=== PATIENT | female | born 1975 | race Caucasian/White ===

== ENCOUNTER → 2019-12-02 10:53 | Outpatient (BNVA) | payer OTHER, SELFPAY | PROVIDERS: Family Provider Family Medicine; PCP Family Medicine; Referring Provider Family Medicine; Visit Provider Internal Medicine Rheumatology | DX: M32.9 Systemic lupus erythematosus, unspecified (principal); Z23 Encounter for immunization; M06.9 Rheumatoid arthritis, unspecified; Z79.899 Other long term (current) drug therapy; M79.7 Fibromyalgia; M81.0 Age-related osteoporosis without current pathological fracture; Z79.52 Long term (current) use of systemic steroids; E55.9 Vitamin D deficiency, unspecified | CPT/HCPCS: 36415; 85651; 90471; 90732; 96365; 96374; 96375; 99214; J0490; J1200; J2930; J7050 ==

== ENCOUNTER 2019-12-02 11:55 | Outpatient (CLI) | payer OTHER, SELFPAY ==
[2019-12-02 12:34] VITALS: BP 135/93; PULSE 103; RESP 18; TEMP 36.8; O2SAT 97
[2019-12-02] MEDS: diphenhydrAMINE 50 mg/mL SDV 1mL IVP (13:09)
[2019-12-02] MEDS: sodium chloride 0.9 % (flush) syringe 10 mL 50 ML IV (14:16)
[2019-12-02 15:30] VITALS: BP 132/87; PULSE 93; RESP 18; TEMP 36.4; O2SAT 97
--- NOTE | 2019-12-02 16:17 | PC.NURSE ---
INFUSION OVER 2HRS DUE TO PATIENT AND PHYSICIAN PREFERENCE.
== END 2019-12-02 11:56 | disposition home or self-care (01) ==
LOC: RHEOACUTE 11:56
PROVIDERS: Family Provider Family Medicine; PCP Family Medicine; Visit Provider Internal Medicine Rheumatology
DX: Z76.89 Persons encountering health services in other specified circumstances (principal)
CPT/HCPCS: 85651; 90471; 90732; 96375; J0490; J1200; J2930; J7050

== ENCOUNTER → 2019-12-02 12:04 | Outpatient (BNVA) | payer OTHER, SELFPAY | PROVIDERS: Family Provider Family Medicine; PCP Family Medicine; Visit Provider Internal Medicine Rheumatology | DX: M32.9 Systemic lupus erythematosus, unspecified (principal); D89.9 Disorder involving the immune mechanism, unspecified | CPT/HCPCS: 85025 ==

== ENCOUNTER → 2020-02-26 15:13 | Outpatient (BNVA) | payer OTHER, SELFPAY | PROVIDERS: Family Provider Family Medicine; PCP Family Medicine; Visit Provider Internal Medicine Rheumatology | DX: M32.9 Systemic lupus erythematosus, unspecified (principal); E55.9 Vitamin D deficiency, unspecified; Z79.899 Other long term (current) drug therapy; Z11.59 Encounter for screening for other viral diseases; Z72.89 Other problems related to lifestyle | CPT/HCPCS: 36415; 80076; 81001; 82306; 82565; 82570; 84156; 85025; 85651; 86140; 86160; 86480; 86704; 86803; 87340 ==

== ENCOUNTER 2020-03-04 12:59 | Outpatient (CLI) | payer OTHER, SELFPAY ==
[2020-03-04 13:20] VITALS: BP 120/82; PULSE 104; RESP 18; TEMP 36.5; O2SAT 96
[2020-03-04] MEDS: diphenhydrAMINE 50 mg/mL SDV 1mL IVP (14:17)
[2020-03-04 16:15] VITALS: BP 131/90; PULSE 100; RESP 18; O2SAT 96
== END 2020-03-04 13:00 | disposition home or self-care (01) ==
LOC: RHEOACUTE 12:59
PROVIDERS: Family Provider Family Medicine; PCP Family Medicine; Visit Provider Internal Medicine Rheumatology
DX: M32.9 Systemic lupus erythematosus, unspecified (principal); Z86.39 Personal history of other endocrine, nutritional and metabolic disease; J34.89 Other specified disorders of nose and nasal sinuses; M81.0 Age-related osteoporosis without current pathological fracture; J96.90 Respiratory failure, unspecified, unspecified whether with hypoxia or hypercapnia
CPT/HCPCS: 36415; 82310; 83516; 84439; 84443; 96365; 96374; 96375; J0490; J1200; J2930; J7050

== ENCOUNTER 2020-03-23 10:45 | Outpatient (CLI) | payer OTHER, SELFPAY ==
[2020-03-23 11:10] VITALS: BP 142/97; PULSE 108; RESP 16; TEMP 36.6; O2SAT 98
--- NOTE | 2020-03-23 11:11 | PC.NURSE ---
c/o UTI symptoms. states urgency, pain, burning. Obtained urine specimen. Pt started crying stating she's hurting all over and wants to talk to the Dr about medication. Dr Cummings notified. Juan cancelled for today.
== END 2020-03-23 10:46 | disposition home or self-care (01) ==
LOC: RHEOACUTE 10:45
PROVIDERS: Family Provider Family Medicine; PCP Family Medicine; Visit Provider Internal Medicine Rheumatology
DX: M32.9 Systemic lupus erythematosus, unspecified (principal); M47.816 Spondylosis without myelopathy or radiculopathy, lumbar region; N39.0 Urinary tract infection, site not specified; M47.812 Spondylosis without myelopathy or radiculopathy, cervical region; M79.7 Fibromyalgia; M81.0 Age-related osteoporosis without current pathological fracture; Z79.52 Long term (current) use of systemic steroids; Z79.899 Other long term (current) drug therapy
CPT/HCPCS: 81001; 99214

== ENCOUNTER 2020-04-13 14:17 | Emergency (ER) | payer OTHER, SELFPAY ==
[2020-04-13] VITALS (7 sets, daily range): BP systolic 122–154; BP diastolic 82–109; PULSE 116–134; RESP 18–22; TEMP 36.9; O2SAT 96–100; BMI 40.7
--- NOTE | 2020-04-13 14:35 | XRR_ITS ---
PROCEDURE INFORMATION: Exam: XR Chest, 1 View Exam date and time: 04/13/2020 2:50 PM Age: 44 years old Clinical indication: Shortness of breath; Additional info: Cp, tachycardia, trouble breathing, hx/of asthma TECHNIQUE: Imaging protocol: XR of the chest Views: 1 view. COMPARISON: No relevant prior studies available. FINDINGS: Lungs: Unremarkable. No consolidation. Pleural space: Unremarkable. No pleural effusion. No pneumothorax. Heart/Mediastinum: Unremarkable. No cardiomegaly. Bones/joints: Unremarkable. XR/XR chest 1V portable [id number] IMPRESSION: No acute findings.
--- NOTE | 2020-04-13 14:35 | ECG_ITS ---
Measurements Intervals [place] Rate: 130 P: 21 NM: 124 QRS: 0 QRSD: 89 T: 37 QT: 333 QTc: 490 SINUS TACHYCARDIA NONSPECIFIC T-WAVE ABNORMALITY ABNORMAL RHYTHM ECG Compared to ECG 08/20/2018 11:02:22 T-wave abnormality now present Sinus rhythm no longer present Electronically Signed On 04-13-2020 19:35:48 CDT by Nancy Schmitt M.D. [id number] f
[2020-04-13 14:45] LABS: Basophils # 0.1 10^3/uL (0.0-0.1); Basophils % 0.5 %; Eosinophils # 0.4 10^3/uL (0.0-0.8); Eosinophils % 2.3 %; Hemoglobin 13.8 g/dL (11.5-15.3); Lymphocytes # 4.5 10^3/uL (0.8-4.8); Mean Corpuscular HGB Conc 32.9 g/dL (30.0-36.0); Mean Corpuscular Hemoglobin 28.5 pg (28.0-34.0); Mean Corpuscular Volume 86.8 fL (81-99); Mean Platelet Volume 8.8 fL (7.4-10.4); Monocytes # 1.1 10^3/uL (0.2-0.9); Monocytes % 5.9 %; Neutrophils # 12.4 10^3/uL (1.8-7.7); Neutrophils % 65.8 %; Nucleated Red Blood Cells % 0 %; Platelet Count 414 10^3/cmm (130-400); Red Blood Count 4.84 10^6/uL (4.1-5.3); Red Cell Distribution Width 11.6 % (12.1-15.1); White Blood Count 18.8 10^3/uL (4.0-10.0)
[2020-04-13 15:00] LABS: Alanine Aminotransferase 12 U/L (0-33); Albumin Level 4.3 g/dL (3.5-5.2); Alkaline Phosphatase 89 IU/L (35-105); Anion Gap 17.6 (5-19); Aspartate Amino Transferase 13 U/L (0-32); Blood Urea Nitrogen 10 mg/dL (6-20); Calcium 10.1 mg/dL (8.5-10.5); Carbon Dioxide 27 mmol/L (22-29); Chloride 95 mmol/L (98-107); Globulin 3.2 g/dL (1.3-4.6); Glomerular Filtration Rate 90.5 mL/min (90-130); Glucose 89 mg/dL (65-115); Osmolality Calculated 277 mOsm/kg (285-295); Potassium 3.6 mmol/L (3.5-5.1); Sodium 136 mmol/L (136-145); Total Bilirubin 0.2 mg/dL (0.15-1.2); Total Protein 7.5 g/dL (6.6-8.7)
[2020-04-13 15:03] LABS: Troponin(5th) Baseline 7 ng/L (0-10)
[2020-04-13] MEDS: sodium chloride 0.9% 500 ML 999 ML IV (15:05)
[2020-04-13] MEDS: LORazepam 2 mg/mL INJ 1 mL 0.5 MG IVP (15:07)
--- NOTE | 2020-04-13 15:33 | W.ED.CHESTPA ---
HPI - Chest Pain General: Chief Complaint: Chest Pain Stated Complaint: high hr/cp Time Seen by Provider: 04/13/20 14:19 History of Present Illness: HPI narrative: This patient is a 44 year old female with an extensive history including lupus, RA, functional seizures, chronic chest pain, CVA. 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 She says that she feels like her usual self today - she says that she alsways feels crappy due to her multiple medical issues. She has chest pain all the time due to inflammation in her breastbone, and she also notes that she has had a high rate for most of her life. She says that it is always high when she goes to her PCP, but that it usually isn't that high at the rheumatology office for some reason. She has had work up in the past including a holter monitor that showed sinus tachycardia as her baseline rhythm. She says that she has never been told why her heart rate runs high. She denies fever, cough, shortness of breath. She does have abdominal pain, but says that is a constant for her as well due to gastroparesis. complaint: chest pain and other (tachycardia) Pertinent past history: asthma Onset (ago): unknown Timing of current episode: constant Associated symptoms: Deny dyspnea, fever(s) or vomiting Review of Systems General: Reports: 10 or more systems reviewed and unremarkable except in HPI and below Const: Denies: fever(s) or chills Eyes: Denies: change in vision ENMT: Denies: odynophagia Card: Reports: chest pain (chronic, due to inflammation per patient); Denies: swelling of feet/ankles Resp: Denies: dyspnea, productive cough or non-productive cough GI: Denies: vomiting : Denies: flank pain or difficulty voiding Musc: Denies: neck pain or back pain Skin/Breast: Denies: rash Neuro: Denies: headache(s), numbness in extremities or weakness in extremities Mauri/Lymph: Denies: easy bruising or easy bleeding PFS ED PFSH: Medical History Antiphospholipid antibody positive Cervical spondylosis Fibromyalgia Gastroparesis Hx of Sjogren's disease Immunosuppression Lumbar spondylosis Medication monitoring encounter MGUS (monoclonal gammopathy of unknown significance) Osteoporosis Systemic lupus erythematosus (SLE) in adult Vitamin D deficiency Surgical History H/O tubal ligation History of cholecystectomy Social History Smoking and tobacco status: never smoked Second hand smoke exposure: Yes Alcohol intake: never Lives independently: Yes Household members: spouse Marital status: Number of children: 3 Current occupational status: disabled History of recent travel: No Current gender identity: Female Physical Exam Const: COMMON NORMALS: no acute distress, patient oriented x3, no limitations and alert GENERAL APPEARANCE: cooperative and comfortable HENMT: HEAD & SCALP: normal to inspection FACE & SINUS: normal facial exam Eye: GENERAL EYE: appearance normal, both eyes and all related structures Neck/C-Spine: COMMON NORMALS: supple, no meningeal signs and no JVD Chest: COMMONS NORMALS: normal inspection of the chest Resp: COMMON NORMALS: normal respiratory effort, No use of accessory muscles and clear to auscultation bilaterally AUSCULTATION: clear to auscultation bilaterally Cardio: COMMON NORMALS: no JVD, regular rate, regular rhythm and No murmurs present (Cardio) RATE: regular rate and tachycardic RHYTHM: regular rhythm GI: COMMON NORMALS: Normal to inspection, nondistended, normoactive bowel sounds present, Soft to palpation and non-tender INSPECTION: Yes normal to inspection AUSCULTATION: Yes normoactive bowel sounds PALPATION: Yes Soft to palpation Back/Pelvis: COMMON NORMALS: thoracic and lumbar spine normal to inspection Extremity: COMMON NORMALS: normal to inspection Neuro: COMMON NORMALS: patient oriented x3, moves all extremities, no focal motor deficits and no sensory deficits noted SENSORIUM/ORIENTATION: Yes alert MENINGEAL SIGNS: Yes no meningeal signs Psych: COMMON NORMALS: mental status grossly normal, cooperative and normal affect Skin: COMMON NORMALS: no rashes or lesions noted and turgor normal GENERAL SKIN EXAM: no rashes or lesions noted and turgor normal Course Vital Signs: Vital signs: Vital Signs Temperature 98.5 F 04/13/20 14:24 Pulse Rate 122 H 04/13/20 18:20 Respiratory Rate 18 04/13/20 18:20 Blood Pressure 134/102 04/13/20 18:20 Pulse Oximetry 100 04/13/20 18:20 MDM - Chest Pain MDM Narrative: Medical decision making narrative: Tachycardia in a patient with extensive autoimmune disorders. She denies any symptoms related to this. She says that her heart rate has always been this high and she is not concerned at all. Review of prior records reveals that this actually is the case. She has had a history of persistent tachycardia on multiple visits in the past. Given a negative work-up and reassuring review of the records I think she is safe to go home. Lab Data: Labs: Lab Results 04/13/20 04/13/20 04/13/20 Range/Units 14:35 14:35 14:35 WBC 18.8 H (4.0-10.0) 10^3/ uL RBC 4.84 (4.1-5.3) 10^6/u L Hgb 13.8 (11.5-15.3) g/dL Hct 42.0 (37.0-47.0) % MCV 86.8 (81-99) fL MCH 28.5 (28.0-34.0) pg MCHC 32.9 (30.0-36.0) g/dL RDW 11.6 L (12.1-15.1) % Plt Count 414 H (130-400) 10^3/c mm MPV 8.8 (7.4-10.4) fL Neut % (Auto) 65.8 % Lymph % (Auto) 24.0 % [place] % (Auto) 5.9 % Eos % (Auto) 2.3 % Baso % (Auto) 0.5 % Neut # (Auto) 12.4 H (1.8-7.7) 10^3/u L Lymph # (Auto) 4.5 (0.8-4.8) 10^3/u L [place] # (Auto) 1.1 H (0.2-0.9) 10^3/u L Eos # (Auto) 0.4 (0.0-0.8) 10^3/u L Baso # (Auto) 0.1 (0.0-0.1) 10^3/u L Nucleated RBC % (a uto) 0 % Nucleated RBCs # 0.0 /100WBC Sodium 136 (136-145) mmol/L Potassium 3.6 (3.5-5.1) mmol/L Chloride 95 L (98-107) mmol/L Carbon Dioxide 27 (22-29) mmol/L Anion Gap 17.6 (5-19) BUN 10 (6-20) mg/dL Creatinine 0.7 (0.5-0.9) mg/dL GFR Calculation 90.5 (90-130) mL/min Glucose 89 (65-115) mg/dL Calculated Osmolal ity 277 L (285-295) mOsm/k g Calcium 10.1 (8.5-10.5) mg/dL Total Bilirubin 0.2 (0.15-1.2) mg/dL AST 13 (0-32) U/L ALT 12 (0-33) U/L Alkaline Phosphata se 89 (35-105) IU/L Troponin T Baselin e 7 (0-10) ng/L Troponin T 120 Min [place] (0-10) ng/L Delta Troponin T (0-10) ABS# Total Protein 7.5 (6.6-8.7) g/dL Albumin 4.3 (3.5-5.2) g/dL Globulin 3.2 (1.3-4.6) g/dL 04/13/20 Range/Units 16:26 WBC (4.0-10.0) 10^3/ uL RBC (4.1-5.3) 10^6/u L Hgb (11.5-15.3) g/dL Hct (37.0-47.0) % MCV (81-99) fL MCH (28.0-34.0) pg MCHC (30.0-36.0) g/dL RDW (12.1-15.1) % Plt Count (130-400) 10^3/c mm MPV (7.4-10.4) fL Neut % (Auto) % Lymph % (Auto) % [place] % (Auto) % Eos % (Auto) % Baso % (Auto) % Neut # (Auto) (1.8-7.7) 10^3/u L Lymph # (Auto) (0.8-4.8) 10^3/u L [place] # (Auto) (0.2-0.9) 10^3/u L Eos # (Auto) (0.0-0.8) 10^3/u L Baso # (Auto) (0.0-0.1) 10^3/u L Nucleated RBC % (a uto) % Nucleated RBCs # /100WBC Sodium (136-145) mmol/L Potassium (3.5-5.1) mmol/L Chloride (98-107) mmol/L Carbon Dioxide (22-29) mmol/L Anion Gap (5-19) BUN (6-20) mg/dL Creatinine (0.5-0.9) mg/dL GFR Calculation (90-130) mL/min Glucose (65-115) mg/dL Calculated Osmolal ity (285-295) mOsm/k g Calcium (8.5-10.5) mg/dL Total Bilirubin (0.15-1.2) mg/dL AST (0-32) U/L ALT (0-33) U/L Alkaline Phosphata se (35-105) IU/L Troponin T Baselin e (0-10) ng/L Troponin T 120 Min [place] 6.00 (0-10) ng/L Delta Troponin T -1.00 L (0-10) ABS# Total Protein (6.6-8.7) g/dL Albumin (3.5-5.2) g/dL Globulin (1.3-4.6) g/dL Discharge Plan Discharge Patient Disposition: Home, Self-Care Clinical Impression: Tachycardia Condition: Stable Prescriptions: No Action pilocarpine HCl [Salagen (pilocarpine)] 5 mg tablet 5 mg PO TID PRN (Reason: unknown) RF: 0 promethazine 25 mg tablet 25 mg PO Q6H PRN (Reason: unknown) RF: 0 hydroxychloroquine 200 mg tablet 200 mg PO BID RF: 0 hydroxyzine HCl 25 mg tablet 25 mg PO .q 8 hours PRN (Reason: prn) RF: 0 diclofenac sodium [Voltaren] 1 % gel 2 gm TOPICAL QID PRN (Reason: unknown) RF: 0 gabapentin 600 mg tablet 600 mg PO TID RF: 0 gabapentin 300 mg capsule 300 mg PO TID RF: 0 desvenlafaxine succinate [Pristiq] 50 mg tablet extended release 24 hr 50 mg PO DAILY RF: 0 lamotrigine 25 mg tablet 75 mg PO TID RF: 0 aspirin [Adult Aspirin Regimen] 81 mg tablet,delayed release (DR/EC) 81 mg PO DAILY RF: 0 atorvastatin [Lipitor] 40 mg tablet 40 mg PO DAILY RF: 0 diltiazem HCl [Cartia XT] 240 mg capsule,extended release 24hr 240 mg PO DAILY RF: 0 pantoprazole 40 mg tablet,delayed release (DR/EC) 40 mg PO BID RF: 0 clopidogrel [Plavix] 75 mg tablet 75 mg PO DAILY RF: 0 levothyroxine 137 mcg capsule 137 mcg PO DAILY RF: 0 albuterol sulfate 90 mcg/actuation HFA aerosol inhaler 2 puff INHALATION Q6H PRN (Reason: Shortness Of Breath) RF: 0 epinephrine [EpiPen] 0.3 mg/0.3 mL auto-injector 0.3 mg IM Q10M PRN (Reason: Allergic Reaction) RF: 0 cetirizine [Zyrtec] 10 mg tablet 10 mg PO DAILY RF: 0 metoclopramide HCl [Reglan] 10 mg tablet 15 mg PO TID RF: 0 furosemide [Lasix] 20 mg tablet 10 mg PO QAM PRN (Reason: edema) RF: 0 carisoprodol 350 mg tablet 350 mg PO TID PRN (Reason: muscle pain) RF: 0 oxycodone 15 mg tablet 15 mg PO Q4H PRN (Reason: Pain) RF: 0 clonazepam 1 mg tablet 1 mg PO BID PRN (Reason: unknown) RF: 0 cholecalciferol (vitamin D3) 50 mcg (2,000 unit) capsule 50 mcg PO DAILY Qty: 30 RF: 3 fluticasone propion-salmeterol [Advair Diskus] 250-50 mcg/dose blister with device 1 inh INHALATION BID Qty: 60 RF: 3 azathioprine 50 mg tablet 50 mg .ROUTE .COMPLEX Qty: 150 RF: 1 prednisone 2.5 mg tablet 7.5 mg PO DAILY Qty: 90 RF: 1 Tylenol Extra Strength 500 mg Tablet 1,000 mg PO PRN PRN (Reason: Pain) RF: 0 Benlysta 120 mg recon soln See Rx Instructions .ROUTE .COMPLEX RF: 0 Discharge Orders: Discharge Order (Routine); Ordered 04/13/20 Ordered By: Ana Lopez Referrals: Milady Crystal DO [Primary Care Provider] - Discharge Date/Time: 04/13/20 18:20 Coding Level of Care Code ED News Broadcaster for Chg Fwd Exam Comprehensive
--- NOTE | 2020-04-13 16:35 | ECG_ITS ---
Measurements Intervals [place] Rate: 112 P: 40 [place]: 133 QRS: 6 QRSD: 85 T: 17 QT: 274 QTc: 375 SINUS TACHYCARDIA NONSPECIFIC T-WAVE ABNORMALITY ABNORMAL RHYTHM ECG Compared to ECG 04/13/2020 14:34:52 No significant changes Electronically Signed On 04-14-2020 7:01:07 CDT by Dalton Romero M.D. [id number] f
== END 2020-04-13 18:20 | disposition home or self-care (01) ==
PROVIDERS: Emergency Provider Emergency Medicine; PCP Family Medicine
DX: R00.0 Tachycardia, unspecified (principal); Z79.82 Long term (current) use of aspirin; Z79.02 Long term (current) use of antithrombotics/antiplatelets; M32.9 Systemic lupus erythematosus, unspecified
CPT/HCPCS: 12345; 36415; 71045; 80053; 84484; 85025; 93005; 96360; 96374; 96375; 99283; 99284; J2060; J7040

== ENCOUNTER 2020-05-11 13:54 | Outpatient (CLI) | payer OTHER, SELFPAY ==
[2020-05-11 14:06] VITALS: BP 129/91; PULSE 124; RESP 18; TEMP 36.8; O2SAT 96
[2020-05-11] MEDS: diphenhydrAMINE 50 mg/mL SDV 1mL 25 MG IVP (14:30)
[2020-05-11] MEDS: denosumab 60 mg SDV SUBCUT (14:59)
[2020-05-11 15:37] VITALS: BP 130/89; PULSE 110; RESP 16
== END 2020-05-11 13:55 | disposition home or self-care (01) ==
LOC: RHEOACUTE 13:54
PROVIDERS: PCP Family Medicine; Visit Provider Internal Medicine Rheumatology
DX: M81.0 Age-related osteoporosis without current pathological fracture (principal)
CPT/HCPCS: 96366; 96372; 96374; 96375; J0897; J1200; J2920

== ENCOUNTER 2020-05-13 14:20 | Outpatient (CLI) | payer OTHER, SELFPAY ==
[2020-05-13 14:30] VITALS: BP 127/86; PULSE 87; RESP 16; TEMP 36.6; O2SAT 96
[2020-05-13] MEDS: diphenhydrAMINE 50 mg/mL SDV 1mL 25 MG IVP (15:00)
[2020-05-13 17:22] VITALS: BP 139/87; PULSE 75; RESP 18; O2SAT 96
== END 2020-05-13 14:21 | disposition home or self-care (01) ==
LOC: RHEOACUTE 14:21
PROVIDERS: PCP Family Medicine; Visit Provider Internal Medicine Rheumatology
DX: M32.9 Systemic lupus erythematosus, unspecified (principal); Z79.899 Other long term (current) drug therapy
CPT/HCPCS: 80076; 81003; 82565; 82570; 84155; 84156; 84165; 85025; 85651; 86140; 86160; 96365; 96374; 96375; J0490; J1200; J2930; J7050

== ENCOUNTER 2020-06-10 13:23 | Outpatient (CLI) | payer OTHER, SELFPAY ==
[2020-06-10 13:39] VITALS: BP 153/106; PULSE 127; RESP 18; TEMP 36.8; O2SAT 98
--- NOTE | 2020-06-10 13:47 | PC.NURSE ---
1340 Suicide Assessment done. Pt very tearful, states due to COVID she misses her family and doing things. States she is on medication for depression. Denies suicidal thoughts. Refuses [facility] at this time. States it's not that bad and that she cannot go to a clinic and be exposed.
--- NOTE | 2020-06-10 14:01 | PC.NURSE ---
1330 States she is upset and pain and that is why VS elevated. States it will improve as she rests.
[2020-06-10 14:04] VITALS: BP 134/95; PULSE 108
[2020-06-10] MEDS: diphenhydrAMINE 50 mg/mL SDV 1mL IVP (14:40)
[2020-06-10 16:58] VITALS: BP 125/85; PULSE 96; RESP 16; O2SAT 96
== END 2020-06-10 13:24 | disposition home or self-care (01) ==
LOC: RHEOACUTE 13:24
PROVIDERS: PCP Family Medicine; Visit Provider Internal Medicine Rheumatology
DX: M32.9 Systemic lupus erythematosus, unspecified (principal); L65.9 Nonscarring hair loss, unspecified
CPT/HCPCS: 84443; 96365; 96375; J0490; J1200; J2930; J7050

== ENCOUNTER 2020-09-23 12:44 | Outpatient (CLI) | payer OTHER, SELFPAY ==
[2020-09-23 13:05] VITALS: BP 140/96; PULSE 117; RESP 16; TEMP 36.7; O2SAT 97
[2020-09-23 13:27] VITALS: BMI 37.9
[2020-09-23] MEDS: diphenhydrAMINE 50 mg/mL SDV 1mL IVP (13:55)
[2020-09-23 16:17] VITALS: BP 116/82; PULSE 90; RESP 16; O2SAT 98
== END 2020-09-23 12:45 | disposition home or self-care (01) ==
LOC: RHEOACUTE 12:44
PROVIDERS: PCP Family Medicine; Visit Provider Internal Medicine Rheumatology
DX: M32.9 Systemic lupus erythematosus, unspecified (principal); Z79.899 Other long term (current) drug therapy; D89.9 Disorder involving the immune mechanism, unspecified
CPT/HCPCS: 36415; 80076; 81001; 82565; 82570; 84156; 85025; 85651; 86140; 87086; J0490; J1200; J2930; J7050

== ENCOUNTER 2020-11-03 13:00 | Outpatient (CLI) | payer OTHER, SELFPAY ==
[2020-11-03 13:19] VITALS: BP 138/90; PULSE 99; RESP 16; TEMP 36.7; O2SAT 98
[2020-11-03 13:38] VITALS: BMI 38.0
[2020-11-03] MEDS: diphenhydrAMINE 50 mg/mL SDV 1mL IVP (13:49)
[2020-11-03 16:24] VITALS: BP 139/86; PULSE 97; RESP 16; O2SAT 98
== END 2020-11-03 13:01 | disposition home or self-care (01) ==
LOC: RHEOACUTE 13:00
PROVIDERS: PCP Family Medicine; Visit Provider Internal Medicine Rheumatology
DX: M32.9 Systemic lupus erythematosus, unspecified (principal); Z79.899 Other long term (current) drug therapy
CPT/HCPCS: 82310; 82565; 96365; 96375; J0490; J1200; J2930; J7050

== ENCOUNTER 2021-01-06 13:52 | Outpatient (CLI) | payer OTHER, SELFPAY ==
[2021-01-06 14:30] VITALS: BP 143/88; PULSE 118; RESP 20; TEMP 37.2; O2SAT 95
[2021-01-06] MEDS: acetaminophen 325 mg Tablet 650 MG PO (14:35)
[2021-01-06] MEDS: sodium chloride 0.9% 250 ML IV (14:35)
[2021-01-06] MEDS: diphenhydrAMINE 50 mg/mL SDV 1mL 25 MG IVP (14:35)
[2021-01-06 14:40] LABS: Basophils # 0.1 10^3/uL (0.0-0.1); Basophils % 0.5 %; Eosinophils # 0.2 10^3/uL (0.0-0.8); Hematocrit 41.1 % (37.0-47.0); Hemoglobin 13.6 g/dL (11.5-15.3); Lymphocytes # 5.2 10^3/uL (0.8-4.8); Lymphocytes % 21.9 %; Mean Corpuscular HGB Conc 33.1 g/dL (30.0-36.0); Mean Corpuscular Hemoglobin 29.3 pg (28.0-34.0); Mean Corpuscular Volume 88.6 fL (81-99); Mean Platelet Volume 9.1 fL (7.4-10.4); Monocytes # 1.3 10^3/uL (0.2-0.9); Monocytes % 5.4 %; Neutrophils # 16.75 10^3/uL (1.8-7.7); Neutrophils % 70.2 %; Nucleated Red Blood Cells % 0 %; Platelet Count 424 10^3/cmm (130-400); Red Blood Count 4.64 10^6/uL (4.1-5.3); Red Cell Distribution Width 11.7 % (12.1-15.1); White Blood Count 23.8 10^3/uL (4.0-10.0)
[2021-01-06 15:06] LABS: Alanine Aminotransferase 8 U/L (0-33); Albumin Level 4.4 g/dL (3.5-5.2); Alkaline Phosphatase 70 IU/L (35-105); Aspartate Amino Transferase 8 U/L (0-32); Globulin 2.8 g/dL (1.3-4.6); Glomerular Filtration Rate 77.2 mL/min (90-130); Total Bilirubin 0.2 mg/dL (0.15-1.2); Total Protein 7.2 g/dL (6.6-8.7)
[2021-01-06 15:30] VITALS: BP 118/80; PULSE 98; RESP 17; TEMP 37.2; O2SAT 96
[2021-01-06 16:00] VITALS: BP 123/75; PULSE 102; RESP 18; TEMP 37.2; O2SAT 97
[2021-01-06 17:00] VITALS: BP 123/75; PULSE 95; RESP 18; TEMP 36.6; O2SAT 97
[2021-01-06 17:20] LABS: Add Urine Microscopic? YES; Bilirubin Urine 1+ (Negative); Blood Urine 2+ (Negative); Glucose Urine UA Norm (Normal); Ketones Urine Negative (Negative); Leukocyte Esterase Urine Negative (Negative); Mucus Urine 4+ /hpf; Nitrate Urine Negative (Negative); Protein Urine Neg (Negative); Specific Gravity, Urine 1.025 (1.005-1.030); Urine Appearance SL Hazy (CLEAR); Urine Color Yellow (Yellow); Urobilinogen Urine 1 mg/dL (Negative); pH Urine 5 (5-7)
[2021-01-06 17:21] LABS: Bacteria Urine 1+ /hpf
[2021-01-06 17:22] LABS: Add Urine Culture? No; Calcium Oxalate Crystals Urine 15-25 /hpf; WBC Urine 0-4 /hpf (0-5)
[2021-01-06 17:30] VITALS: BP 125/84; PULSE 100; RESP 18; TEMP 37.1; O2SAT 99
[2021-01-06 22:44] LABS: Urine Creatinine 431 mg/dL (28-217)
[2021-01-06 22:46] LABS: Urine Protein Random 47 mg/dL
== END 2021-01-06 13:53 | disposition home or self-care (01) ==
LOC: ONCMED 13:57
PROVIDERS: PCP Family Medicine; Visit Provider Internal Medicine Rheumatology
DX: M32.9 Systemic lupus erythematosus, unspecified (principal)
CPT/HCPCS: 80076; 81001; 82565; 82570; 84156; 85025; 96365; 96366; 96375; J0490; J1200; J2920; J7050

== ENCOUNTER 2021-02-02 08:35 | Outpatient (CLI) | payer OTHER, SELFPAY ==
--- NOTE | 2021-02-02 09:16 | XR_ITS ---
WS: [id number] PELVIS TECHNIQUE: 1 view(s) of the pelvis CLINICAL INFORMATION: W19.XXXA - Unspecified fall, initial encounter COMPARISON: None. FINDINGS: Mild degenerative narrowing both hips. No erosive changes. No evidence of avascular necrosis. Normal sacroiliac joints and sacrum. Normal pubic rami. Pelvic IUD projected over the sacrum. XR/XR pelvis 1-2V* [id number] IMPRESSION: No acute pelvic findings.
--- NOTE | 2021-02-02 09:16 | MR_ITS ---
WS: [id number] MRI CERVICAL SPINE NONCONTRAST AND CONTRAST TECHNIQUE: Sagittal T1, T2 and STIR imaging. Axial T2, gradient, and fiesta imaging. Post gadolinium imaging was obtained. CLINICAL INFORMATION: M32.9 - Systemic lupus erythematosus, unspecified COMPARISON: February 2012 FINDINGS: Straightening of the normal cervical lordosis. No high-grade central canal narrowing. Cord signal is normal. No abnormal gadolinium enhancement. Mild disc bulging worse at C5-C6 and C6-C7. This is simil ar in appearance to 2012. C2-C3: Normal. C3-C4: Normal. C4-C5: No significant disc bulging. Mild facet arthropathy. Mild bilateral bony foraminal narrowing. Spinal canal is patent. C5-C6: Disc osteophyte complex with a tiny central protrusion. Tiny annular fissure. Mild to moderate facet arthropathy. Mild to moderate left and mild right bony foraminal narrowing. Spinal canal is pa tent. C6-C7: Mild disc bulging with slight effacement of the ventral thecal sac eccentric to the right. Spi nal canal is patent. Mild bilateral foraminal narrowing. Mild facet arthropathy. C7-T1: No significant disc bulging. Mild/moderate left and mild right bony foraminal narrowing. Spina l canal is patent. Visualized brain stem structures: Normal. Prevertebral soft tissues: Normal. MR/MR cervical spine wo/w [id number] IMPRESSION: 1. Straightening of the normal cervical lordosis. Cord signal is normal. 2. No abnormal gadolinium enhancement. 3. Small central disc protrusions C5-C6 and C6-C7 with slight effacement of ve ntral thecal sac. No significant central canal stenosis. 4. Mild to moderate bony foraminal narrowing worse at left C5-C6 and left C7-T 1.
--- NOTE | 2021-02-02 09:16 | XR_ITS ---
WS: [id number] LUMBAR SPINE TECHNIQUE: 3 views of the lumbar spine CLINICAL INFORMATION: W19.XXXA - Unspecified fall, initial encounter COMPARISON: 2012 FINDINGS: Five [id number]-jsyigol lumbar vertebral bodies. Cholecystectomy clips. Mild lumbar curve convex right. Moderate facet arthropathy L5-S1. Mild disc sp portillo narrowing L5-S1. Mild disc space narrowing lower thoracic spine upper lumbar spine at L1-2. This appears progressed since 2011. XR/XR lumbar spine 2-3V* [id number] IMPRESSION: 1. Mild spondylitic changes lumbar spine. No acute appearing compression fract ures. 2. Mild chronic appearing anterior wedging lower thoracic and upper lumbar spi ne with mild disc space narrowing.
--- NOTE | 2021-02-02 09:16 | MR_ITS ---
WS: [id number] MRI HEAD WITH CONTRAST TECHNIQUE: Sagittal T1, T2 axial, T2 axial FLAIR, axial susceptibility weighted imaging, axial diffus ion weighted images, and coronal T2 images were obtained. Pre and post-T1 axial and post T1 coronal i mages. ADC and FSPGR images. CLINICAL INFORMATION: M32.9 - Systemic lupus erythematosus, unspecified COMPARISON: MRI August 2018 FINDINGS: No evidence of restricted diffusion to suggest acute ischemia. Ventricular system and basal cisterns are patent. No suspicious intracranial signal abnormalities. Mild parenchymal volume loss. Normal pos terior fossa. Normal vascular flow voids at the skull base. No extra-axial fluid collections. No evidence of mass or mass effect. Mild mucosal thickening in the left maxillary sinus. Paranasal sinuses otherwise well aerated. Mastoid air cells are well aerated. N o hemosiderin on susceptibly weighted images. Normal dural venous sinuses. No abnormal gadolinium enhancement. Normal optic chiasm and pituitary in fundibulum. Normal cavernous sinuses and Meckel's cave. Temporal lobes hippocampal formations are nor mal in appearance. MR/MR head wo/w con [id number] IMPRESSION: 1. No evidence of restricted diffusion to suggest acute ischemia. 2. No suspicious intracranial signal abnormalities. 3. Mild parenchymal volume loss. 4. No abnormal gadolinium enhancement. Normal dural venous sinuses. 5. Mild mucosal thickening left maxillary sinus. 6. No other significant findings.
--- NOTE | 2021-02-02 09:16 | XR_ITS ---
WS: [id number] THORACIC SPINE TECHNIQUE: 3 views of the thoracic spine CLINICAL INFORMATION: W19.XXXA - Unspecified fall, initial encounter COMPARISON: None. FINDINGS: Cholecystectomy clips. Mild thoracic curve convex left. Mild disc space narrowing in the mid thoracic spine. Vertebral body heights and disc space heights are otherwise well preserved. No acute thoracic spine findings. XR/XR thoracic spine 3V* [id number] IMPRESSION: No acute thoracic spine findings.
[2021-02-02] MEDS: gadobenate dimeglumine 20 mL vial IV (10:25)
== END 2021-02-02 08:36 | disposition home or self-care (01) ==
PROVIDERS: PCP Family Medicine; Visit Provider Internal Medicine Rheumatology
DX: M32.9 Systemic lupus erythematosus, unspecified (principal); R26.89 Other abnormalities of gait and mobility; R29.6 Repeated falls; W19.XXXA Unspecified fall, initial encounter; R42 Dizziness and giddiness; M54.9 Dorsalgia, unspecified
CPT/HCPCS: 70553; 72072; 72100; 72156; 72170; A9577

== ENCOUNTER 2021-02-21 12:27 | Outpatient (CLI) | payer OTHER, SELFPAY ==
[2021-02-21 13:13] LABS: Basophils # 0.1 10^3/uL (0.0-0.1); Basophils % 0.6 %; Eosinophils # 0.1 10^3/uL (0.0-0.8); Eosinophils % 0.7 %; Hematocrit 41.7 % (37.0-47.0); Hemoglobin 13.9 g/dL (11.5-15.3); Lymphocytes # 4.2 10^3/uL (0.8-4.8); Lymphocytes % 23.4 %; Mean Corpuscular HGB Conc 33.3 g/dL (30.0-36.0); Mean Corpuscular Hemoglobin 28.7 pg (28.0-34.0); Mean Platelet Volume 8.9 fL (7.4-10.4); Monocytes # 1.1 10^3/uL (0.2-0.9); Monocytes % 6.4 %; Neutrophils # 12.04 10^3/uL (1.8-7.7); Neutrophils % 68.1 %; Nucleated Red Blood Cells % 0 %; Platelet Count 423 10^3/cmm (130-400); Red Blood Count 4.85 10^6/uL (4.1-5.3); Red Cell Distribution Width 11.3 % (12.1-15.1); White Blood Count 17.7 10^3/uL (4.0-10.0)
--- NOTE | 2021-02-21 17:25 | ONC CON_ITS ---
Dr. Hall New Patient Note Patient: Tereza Flaherty Unit #: [id number]: 1975 Dicatated By: Tony Hall M.D.Date of Visit: Feb 21, 2021 Onc MED New Patient/Consult Referring Physician: MD Malia Farmer M.D. History of Present Illness: Ms. Tereza Flaherty, is a 45-year-old female with more than 10-year long history of mild/moderate leukocytosis as per patient her white blood count would stay in the range of 12,000-15,000, in the past she was treated with antibiotics on multiple occasion without much improvement, patient has longstanding history of steroid use for chronic inflammatory disorder like lupus, chronic arthritis and patient is on also Flonase inhaler. Patient has complex medical history including history of mini strokes, fibromyalgia, GERD/gastroparesis, lupus, osteoarthritis, Raynaud's disease, rheumatoid arthritis, seizure disorder, Sjogren's disease, and history of MGUS..As per patient she used to see Dr. Cherry for MGUS and underwent 24-hour urine testing as well as other test but then she lost follow-up about 2 years ago Patient denies any history of recurrent infections, denies any night sweats, denies any weight loss, denies any peripheral lymphadenopathy denies any recurrent urine tract infections, as per patient her labs done on November 02, 2020 showed white blood count was 15.3, hemoglobin 14.2 hematocrit 42.5 platelets 424,000 with a mild left shift, neutrophil count 10.1 Patient denies smoking or alcohol use. Denies any fever chills denies any nausea vomiting diarrhea or constipation denies any weight loss. Past Medical History: Ms. Trimble medical history consists of anxiety, cerebrovascular disease, fibromyalgia, gastroesophageal reflux disease, Imer's thyroiditis, hyperlipidemia, hypertension, hypothyroidism, Lupus, obesity, osteoarthritis, Raynaud disease, rheumatoid arthritis, seizure disorder, and Sjorgren's disease. Past Surgical History: Ms. Trimble surgical/procedural history consists of Colonoscopy, tubal ligation in 1998, and cholecystectomy in 1996. Medications: Actonel 1 Tablet (of 150 mg) Oral q 30 days, Adult Aspirin EC Low Strength (81 mg) Tablet, enteric coated Oral daily, Albuterol Sulfate 2 puff(s) (of 108 (90 base) mcg/act) Aerosol Powder, Breath Activated Inhalation q 6 hours, Aspirin 1 Tablet (of 81 mg) Tablet, chewable Oral daily, Atorvastatin Calcium (80 mg) Tablet Oral daily, azaTHIOprine 1 (50 mg) Tablet Oral at bedtime, azaTHIOprine 2 (50 mg) Tablet Oral every am, AzaTHIOprine 2 Tablet (of 50 mg) Oral b.i.d., Desvenlafaxine ER (100 mg) Tablet SR 24 HR Oral every am, EPINEPHrine Injection PRN, Ergocalciferol 1 Tablet (of 2000 Units) Capsule Oral daily, Flonase 2 spray(s) (of 50 mcg/act) Suspension Nasal daily, Gabapentin 3 Tablet (of 600 mg) Capsule Oral t.i.d., Hydroxychloroquine Sulfate 1 Tablet (of 200 mg) Oral b.i.d., HydrOXYzine HCl 1 Tablet (of 25 mg) Oral daily, KlonoPIN 1 Tablet (of 0.5 mg) Oral b.i.d. PRN, Levothroid 1 Tablet (of 137 mcg) Oral daily, Lidocaine 3 patch(es) (of 5 %) Patch Topical q 12 hours, Lubiprostone (24 mcg) Capsule Oral b.i.d., Meclizine HCl Tablet Oral PRN, Nitroglycerin Tablet, sublingual Sublingual PRN, Olopatadine HCl Solution Nasal daily, OxyCODONE HCl ER 1 Tablet (of 15 ) Tablet Delayed Release Oral 5x/d, Phenergan (25 mg) Tablet Oral Take as Directed, Pilocarpine HCl (5 mg) Tablet Oral t.i.d., Plavix 1 Tablet (of 75 mg) Oral daily, PredniSONE 7.5 mg Tablet Oral daily, Pristiq 1 Tablet (of 25 mg) Tablet SR 24 HR Oral daily, Protonix 1 Tablet (of 40 mg) Tablet, enteric coated Oral b.i.d., Reglan Tablet Oral PRN, Soma 1 Tablet (of 350 mg) Oral daily, Verapamil HCl ER 0.5 Tablet (of 240 mg) Capsule SR 24 HR Oral daily, Voltaren Gel (jelly) Transdermal PRN Allergies: Diclofenac-miSOPROStol Social History: Ms. Flaherty is and she is unemployed. Ms. Flaherty has never smoked. She has no history of drinking. Family History: Ms. Flaherty's mother is alive: arthritis, and hypertension. Ms. Flaherty's father is alive: arthritis, and hypertension. Ms. Flaherty has 3 brothers: 3 alive. Review Of Symptoms: Review of Systems is not available for this patient. Vital Signs: Performed on Feb 21, 2021 14:22: 6, 7, 36.84 (HIGH), 2.17 sq.m, 67.00 in, 97 %, 122 /min (HIGH), 18 /min, 151/95 mm(hg) (HIGH), 98.2 F (LOW), and 235.2 lbs (LOW). Performance Status: 1 - No physically strenuous activity, but ambulatory and able to carry out light or sedentary work (e.g. office work, light house work). (ECOG) Physical Examination: ENMT - No mouth sores, no thrush, no jaundice no cervical lymphadenopathy, Respiratory - Poor air entry otherwise clear, Cardiovascular - Regular rate and rhythm of heart, Abdomen - Soft, bowel sounds present, Extremities - No visible edema. Lab/Imaging: Most recent lab results are not available for this patient. Impression: 1. 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 This was initially discovered on serum protein electrophoresis in June 2016By clinical evaluation, there was no evidence of associated myeloma. 3. She has underlying autoimmune disease including systemic lupus erythematosus, Sjogren's syndrome, and antiphospholipid antibody syndrome. She is on immunosuppressive therapy. Her other medical illnesses include: 3. Epilepsy. 4. Chronic migraine. 5. Degenerative disease of the spine and fibromyalgia. 6. Hypothyroidism. 7. Hyperlipidemia. 8. GERD. 9. Gastroparesis. 10. Osteopenia. 11. She was found to have oxygen desaturation, for which she is on home oxygen. Plan: Discussed with patient regarding her labs white blood count 17.7 hemoglobin 13.9 hematocrit 41.7 platelets 423,000 neutrophil count 12,040, Clinically, patient doing well with no signs symptom suggestive of acute or chronic infection patient has complex history of connective tissue disorder which include SLE, Sjogren's syndrome, antiphospholipid antibody syndrome and So etiology of mild to moderate leukocytosis, appears multifactorial including medication like chronic use of oral steroids, and Fllonase , as per patient she is on prednisone for more than 10 years initially she is take 2.5 mg to 5 mg daily but recently her trimmer press clippings increased her dose to 7.5 mg daily and she is also receiving Benlysta infusion for lupus and also in the past she has taken Rituxan. At this point, we will review peripheral blood smear and also order all blood flow cytometry to rule out myeloproliferative disorder, as patient has history of MGUS/light chain disorder, will repeat serum protein electrophoresis and immunofixation and serum light chain assay. She will return to clinic in 2 weeks with CBC Signed By: Tony Hall M.D. <<Signature on File>>
[2021-02-22 11:13] LABS: LAB Peripheral Smear Sent for Review
[2021-02-23 09:32] LABS: PROTEIN, TOTAL 6.8 g/dL (6.1-8.1)
[2021-02-23 15:33] LABS: ALPHA 1 GLOBULIN 0.4 g/dL (0.2-0.3); ALPHA 2 GLOBULIN 0.9 g/dL (0.5-0.9); BETA 1 GLOBULIN 0.4 g/dL (0.4-0.6); BETA 2 GLOBULIN 0.4 g/dL (0.2-0.5); GAMMA GLOBULIN 0.7 g/dL (0.8-1.7)
== END 2021-02-21 12:28 | disposition home or self-care (01) ==
PROVIDERS: PCP Family Medicine; Visit Provider Internal Medicine Hematology & Oncology
DX: D72.829 Elevated white blood cell count, unspecified (principal); R77.8 Other specified abnormalities of plasma proteins; M32.9 Systemic lupus erythematosus, unspecified; M35.00 Sjogren syndrome, unspecified; D68.61 Antiphospholipid syndrome; Z79.52 Long term (current) use of systemic steroids; G40.909 Epilepsy, unspecified, not intractable, without status epilepticus; G43.919 Migraine, unspecified, intractable, without status migrainosus; M47.9 Spondylosis, unspecified; M79.7 Fibromyalgia; E03.9 Hypothyroidism, unspecified; E78.5 Hyperlipidemia, unspecified; K21.9 Gastro-esophageal reflux disease without esophagitis; K31.84 Gastroparesis; M85.80 Other specified disorders of bone density and structure, unspecified site; Z99.81 Dependence on supplemental oxygen; Z79.899 Other long term (current) drug therapy
CPT/HCPCS: 80500; 84155; 84165; 84260; 85025; 99204

== ENCOUNTER 2021-02-22 06:09 | Outpatient (CLI) | payer OTHER, SELFPAY ==
[2021-02-22 14:20] VITALS: BP 140/85; PULSE 106; RESP 18; TEMP 37.3; O2SAT 96
[2021-02-22] MEDS: sodium chloride 0.9% (100 ml) 100 ML 40 ML (14:25)
[2021-02-22] MEDS: diphenhydrAMINE 50 mg/mL SDV 1mL IVP (14:28)
[2021-02-22 15:27] LABS: Calcium 9.1 mg/dL (8.5-10.5)
[2021-02-22 16:25] LABS: 25 Hydroxy Vitamin D 19 ng/mL (30-100); Thyroid Stimulating Hormone 0.53 uIU/mL (0.27-4.20)
[2021-02-22 16:32] VITALS: BP 126/83; PULSE 97; RESP 18; TEMP 36.7; O2SAT 98
[2021-02-23 08:57] LABS: PROTEIN, TOTAL 6.5 g/dL (6.1-8.1)
[2021-02-23 11:01] LABS: Glomerular Filtration Rate 77.2 mL/min (90-130)
[2021-02-23 15:33] LABS: ALBUMIN 3.9 g/dL (3.8-4.8); ALPHA 1 GLOBULIN 0.4 g/dL (0.2-0.3); ALPHA 2 GLOBULIN 0.8 g/dL (0.5-0.9); BETA 1 GLOBULIN 0.4 g/dL (0.4-0.6); BETA 2 GLOBULIN 0.4 g/dL (0.2-0.5); GAMMA GLOBULIN 0.6 g/dL (0.8-1.7)
== END 2021-02-22 06:10 | disposition home or self-care (01) ==
PROVIDERS: Internal Medicine Hematology & Oncology; Internal Medicine Rheumatology; PCP Family Medicine; Visit Provider Internal Medicine Medical Oncology
DX: Z51.11 Encounter for antineoplastic chemotherapy (principal); D72.829 Elevated white blood cell count, unspecified; D47.2 Monoclonal gammopathy; M81.0 Age-related osteoporosis without current pathological fracture
CPT/HCPCS: 82306; 82310; 82565; 84155; 84165; 84443; 88184; 88185; J0490; J1200; J2930; J7050

== ENCOUNTER 2021-03-10 13:08 | Outpatient (CLI) | payer OTHER, SELFPAY ==
[2021-03-10 13:45] VITALS: BP 138/97; PULSE 113; RESP 18; TEMP 36.9; O2SAT 97
[2021-03-10] MEDS: diphenhydrAMINE 50 mg/mL SDV 1mL 25 MG IVP (14:01)
[2021-03-10 14:04] LABS: Basophils # 0.1 10^3/uL (0.0-0.1); Basophils % 0.5 %; Eosinophils # 0.1 10^3/uL (0.0-0.8); Eosinophils % 0.9 %; Hemoglobin 12.7 g/dL (11.5-15.3); Lymphocytes # 2.5 10^3/uL (0.8-4.8); Lymphocytes % 16.4 %; Mean Corpuscular HGB Conc 32.6 g/dL (30.0-36.0); Mean Corpuscular Hemoglobin 28.7 pg (28.0-34.0); Mean Platelet Volume 8.6 fL (7.4-10.4); Monocytes # 0.8 10^3/uL (0.2-0.9); Monocytes % 5.2 %; Neutrophils # 11.76 10^3/uL (1.8-7.7); Neutrophils % 75.8 %; Nucleated Red Blood Cells % 0 %; Platelet Count 328 10^3/cmm (130-400); Red Blood Count 4.43 10^6/uL (4.1-5.3); White Blood Count 15.5 10^3/uL (4.0-10.0)
[2021-03-10] MEDS: denosumab 60 mg SDV SUBCUT (14:21)
--- NOTE | 2021-03-11 10:13 | ONC FU_ITS ---
Dr. Hall follow up note Patient: Tereza Flaherty Unit #: [id number]: 1975 Dicatated By: Tony Hall M.D.Date of Visit:March 10, 2021 Onc Med Follow-up/Prog Note History of Present Illness: Ms. Tereza Flaherty, is a 45-year-old female with more than 10-year long history of mild/moderate leukocytosis as per patient her white blood count would stay in the range of 12,000-15,000, in the past she was treated with antibiotics on multiple occasion without much improvement, patient has longstanding history of steroid use for chronic inflammatory disorder like lupus, chronic arthritis and patient is on also Flonase inhaler. Patient has complex medical history including history of mini strokes, fibromyalgia, GERD/gastroparesis, lupus, osteoarthritis, Raynaud's disease, rheumatoid arthritis, seizure disorder, Sjogren's disease, and history of MGUS..As per patient she used to see Dr. Cherry for MGUS and underwent 24-hour urine testing as well as other test but then she lost follow-up about 2 years ago Patient denies any history of recurrent infections, denies any night sweats, denies any weight loss, denies any peripheral lymphadenopathy denies any recurrent urine tract infections, as per patient her labs done on November 02, 2020 showed white blood count was 15.3, hemoglobin 14.2 hematocrit 42.5 platelets 424,000 with a mild left shift, neutrophil count 10.1 Patient denies smoking or alcohol use. Denies any fever chills denies any nausea vomiting diarrhea or constipation denies any weight loss. Whole blood flow cytometry done on February 22, 2021 showed no aberrant myeloid or lymphoid population or detected, repeat serum protein electrophoresis done on February 21, 2021 showed hypogammaglobulinemia, immunofixation shows no monoclonal protein. Came for follow-up, denies any specific complaints except off and on cervical lymphadenopathy and a mass in her left axilla, as per patient, in the past she had left axillary sonogram done which showed no obvious mass or lymphadenopathy and last mammogram was done many years ago occasionally night sweats but no weight loss, no recurrent fever Medications: Actonel 1 Tablet (of 150 mg) Oral q 30 days, Adult Aspirin EC Low Strength (81 mg) Tablet, enteric coated Oral daily, Albuterol Sulfate 2 puff(s) (of 108 (90 base) mcg/act) Aerosol Powder, Breath Activated Inhalation q 6 hours, Aspirin 1 Tablet (of 81 mg) Tablet, chewable Oral daily, Atorvastatin Calcium (80 mg) Tablet Oral daily, azaTHIOprine 1 (50 mg) Tablet Oral at bedtime, azaTHIOprine 2 (50 mg) Tablet Oral every am, AzaTHIOprine 2 Tablet (of 50 mg) Oral b.i.d., Desvenlafaxine ER (100 mg) Tablet SR 24 HR Oral every am, EPINEPHrine Injection PRN, Ergocalciferol 1 Tablet (of 2000 Units) Capsule Oral daily, Flonase 2 spray(s) (of 50 mcg/act) Suspension Nasal daily, Gabapentin 3 Tablet (of 600 mg) Capsule Oral t.i.d., Hydroxychloroquine Sulfate 1 Tablet (of 200 mg) Oral b.i.d., HydrOXYzine HCl 1 Tablet (of 25 mg) Oral daily, KlonoPIN 1 Tablet (of 0.5 mg) Oral b.i.d. PRN, Levothroid 1 Tablet (of 137 mcg) Oral daily, Lidocaine 3 patch(es) (of 5 %) Patch Topical q 12 hours, Lubiprostone (24 mcg) Capsule Oral b.i.d., Meclizine HCl Tablet Oral PRN, Nitroglycerin Tablet, sublingual Sublingual PRN, Olopatadine HCl Solution Nasal daily, OxyCODONE HCl ER 1 Tablet (of 15 ) Tablet Delayed Release Oral 5x/d, Phenergan (25 mg) Tablet Oral Take as Directed, Pilocarpine HCl (5 mg) Tablet Oral t.i.d., Plavix 1 Tablet (of 75 mg) Oral daily, PredniSONE 7.5 mg Tablet Oral daily, Pristiq 1 Tablet (of 25 mg) Tablet SR 24 HR Oral daily, Protonix 1 Tablet (of 40 mg) Tablet, enteric coated Oral b.i.d., Reglan Tablet Oral PRN, Soma 1 Tablet (of 350 mg) Oral daily, Verapamil HCl ER 0.5 Tablet (of 240 mg) Capsule SR 24 HR Oral daily, Voltaren Gel (jelly) Transdermal PRN Allergies: Diclofenac-miSOPROStol Review of Systems: Review of Systems is not available for this patient. Vital Signs: Performed on March 10, 2021 14:40 Height - 67.00 in Weight - 232.2 lbs (LOW) BSA - 2.15 sq.m BMI - 36.37 (HIGH) Temperature - 98.0 F (LOW) Pulse - 111 /min (HIGH) Respiration - 18 /min BP - 144/95 mm(hg) (HIGH) O2 Sat - 98 % Pain - 5 Fatigue - 7 Performance Status: 1 - No physically strenuous activity, but ambulatory and able to carry out light or sedentary work (e.g. office work, light house work). (ECOG) Physical Examination: ENMT - No mouth sores, no thrush, no jaundice, shotty lymphadenopathy in the right neck and about 2 cm soft tissue abnormality in the left anterior axillary fold, nontender, soft, Respiratory - Lungs are clear to auscultation, Cardiovascular - Regular rate and rhythm of heart , Abdomen - Soft, bowel sounds present, Extremities - No visible edema. Lab/Imaging: Most recent lab results are not available for this patient. Impression: 1. 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 This was initially discovered on serum protein electrophoresis in June 2016 By clinical evaluation, there was no evidence of associated myeloma. 3. She has underlying autoimmune disease including systemic lupus erythematosus, Sjogren's syndrome, and antiphospholipid antibody syndrome. She is on immunosuppressive therapy. Her other medical illnesses include: 3. Epilepsy. 4. Chronic migraine. 5. Degenerative disease of the spine and fibromyalgia. 6. Hypothyroidism. 7. Hyperlipidemia. 8. GERD. 9. Gastroparesis. 10. Osteopenia. 11. She was found to have oxygen desaturation, for which she is on home oxygen. Plan: Discussed with patient regarding her labs white blood count 15.5 hemoglobin 12.7 hematocrit 39 platelets 328,000 with left shift, whole blood flow cytometry done recently showed no aberrant myeloid or lymphoid population detected, SPEP shows hypogammaglobulinemia, no monoclonal protein seen on immunofixation Clinically, patient doing well with no new signs symptoms and her follow-up labs shows persistent leukocytosis which could be due to reactive leukocytosis as whole blood flow cytometry showed no aberrant myeloid or lymphoid population detected. Another concern is hypogammaglobulinemia seen on SPEP, which could be due to her underlying autoimmune disorder other possibility could be lymphoproliferative disorder, moreover patient says she has off and on lymphadenopathy involving neck and left axilla, at this point we will consider CT scan of neck chest abdomen pelvis to rule out central lymphadenopathy or organomegaly and also order mammogram. We will also check quantitative immunoglobulins and then she will return to clinic in 2 months with above-mentioned work-up Signed By: Tony Hall M.D. <<Signature on File>>
== END 2021-03-10 13:09 | disposition home or self-care (01) ==
LOC: ONCMED 13:10
PROVIDERS: PCP Family Medicine; Visit Provider Internal Medicine Hematology & Oncology
DX: D47.2 Monoclonal gammopathy (principal); M81.0 Age-related osteoporosis without current pathological fracture; M32.9 Systemic lupus erythematosus, unspecified; M35.00 Sjogren syndrome, unspecified; D68.61 Antiphospholipid syndrome; G40.909 Epilepsy, unspecified, not intractable, without status epilepticus; G43.919 Migraine, unspecified, intractable, without status migrainosus; M47.9 Spondylosis, unspecified; M79.7 Fibromyalgia; E03.9 Hypothyroidism, unspecified; E78.5 Hyperlipidemia, unspecified; K21.9 Gastro-esophageal reflux disease without esophagitis; K31.84 Gastroparesis; M85.80 Other specified disorders of bone density and structure, unspecified site; Z99.81 Dependence on supplemental oxygen; Z79.52 Long term (current) use of systemic steroids; Z79.899 Other long term (current) drug therapy
CPT/HCPCS: 85025; 96372; 99214; J0897; J1200; J2920

== ENCOUNTER 2021-05-24 11:16 | Outpatient (CLI) | payer OTHER, SELFPAY ==
--- NOTE | 2021-05-24 11:24 | MM_ITS ---
WS: [id number] SCREENING DIGITAL MAMMOGRAM WITH CAD HISTORY: SCREENING COMPARISON: 10/18/2011 Bilateral CC and MLO views submitted. Computer aided detection analyzed. Breast composition: There are scattered areas of fibroglandular density. Calcifications in each breast. No suspicious mass. No nipple retraction. MM/[place] [id number] IMPRESSION: BI-RADS: 0-Incomplete: Need additional imaging evaluation FOLLOW UP: Need Additional Imaging This examination was ordered as a screening study. Patient describes a palpable abnormality in the LEFT breast superiorly. Patient needs to return for additio nal views of the LEFT breast and possible ultrasound for diagnostic mammography .
== END 2021-05-24 11:17 | disposition home or self-care (01) ==
LOC: RADSHAW 11:22
PROVIDERS: PCP Family Medicine; Visit Provider Internal Medicine Medical Oncology
DX: Z12.31 Encounter for screening mammogram for malignant neoplasm of breast (principal)
CPT/HCPCS: 77067

== ENCOUNTER 2021-05-24 11:26 | Outpatient (CLI) | payer OTHER, SELFPAY ==
[2021-05-24 12:58] VITALS: BP 115/81; PULSE 109; RESP 18; TEMP 36.7; O2SAT 97
[2021-05-24 13:14] LABS: Basophils # 0.1 10^3/uL (0.0-0.1); Basophils % 0.6 %; Eosinophils # 0.3 10^3/uL (0.0-0.8); Eosinophils % 1.8 %; Hematocrit 39.8 % (37.0-47.0); Hemoglobin 13.3 g/dL (11.5-15.3); Lymphocytes # 4.7 10^3/uL (0.8-4.8); Lymphocytes % 25.3 %; Mean Corpuscular HGB Conc 33.4 g/dL (30.0-36.0); Mean Corpuscular Hemoglobin 29.6 pg (28.0-34.0); Mean Corpuscular Volume 88.4 fL (81-99); Mean Platelet Volume 9.4 fL (7.4-10.4); Monocytes # 1.2 10^3/uL (0.2-0.9); Monocytes % 6.6 %; Neutrophils # 12.05 10^3/uL (1.8-7.7); Neutrophils % 64.4 %; Nucleated Red Blood Cells % 0 %; Platelet Count 366 10^3/cmm (130-400); Red Cell Distribution Width 12.6 % (12.1-15.1); White Blood Count 18.7 10^3/uL (4.0-10.0)
[2021-05-24] MEDS: sodium chloride 0.9% 250 ML 75 ML IV (13:17)
[2021-05-24] MEDS: diphenhydrAMINE 50 mg/mL SDV 1mL IVP (13:18)
[2021-05-24 13:31] LABS: Alanine Aminotransferase 8 U/L (0-33); Albumin Level 4.3 g/dL (3.5-5.2); Alkaline Phosphatase 60 IU/L (35-105); Aspartate Amino Transferase 8 U/L (0-32); Globulin 2.5 g/dL (1.3-4.6); Glomerular Filtration Rate 77.2 mL/min (90-130); Total Bilirubin 0.2 mg/dL (0.15-1.2); Total Protein 6.8 g/dL (6.6-8.7)
[2021-05-24 13:37] LABS: Add Urine Microscopic? YES; Bilirubin Urine 1+ (Negative); Blood Urine 3+ (Negative); Glucose Urine UA Norm (Normal); Ketones Urine Negative (Negative); Leukocyte Esterase Urine Negative (Negative); Nitrate Urine Negative (Negative); Protein Urine Trace (Negative); Specific Gravity, Urine 1.015 (1.005-1.030); Urine Appearance SL Hazy (CLEAR); Urine Color Yellow (Yellow); Urobilinogen Urine Norm (Negative); pH Urine 5 (5-7)
[2021-05-24 13:48] LABS: Add Urine Culture? Yes; Bacteria Urine 2+ /hpf; RBC Urine RARE /hpf (0-2); Squamous Epithelial Cell Urine 0-4 /hpf (0-5); Urine Creatinine 292 mg/dL (28-217); WBC Urine 0-4 /hpf (0-5)
[2021-05-24 13:49] LABS: Urine Protein Random 26 mg/dL
[2021-05-24 16:04] VITALS: BP 126/82; PULSE 92; RESP 18; TEMP 36.3; O2SAT 97
[2021-05-24 19:27] LABS: Immunoglobulin IGA 117 mg/dL (70-400); Immunoglobulin IGG 617 mg/dL (700-1600); Immunoglobulin IGM 46 mg/dL (40-230)
== END 2021-05-24 11:27 | disposition home or self-care (01) ==
PROVIDERS: Internal Medicine Hematology & Oncology; PCP Family Medicine; Visit Provider Internal Medicine Rheumatology
DX: M32.9 Systemic lupus erythematosus, unspecified (principal)
CPT/HCPCS: 36415; 80076; 81001; 82565; 82570; 82784; 84156; 85025; 87086; 96365; 96366; 96375; J0490; J1200; J2930; J7050

== ENCOUNTER 2021-05-25 12:51 | Outpatient (CLI) | payer OTHER, SELFPAY ==
--- NOTE | 2021-05-25 13:00 | CT_ITS ---
WS: [id number] CT scan of the chest With IV contrast, CT scan of the abdomen and pelvis Within without IV contrast and oral contrast. Additional two-dimensional coronal and sagittal reconstruction was performed. Clinical Data: MONOCLONAL GAMMOPATHY Comparison: CTA chest, 08/30/2011. DLP: 2151.[address] scans at [facility] use at least one of these dose optimization techniques: automat ed exposure control; mA and/or kV adjustment per patient size (includes targeted exams where dose is matched to clinical indication); or iterative reconstruction. Findings: Chest: No nodules, masses or effusions are seen. The left lobe of the thyroid is slightly enlarged. The hear t size is normal with no pericardial effusion. No pneumonia or pneumothorax is seen. The pulmonary arterial system and thoracic aorta demonstrate no abnormalities or dilatations. The tra pamela bifurcates into the bronchi. There is a small hiatal hernia. There is no axillary or significant mediastinal adenopathy. Abdomen/pelvis: . The liver, spleen, adrenal glands and pancreas are normal. There are clips in the gallbladder fossa from a cholecystectomy. The kidneys show equal bilateral contrast excretion with no cyst or masses. There is no hydronephrosi s or renal calculi. The abdominal aorta is normal in size. No appendicitis or diverticulitis is seen. Oral contrast is in the stomach and small bowel and there is no bowel dilatation. No abscess, adenopathy, ascites, mass, obstruction or free air is seen The bladder is unremarkable. There is an IUD in the uterus. No inguinal hernia is seen. The bones of the lower thorax, lumbar spine, pelvis, and hips are normal. CT/CT chest abd pel w con* Impression: 1. Negative for acute cardiopulmonary disease. 2. Negative for acute intra-abdominal or pelvic abnormalities.
--- NOTE | 2021-05-25 14:25 | CT_ITS ---
WS: [id number] CT NECK TECHNIQUE: Contrast-enhanced CT of the neck with coronal and sagittal reformatted images. CLINICAL INFORMATION: MONOCLONAL GAMMOPATHY COMPARISON: None. DLP: 1232.[address] scans at [facility] use at least one of these dose optimization techniques: automat ed exposure control; mA and/or kV adjustment per patient size (includes targeted exams where dose is matched to clinical indication); or iterative reconstruction. FINDINGS: Parotid glands are normal. Normal submandibular glands. Dental artifact degrades images at the tongue base. Normal parapharyngeal fat. No evidence of supraglottic or glottic mass. Enlarged and multinodu lar left thyroid lobe. Lobulated nodule measures 2.5 x 1.5 cm. Lung apices are well aerated. Mastoid air cells and paranasal sinuses are well aerated. Mucosal thick ening left maxillary sinus. Partially visualized intracranial contents are normal. Straightening of t he normal cervical lordosis. Moderate spondylitic changes. CT/CT neck w con* [id number] IMPRESSION: 1. Normal salivary glands. 2. No evidence of supraglottic or glottic mass. 3. Tongue base appears normal considering dental artifact. 4. No cervical lymphadenopathy. 5. Nodular enlarged left thyroid gland with lobulated nodule measuring 2.5 x 1 .5 CM. This can be followed up with ultrasound. 6. Mild spondylitic changes cervical spine.
[2021-05-25] MEDS: iohexol 300 mg/mL 50 mL Btl PO (14:28)
[2021-05-25] MEDS: iohexol 300 mg/mL 100 mL Btl IV ×2 (14:48→14:54)
== END 2021-05-25 12:52 | disposition home or self-care (01) ==
PROVIDERS: PCP Family Medicine; Visit Provider Internal Medicine Hematology & Oncology
DX: D47.2 Monoclonal gammopathy (principal); E04.2 Nontoxic multinodular goiter
CPT/HCPCS: 70491; 71260; 74177; Q9967

== ENCOUNTER 2021-09-15 12:59 | Outpatient (CLI) | payer OTHER, SELFPAY ==
[2021-09-15 13:56] VITALS: BP 121/76; PULSE 118; RESP 18; TEMP 36.3; O2SAT 98
[2021-09-15 13:58] LABS: Basophils # 0.1 10^3/uL (0.0-0.1); Basophils % 0.5 %; Eosinophils # 0.1 10^3/uL (0.0-0.8); Eosinophils % 0.5 %; Hematocrit 42.4 % (37.0-47.0); Hemoglobin 14.3 g/dL (11.5-15.3); Lymphocytes % 17.7 %; Mean Corpuscular HGB Conc 33.7 g/dL (30.0-36.0); Mean Corpuscular Hemoglobin 30.1 pg (28.0-34.0); Mean Corpuscular Volume 89.3 fl (81-99); Monocytes # 1.1 10^3/uL (0.2-0.9); Monocytes % 6.3 %; Neutrophils # 12.73 10^3/uL (1.8-7.7); Neutrophils % 73.8 %; Nucleated Red Blood Cells % 0 %; Platelet Count 415 10^3/cmm (130-400); Red Blood Count 4.75 10^6/uL (4.1-5.3); Red Cell Distribution Width 13.2 % (12.1-15.1); White Blood Count 17.2 10^3/uL (4.0-10.0)
[2021-09-15] MEDS: acetaminophen 325 mg Tablet 650 MG PO (14:06)
[2021-09-15] MEDS: sodium chloride 0.9% 250 ML 50 ML IV (14:09)
[2021-09-15] MEDS: diphenhydrAMINE 50 mg/mL SDV 1mL IV (14:10)
[2021-09-15 14:21] LABS: Alanine Aminotransferase 19 U/L (0-33); Albumin Level 4.5 g/dL (3.5-5.2); Alkaline Phosphatase 55 IU/L (35-105); Aspartate Amino Transferase 15 U/L (0-32); Globulin 2.5 g/dL (1.3-4.6); Glomerular Filtration Rate 76.9 mL/min (90-130); Total Bilirubin 0.4 mg/dL (0.15-1.2)
[2021-09-15 14:37] LABS: Immunoglobulin IGA 127 mg/dL (70-400); Immunoglobulin IGG 709 mg/dL (700-1600); Immunoglobulin IGM 51 mg/dL (40-230)
[2021-09-15 14:40] LABS: Urine Appearance Hazy (CLEAR); Urine Color Yellow (Yellow); pH Urine 5 (5-7)
[2021-09-15 14:41] LABS: Add Urine Microscopic? YES; Bilirubin Urine 2+ (Negative); Blood Urine 3+ (Negative); Glucose Urine UA Norm (Normal); Ketones Urine 2+ (Negative); Leukocyte Esterase Urine Negative (Negative); Nitrate Urine Negative (Negative); Protein Urine Neg (Negative); Urobilinogen Urine 1 mg/dL (Negative)
[2021-09-15 14:42] LABS: Add Urine Culture? Yes; Amorphous Sediment Urine TRACE /hpf; Bacteria Urine 2+ /hpf; Hyaline Casts Urine 0-4 /lpf; Mucus Urine 2+ /hpf; RBC Urine 0-4 /hpf (0-2)
[2021-09-15 14:44] LABS: Urine Creatinine 358 mg/dL (28-217)
[2021-09-15 14:46] LABS: Urine Protein Random 43 mg/dL
[2021-09-15 16:01] VITALS: BP 140/91; PULSE 112; RESP 18; TEMP 36.8; O2SAT 100
[2021-09-16 13:03] LABS: PROTEIN, TOTAL 6.9 g/dL (6.1-8.1)
[2021-09-16 14:17] LABS: KAPPA LIGHT CHAIN, FREE, SERUM 13.7 mg/L (3.3-19.4); KAPPA/LAMBDA LIGHT CHAINS FREE 1.01 (0.26-1.65); LAMBDA LIGHT CHAIN, FREE, SERU 13.5 mg/L (5.7-26.3)
[2021-09-16 16:53] LABS: ALBUMIN 4.2 g/dL (3.8-4.8); ALPHA 1 GLOBULIN 0.4 g/dL (0.2-0.3); ALPHA 2 GLOBULIN 0.8 g/dL (0.5-0.9); BETA 1 GLOBULIN 0.4 g/dL (0.4-0.6); BETA 2 GLOBULIN 0.3 g/dL (0.2-0.5); GAMMA GLOBULIN 0.7 g/dL (0.8-1.7)
== END 2021-09-15 13:00 | disposition home or self-care (01) ==
PROVIDERS: Internal Medicine Hematology & Oncology; PCP Family Medicine; Visit Provider Internal Medicine Rheumatology
DX: M32.9 Systemic lupus erythematosus, unspecified (principal); Z79.899 Other long term (current) drug therapy
CPT/HCPCS: 80076; 81001; 82565; 82570; 82784; 83883; 84155; 84156; 84165; 85025; 87086; 96365; 96375; J0490; J1200; J2930; J7050

== ENCOUNTER 2021-11-02 21:37 | Inpatient (IN) | payer OTHER, SELFPAY ==
[2021-11-02 21:53] VITALS: BP 115/80; PULSE 171; RESP 36; TEMP 37.4; O2SAT 97; BMI 27.3
[2021-11-02 22:18] VITALS: BP 148/109; PULSE 163; RESP 32; O2SAT 96
[2021-11-02 22:27] LABS: Basophils # 0.1 10^3/uL (0.0-0.1); Basophils % 0.3 %; Eosinophils % 0.1 %; Hematocrit 37.8 % (37.0-47.0); Hemoglobin 13.5 g/dL (11.5-15.3); Lymphocytes # 2.7 10^3/uL (0.8-4.8); Lymphocytes % 8.9 %; Mean Corpuscular HGB Conc 35.7 g/dL (30.0-36.0); Mean Corpuscular Hemoglobin 30.4 pg (28.0-34.0); Mean Corpuscular Volume 85.1 fl (81-99); Mean Platelet Volume 8.8 fL (7.4-10.4); Monocytes # 1.9 10^3/uL (0.2-0.9); Monocytes % 6.2 %; Neutrophils # 24.83 10^3/uL (1.8-7.7); Neutrophils % 81.3 %; Nucleated Red Blood Cells % 0 %; Platelet Count 659 10^3/cmm (130-400); Red Blood Count 4.44 10^6/uL (4.1-5.3); Red Cell Distribution Width 12.4 % (12.1-15.1)
[2021-11-02 22:35] LABS: White Blood Count 30.5 10^3/uL (4.0-10.0)
--- NOTE | 2021-11-02 22:38 | CTR_ITS ---
PROCEDURE INFORMATION: Exam: CT Abdomen And Pelvis With Contrast Exam date and time: 11/02/2021 10:38 PM Age: 46 years old Clinical indication: Abdominal pain; Prior surgery; Surgery date: 6+ months; Surgery type: Tubal, choley; Patient HX: Abd pain x1 week, n/v TECHNIQUE: Imaging protocol: Computed tomography of the abdomen and pelvis with contrast. Radiation optimization: All CT scans at this facility use at least one of these dose optimization techniques: automated exposure control; mA and/or kV adjustment per patient size (includes targeted exams where dose is matched to clinical indication); or iterative reconstruction. Contrast material: OMNI 300; Contrast volume: 95 ml; Contrast route: INTRAVENOUS (IV); COMPARISON: CT chest abd pel w con* 05/25/2021 2:51 PM RADIATION DOSE METRICS: Total DLP (mGy-cm): 1638.29 FINDINGS: Liver: Normal. No mass. Gallbladder and bile ducts: Cholecystectomy. Pancreas: Normal. No ductal dilation. Spleen: Normal. No splenomegaly. Adrenal glands: Normal. No mass. Kidneys and ureters: Normal. No hydronephrosis. Stomach and bowel: Unremarkable. No obstruction. No mucosal thickening. Appendix: No evidence of appendicitis. Intraperitoneal space: Unremarkable. No free air. No significant fluid collection. Vasculature: Unremarkable. No abdominal aortic aneurysm. Lymph nodes: Unremarkable. No enlarged lymph nodes. Urinary bladder: Unremarkable as visualized. Reproductive: IUD in the uterine cavity. Bones/joints: Unremarkable. No acute fracture. Soft tissues: Unremarkable. CT/CT abdomen pelvis w con* [id number] IMPRESSION: 1. Negative for focal acute inflammatory process in the abdomen or pelvis. 2. Cholecystectomy. 3. IUD in the uterine cavity.
[2021-11-02 22:48] VITALS: RESP 97; O2SAT 97
[2021-11-02] MEDS: HYDROmorphone 1 mg/mL INJ 1 mL IVP (22:48)
[2021-11-02] MEDS: sodium chloride 0.9% 1,000 ML 999 ML IV ×2 (22:49→23:34)
[2021-11-02 22:50] LABS: Alanine Aminotransferase 7 U/L (0-33); Alkaline Phosphatase 79 IU/L (35-105); Aspartate Amino Transferase 6 U/L (0-32); Blood Urea Nitrogen 11 mg/dL (6-20); Calcium 9.6 mg/dL (8.5-10.5); Carbon Dioxide 19 mmol/L (22-29); Chloride 94 mmol/L (98-107); Globulin 3.4 g/dL (1.3-4.6); Glomerular Filtration Rate 76.9 mL/min (90-130); Glucose 124 mg/dL (65-115); Lipase 63 U/L (13-60); Osmolality Calculated 279 mOsm/kg (285-295); Sodium 134 mmol/L (136-145); Total Bilirubin 0.5 mg/dL (0.15-1.2); Total Protein 7.4 g/dL (6.6-8.7)
[2021-11-02 22:51] LABS: Anion Gap 24.6 (5-19); Potassium 3.6 mmol/L (3.5-5.1)
--- NOTE | 2021-11-02 23:01 | W.ED.ABDPA2 ---
HPI - Abdominal Pain General: Chief Complaint: Abdominal Pain Stated Complaint: Rt Side ABD Pain Time Seen by Provider: 11/02/21 22:17 Source: patient Mode of arrival: ambulatory Limitations: no limitations History of Present Illness: HPI narrative: 46-year-old female who has a history of lupus states she has been having worsening abdominal pain over the last week. She she is also been passing worsening nausea vomiting has not been able to tolerate any fluids today and has had multiple episodes of vomiting. She states that today she has not been able to tolerate anything and is vomiting up. She is also had severe abdominal pain she is in distress here rocking back and forth moaning with abdominal pain. She is a history of SVT supposed to be on diltiazem states she has vomited all of her diltiazem up yesterday and today and is tachycardic here in the 170s denies any fevers but has had subjective fevers denies any cough or chest pain. Denies any diarrhea. Associated Symptoms: Reports chills, fever(s), nausea and vomiting; Denies dysuria Review of Systems Const: Reports: fever(s), chills and body aches Eyes: Denies: blurry vision or eye discomfort ENMT: Denies: throat pain or dental pain Card: Denies: chest pain Resp: Reports: non-productive cough GI: Reports: abdominal pain, nausea and vomiting : Denies: dysuria Musc: Denies: neck pain or back pain Skin/Breast: Denies: rash Neuro: Denies: headache(s) Psych: Denies: depression Mauri/Lymph: Denies: easy bruising All/Imm: Denies: urticaria PFSH ED PFSH: Medical History Antiphospholipid antibody positive Cervical spondylosis Dizziness Fibromyalgia Gastroparesis High risk medication use Hx of Sjogren's disease Immunization counseling Immunosuppression Lumbar spondylosis Medication monitoring encounter MGUS (monoclonal gammopathy of unknown significance) Osteoporosis Systemic lupus erythematosus (SLE) in adult Thyroid nodule Vitamin D deficiency Surgical History H/O tubal ligation History of cholecystectomy Social History Smoking and tobacco status: never smoked Second hand smoke exposure: Yes Alcohol intake: never Lives independently: Yes Household members: spouse Marital status: Number of children: 3 Current occupational status: disabled History of recent travel: No Current gender identity: Female Physical Exam Const: COMMON NORMALS: patient oriented x3 GENERAL APPEARANCE: in distress HENMT: COMMON NORMALS: normocephalic and atraumatic HEAD & SCALP: normocephalic and atraumatic Eye: COMMON NORMALS: Equal, round and reactive pupils present and EOMs intact bilaterally PUPIL: Yes Equal, round and reactive pupils present Neck/C-Spine: COMMON NORMALS: full ROM and supple Chest: COMMONS NORMALS: normal inspection of the chest and normal palpation of entire chest wall Resp: COMMON NORMALS: normal respiratory effort, No retractions, No use of accessory muscles and clear to auscultation bilaterally AUSCULTATION: clear to auscultation bilaterally Cardio: COMMON NORMALS: regular rhythm and No murmurs present (Cardio) RATE: tachycardic RHYTHM: regular rhythm GI: COMMON NORMALS: Normal to inspection, nondistended, normoactive bowel sounds present and no masses OTHER: Diffuse tenderness Extremity: COMMON NORMALS: normal to inspection and full ROM Neuro: COMMON NORMALS: patient oriented x3, moves all extremities and no focal motor deficits Psych: COMMON NORMALS: mental status grossly normal, Normal thought process present and cooperative THOUGHT PROCESS: Normal thought process present Skin: COMMON NORMALS: no rashes or lesions noted and no wounds GENERAL SKIN EXAM: no rashes or lesions noted Course Vital Signs: Vital signs: Vital Signs Temperature 99.4 F 11/02/21 21:53 Pulse Rate 171 H 11/02/21 21:53 Respiratory Rate 30 H 11/03/21 00:52 Blood Pressure 115/80 11/02/21 21:53 Pulse Oximetry 98 11/03/21 00:52 MDM - Abdominal Pain MDM Narrative: Medical decision making narrative: 46-year-old female who presents here with severe abdominal pain and vomiting she does have a leukocytosis along with an elevated lactate CT abdomen showed no acute findings urine does show a UTI patient given IV antibiotics does meet sepsis criteria got IV fluids patient also was in SVT likely due to not taking her diltiazem patient's heart rates improved after Cardizem upon admission her heart rate is in the 120s and is now sinus tach I spoke to hospitalist will admit to cardiac stepdown. Lab Data: Labs: Lab Results 11/02/21 11/02/21 11/02/21 22:10 22:10 22:10 WBC 30.5 10^3/uL H* 1 0^3/uL (4.0-10.0) RBC 4.44 10^6/uL 10^6 /uL (4.1-5.3) Hgb 13.5 g/dL g/dL (11.5-15.3) Hct 37.8 % % (37.0-47.0) MCV 85.1 fl fl (81-99) MCH 30.4 pg pg (28.0-34.0) MCHC 35.7 g/dL g/dL (30.0-36.0) RDW 12.4 % % (12.1-15.1) Plt Count 659 10^3/cmm H 10 ^3/cmm (130-400) MPV 8.8 fL fL (7.4-10.4) Neut % (Auto) 81.3 % % Lymph % (Auto) 8.9 % % Kershaw % (Auto) 6.2 % % Eos % (Auto) 0.1 % % Baso % (Auto) 0.3 % % Neut # (Auto) 24.83 10^3/uL H 1 0^3/uL (1.8-7.7) Lymph # (Auto) 2.7 10^3/uL 10^3/ uL (0.8-4.8) Kershaw # (Auto) 1.9 10^3/uL H 10^ 3/uL (0.2-0.9) Eos # (Auto) 0.0 10^3/uL 10^3/ uL (0.0-0.8) Baso # (Auto) 0.1 10^3/uL 10^3/ uL (0.0-0.1) Nucleated RBC % (a uto) 0 % % Nucleated RBCs # 0.0 /100WBC /100W BC Sodium 134 mmol/L L mmol /L (136-145) Potassium 3.6 mmol/L mmol/L (3.5-5.1) Chloride 94 mmol/L L mmol/ L (98-107) Carbon Dioxide 19 mmol/L L mmol/ L (22-29) Anion Gap 24.6 H (5-19) BUN 11 mg/dL mg/dL (6-20) Creatinine 0.8 mg/dL mg/dL (0.5-0.9) GFR Calculation 76.9 mL/min L mL/ min (90-130) Glucose 124 mg/dL H mg/dL (65-115) Calculated Osmolal ity 279 mOsm/kg L mOs m/kg (285-295) Lactic Acid Calcium 9.6 mg/dL mg/dL (8.5-10.5) Total Bilirubin 0.5 mg/dL mg/dL (0.15-1.2) AST 6 U/L U/L (0-32) ALT 7 U/L U/L (0-33) Alkaline Phosphata se 79 IU/L IU/L (35-105) Total Protein 7.4 g/dL g/dL (6.6-8.7) Albumin 4.0 g/dL g/dL (3.5-5.2) Globulin 3.4 g/dL g/dL (1.3-4.6) Lipase 63 U/L H U/L (13-60) TSH 0.35 uIU/mL uIU/m L (0.27-4.20) Urine Color Urine Appearance Urine pH Ur Specific Gravit y Urine Protein Urine Glucose (UA) Urine Ketones Urine Blood Urine Nitrate Urine Bilirubin Urine Urobilinogen Ur Leukocyte Concepcion ase Urine RBC Urine WBC Ur Squamous Epith Cells Amorphous Sediment Urine Bacteria SARS-CoV-2 Ag (Rap id) 11/02/21 11/03/21 11/03/21 22:55 00:02 00:02 WBC RBC Hgb Hct MCV MCH MCHC RDW Plt Count MPV Neut % (Auto) Lymph % (Auto) Kershaw % (Auto) Eos % (Auto) Baso % (Auto) Neut # (Auto) Lymph # (Auto) Kershaw # (Auto) Eos # (Auto) Baso # (Auto) Nucleated RBC % (a uto) Nucleated RBCs # Sodium Potassium Chloride Carbon Dioxide Anion Gap BUN Creatinine GFR Calculation Glucose Calculated Osmolal ity Lactic Acid 2.8 mmol/L H mmol /L (0.5-2.2) Calcium Total Bilirubin AST ALT Alkaline Phosphata se Total Protein Albumin Globulin Lipase TSH Urine Color Yellow (Yellow) Urine Appearance Clear (CLEAR) Urine pH 6.5 (5-7) Ur Specific Gravit y 1.005 (1.005-1.030) Urine Protein Trace (Negative) Urine Glucose (UA) Norm (Normal) Urine Ketones 1+ H (Negative) Urine Blood 2+ H (Negative) Urine Nitrate Negative (Negative) Urine Bilirubin Neg (Negative) Urine Urobilinogen Neg mg/dL mg/dL (Negative) Ur Leukocyte Concepcion ase 2+ H (Negative) Urine RBC 50-80 /hpf H /hpf (0-2) Urine WBC >100 /hpf H /hpf (0-5) Ur Squamous Epith Cells 5-10 /hpf H /hpf (0-5) Amorphous Sediment Not Reportable Urine Bacteria 1+ /hpf H /hpf (NONE) SARS-CoV-2 Ag (Rap id) Negative (Negative) EKG Data ^: EKG 1: Attestation: I personally reviewed and interpreted this EKG as follows: EKG interpretation date: 11/02/21 EKG interpretation time: 22:03 Interpretation: svt hr [address] or t wave abnormalities qrs 73 qtc 361 EKG 2: Attestation: I personally reviewed and interpreted this EKG as follows: EKG interpretation date: 11/03/21 EKG interpretation time: 00:31 Interpretation: sinus tach hr [address] or t wave abnormalities qrs 75 qtc 410 Critical Care Time Critical Care Time: Critical Care Time: Yes Total Critical Care Time: 35 Attestation: The high probability of a clinically significant, sudden or life threatening deterioration of the patient's [] system(s) required my full and direct attention, intervention and personal management. The critical care time is as shown. This time is in addition to time spent performing any reported procedures but includes the following: [x] Data and vital sign review and interpretation [x] Patient assessment, examination and intervention [x] Documentation [x] Medication orders and management Discharge Plan Discharge Patient Disposition: Admitted As Inpatient Admit Provider: Sarai Pringle Clinical Impression: SVT (supraventricular tachycardia), Dehydration Sepsis Qualifiers: Sepsis type: sepsis due to unspecified organism Sepsis acute organ dysfunction status: unspecified Qualified Code(s): A41.9 - Sepsis, unspecified organism Abdominal pain Qualifiers: Abdominal location: generalized Qualified Code(s): R10.84 - Generalized abdominal pain Vomiting Qualifiers: Vomiting type: unspecified Nausea presence: with nausea Qualified Code(s): R11.2 - Nausea with vomiting, unspecified Acute cystitis Qualifiers: Hematuria presence: without hematuria Qualified Code(s): N30.00 - Acute cystitis without hematuria Condition: Stable Coding Level of Care Code ED Biofuels Processing Technician for Chg Fwd Exam Comprehensive
[2021-11-02 23:22] LABS: Lactic Sepsis W/Reflex 2.8 mmol/L (0.5-2.2)
--- NOTE | 2021-11-02 23:23 | ECG_ITS ---
[facility] Test Date: 2021-11-02 Pat Name: Tereza Flaherty Department: Room: Gender: Female Material Planning Analyst: : 1975 Requested By: Ivon Blair Order Number: [id number] Joo MD: Bishnu Alan M.D. Measurements Intervals [place] Rate: 169 P: WA: QRS: 77 QRSD: 73 T: 83 QT: 269 QTc: 451 Interpretive Statements SUPRAVENTRICULAR TACHYCARDIA NONSPECIFIC ST & T-WAVE ABNORMALITY Compared to ECG 04/13/2020 16:35:36 Sinus tachycardia no longer present T-wave abnormality still present Electronically Signed On 11-03-2021 22:04:14 TRICOT KNITTING MACHINE OPERATOR by Bishnu Alan M.D. [id number]
[2021-11-02 23:33] VITALS: BP 164/111; PULSE 133; RESP 26; O2SAT 99
[2021-11-02 23:35] VITALS: RESP 26; O2SAT 98
[2021-11-02] MEDS: morphine 4 mg/mL SDV 1 mL IVP (23:35)
[2021-11-02] MEDS: ondansetron 2 mg/ML SDV 2 mL 4 MG IVP (23:35)
[2021-11-02] MEDS: metoclopramide 5 mg/mL SDV 2 mL 10 MG IVP (23:37)
[2021-11-02] MEDS: diphenhydrAMINE 50 mg/mL SDV 1mL IVP (23:37)
[2021-11-02] MEDS: iohexol 300 mg/mL 100 mL Btl IV (23:42)
--- NOTE | 2021-11-02 23:45 | XRR_ITS ---
PROCEDURE INFORMATION: Exam: XR Chest Exam date and time: 11/02/2021 11:45 PM Age: 46 years old Clinical indication: Shortness of breath; Additional info: SOB TECHNIQUE: Imaging protocol: XR of the chest. Views: 1 view. COMPARISON: CT chest abd pel w con* 05/25/2021 2:51 PM FINDINGS: Lungs: Unremarkable. No consolidation. Pleural spaces: Unremarkable. No pleural effusion. No pneumothorax. Heart/Mediastinum: Unremarkable. No cardiomegaly. Bones/joints: Unremarkable. XR/XR chest 1V portable [id number] IMPRESSION: No acute findings.
[2021-11-03] VITALS (75 sets, daily range): BP systolic 98–168; BP diastolic 64–109; PULSE 86–163; RESP 16–32; TEMP 36.9–37.9; O2SAT 89–100; BMI 29.0
[2021-11-03 00:23] LABS: Glucose Urine UA Norm (Normal); Protein Urine Trace (Negative); Specific Gravity, Urine 1.005 (1.005-1.030); Urine Appearance Clear (CLEAR); Urine Color Yellow (Yellow); pH Urine 6.5 (5-7)
[2021-11-03 00:24] LABS: Add Urine Culture? Yes; Add Urine Microscopic? YES; Bacteria Urine 1+ /hpf; Bilirubin Urine Neg (Negative); Blood Urine 2+ (Negative); Ketones Urine 1+ (Negative); Leukocyte Esterase Urine 2+ (Negative); Nitrate Urine Negative (Negative); RBC Urine 50-80 /hpf (0-2); Urobilinogen Urine Neg (Negative); WBC Urine >100 /hpf (0-5)
[2021-11-03 00:30] LABS: SARS Covid-2 Antigen Negative (Negative)
[2021-11-03] MEDS: LORazepam 2 mg/mL INJ 1 mL 0.5 MG IVP ×2 (00:45→15:09)
[2021-11-03] MEDS: vancomycin 1,000 MG in sodium chloride 0.9% 250 ML 250 MG IV (00:46)
[2021-11-03 00:47] LABS: Reflex Lactate Order REFLEX LACTIC ORDERD
[2021-11-03] MEDS: acetaminophen 1,000 MG/100 ML PIGGYBACK 400 MG IV (00:48)
[2021-11-03] MEDS: piperacillin-tazobactam 3.375 GM in sodium chloride 0.9% (plus) 50 ML IV ×3 (00:49→21:09)
[2021-11-03] MEDS: sodium chloride 0.9% 500 ML IV (00:50)
[2021-11-03] MEDS: HYDROmorphone 1 mg/mL INJ 1 mL 0.5 MG IVP ×2 (00:52→04:18)
[2021-11-03 01:18] LABS: Thyroid Stimulating Hormone 0.35 uIU/mL (0.27-4.20)
[2021-11-03 02:23] LABS: Lactic Acid level (Lactate) 2.4 mmol/L (0.5-2.2)
--- NOTE | 2021-11-03 03:17 | PC.NURSE ---
Patient continue to c/o severe nausea with emesis and abd pain. Emesis appears to have george blood present. Informed Dr Pringle. Received onetime order for Reglan 5mg IVP now. RBVO
[2021-11-03] MEDS: metoclopramide 5 mg/mL SDV 2 mL IVP ×3 (03:21→18:24)
--- NOTE | 2021-11-03 03:26 | PC.NURSE ---
Patient continues with elevated heart rate 130-140s. Dr Pringle is aware. Waiting for orders.
--- NOTE | 2021-11-03 03:30 | P.HP_ITS ---
Providers/Chief Complaint Admitting Physician: Sarai Pringle MD Primary Care Provider: Milady Crystal DO Chief Complaint: Rt Side ABD Pain History of Present Illness Tereza Flaherty is a 46 year old female with SLE, antiphospholipid syndrome, chronic leukocytosis under outpatient evaluation by oncology, possible MGUS, currently on treatment with belimumab, hydroxychloroquine, daily steroids, prednisone 10 mg presenting to the emergency room today with chief complaints of abdominal pain. Patient states she first developed abdominal pain recurrent nausea vomiting approximately 10 days ago, made worse over the last 4 to 5 days. She was was at an outside hospital where she presented with above symptoms and dysuria, was diagnosed with a UTI. Prescribed antibiotics, however she has been unable to tolerate any p.o. intake due to excessive vomiting and therefore has been unable to keep down any p.o. intake. Since arrival here, she has continued to have retching, vomiting, later also developed hematemesis with bright red blood mixed with vomitus. Approximate 3tbsp on 2 occasions twice after transfer to floor. Reports a past h/o gatsric ulceration needing UGIE in the past, gatsroparesis for which she is on a regimen of metoclopramide 3 times a day, however states this has not helped her symptoms recently. Additional current issues include SVT with HR 170bpm, now with sinus tachycardia at 120-130 beats per minute at the time of my assessment. She has received mul tiple boluses of Cardizem 10 mg IV push. She has been unable to take her p.o. Cardizem at home(prescribed for history of SVT) due to vomiting. Review of systems system additionally positive for fever up to 103 Fahrenheit at home for about a week, currently T-max noted to be 99.5 Fahrenheit. Saturating 100% on room air. She took a rapid antigen Covid test at home this morning which was negative, additionally Covid antigen negative at the hospital on current check. PCR remains pending at this time. She has received 1 dose of COVID-19 vaccination in August, and thereafter had an SLE flare which she believed to be connected to her recent vaccination and has not taken the second dose. Recently her prednisone dose has been increased from 7.5 to 10 mg daily. Review of Systems General: Reports: 10 or more systems reviewed and unremarkable except in HPI and below Const: Denies: fever(s), chills or body aches Eyes: Denies: change in vision, blurry vision or photophobia ENMT: Reports: hoarseness; Denies: throat pain, enlarged tonsils, odynophagia or nasal congestion Card: Denies: chest pain, palpitations, irregular heart rhythm, edema, sw elling of feet/ankles, lightheadedness, pre-syncope, dyspnea on exertion or orthopnea Resp: Denies: dyspnea, productive cough, non-productive cough, wheezing, stridor, pain on inspiration, change in phlegm color, hemoptysis or chest congestion GI: Denies: abdominal pain, nausea, vomiting, hematemesis, coffee ground emesis, dysphagia, heartburn, diarrhea, constipation, GI cramping, change in stool character, hematochezia or melena : Denies: flank pain, difficulty voiding, dysuria, urinary frequency, urinary urgency, urinary hesitancy or hematuria Musc: Denies: neck pain, back pain, extremity pain, joint swelling, joint warmth or deformity Neuro: Denies: headache(s), numbness in extremities, weakness in extremities, sensory changes, difficulty walking, frequent falls, dizziness, vertigo, behavioral changes, Slurred speech present or seizure-like activity Psych: Denies: anxiety, depression, suicidal ideation or homicidal ideation Endo: Denies: polyuria, polydipsia, tired all the time, cold intolerance or hot flashes Mauri/Lymph: Denies: easy bruising or easy bleeding Medications/Allergies Home Medications Medication Instructions Recorded Confirmed Last Taken Type diclofenac sodium 1 % topical gel 2 gm TOPICAL QID PRN 12/02/19 11/03/21 04/12/20 History hydroxyzine HCl 25 mg tablet 25 mg PO Q8H PRN tab 12/02/19 11/03/21 10/31/21 History promethazine 25 mg tablet 25 mg PO Q6H PRN 12/02/19 11/03/21 04/12/20 History albuterol sulfate 90 mcg/actuation 2 puff INHALATION Q6H PRN 03/10/20 11/03/21 04/12/20 History aerosol inhaler aspirin 81 mg tablet,delayed 81 mg PO DAILY 03/10/20 11/03/21 10/31/21 History release atorvastatin 40 mg tablet 40 mg PO DAILY 03/10/20 11/03/21 10/31/21 History cetirizine 10 mg tablet 10 mg PO DAILY 03/10/20 11/03/21 10/31/21 History clopidogrel 75 mg tablet 75 mg PO DAILY 03/10/20 11/03/21 10/31/21 History diltiazem HCl 240 mg 240 mg PO DAILY 03/10/20 11/03/21 10/31/21 History capsule,extended release 24 hr epinephrine 0.3 mg/0.3 mL 0.3 mg IM Q10M PRN 03/10/20 11/03/21 Unknown History injection, auto-injector lamotrigine 25 mg tablet 25 mg PO TID tab 03/10/20 11/03/21 10/31/21 History levothyroxine 137 mcg capsule 137 mcg PO DAILY 03/10/20 11/03/21 10/31/21 History oxycodone 15 mg tablet 15 mg PO Q4H PRN 03/10/20 11/03/21 04/13/20 History desvenlafaxine succinate 50 mg 50 mg PO DAILY 03/23/20 11/03/21 10/31/21 History tablet,extended release 24 hr acetaminophen [Tylenol Extra 1,000 mg PO PRN PRN 04/13/20 11/03/21 04/13/20 History Strength] belimumab [Benlysta] See Rx Instructions .ROUTE .COMPLEX 04/13/20 11/03/21 10/06/21 History cholecalciferol (vitamin D3) 50 50 mcg PO DAILY #30 cap 10/18/20 11/03/21 10/31/21 Rx mcg (2,000 unit) capsule lubiprostone 24 mcg capsule 24 mcg PO BID 10/18/20 11/03/21 10/31/21 History nitroglycerin 0.4 mg sublingual 0.4 mg SUBLINGUAL Q5M PRN 06/07/21 11/03/21 Unknown History tablet cevimeline 30 mg PO TID 11/03/21 11/03/21 10/31/21 History fluconazole 100 mg PO DAILY 11/03/21 11/03/21 10/31/21 History fluticasone propionate 1 spray INTRANASAL DAILY PRN 11/03/21 11/03/21 Unknown History hydroxychloroquine 200 mg PO BID 11/03/21 11/03/21 10/31/21 History lidocaine 1 patch TOPICAL DAILY PRN 11/03/21 11/03/21 Unknown History lorazepam 1 mg PO BID PRN 11/03/21 11/03/21 Unknown History meclizine 12.5 mg PO BID 11/03/21 11/03/21 Unknown History olopatadine 1 spray INTRANASAL DAILY 11/03/21 11/03/21 Unknown History pantoprazole [Protonix] 40 mg PO BID 11/03/21 11/03/21 10/31/21 History pilocarpine HCl 5 mg PO TID 11/03/21 11/03/21 10/31/21 History potassium chloride 10 meq PO DAILY 11/03/21 11/03/21 10/31/21 History prednisone 10 mg PO DAILY 11/03/21 11/03/21 10/31/21 History tizanidine 4 mg PO TID PRN 11/03/21 11/03/21 10/31/21 History Allergies Allergy/AdvReac Type Severity Reaction Status Date / Time diclofenac [From Arthrotec] AdvReac DIZZINESS Verified 06/07/21 14:08 misoprostol [From [employer]throte[employer]] AdvReac DIZZINESS Verified 06/07/21 14:08 PFSH Acute PFSH: Medical History Antiphospholipid antibody positive Cervical spondylosis Dizziness Fibromyalgia Gastroparesis High risk medication use Hx of Sjogren's disease Immunization counseling Immunosuppression Lumbar spondylosis Medication monitoring encounter MGUS (monoclonal gammopathy of unknown significance) Osteoporosis Systemic lupus erythematosus (SLE) in adult Thyroid nodule Vitamin D deficiency Surgical History H/O tubal ligation History of cholecystectomy Social History Smoking and tobacco status: never smoked Second hand smoke exposure: Yes Alcohol intake: never Lives independently: Yes Household members: spouse Marital status: Number of children: 3 Current occupational status: disabled History of recent travel: No Current gender identity: Female Vitals/I&O/Wt Last Vital Signs Temp 99.5 F 11/03/21 02:39 Pulse 130 H 11/03/21 06:16 Resp 27 H 11/03/21 05:36 BP 145/94 11/03/21 04:29 Pulse Ox 100 11/03/21 05:36 11/02/21 11/03/21 11/03/21 22:59 06:59 14:59 Intake Total 2933.75 / 2933.75 Output Total 300 / 300 Balance 2633.75 / 2633.75 Weight last 48 hrs Weight 86.682 kg Weight 83.915 kg Physical Exam Narrative: EXAM NARRATIVE: General: Appears uncomfortable uncomfortable, moder ate distress secondary to abdominal pain, tachycardic with heart rate 130 HEENT: PERRLA, pupils bilaterally equal and reactive, pallors not present Chest: Normal vesicular breath sounds, no added sounds, equal good air entry bilaterally CVS: S1-S2 regular, no murmurs, no tachycardia, no gallops, no rubs Abdomen: Soft, nontender, right-sided flank tenderness, no rebound nondistended Neuro: No focal deficits, no facial deformity, AO x3, power 5/5 in all limbs Extremities: No clubbing edema lymphadenopathy Data : 11/02/21 22:10 11/02/21 22:10 Micro: Microbiology 11/02/21 22:56 Blood Culture - Preliminary Blood SPECIMEN COLLECTED 11/02/21 22:55 Blood Culture - Preliminary Blood SPECIMEN COLLECTED Attestation for Other Data: I personally reviewed and interpreted the following: Other data: Laboratory Results WBC 30.5 10^3/uL (4.0-10.0) H* 11/02/21 22:10 RBC 4.44 10^6/uL (4.1-5.3) 11/02/21 22:10 Hgb 13.5 g/dL (11.5-15.3) 11/02/21 22:10 Hct 37.8 % (37.0-47.0) 11/02/21 22:10 MCV 85.1 fl (81-99) 11/02/21 22:10 MCH 30.4 pg (28.0-34.0) 11/02/21 22:10 MCHC 35.7 g/dL (30.0-36.0) 11/02/21 22:10 RDW 12.4 % (12.1-15.1) 11/02/21 22:10 Plt Count 659 10^3/cmm (130-400) H 11/02/21 22:10 MPV 8.8 fL (7.4-10.4) 11/02/21 22:10 Neut % (Auto) 81.3 % 11/02/21 22:10 Lymph % (Auto) 8.9 % 11/02/21 22:10 [place] % (Auto) 6.2 % 11/02/21 22:10 Eos % (Auto) 0.1 % 11/02/21 22:10 Baso % (Auto) 0.3 % 11/02/21 22:10 Neut # (Auto) 24.83 10^3/uL (1.8-7.7) H 11/02/21 22:10 Lymph # (Auto) 2.7 10^3/uL (0.8-4.8) 11/02/21 22:10 [place] # (Auto) 1.9 10^3/uL (0.2-0.9) H 11/02/21 22:10 Eos # (Auto) 0.0 10^3/uL (0.0-0.8) 11/02/21 22:10 Baso # (Auto) 0.1 10^3/uL (0.0-0.1) 11/02/21 22:10 Nucleated RBC % (auto) 0 % 11/02/21 22:10 Nucleated RBCs # 0.0 /100WBC 11/02/21 22:10 Sodium 134 mmol/L (136-145) L 11/02/21 22:10 Potassium 3.6 mmol/L (3.5-5.1) 11/02/21 22:10 Chloride 94 mmol/L (98-107) L 11/02/21 22:10 Carbon Dioxide 19 mmol/L (22-29) L 11/02/21 22:10 Anion Gap 24.6 (5-19) H 11/02/21 22:10 BUN 11 mg/dL (6-20) 11/02/21 22:10 Creatinine 0.8 mg/dL (0.5-0.9) 11/02/21 22:10 GFR Calculation 76.9 mL/min (90-130) L 11/02/21 22:10 Glucose 124 mg/dL (65-115) H 11/02/21 22:10 Calculated Osmolality 279 mOsm/kg (285-295) L 11/02/21 22:10 Lactic Acid 2.8 mmol/L (0.5-2.2) H 11/02/21 22:55 Lactic Acid (Sepsis) 2.4 mmol/L (0.5-2.2) H 11/03/21 01:48 Calcium 9.6 mg/dL (8.5-10.5) 11/02/21 22:10 Total Bilirubin 0.5 mg/dL (0.15-1.2) 11/02/21 22:10 AST 6 U/L (0-32) 11/02/21 22:10 ALT 7 U/L (0-33) 11/02/21 22:10 Alkaline Phosphatase 79 IU/L (35-105) 11/02/21 22:10 Total Protein 7.4 g/dL (6.6-8.7) 11/02/21 22:10 Albumin 4.0 g/dL (3.5-5.2) 11/02/21 22:10 Globulin 3.4 g/dL (1.3-4.6) 11/02/21 22:10 Lipase 63 U/L (13-60) H 11/02/21 22:10 TSH 0.35 uIU/mL (0.27-4.20) 11/02/21 22:10 Urine Color Yellow (Yellow) 11/03/21 00:02 Urine Appearance Clear (CLEAR) 11/03/21 00:02 Urine pH 6.5 (5-7) 11/03/21 00:02 Ur Specific [place] 1.005 (1.005-1.030) 11/03/21 00:02 Urine Protein Trace (Negative) 11/03/21 00:02 Urine Glucose (UA) Norm (Normal) 11/03/21 00:02 Urine Ketones 1+ (Negative) H 11/03/21 00:02 Urine Blood 2+ (Negative) H 11/03/21 00:02 Urine Nitrate Negative (Negative) 11/03/21 00:02 Urine Bilirubin Neg (Negative) 11/03/21 00:02 Urine Urobilinogen Neg mg/dL (Negative) 11/03/21 00:02 Ur Leukocyte Esterase 2+ (Negative) H 11/03/21 00:02 Urine RBC 50-80 /hpf (0-2) H 11/03/21 00:02 Urine WBC >100 /hpf (0-5) H 11/03/21 00:02 Ur Squamous Epith Cells 5-10 /hpf (0-5) H 11/03/21 00:02 Amorphous Sediment Not Reportable 11/03/21 00:02 Urine Bacteria 1+ /hpf (NONE) H 11/03/21 00:02 SARS-CoV-2 Ag (Rapid) Negative (Negative) 11/03/21 00:02 Impressions Abdomen/Pelvis CT 11/02/21 22:38 IMPRESSION: 1. Negative for focal acute inflammatory process in the abdomen or pelvis. 2. Cholecystectomy. 3. IUD in the uterine cavity. Chest X-Ray 11/02/21 23:45 IMPRESSION: No acute findings. A&P Assessment and plan (1) Sepsis: Meets criteria by way of fever, leukocytosis up to 30, tachycardic with intermittent SVT, tachypnea, elevated lactate at 2.8. Possible source of infection by way of UTI, other work-up pending in immunocompromised lymphodepleted patient. Received sepsis bolus in the ER, continue IV fluids at 75 cc an hour, currently blood pressure is maintained, however patient extremely tachycardic. Empiric antibiotic treatment started with piperacillin tazobactam and vancomycin Blood culture taken prior to starting antibiotic treatment. Thus far infectious work-up is with positive UA, symptoms of dysuria, may have UTI and possible pyelonephritis given right flank pain. Awaiting urine culture. CT abdomen pelvis without any acute intra-abdominal inflammatory pathology. Incidental note made of IUD. Chest x-ray without gross consolidation. Patient has baseline chronic leukocytosis of around 17 K, undergoing outpatient evaluation with oncology, thought to have possible MGUS Check Covid PCR Status: Acute Qualifiers: Sepsis acute organ dysfunction status: unspecified Sepsis type: sepsis due to unspecified organism Qualified Code(s): A41.9 - Sepsis, unspecified organism (2) Abdominal pain: Abdominal pain nausea vomiting for about 1 week. Much worse currently. CT abdomen without any acute inflammatory pathology. Clinically reports right flank tenderness, with a positive UA cannot rule out pyelonephritis at this time. Has not been able to tolerate outpatient p.o. antibiotics. Lipase negative. Additional sources of abdominal pain may be gastric versus duodenal ulceration given now interim development of hematemesis. Status: Acute Qualifiers: Abdominal location: generalized Qualified Code(s): R10.84 - Generalized abdominal pain (3) GI bleed: 2 episodes of hematemesis after presentation to cardiac stepdown unit. Patient is on aspirin and Plavix as an outpatient, no noted anticoagulation though there is noted history of antiphospholipid antibody +. Reports a past history of gastric ulceration. Patient additionally on chronic steroids which puts her at a higher risk of development of GI ulceration. Esophageal tear is also possible given excessive nausea vomiting over the past week. Started on Protonix infusion 8 mg/hr GEN surge consult to assess for endoscopy Stat CBC to evaluate for acute blood loss. On presentation hemoglobin at baseline of 13.5. Status: Acute (4) SVT (supraventricular tachycardia): Currently likely precipitated by sepsis and missing Cardizem over the past week due to inability to tolerate p.o. intake. Given multiple pushes of 10 mg IV Cardizem, currently patient with sinus tachycardia with heart rate 130 bpm at the time of my assessment. Resume p.o. Cardizem once able to tolerate p.o. intake As needed 5 mg IV metoprolol every 4 hours in the interim for heart rate greater than 130 Status: Acute (5) UTI (urinary tract infection): As above, started on empiric management with Zosyn and vancomycin Status: Acute (6) MGUS (monoclonal gammopathy of unknown significance): Status: Acute (7) Gastroparesis: Status: Acute (8) Antiphospholipid antibody positive: Status: Acute (9) Systemic lupus erythematosus (SLE) in adult: On outpatient management with rheumatology. Hold hydroxychloroquine, belimumab for now given sepsis. Continuing Prednisone 10mg po daily for now to minimize risk of adrenal crisis with abrupt discontinuation of chronic steroids. This may need to be reassessed if GI ulceration discovered on UGIE. Status: Acute (10) Immunosuppression: Status: Acute Additional A&P Information Patient initially admitted to cardiac stepdown, however thereafter transferred to intensive care unit due to subsequent development of GI bleed, persistent tachycardia/SVT, will need close clinical monitoring. Attestations Medical Necessity Statement*: >2midnight admission will be needed for management of sepsis in immunocompromised patient, iv abx, iv hydration, control of heart rate and rhythm, management of GI bleeding Critical Care Time: The high probability of a clinically significant, sudden or life threatening deterioration of the patient's [cardiac, GI, infectious, rheumatology] system(s) required my full and direct attention, intervention and personal management. The critical care time is as shown. This time is in addition to time spent performing any reported procedures but includes the following: [x] Data and vital sign review and interpretation [x] Patient assessment, examination and intervention [x] Documentation [x] Medication orders and management Critical Care Time (min): 90 Coding Level of Care Code Acute Acid Tank Liner for [facility] Fwd Diagnoses Sepsis A41.9 Sepsis acute organ dysfunction status: unspecified Sepsis type: sepsis due to unspecified organism Abdominal pain R10.84 Abdominal location: generalized GI bleed K92.2 SVT (supraventricular tachycardia) I47.1 UTI (urinary tract infection) N39.0 MGUS (monoclonal gammopathy of unknown significance) D47.2 Gastroparesis K31.84 Antiphospholipid antibody positive R76.0 Systemic lupus erythematosus (SLE) in adult M32.9 Immunosuppression D89.9
[2021-11-03] MEDS: ketorolac 30 mg/mL INJ 15 MG IVP (03:43)
--- NOTE | 2021-11-03 03:46 | PC.NURSE ---
Patient crying with severe pain. Informed Dr Pringle and received onetime order for Toradol 15mg IVP now. RBVO Medication given as ordered. Doctor in to see patient at this time.
[2021-11-03] MEDS: pantoprazole 40 mg SDV 80 MG IVP (04:18)
[2021-11-03] MEDS: sodium chloride 0.9% 1,000 ML 75 ML IV ×2 (04:21→23:01)
--- NOTE | 2021-11-03 04:46 | PC.NURSE ---
Report called to ICU. Patient being transferred due to persistent SVT 150s, n,v with blood stained emesis. Instructed patient on transfer. Patient verbalized complete understanding.
[2021-11-03] MEDS: morphine 4 mg/mL SDV 1 mL 2 MG IVP (04:56)
[2021-11-03] MEDS: pantoprazole 40 MG in sodium chloride 0.9% (plus) 100 ML 20 MG IV ×4 (05:03→23:55)
--- NOTE | 2021-11-03 05:32 | ECG_ITS ---
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 Measurements Intervals [place] Rate: 135 P: 24 HI: 120 QRS: -3 QRSD: 75 T: 35 QT: 331 QTc: 497 Interpretive Statements SINUS TACHYCARDIA NONSPECIFIC T-WAVE ABNORMALITY Compared to ECG 11/02/2021 22:03:00 Supraventricular tachycardia no longer present T-wave abnormality still present Electronically Signed On 11-03-2021 22:02:00 NEGATIVE CHECKER by Bishnu Alan M.D. [id number] f
[2021-11-03] MEDS: HYDROmorphone 1 mg/mL INJ 1 mL IVP ×5 (05:36→17:54)
[2021-11-03] MEDS: ondansetron 2 mg/ML SDV 2 mL 4 MG IVP ×2 (07:08→15:09)
[2021-11-03 07:29] LABS: Basophils # 0.1 10^3/uL (0.0-0.1); Basophils % 0.3 %; Hematocrit 31.3 % (37.0-47.0); Hemoglobin 10.9 g/dL (11.5-15.3); Lymphocytes # 1.6 10^3/uL (0.8-4.8); Lymphocytes % 6.9 %; Mean Corpuscular HGB Conc 34.8 g/dL (30.0-36.0); Mean Corpuscular Hemoglobin 30.5 pg (28.0-34.0); Mean Corpuscular Volume 87.7 fl (81-99); Mean Platelet Volume 8.7 fL (7.4-10.4); Monocytes # 1.1 10^3/uL (0.2-0.9); Monocytes % 5.1 %; Neutrophils # 19.06 10^3/uL (1.8-7.7); Neutrophils % 84.7 %; Nucleated Red Blood Cells % 0 %; Platelet Count 426 10^3/cmm (130-400); Red Blood Count 3.57 10^6/uL (4.1-5.3); Red Cell Distribution Width 12.4 % (12.1-15.1); White Blood Count 22.5 10^3/uL (4.0-10.0)
[2021-11-03 07:33] LABS: Adenovirus Not Detected (NOT DETECT); Chlamydia Pneumoniae Not Detected (NOT DETECT); Coronavirus 229E,HKU1,NL63,OC4 Not Detected (NOT DETECT); Human Metapneumovirus Not Detected (NOT DETECT); Human Rhinovirus/Enterovirus Not Detected (NOT DETECT); Influenza A Not Detected (NOT DETECT); Influenza A H1 Not Detected (NOT DETECT); Influenza A H1-2009 Not Detected (NOT DETECT); Influenza A H3 Not Detected (NOT DETECT); Influenza B Not Detected (NOT DETECT); Mycoplasma Pneumoniae Not Detected (NOT DETECT); Parainfluenza Virus Type 1 Not Detected (NOT DETECT); Parainfluenza Virus Type 2 Not Detected (NOT DETECT); Parainfluenza Virus Type 3 Not Detected (NOT DETECT); Parainfluenza Virus Type 4 Not Detected (NOT DETECT); Respiratory Syncytial Virus A Not Detected (NOT DETECT); Respiratory Syncytial Virus B Not Detected (NOT DETECT); SARS-COV-2 Not Detected (NOT DETECT)
[2021-11-03 07:44] LABS: Troponin T (5th) Once 18 ng/L (0-10)
[2021-11-03 07:46] LABS: Lactate (Lactic Acid level) 1.4 mmol/L (0.5-2.2)
[2021-11-03 07:48] LABS: Alanine Aminotransferase 6 U/L (0-33); Albumin Level 3.3 g/dL (3.5-5.2); Alkaline Phosphatase 68 IU/L (35-105); Anion Gap 21.1 (5-19); Aspartate Amino Transferase 5 U/L (0-32); Blood Urea Nitrogen 7 mg/dL (6-20); Calcium 8.2 mg/dL (8.5-10.5); Carbon Dioxide 19 mmol/L (22-29); Chloride 100 mmol/L (98-107); Globulin 2.5 g/dL (1.3-4.6); Glomerular Filtration Rate 132.2 mL/min (90-130); Glucose 93 mg/dL (65-115); Osmolality Calculated 282 mOsm/kg (285-295); Potassium 3.1 mmol/L (3.5-5.1); Sodium 137 mmol/L (136-145); Total Bilirubin 0.5 mg/dL (0.15-1.2); Total Protein 5.8 g/dL (6.6-8.7)
[2021-11-03] MEDS: sodium chloride 0.9% 1,000 ML 30 ML IV ×2 (07:53→10:00)
--- NOTE | 2021-11-03 08:05 | ECG_ITS ---
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 Measurements Intervals [place] Rate: 134 P: 68 [place]: 147 QRS: 8 QRSD: 78 T: 46 QT: 331 QTc: 496 Interpretive Statements SINUS TACHYCARDIA NONSPECIFIC ST & T-WAVE ABNORMALITY Compared to ECG 11/03/2021 00:31:35 No significant changes Electronically Signed On 11-03-2021 22:01:18 ELEVATOR SERVICE MECHANIC by Bishnu Alan M.D. [id number]
[2021-11-03] MEDS: sodium chloride 0.9% 1,000 ML 999 ML IV (08:26)
--- NOTE | 2021-11-03 08:32 | ECG_ITS ---
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 Measurements Intervals [place] Rate: 139 P: 46 [place]: 148 QRS: -3 QRSD: 79 T: 42 QT: 329 QTc: 501 Interpretive Statements SINUS TACHYCARDIA NONSPECIFIC ST & T-WAVE ABNORMALITY Compared to ECG 11/03/2021 05:40:38 No significant changes Electronically Signed On 11-03-2021 22:07:31 CIDER PRESS OPERATOR by Bishnu Alan M.D. [email or web address] system [id number] f
[2021-11-03] MEDS: vancomycin 1,250 MG/250 ML PIGGYBACK 200 MG IV ×2 (08:34→19:46)
--- NOTE | 2021-11-03 08:47 | ANES.PREANE2 ---
Pre-Anesthetic Assessment Pre-Anesthetic Assessment: Height/Weight: Height 1.73 m Weight 86.682 kg Temp Pulse Resp BP Pulse Ox 99.5 F 130 H 30 H 145/94 100 11/03/21 02:39 11/03/21 06:16 11/03/21 08:28 11/03/21 04:29 11/03/21 08:28 Preop Diagnosis: hematemesis Proposed Procedure: Operation Date: 11/03/21 11:45 Proposed Procedures p EGD(Not Applicable) - Scot Peres MD Familial anesthetic complications: none Was Beta Nina taken within 24 hours: N/A Was Clonidine taken within 24 hours: N/A Last intake: > 8 hrs Social: Social History: No alcohol and No tobacco Exam: Pre-Anes Outpt Exam: alert, oriented x 3, clear to auscultation bilaterally and regular rate & rhythm Airway: Cervical ROM: WNL MP: 2 Dentition: Chipped CV/HEM: Comments: SVT GI: Comments: gastroparesis Metabolic: Metabolic: Morbid obesity and Thyroid Musc/skel: Comments: SLE,RA, sjogren's, antiphospholipid syndrome, hashimotos Neuropsych: Neuropsych: Seizure and TIA Anesthetic Plan: ASA status: 4 Anesthesia: MAC Risk of > 500 ml blood loss (7ml/kg in children): No Meds/Allergies Current Medications: Current Medications Generic Name Dose Route Start Last Admin Trade Name Freq PRN Reason Stop Dose Admin Hydromorphone HCl 1 mg 11/03/21 05:27 11/03/21 08:28 Hydromorphone 1 Mg/Ml Inj 1 Ml IVP 1 mg Q4H PRN Administration pain Pantoprazole [place]od[place] m 40 mg/ 100 mls @ 20 mls/ hr 11/03/21 04:00 11/03/21 05:03 Sodium Chloride IV 8 mg/hr .Q5H JOSE EDUARDO 20 mls/hr Administration 8 MG/HR Sodium Chloride 1,000 mls @ 75 ml s/hr 11/03/21 04:00 11/03/21 04:48 Sodium Chloride 0.9% IV 75 mls/hr .[id number] JOSE EDUARDO Infusion Vancomycin/PEG/NAD A/Lysine/Water 1,250 mg in 250 m ls @ 200 mls/hr 11/03/21 08:00 11/03/21 08:34 Vancocin IV 200 mls/hr Q12H JOSE EDUARDO Administration Sodium Chloride 1,000 mls @ 999 m ls/hr 11/03/21 08:18 11/03/21 08:26 Sodium Chloride 0.9% IV 11/03/21 09:18 999 mls/hr .Q1H1M ONE Administration Metoclopramide HCl 5 mg 11/03/21 03:16 11/03/21 03:21 Metoclopramide 5 Mg/Ml Sdv 2 Ml IVP 5 mg ONCE PRN Administration NAUSEA AND VOMITI NG Metoclopramide HCl 5 mg 11/03/21 04:00 11/03/21 07:45 Metoclopramide 5 Mg/Ml Sdv 2 Ml IVP 5 mg Q6H PRN Administration NAUSEA AND VOMITI NG Ondansetron HCl 4 mg 11/03/21 03:55 11/03/21 07:08 Ondansetron 2 Mg /Ml Sdv 2 Ml IVP 4 mg Q8H PRN Administration vomiting, or N/V if npo PFSH Anesthesia PFSH: Medical History Antiphospholipid antibody positive Cervical spondylosis Dizziness Fibromyalgia Gastroparesis High risk medication use Hx of Sjogren's disease Immunization counseling Immunosuppression Lumbar spondylosis Medication monitoring encounter MGUS (monoclonal gammopathy of unknown significance) Osteoporosis Systemic lupus erythematosus (SLE) in adult Thyroid nodule Vitamin D deficiency Surgical History H/O tubal ligation History of cholecystectomy Social History Smoking and tobacco status: never smoked Second hand smoke exposure: Yes Alcohol intake: never Lives independently: Yes Household members: spouse Marital status: Number of children: 3 Current occupational status: disabled History of recent travel: No Current gender identity: Female Data Anesthesia CBC & Chem 7: 11/03/21 06:54 11/03/21 06:54 Other Labs: Laboratory Results - last 48 hr 11/02/21 11/02/21 11/02/21 22:10 22:10 22:10 WBC 30.5 H* RBC 4.44 Hgb 13.5 Hct 37.8 MCV 85.1 MCH 30.4 MCHC 35.7 RDW 12.4 Plt Count 659 H MPV 8.8 Neut % (Auto) 81.3 Lymph % (Auto) 8.9 [place] % (Auto) 6.2 Eos % (Auto) 0.1 Baso % (Auto) 0.3 Neut # (Auto) 24.83 H Lymph # (Auto) 2.7 [place] # (Auto) 1.9 H Eos # (Auto) 0.0 Baso # (Auto) 0.1 Nucleated RBC % (auto) 0 Nucleated RBCs # 0.0 Sodium 134 L Potassium 3.6 Chloride 94 L Carbon Dioxide 19 L Anion Gap 24.6 H BUN 11 Creatinine 0.8 GFR Calculation 76.9 L Glucose 124 H Calculated Osmolality 279 L Lactic Acid Lactic Acid (Sepsis) Lactate Calcium 9.6 Magnesium Total Bilirubin 0.5 AST 6 ALT 7 Alkaline Phosphatase 79 Troponin T Gen 5 ng/L Total Protein 7.4 Albumin 4.0 Globulin 3.4 Lipase 63 H TSH 0.35 Urine Color Urine Appearance Urine pH Ur Specific [place] Urine Protein Urine Glucose (UA) Urine Ketones Urine Blood Urine Nitrate Urine Bilirubin Urine Urobilinogen Ur Leukocyte Esterase Urine RBC Urine WBC Ur Squamous Epith Cells Amorphous Sediment Urine Bacteria Coronavirus 229E (PCR) SARS-CoV-2 (PCR) SARS-CoV-2 Ag (Rapid) 11/02/21 11/03/21 11/03/21 22:55 00:02 00:02 WBC RBC Hgb Hct MCV MCH MCHC RDW Plt Count MPV Neut % (Auto) Lymph % (Auto) [place] % (Auto) Eos % (Auto) Baso % (Auto) Neut # (Auto) Lymph # (Auto) [place] # (Auto) Eos # (Auto) Baso # (Auto) Nucleated RBC % (auto) Nucleated RBCs # Sodium Potassium Chloride Carbon Dioxide Anion Gap BUN Creatinine GFR Calculation Glucose Calculated Osmolality Lactic Acid 2.8 H Lactic Acid (Sepsis) Lactate Calcium Magnesium Total Bilirubin AST ALT Alkaline Phosphatase Troponin T Gen 5 ng/L Total Protein Albumin Globulin Lipase TSH Urine Color Yellow Urine Appearance Clear Urine pH 6.5 Ur Specific [place] 1.005 Urine Protein Trace Urine Glucose (UA) Norm Urine Ketones 1+ H Urine Blood 2+ H Urine Nitrate Negative Urine Bilirubin Neg Urine Urobilinogen Neg Ur Leukocyte Esterase 2+ H Urine RBC 50-80 H Urine WBC >100 H Ur Squamous Epith Cells 5-10 H Amorphous Sediment Not Reportable Urine Bacteria 1+ H Coronavirus 229E (PCR) SARS-CoV-2 (PCR) SARS-CoV-2 Ag (Rapid) Negative 11/03/21 11/03/21 11/03/21 01:48 04:30 06:54 WBC 22.5 H RBC 3.57 L Hgb 10.9 L Hct 31.3 L MCV 87.7 MCH 30.5 MCHC 34.8 RDW 12.4 Plt Count 426 H D MPV 8.7 Neut % (Auto) 84.7 Lymph % (Auto) 6.9 [place] % (Auto) 5.1 Eos % (Auto) 0.0 Baso % (Auto) 0.3 Neut # (Auto) 19.06 H Lymph # (Auto) 1.6 [place] # (Auto) 1.1 H Eos # (Auto) 0.0 Baso # (Auto) 0.1 Nucleated RBC % (auto) 0 Nucleated RBCs # 0.0 Sodium Potassium Chloride Carbon Dioxide Anion Gap BUN Creatinine GFR Calculation Glucose Calculated Osmolality Lactic Acid Lactic Acid (Sepsis) 2.4 H Lactate Calcium Magnesium Total Bilirubin AST ALT Alkaline Phosphatase Troponin T Gen 5 ng/L Total Protein Albumin Globulin Lipase TSH Urine Color Urine Appearance Urine pH Ur Specific [place] Urine Protein Urine Glucose (UA) Urine Ketones Urine Blood Urine Nitrate Urine Bilirubin Urine Urobilinogen Ur Leukocyte Esterase Urine RBC Urine WBC Ur Squamous Epith Cells Amorphous Sediment Urine Bacteria Coronavirus 229E (PCR) Not detected SARS-CoV-2 (PCR) Not detected SARS-CoV-2 Ag (Rapid) 11/03/21 11/03/21 11/03/21 06:54 06:54 06:54 WBC RBC Hgb Hct MCV MCH MCHC RDW Plt Count MPV Neut % (Auto) Lymph % (Auto) [place] % (Auto) Eos % (Auto) Baso % (Auto) Neut # (Auto) Lymph # (Auto) [place] # (Auto) Eos # (Auto) Baso # (Auto) Nucleated RBC % (auto) Nucleated RBCs # Sodium 137 Potassium 3.1 L Chloride 100 Carbon Dioxide 19 L Anion Gap 21.1 H BUN 7 Creatinine 0.5 GFR Calculation 132.2 H Glucose 93 Calculated Osmolality 282 L Lactic Acid Lactic Acid (Sepsis) Lactate 1.4 Calcium 8.2 L Magnesium 1.0 L Total Bilirubin 0.5 AST 5 ALT 6 Alkaline Phosphatase 68 Troponin T Gen 5 ng/L 18 H Total Protein 5.8 L D Albumin 3.3 L Globulin 2.5 Lipase TSH Urine Color Urine Appearance Urine pH Ur Specific [place] Urine Protein Urine Glucose (UA) Urine Ketones Urine Blood Urine Nitrate Urine Bilirubin Urine Urobilinogen Ur Leukocyte Esterase Urine RBC Urine WBC Ur Squamous Epith Cells Amorphous Sediment Urine Bacteria Coronavirus 229E (PCR) SARS-CoV-2 (PCR) SARS-CoV-2 Ag (Rapid) Micro: Microbiology 11/02/21 22:56 Blood Culture - Preliminary Blood SPECIMEN COLLECTED 11/02/21 22:55 Blood Culture - Preliminary Blood SPECIMEN COLLECTED Cardiac Studies: No Data to Display
--- NOTE | 2021-11-03 09:19 | PM.MISC ---
Miscellaneous Note Note: Patient is stating that she has history of upper GI bleed, status post EGD in the past, she is not sure whether any intervention was done at that point, She did not require any blood transfusion in the past She is on steroids for her lupus She been having dental pain recurrent nausea vomiting for last 4 weeks she has received 2 different antibiotics for UTI no recent vaginal discharge She is sexually active She states that her IUD is supposed to be removed around April, 5 years Patient was resting in left lateral position Complaining of pain in her abdomen midepigastric region, diffuse pain elicited on deep palpation, no rigidity guarding Clinically dehydrated Pale complexion Sinus tachycardia heart rate in 140s No signs of edema Alcohol Nonfocal exam Plan: N.p.o.: EGD today Continue Protonix drip We will give her Cardizem push, repeat EKG CT abdomen did not show any acute pathological findings, she might need transvaginal ultrasound Potassium 3.1: Repleted Lactic acidemia secondary to dehydration Magnesium 1: Abnormal UA Patient has history of gastroparesis, she states that a pacemaker was recommended in the past
--- NOTE | 2021-11-03 09:21 | US_ITS ---
WS: [id number] ULTRASOUND PELVIS TECHNIQUE: Transabdominal and transvaginal. ULTRASOUND PELVIS TECHNIQUE: Transabdominal. CLINICAL INFORMATION: , Severe leukocytosis, has IUD COMPARISON: None. FINDINGS: Technically difficult examination due to bowel gas and body habitus. IUD in normal position. Uterus Orientation: Retroverted Size: 6.9 cm x 4.4 cm x 3.5 cm. Masses: None. Cervix: Normal Endometrium: Normal. Endometrium thickness: 0.6 cm. Adnexa: Neither ovary is visualized. No adnexal masses. Free fluid: None. Other findings: None. US/US pelvic with transvaginal IMPRESSION: Technically difficult study due to bowel gas and body habitus. 1. Retroverted uterus with normal endometrium. Endometrium measures 6.4 mm. No free fluid in the endometrial canal. 2. Neither ovary is visualized. 3. IUD appears in good position within the uterus. 4. No free fluid in the cul-de-sac.
[2021-11-03] MEDS: scopolamine 1.5 Patch 1 PATCH TRANSDERMA (09:25)
--- NOTE | 2021-11-03 10:09 | P.CONIM_ITS ---
Providers/Reason For Consult Consulting Physician/Specialty*: General Surgery Dr. Peres Reason for Consult*: Hematemesis Attending Physician: Anthony May MD Primary Care Provider: Milady Crystal DO History of Present Illness History of Present Illness Tereza Flaherty is a 46 year old female who presented to the ER yesterday with 6- day history of abdominal pain nausea, vomiting and diarrhea. The diarrhea resolved 3 to 4 days ago but she has continued to have abdominal pain with nausea and vomiting. Earlier today she had episodes of hematemesis and she was noted to be tachycardic with heart rate in the 140s. Patient states that she has had ulcers in the past and prior EGD. She is on steroids for SLE and is on belimumab and steroids. Review of Systems General: Reports: 10 or more systems reviewed and unremarkable except in HPI and below Meds/Allergies Home Medications and Allergies Home Medications Medication Instructions Recorded Confirmed Last Taken Type diclofenac sodium 1 % topical gel 2 gm TOPICAL QID PRN 12/02/19 11/03/21 04/12/20 History hydroxyzine HCl 25 mg tablet 25 mg PO Q8H PRN tab 12/02/19 11/03/21 10/31/21 History promethazine 25 mg tablet 25 mg PO Q6H PRN 12/02/19 11/03/21 04/12/20 History albuterol sulfate 90 mcg/actuation 2 puff INHALATION Q6H PRN 03/10/20 11/03/21 04/12/20 History aerosol inhaler aspirin 81 mg tablet,delayed 81 mg PO DAILY 03/10/20 11/03/21 10/31/21 History release atorvastatin 40 mg tablet 40 mg PO DAILY 03/10/20 11/03/21 10/31/21 History cetirizine 10 mg tablet 10 mg PO DAILY 03/10/20 11/03/21 10/31/21 History clopidogrel 75 mg tablet 75 mg PO DAILY 03/10/20 11/03/21 10/31/21 History diltiazem HCl 240 mg 240 mg PO DAILY 03/10/20 11/03/21 10/31/21 History capsule,extended release 24 hr epinephrine 0.3 mg/0.3 mL 0.3 mg IM Q10M PRN 03/10/20 11/03/21 Unknown History injection, auto-injector lamotrigine 25 mg tablet 25 mg PO TID tab 03/10/20 11/03/21 10/31/21 History levothyroxine 137 mcg capsule 137 mcg PO DAILY 03/10/20 11/03/21 10/31/21 History oxycodone 15 mg tablet 15 mg PO Q4H PRN 03/10/20 11/03/21 04/13/20 History desvenlafaxine succinate 50 mg 50 mg PO DAILY 03/23/20 11/03/21 10/31/21 History tablet,extended release 24 hr acetaminophen [Tylenol Extra 1,000 mg PO PRN PRN 04/13/20 11/03/21 04/13/20 History Strength] belimumab [Benlysta] See Rx Instructions .ROUTE .COMPLEX 04/13/20 11/03/21 10/06/21 History cholecalciferol (vitamin D3) 50 50 mcg PO DAILY #30 cap 10/18/20 11/03/21 10/31/21 Rx mcg (2,000 unit) capsule lubiprostone 24 mcg capsule 24 mcg PO BID 10/18/20 11/03/21 10/31/21 History nitroglycerin 0.4 mg sublingual 0.4 mg SUBLINGUAL Q5M PRN 06/07/21 11/03/21 Unknown History tablet cevimeline 30 mg PO TID 11/03/21 11/03/21 10/31/21 History fluconazole 100 mg PO DAILY 11/03/21 11/03/21 10/31/21 History fluticasone propionate 1 spray INTRANASAL DAILY PRN 11/03/21 11/03/21 Unknown History hydroxychloroquine 200 mg PO BID 11/03/21 11/03/21 10/31/21 History lidocaine 1 patch TOPICAL DAILY PRN 11/03/21 11/03/21 Unknown History lorazepam 1 mg PO BID PRN 11/03/21 11/03/21 Unknown History meclizine 12.5 mg PO BID 11/03/21 11/03/21 Unknown History olopatadine 1 spray INTRANASAL DAILY 11/03/21 11/03/21 Unknown History pantoprazole [Protonix] 40 mg PO BID 11/03/21 11/03/21 10/31/21 History pilocarpine HCl 5 mg PO TID 11/03/21 11/03/2121 History potassium chloride 10 meq PO DAILY 11/03/21 11/03/21 10/31/21 History prednisone 10 mg PO DAILY 11/03/21 11/03/21 10/31/21 History tizanidine 4 mg PO TID PRN 11/03/21 11/03/21 10/31/21 History Allergies Allergy/AdvReac Type Severity Reaction Status Date / Time diclofenac [From [facility]] AdvReac DIZZINESS Verified 06/07/21 14:08 misoprostol [From [facility]] AdvReac DIZZINESS Verified 06/07/21 14:08 Current Medications Current Medications Generic Name Dose Route Start Last Admin Trade Name Freq PRN Reason Stop Dose Admin Hydromorphone HCl 1 mg 11/03/21 05:27 11/03/21 08:28 Hydromorphone 1 Mg/Ml Inj 1 Ml IVP 1 mg Q4H PRN Administration pain Pantoprazole Sodium 40 mg/ 100 mls @ 20 mls/hr 11/03/21 04:00 11/03/21 05:03 Sodium Chloride IV 8 mg/hr .Q5H JOSE EDUARDO 20 mls/hr Administration 8 MG/HR Sodium Chloride 1,000 mls @ 75 mls/hr 11/03/21 04:00 11/03/21 04:48 Sodium Chloride 0.9% IV 75 mls/hr .[id number] JOSE EDUARDO Infusion Vancomycin/PEG/[place]/Lysine/Water 1,250 mg in 250 mls @ 200 mls/hr 11/03/21 08:00 11/03/21 10:03 Vancocin IV Infused Q12H JOSE EDUARDO Infusion Sodium Chloride 1,000 mls @ 30 mls/hr 11/03/21 10:00 11/03/21 10:00 Sodium Chloride 0.9% IV 11/04/21 09:59 30 mls/hr .Q24H JOSE EDUARDO Administration Metoclopramide HCl 5 mg 11/03/21 03:16 11/03/21 03:21 Metoclopramide 5 Mg/Ml Sdv 2 Ml IVP 5 mg ONCE PRN Administration NAUSEA AND VOMITING Metoclopramide HCl 5 mg 11/03/21 04:00 11/03/21 07:45 Metoclopramide 5 Mg/Ml Sdv 2 Ml IVP 5 mg Q6H PRN Administration NAUSEA AND VOMITING Ondansetron HCl 4 mg 11/03/21 03:55 11/03/21 07:08 Ondansetron 2 Mg/Ml Sdv 2 Ml IVP 4 mg Q8H PRN Administration vomiting, or N/V if npo PFSH Acute PFSH: Medical History (Updated 11/03/21 @ 10:42 by Scot Peres MD) Antiphospholipid antibody positive Cervical spondylosis Fibromyalgia Gastroparesis Hx of Sjogren's disease Lumbar spondylosis MGUS (monoclonal gammopathy of unknown significance) Osteoporosis Systemic lupus erythematosus (SLE) in adult Vitamin D deficiency Surgical History H/O tubal ligation History of cholecystectomy Social History Smoking and tobacco status: never smoked Second hand smoke exposure: Yes Alcohol intake: never Lives independently: Yes Household members: spouse Marital status: Number of children: 3 Current occupational status: disabled History of recent travel: No Current gender identity: Female Vitals/I&O/Wt Last Vital Signs Temp 98.5 F 11/03/21 09:54 Pulse 144 H 11/03/21 09:54 Resp 16 11/03/21 09:54 BP 145/89 11/03/21 09:54 Pulse Ox 97 11/03/21 09:54 11/02/21 11/03/21 11/03/21 22:59 06:59 14:59 Intake Total 2933.75 / 2933.75 262 / 262 Output Total 300 / 300 Balance 2633.75 / 2633.75 262 / 262 Weight last 48 hrs Weight 191 lb 1.6 oz Weight 185 lb Physical Exam Narrative: EXAM NARRATIVE: HEENT: Normocephalic Eye: Sclera /conjunctiva normal Respiratory and chest: Bilateral clear breath sounds on auscultation Cardiovascular: Normal S1 and S2 heart sounds Abdomen: Soft to palpation, generalized tenderness, no guarding or rigidity Neurological: Oriented to place person and time Skin: Intact, no lesions appreciated on gross exam Data Micro: Micro: Microbiology 11/02/21 22:56 Blood Culture - Pr eliminary Blood SPECIMEN [facility] 11/02/21 22:55 Blood Culture - Pr eliminary Blood SPECIMEN [facility] A&P Assessment and plan (1) GI bleed: 46-year-old female with history of SLE, antiphospholipid syndrome who is on aspirin and Plavix as well as Biologics and steroids who presents with abdominal pain nausea vomiting and hematemesis. Continue Protonix therapy Plan for EGD under MAC today Procedure, risks, benefits and alternatives have been discussed with the patient who wishes to proceed with surgery. Status: Acute Consult Attestations Medical Necessity Statement: As per attending physician Coding Level of Care Code Acute Marketing Support Coordinator for Chg Fwd Diagnoses GI bleed K92.2
[2021-11-03] MEDS: fentaNYL 50 mcg/mL INJ 2mL IVP (10:14)
--- NOTE | 2021-11-03 11:21 | ANE.PACU2 ---
Inpatient post-anesthesia follow up: Airway intact: Yes Vital signs: Temperature 98.5 F Pulse Rate 144 Respiratory Rate 16 Blood Pressure 145/89 Pulse Oximetry 100 Oxygen Delivery Me thod Room Air Oxygen Flow Rate 4 Fraction of Inspir ed Oxygen Hydration adequate: Yes Nausea and vomiting: No Pain level: 1 Mental status: Baseline
[2021-11-03] MEDS: dilTIAZem ER (24HR) 240 mg Capsule PO (12:02)
[2021-11-03] MEDS: levothyroxine 137 mcg Tablet PO (12:02)
[2021-11-03] MEDS: atorvastatin 40 mg Tablet PO (12:03)
[2021-11-03] MEDS: desvenlafaxine 50 mg Tablet PO (12:03)
[2021-11-03] MEDS: lamoTRIgine 25 mg Tablet PO ×3 (12:03→21:09)
[2021-11-03] MEDS: predniSONE 5 mg Tablet 10 MG PO (12:03)
[2021-11-03] MEDS: metoprolol tartrate 1 mg/1 mL SDV 5 mL 5 MG IVP (13:09)
[2021-11-03] MEDS: magnesium sulfate premix 4 GM/100 ML PREMIX IV (13:25)
[2021-11-03] MEDS: lidocaine 1% 5 ML in potassium chloride premix 100 ML 25 ML IV (13:34)
--- NOTE | 2021-11-03 13:48 | CT_ITS ---
WS: [id number] CT LUMBAR SPINE TECHNIQUE: Noncontrast CT of the lumbar spine with coronal and sagittal reformatted images. CLINICAL INFORMATION: tender lumbar paraspinal area COMPARISON: None. DLP: 2118.[address] scans at [facility] use at least one of these dose optimization techniques: automated e xposure control; mA and/or kV adjustment per patient size (includes targeted exams where dose is matc hed to clinical indication); or iterative reconstruction. FINDINGS: Normal lumbar alignment. No acute compression. No high-grade central canal stenosis. Mild disc bulgin g L1-2 L4-5 and L5-S1.No acute fractures. No acute compression fractures. L1-L2: Mild disc bulging with slight effacement of ventral thecal sac. Spinal canal and foramen are p atent. Mild facet arthropathy. L2-L3: Normal. L3-L4: Mild annular bulging with slight effacement of ventral thecal sac. Spinal canal and foramen ar e patent. Mild facet arthropathy. L4-L5: Mild annular bulging with a tiny shallow central protrusion. Slight effacement of ventral thec al sac. Spinal canal and foramen are patent. Moderate facet arthropathy. L5-S1: Tiny shallow central protrusion with slight effacement of ventral thecal sac. Spinal canal and foramen are patent. Mild facet arthropathy. Adrenal glands are normal. Visualized pelvic bony structures: Normal. Paravertebral soft tissues: Normal. CT/CT lumbar spine wo con* [id number] IMPRESSION: 1. Mild lumbar curve. No acute compression. No high-grade central canal stenos is. 2. No acute fractures. 3. Mild disc bulging L1-L2 L4-L5 and L5-S1. No significant spinal canal or for aminal narrowing. 4. Mild facet arthropathy L4-L5 and L5-S1.
[2021-11-03 14:16] LABS: C Reactive Protein 144.1 mg/L (0.0-4.9)
[2021-11-03 14:20] LABS: D Dimer 0.36 ug/mIFEU (0-0.59)
[2021-11-03 14:31] LABS: INR 1.47 (0.8-1.2)
[2021-11-03 14:34] LABS: Partial Thromboplastin Time 41.5 SECONDS (23.9-36.7)
[2021-11-03 14:35] LABS: Fibrinogen 496 mg/dL (174-498); LAB Peripheral Smear Sent for Review
[2021-11-03 14:42] LABS: D Dimer 0.32 ug/mIFEU (0-0.59)
[2021-11-03] MEDS: oxyCODONE 5 mg IR Tab/Cap 15 MG PO (15:22)
[2021-11-03] MEDS: acetaminophen 325 mg Tablet 650 MG PO (15:22)
[2021-11-03] MEDS: tizanidine 4 mg Tablet PO (18:41)
--- NOTE | 2021-11-03 19:04 | PC.NURSE ---
Shift Note Frequent safety and comfort rounds continue. Orders and/or nursing care completed as indicated. Patient monitored for response to intervention and treatment(s). Education provided includes[]. Patient and/or community service representative [ResponseToTeaching]. Dr. May rounded with patient. Discussed heart rate, history, and medications. EKG preformed. Cardizem IVP given, see MAR. Patient to GI lab around 0930. Patient returned around 1112. All IV medications resumed upon return, see MAR. Patient able to take 0900 medications. Around 1300 patient stated that lower back was in pain and that she had chest pain. Dr. May notified. Heart rate was in the 140s. Dilaudid one time order given and administered, see MAR. Potassium and magnesium IV was started. Orderers for CT, ultrasound, and urinary catheter given. Patient taken for ultrasound and CT around 1345. Patient returned around 1500. Nausea and vomiting whole day. Clear and/or yellow bile emesis. Patient ate dinner and had 350 out in emesis afterwards. Medications given for pain, nausea, and vomiting, see MAR. Patient and updated on new results, medications, new orders, and care plan. Patient and verbalized understanding.
--- NOTE | 2021-11-03 19:12 | PC.NURSE ---
Report received from yamileth RN. Patient resting in bed watching TV. Patient states that she is feeling much better and denies any needs or requests at this time. NS at 75ml/hr and Protonix gtt at 8mg/hr infusing to L AC IV. [place] catheter noted and is draining well. All vital signs are stable.
[2021-11-03 19:27] LABS: Basophils # 0.1 10^3/uL (0.0-0.1); Basophils % 0.3 %; Hematocrit 32.1 % (37.0-47.0); Hemoglobin 10.8 g/dL (11.5-15.3); Lymphocytes # 0.8 10^3/uL (0.8-4.8); Lymphocytes % 3.8 %; Mean Corpuscular HGB Conc 33.6 g/dL (30.0-36.0); Mean Corpuscular Hemoglobin 29.7 pg (28.0-34.0); Mean Corpuscular Volume 88.2 fl (81-99); Mean Platelet Volume 8.2 fL (7.4-10.4); Monocytes % 4.4 %; Neutrophils # 19.86 10^3/uL (1.8-7.7); Neutrophils % 89.1 %; Nucleated Red Blood Cells % 0 %; Platelet Count 416 10^3/cmm (130-400); Red Blood Count 3.64 10^6/uL (4.1-5.3); Red Cell Distribution Width 12.7 % (12.1-15.1); White Blood Count 22.3 10^3/uL (4.0-10.0)
[2021-11-04] VITALS (53 sets, daily range): BP systolic 91–154; BP diastolic 58–99; PULSE 85–154; RESP 12–36; TEMP 36.7–37.2; O2SAT 95–100; BMI 29.0
[2021-11-04] MEDS: HYDROmorphone 1 mg/mL INJ 1 mL IVP (01:09)
[2021-11-04] MEDS: ondansetron 2 mg/ML SDV 2 mL 4 MG IVP ×3 (01:13→17:06)
[2021-11-04] MEDS: metoclopramide 5 mg/mL SDV 2 mL IVP (03:48)
[2021-11-04] MEDS: piperacillin-tazobactam 3.375 GM in sodium chloride 0.9% (plus) 50 ML IV ×3 (03:50→20:20)
[2021-11-04 04:18] LABS: Basophils # 0.1 10^3/uL (0.0-0.1); Basophils % 0.4 %; Eosinophils # 0.1 10^3/uL (0.0-0.8); Eosinophils % 0.5 %; Hematocrit 32.4 % (37.0-47.0); Hemoglobin 10.8 g/dL (11.5-15.3); Lymphocytes # 1.2 10^3/uL (0.8-4.8); Lymphocytes % 6.7 %; Mean Corpuscular HGB Conc 33.3 g/dL (30.0-36.0); Mean Corpuscular Hemoglobin 30.3 pg (28.0-34.0); Mean Corpuscular Volume 90.8 fl (81-99); Mean Platelet Volume 8.3 fL (7.4-10.4); Monocytes % 5.9 %; Neutrophils % 84.4 %; Nucleated Red Blood Cells % 0 %; Platelet Count 402 10^3/cmm (130-400); Red Blood Count 3.57 10^6/uL (4.1-5.3); Red Cell Distribution Width 12.8 % (12.1-15.1); White Blood Count 17.5 10^3/uL (4.0-10.0)
[2021-11-04] MEDS: tizanidine 4 mg Tablet PO ×2 (04:27→20:20)
[2021-11-04] MEDS: pantoprazole 40 MG in sodium chloride 0.9% (plus) 100 ML 20 MG IV (04:28)
[2021-11-04 04:34] LABS: Anion Gap 18.5 (5-19); Blood Urea Nitrogen 4 mg/dL (6-20); Calcium 7.9 mg/dL (8.5-10.5); Carbon Dioxide 19 mmol/L (22-29); Chloride 100 mmol/L (98-107); Glomerular Filtration Rate 132.2 mL/min (90-130); Glucose 92 mg/dL (65-115); Osmolality Calculated 275 mOsm/kg (285-295); Potassium 3.5 mmol/L (3.5-5.1); Sodium 134 mmol/L (136-145)
[2021-11-04] MEDS: oxyCODONE 5 mg IR Tab/Cap 15 MG PO ×4 (04:55→17:06)
--- NOTE | 2021-11-04 05:28 | PC.NURSE ---
SHIFT NOTE Patient has complained of pain and nausea multiple times but it was improved with medications (please see mar for details). Patient has had an uneventful night and is resting calmly in bed. All vital signs have remained stable.
[2021-11-04 07:40] LABS: Vancomycin Trough 9.2 ug/mL (10-15)
[2021-11-04] MEDS: sodium chloride 0.9% 1,000 ML 75 ML IV (07:51)
--- NOTE | 2021-11-04 08:16 | PC.NURSE ---
zofran given per pt request before breakfast to reduce nausea so she can eat
[2021-11-04] MEDS: levothyroxine 137 mcg Tablet PO (09:38)
[2021-11-04] MEDS: predniSONE 5 mg Tablet 10 MG PO (09:38)
[2021-11-04] MEDS: desvenlafaxine 50 mg Tablet PO (09:38)
[2021-11-04] MEDS: lamoTRIgine 25 mg Tablet PO ×3 (09:38→20:20)
[2021-11-04] MEDS: dilTIAZem ER (24HR) 240 mg Capsule PO (09:39)
[2021-11-04] MEDS: atorvastatin 40 mg Tablet PO (09:39)
--- NOTE | 2021-11-04 11:20 | P.PN_ITS ---
Subjective Subjective: Interval history: Patient today is feeling slightly better I gave her lidocaine junction for chronic abdominal wall syndrome Carnett's sign is positive Patient is stating that later injection has not helped her symptoms to a great degree She has been nauseous required antiemetics Clear liquid diet Heart rate has improved current heart rate is in 80s sinus rhythm Afebrile Blood culture positive for gram-negative rods, most likely urinary source, will repeat blood cultures today, leukocytosis running down,, she has history of persistent leukocytosis, MGUS Vitals/I&O/Wt Last Vital Signs Temp 98.9 F 11/04/21 06:09 Pulse 102 H 11/04/21 10:00 Resp 23 H 11/04/21 10:00 BP 119/85 11/04/21 10:00 Pulse Ox 100 11/04/21 08:45 11/03/21 11/04/21 11/04/21 22:59 06:59 14:59 Intake Total 1022 / 3105.5 721 / 3826.5 1112.5 / 1112.5 Output Total 2975 / 3250 900 / 4150 Balance -1953 / -144.5 -179 / -323.5 1112.5 / 1112.5 Weight last 48 hrs Weight 86.682 kg Weight 86.682 kg Weight 83.915 kg Physical Exam Narrative: EXAM NARRATIVE: Patient resting comfortably in her bed Complaining of dry heaves Doing well on 2 L nasal cannula which is a home requirement Abdomen soft slightly tender on deep palpation otherwise no signs of peritonitis guarding rigidity No signs of edema No skin rash Bruise on right leg Doing well on 2 L nasal cannula no acute restaurant distress No conversational dyspnea Mild signs of dehydration S1, S2 rhythm no murmur Urinary Catheter Management^: [place]: Cath Placed During This Visit: yes Reason for Continuing Indwelling Catheter: Accurate Measurement of Urinary Output in Critically Ill Patients Urinary Catheter Date of Insertion: 11/03/21 Urinary Catheter Time of Insertion: 16:30 Data : 11/04/21 03:44 11/04/21 03:44 Micro: Microbiology 11/03/21 00:02 Urine Culture - Preliminary Urine,Clean Catch Gram Negative Rods 11/02/21 22:55 Blood Culture - Preliminary Blood NEGATIVE TO DATE 11/02/21 22:56 Blood Culture - Preliminary Blood Gram Negative Rods A&P Assessment and plan (1) UTI (urinary tract infection): Status: Acute (2) Sepsis: Status: Acute Qualifiers: Sepsis acute organ dysfunction status: unspecified Sepsis type: sepsis due to unspecified organism Qualified Code(s): A41.9 - Sepsis, unspecified organism (3) Abdominal pain: Status: Acute Qualifiers: Abdominal location: generalized Qualified Code(s): R10.84 - Generalized abdominal pain (4) Vomiting: Status: Acute Qualifiers: Nausea presence: with nausea Vomiting type: unspecified Qualified Code(s): R11.2 - Nausea with vomiting, unspecified (5) Bacteremia: Status: Acute (6) Chronic respiratory failure with hypoxia: Status: Acute (7) High risk medication use: Status: Acute (8) Fibromyalgia: Status: Acute (9) MGUS (monoclonal gammopathy of unknown significance): Status: Acute (10) Gastroparesis: Status: Acute (11) Antiphospholipid antibody positive: Status: Acute (12) Systemic lupus erythematosus (SLE) in adult: Status: Acute Additional A&P Information Gastroparesis Patient is not diabetic She carries history of gastroparesis, pacemaker has been recommended to her however she does not know the etiology No active emesis however complaining of dry heaves and nausea Clear liquid diet for now CT abdomen pelvis unremarkable, no signs of pyonephritis, Right flank pain no signs of pyonephritis, she is tender paraspinal area around lumbar region CT scan showed bulging disc degenerative spine disease No signs of abscess or spine compression Sepsis related to UTI Uremia with gram-negative faith Repeat blood cultures today Low-grade fever Discontinue vancomycin, continue Zosyn History cardiac: She did require IV metoprolol and Cardizem yesterday, today heart rate is fluctuant between 80 to 90s, sinus rhythm, I do believe this is rebound tachycardia as she has not been able to take p.o. medications for quite some time No signs of pulmonary embolism, signs of dehydration positive, low-grade fever, history of SVT Hypoxic chronic without acute exacerbation currently doing well on 2 L of cannula Fibromyalgia MGUS antiphospholipid syndrome SLE: No acute flare Hematemesis: Status post EGD no signs of ulcer, gastritis positive, discontinue Protonix drip Full code Clear liquid diet DVT prophylaxis: SCDs for now patient has never took Coumadin for her antiphospholipid syndrome in the past Attestations Medical Necessity Statement*: Can be transferred out of ICU Time Spent in Patient Care: 16 - 35 minutes Coding Level of Care Code 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
[2021-11-04] MEDS: prochlorperazine 10 mg Tablet 5 MG PO (13:13)
--- NOTE | 2021-11-04 15:25 | PC.NURSE ---
report called for transfer to room 255 at bedside
[2021-11-04] MEDS: LORazepam 1 mg Tablet PO (17:06)
--- NOTE | 2021-11-04 18:05 | PM.PN ---
Subjective Subjective: Interval history: Patient feels a bit better today though her appetite is not back to normal and she had some nausea when she drank liquids earlier today. She has not had any further hematemesis. Vitals/I&O/Wt Last Vital Signs Temp 98.4 F 11/04/21 16:00 Pulse 112 H 11/04/21 16:00 Resp 20 H 11/04/21 17:06 BP 134/72 11/04/21 16:00 Pulse Ox 96 11/04/21 16:00 11/04/21 11/04/21 11/04/21 06:59 14:59 22:59 Intake Total 721 / 3826.5 1162.5 / 1162.5 Output Total 900 / 4150 Balance -179 / -323.5 1162.5 / 1162.5 Weight last 48 hrs Weight 191 lb 1.6 oz Weight 191 lb 1.6 oz Weight 185 lb Physical Exam Narrative: EXAM NARRATIVE: Abdomen: Soft, minimally tender, nondistended Urinary Catheter Management^: [place]: Cath Placed During This Visit: yes Reason for Continuing Indwelling Catheter: Accurate Measurement of Urinary Output in Critically Ill Patients Urinary Catheter Date of Insertion: 11/03/21 Urinary Catheter Time of Insertion: 16:30 Data : 11/04/21 03:44 11/04/21 03:44 Micro: Microbiology 11/04/21 12:43 Blood Culture - Preliminary Blood SPECIMEN COLLECTED 11/04/21 12:47 Blood Culture - Preliminary Blood SPECIMEN COLLECTED 11/03/21 00:02 Urine Culture - Preliminary Urine,Clean Catch Gram Negative Rods 11/02/21 22:55 Blood Culture - Preliminary Blood NEGATIVE TO DATE 11/02/21 22:56 Blood Culture - Preliminary Blood Gram Negative Rods A&P Assessment and plan (1) GI bleed: 46-year-old female with history of SLE, antiphospholipid syndrome who is on aspirin and Plavix as well as Biologics and steroids who presented with abdominal pain nausea vomiting and hematemesis. She has had a prior cholecystectomy. 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
[2021-11-05] VITALS (10 sets, daily range): BP systolic 105–129; BP diastolic 68–82; PULSE 90–107; RESP 16–20; TEMP 36.5–36.9; O2SAT 2–99
[2021-11-05] MEDS: ondansetron 2 mg/ML SDV 2 mL 4 MG IVP ×3 (01:03→18:12)
[2021-11-05] MEDS: oxyCODONE 5 mg IR Tab/Cap 15 MG PO ×5 (01:11→22:33)
[2021-11-05] MEDS: metoclopramide 5 mg/mL SDV 2 mL IVP ×2 (03:08→11:31)
[2021-11-05] MEDS: piperacillin-tazobactam 3.375 GM in sodium chloride 0.9% (plus) 50 ML IV (04:08)
[2021-11-05] MEDS: tizanidine 4 mg Tablet PO ×3 (06:12→22:33)
[2021-11-05] MEDS: prochlorperazine 10 mg Tablet 5 MG PO ×3 (06:12→22:17)
[2021-11-05 07:03] LABS: Basophils % 0.3 %; Eosinophils # 0.1 10^3/uL (0.0-0.8); Eosinophils % 0.8 %; Hematocrit 30.2 % (37.0-47.0); Hemoglobin 10.3 g/dL (11.5-15.3); Lymphocytes # 1.1 10^3/uL (0.8-4.8); Lymphocytes % 9.5 %; Mean Corpuscular HGB Conc 34.1 g/dL (30.0-36.0); Mean Corpuscular Hemoglobin 29.9 pg (28.0-34.0); Mean Corpuscular Volume 87.8 fl (81-99); Mean Platelet Volume 8.1 fL (7.4-10.4); Neutrophils # 9.36 10^3/uL (1.8-7.7); Neutrophils % 79.2 %; Nucleated Red Blood Cells % 0.2 %; Platelet Count 414 10^3/cmm (130-400); Red Blood Count 3.44 10^6/uL (4.1-5.3); Red Cell Distribution Width 12.7 % (12.1-15.1); White Blood Count 11.8 10^3/uL (4.0-10.0)
[2021-11-05 07:29] LABS: Anion Gap 19.1 (5-19); Blood Urea Nitrogen 3 mg/dL (6-20); Calcium 8.3 mg/dL (8.5-10.5); Carbon Dioxide 21 mmol/L (22-29); Chloride 93 mmol/L (98-107); Glomerular Filtration Rate 132.2 mL/min (90-130); Glucose 99 mg/dL (65-115); Osmolality Calculated 267 mOsm/kg (285-295); Potassium 3.1 mmol/L (3.5-5.1); Sodium 130 mmol/L (136-145)
[2021-11-05] MEDS: lamoTRIgine 25 mg Tablet PO ×3 (08:58→20:59)
[2021-11-05] MEDS: atorvastatin 40 mg Tablet PO (08:59)
[2021-11-05] MEDS: dilTIAZem ER (24HR) 240 mg Capsule PO (08:59)
[2021-11-05] MEDS: levothyroxine 137 mcg Tablet PO (08:59)
[2021-11-05] MEDS: predniSONE 5 mg Tablet 10 MG PO (08:59)
[2021-11-05] MEDS: desvenlafaxine 50 mg Tablet PO (08:59)
--- NOTE | 2021-11-05 11:11 | P.PN_ITS ---
Subjective Subjective: Interval history: Patient is feeling much better, still complaining of nausea no active emesis Afebrile, leukocytosis trending down, heart rate is better Potassium 3.1. Gram-negative faith in urine and blood culture Vitals/I&O/Wt Last Vital Signs Temp 98.2 F 11/05/21 08:00 Pulse 90 11/05/21 08:00 Resp 18 11/05/21 08:00 BP 112/76 11/05/21 08:00 Pulse Ox 96 11/05/21 08:00 11/04/21 11/05/21 11/05/21 22:59 06:59 14:59 Intake Total 350 / 1512.5 450 / 1962.5 50 / 50 Output Total 1600 / 1600 Balance 350 / 1512.5 -1150 / 362.5 50 / 50 Weight last 48 hrs Weight 86.863 kg Weight 86.682 kg Physical Exam Narrative: EXAM NARRATIVE: Patient is feeling fine, doing well on 2 L nasal cannula No acute respite distress S1, S2 No murmur Bowel sounds present No signs of edema No active flareup of lupus Still complaining abdominal pain on movement Nonfocal neuro exam Urinary Catheter Management^: [place]: Cath Placed During This Visit: yes Reason for Continuing Indwelling Catheter: Acute Urinary Retention or Obstr uction Urinary Catheter Date of Insertion: 11/03/21 Urinary Catheter Time of Insertion: 16:30 Data : 11/05/21 06:35 11/05/21 06:35 Micro: Microbiology 11/04/21 12:43 Blood Culture - Preliminary Blood SPECIMEN COLLECTED 11/04/21 12:47 Blood Culture - Preliminary Blood SPECIMEN COLLECTED 11/03/21 00:02 Urine Culture - Preliminary Urine,Clean Catch Gram Negative Rods A&P Assessment and plan (1) Bacteremia: Status: Acute (2) UTI (urinary tract infection): Status: Acute (3) Sepsis: Status: Acute Qualifiers: Sepsis acute organ dysfunction status: unspecified Sepsis type: sepsis due to unspecified organism Qualified Code(s): A41.9 - Sepsis, unspecified organism (4) Abdominal pain: Status: Acute Qualifiers: Abdominal location: generalized Qualified Code(s): R10.84 - Generalized abdominal pain (5) Vomiting: Status: Acute Qualifiers: Nausea presence: with nausea Vomiting type: unspecified Qualified Co de(s): R11.2 - Nausea with vomiting, unspecified (6) Dehydration: Status: Acute (7) Acute cystitis: Status: Acute Qualifiers: Hematuria presence: without hematuria Qualified Code(s): N30.00 - Acute cystitis without hematuria (8) Fibromyalgia: Status: Acute (9) MGUS (monoclonal gammopathy of unknown significance): Status: Acute (10) Gastroparesis: Status: Acute (11) Antiphospholipid antibody positive: Status: Acute (12) Systemic lupus erythematosus (SLE) in adult: Status: Acute Additional A&P Information Sepsis: Resolved Gram-negative faith in blood and urine cultures, repeat blood culture negative repeat blood cultures are negative Likely urinary source Antibiotics deescalated Follow-up with culture and sensitivity Gastroparesis: Would recommend evaluation at [place] for possible pacemaker evaluation No active emesis Chronic abdominal wall syndrome Carnett's sign positive, did not improve significantly with lidocaine injection Sinus tachycardia, history of SVT currently heart rate is in sinus rhythm, doing well on AV ministerio blocking agents now please respond to fluids and multiple doses of IV metoprolol and Cardizem Chronic hypoxia no acute exacerbation Hematemesis: No signs of active ulcer, gastritis Hemoglobin stable Continue full liquid diet Full code Start anticoagulation, hemoglobin is stable Attestations Medical Necessity Statement*: Awaiting culture and sensitivity report Time Spent in Patient Care: less than 15 minutes Coding Level of Care Code Acute Physician Coding Specialist for Chg Fwd Diagnoses Bacteremia R78.81 UTI (urinary tract infection) N39.0 Sepsis A41.9 Sepsis acute organ dysfunction status: unspecified Sepsis type: sepsis due to unspecified organism Abdominal pain R10.84 Abdominal location: generalized Vomiting R11.2 Nausea presence: with nausea Vomiting type: unspecified Dehydration E86.0 Acute cystitis N30.00 Hematuria presence: without hematuria Fibromyalgia M79.7 MGUS (monoclonal gammopathy of unknown significance) D47.2 Gastroparesis K31.84 Antiphospholipid antibody positive R76.0 Systemic lupus erythematosus (SLE) in adult M32.9
[2021-11-05] MEDS: LORazepam 2 mg/mL INJ 1 mL 0.5 MG IVP (11:31)
[2021-11-05] MEDS: enoxaparin 40 mg/0.4 mL Syringe SUBCUT (11:37)
[2021-11-05] MEDS: potassium chloride ER 20 mEq Tablet 40 MEQ PO (11:38)
[2021-11-05] MEDS: alum-mag-hydroxide-sime 30 mL UDC PO (11:42)
[2021-11-05] MEDS: lanolin oint 7 gm 1 APPLIC TOPICAL (20:59)
[2021-11-05] MEDS: metoclopramide 10 mg Tablet 5 MG PO (20:59)
[2021-11-05] MEDS: diclofenac 1% Topical Gel 100 gm 1 APPLIC TOPICAL (22:17)
[2021-11-06] VITALS (10 sets, daily range): BP systolic 113–146; BP diastolic 76–97; PULSE 87–135; RESP 16–20; TEMP 36.1–36.9; O2SAT 2–100; BMI 28.3
[2021-11-06] MEDS: oxyCODONE 5 mg IR Tab/Cap 15 MG PO ×5 (04:11→23:46)
[2021-11-06] MEDS: ondansetron 4 MG Tablet PO (04:11)
[2021-11-06 05:15] LABS: Basophils # 0.1 10^3/uL (0.0-0.1); Basophils % 0.5 %; Eosinophils # 0.1 10^3/uL (0.0-0.8); Eosinophils % 0.7 %; Hematocrit 32.2 % (37.0-47.0); Hemoglobin 10.9 g/dL (11.5-15.3); Lymphocytes # 1.5 10^3/uL (0.8-4.8); Lymphocytes % 14.4 %; Mean Corpuscular HGB Conc 33.9 g/dL (30.0-36.0); Mean Corpuscular Hemoglobin 29.9 pg (28.0-34.0); Mean Corpuscular Volume 88.2 fl (81-99); Mean Platelet Volume 8.1 fL (7.4-10.4); Monocytes # 1.1 10^3/uL (0.2-0.9); Monocytes % 10.4 %; Neutrophils % 71.8 %; Nucleated Red Blood Cells % 0 %; Platelet Count 477 10^3/cmm (130-400); Red Blood Count 3.65 10^6/uL (4.1-5.3); Red Cell Distribution Width 12.5 % (12.1-15.1); White Blood Count 10.7 10^3/uL (4.0-10.0)
[2021-11-06 05:30] LABS: Anion Gap 19.9 (5-19); Blood Urea Nitrogen 2 mg/dL (6-20); Calcium 8.8 mg/dL (8.5-10.5); Carbon Dioxide 21 mmol/L (22-29); Chloride 94 mmol/L (98-107); Glomerular Filtration Rate 171.1 mL/min (90-130); Glucose 97 mg/dL (65-115); Osmolality Calculated 268 mOsm/kg (285-295); Potassium 3.9 mmol/L (3.5-5.1); Sodium 131 mmol/L (136-145)
[2021-11-06] MEDS: levoFLOXacin 750 mg Tablet PO (05:54)
[2021-11-06] MEDS: metoclopramide 10 mg Tablet 5 MG PO ×2 (06:57→19:53)
--- NOTE | 2021-11-06 07:01 | ECG_ITS ---
[facility] Test Date: 2021-11-06 Pat Name: Tereza Flaherty Department: Room: 255 Gender: Female [employer] Operator: : 1975 Requested By: Sarai Pringle Order Number: [id number] Joo MD: Nancy Schmitt M.D. 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 [id number]
--- NOTE | 2021-11-06 07:01 | PC.NURSE ---
call placed to Dr. Pringle and message left d/t patient c/o chest pain, VS 150/102, 111, 100% 2L, 18, message left. EKG ordered
--- NOTE | 2021-11-06 07:20 | PM.DCS ---
Discharge Providers Date of Admission: 11/03/21 01:01 Date of Discharge: November 07, 2021 Attending Provider at Admission: Sarai Pringle MD Attending Provider at Discharge: Anthony May MD Primary Care Provider: Milady Crystal DO Diagnoses at Discharge Discharge Diagnosis (1) Bacteremia: Status: Acute (2) UTI (urinary tract infection): Status: Acute (3) Sepsis: Status: Acute Qualifiers: Sepsis acute organ dysfunction status: unspecified Sepsis type: sepsis due to unspecified organism Qualified Code(s): A41.9 - Sepsis, unspecified organism (4) Abdominal pain: Status: Acute Qualifiers: Abdominal location: generalized Qualified Code(s): R10.84 - Generalized abdominal pain (5) Vomiting: Status: Acute Qualifiers: Nausea presence: with nausea Vomiting type: unspecified Qualified Code(s): R11.2 - Nausea with vomiting, unspecified (6) Dehydration: Status: Acute (7) Acute cystitis: Status: Acute Qualifiers: Hematuria presence: without hematuria Qualified Code(s): N30.00 - Acute cystitis without hematuria (8) Fibromyalgia: Status: Acute (9) MGUS (monoclonal gammopathy of unknown significance): Status: Acute (10) Gastroparesis: Status: Acute (11) Antiphospholipid antibody positive: Status: Acute (12) Systemic lupus erythematosus (SLE) in adult: Status: Acute Reason for Visit Reason for Visit: Rt Side ABD Pain Hospital Course Hospital Course HPI by Dr. Pino Starks Gordo Flaherty is a 46 year old female with SLE, antiphospholipid syndrome, chronic leukocytosis under outpatient evaluation by oncology, possible MGUS, currently on treatment with belimumab, hydroxychloroquine, daily steroids, prednisone 10 mg presenting to the emergency room today with chief complaints of abdominal pain. Patient states she first developed abdominal pain recurrent nausea vomiting approximately 10 days ago, made worse over the last 4 to 5 days. She was was at an outside hospital where she presented with above symptoms and dysuria, was diagnosed with a UTI. Prescribed antibiotics, however she has been unable to tolerate any p.o. intake due to excessive vomiting and therefore has been unable to keep down any p.o. intake. Since arrival here, she has continued to have retching, vomiting, later also developed hematemesis with bright red blood mixed with vomitus. Approximate 3tbsp on 2 occasions twice after transfer to floor. Reports a past h/o gatsric ulceration needing UGIE in the past, gatsroparesis for which she is on a regimen of metoclopramide 3 times a day, however states this has not helped her symptoms recently. Additional current issues include SVT with HR 170bpm, now with sinus tachycardia at 120-130 beats per minute at the time of my assessment. She has received multiple boluses of Cardizem 10 mg IV push. She has been unable to take her p.o. Cardizem at home(prescribed for history of SVT) due to vomiting. Review of systems system additionally positive for fever up to 103 Fahrenheit at home for about a week, currently T-max noted to be 99.5 Fahrenheit. Saturating 100% on room air. She took a rapid antigen Covid test at home this morning which was negative, additionally Covid antigen negative at the hospital on current check. PCR remains pending at this time. She has received 1 dose of COVID-19 vaccination in August, and thereafter had an SLE flare which she believed to be connected to her recent vaccination and has not taken the second dose. Recently her prednisone dose has been increased from 7.5 to 10 mg daily. Hospital course Patient was admitted to ICU for management of sepsis, source was UTI, her urine and blood culture came back positive for E. coli it was not ESBL. Her broad-spectrum antibiotics were deescalated to Levaquin eventually. Her leukocytosis trended down. She remained afebrile. Repeat blood culture negative. CT abdomen pelvis unremarkable. She was complaining of back pain lumbar scan was negative. I did inject her with lidocaine for her chronic abdominal wall syndrome, she had positive Carnett's sign. She endorses abdominal pain and change in position which is typical for chronic abdominal wall syndrome. There was no other etiology for her abdominal pain. She was recommended pacemaker by a flat surfacer jewel however she has not seen any in quite some time. She has gastroparesis, she is not diabetic, does not drink alcohol. She thinks her symptoms got worsened after Covid vaccination. I reassured her that her current symptoms were secondary to UTI with sepsis. She has been feeling nauseous throughout her hospitalization and started vomiting on 11/06. Responds well to Reglan and Zofran combination. She was also given 1 dose of IM Phenergan. Patient had 2 episode of hematemesis. Hemoglobin remained stable, she went for EGD which showed gastritis no active ulcer or bleeder. Her Protonix drip was discontinued. Because of her recurrent nausea and vomiting she was not able to take her p.o. AV ministerio blocking agents she remained in sinus tachycardia required multiple doses of IV metoprolol and Cardizem however her heart rate improved and remained in sinus rhythm between 70 to 80s. He does seem to have severe autonomic dysfunction which probably is the cause of gastroparesis. She will be discharged home with Cefpodoxime 2-week regimen. She was asked to follow-up with flat surfacer jewel in [place] for gastroparesis. No active flare/decompensation of SLE or MGUS. Physical Exam Narrative: EXAM NARRATIVE: Patient is feeling fine, doing well on 2 L nasal cannula No acute respiratory distress S1, S2 No murmur Bowel sounds present No signs of edema No active flareup of lupus Still complaining abdominal pain on movement Nonfocal neuro exam Urinary Catheter Management^: [place]: Cath Placed During This Visit: yes Reason for Continuing Indwelling Catheter: Acute Urinary Retention or Obstruction Urinary Catheter Date of Insertion: 11/03/21 Urinary Catheter Time of Insertion: 16:30 Discharge Data Data Completed and Pending: Completed Studies During Hospitalization Category Date Time Status CT abdomen pelvis w con* [id number] Urge nt Cat Scan 11/02/21 22:[address] lumbar spine w o con* [id number] Routi ne Cat Scan 11/03/21 13:48 Completed XR chest 1V phillip ble [id number] Stat Exams 11/02/21 23:45 Completed US pelvic with tr ansvaginal Routine Ultrasound 11/03/21 09:21 Completed Pending at discharge Category Date Time Status Blood Culture Sta t Lab 11/02/21 22:56 Results Blood Culture Sta t Lab 11/04/21 12:43 Results Labs from last 24 hours 11/06/21 11/06/21 11/05/21 04:42 04:42 06:35 WBC 10.7 H RBC 3.65 L Hgb 10.9 L Hct 32.2 L MCV 88.2 MCH 29.9 MCHC 33.9 RDW 12.5 Plt Count 477 H MPV 8.1 Neut % (Auto) 71.8 Lymph % (Auto) 14.4 [place] % (Auto) 10.4 Eos % (Auto) 0.7 Baso % (Auto) 0.5 Neut # (Auto) 7.70 Lymph # (Auto) 1.5 [place] # (Auto) 1.1 H Eos # (Auto) 0.1 Baso # (Auto) 0.1 Nucleated RBC % (a uto) 0 Nucleated RBCs # 0.0 Sodium 131 L 130 L Potassium 3.9 3.1 L Chloride 94 L 93 L Carbon Dioxide 21 L 21 L Anion Gap 19.9 H 19.1 H BUN 2 L 3 L Creatinine 0.4 L 0.5 GFR Calculation 171.1 H 132.2 H Glucose 97 99 Calculated Osmolal ity 268 L 267 L Calcium 8.8 8.3 L Vitals: Last Vital Signs Temp 98.4 F 11/06/21 04:00 Pulse 94 11/06/21 04:00 Resp 16 11/06/21 04:11 BP 113/76 11/06/21 04:00 Pulse Ox 2 L 11/06/21 04:11 Discharge Plan Discharge Patient Disposition: Home Condition: Stable Prescriptions: New cefpodoxime 200 mg tablet 200 mg PO BID 14 Days Qty: 28 RF: 0 Zofran 4 mg tablet 4 mg PO Q8H 20 Days Qty: 60 RF: 0 Continued promethazine 25 mg tablet 25 mg PO Q6H PRN (Reason: unknown) RF: 0 hydroxyzine HCl 25 mg tablet 25 mg PO Q8H PRN (Reason: prn) RF: 0 diclofenac sodium [Voltaren] 1 % gel 2 gm TOPICAL QID PRN (Reason: unknown) RF: 0 desvenlafaxine succinate [Pristiq] 50 mg tablet extended release 24 hr 50 mg PO DAILY RF: 0 Amitiza 24 mcg capsule 24 mcg PO BID RF: 0 cholecalciferol (vitamin D3) 50 mcg (2,000 unit) capsule 50 mcg PO DAILY Qty: 30 RF: 4 lamotrigine 25 mg tablet 25 mg PO TID RF: 0 aspirin [Adult Aspirin Regimen] 81 mg tablet,delayed release (DR/EC) 81 mg PO DAILY RF: 0 atorvastatin [Lipitor] 40 mg tablet 40 mg PO DAILY RF: 0 diltiazem HCl [Cartia XT] 240 mg capsule,extended release 24hr 240 mg PO DAILY RF: 0 clopidogrel [Plavix] 75 mg tablet 75 mg PO DAILY RF: 0 levothyroxine 137 mcg capsule 137 mcg PO DAILY RF: 0 albuterol sulfate 90 mcg/actuation HFA aerosol inhaler 2 puff INHALATION Q6H PRN (Reason: Shortness Of Breath) RF: 0 epinephrine [EpiPen] 0.3 mg/0.3 mL auto-injector 0.3 mg IM Q10M PRN (Reason: Allergic Reaction) RF: 0 cetirizine [Zyrtec] 10 mg tablet 10 mg PO DAILY RF: 0 oxycodone 15 mg tablet 15 mg PO Q4H PRN (Reason: Pain) RF: 0 nitroglycerin [Nitrostat] 0.4 mg tablet, sublingual 0.4 mg sublingual Q5M PRN (Reason: pain) RF: 0 fluconazole 100 mg Tablet 100 mg PO DAILY RF: 0 potassium chloride 10 mEq Capsule, Extended Release 10 meq PO DAILY RF: 0 tizanidine 4 mg Tablet 4 mg PO TID PRN (Reason: Muscle Spasm) RF: 0 prednisone 5 mg Tablet 10 mg PO DAILY RF: 0 meclizine 12.5 mg Tablet 12.5 mg PO BID RF: 0 Protonix 40 mg Tablet,Delayed Release (Dr/Ec) 40 mg PO BID RF: 0 cevimeline 30 mg Capsule 30 mg PO TID RF: 0 lidocaine 5 % Adhesive Patch,Medicated 1 patch TOPICAL DAILY PRN (Reason: Pain) RF: 0 lorazepam 1 mg Tablet 1 mg PO BID PRN (Reason: Anxiety) RF: 0 fluticasone propionate 50 mcg/actuation [place],Suspension 1 spray INTRANASAL DAILY PRN (Reason: Allergic Symptoms) RF: 0 olopatadine 0.6 % [place],Non-Aerosol 1 spray INTRANASAL DAILY RF: 0 pilocarpine HCl 5 mg tablet 5 mg PO TID RF: 0 hydroxychloroquine 200 mg tablet 200 mg PO BID RF: 0 acetaminophen [Tylenol Extra Strength] 500 mg Tablet 1,000 mg PO PRN PRN (Reason: Pain) RF: 0 Benlysta 120 mg recon soln See Rx Instructions .ROUTE .COMPLEX RF: 0 Referrals: Milady Crystal DO [Primary Care Provider] - 4-7 days (Contact your provider's office on Sunday to schedule an appointment.) Discharge Diet: Full LIquid Discharge Activity: Increase activity as tolerated Patient Instructions: Cefpodoxime Proxetil (By mouth) (Vantin), Urinary Tract Infection in Women (DC), Sepsis (GEN), GI Discharge Instructions, Opioid Safety Discharge Attestations Time Spent in Discharge Care*: less than 30 min Quality Metrics Clinical Quality Measures During this hospital stay, did patient experience: None Coding Level of Care Code Acute Chg FW DC note Diagnoses Bacteremia R78.81 UTI (urinary tract infection) N39.0 Sepsis A41.9 Sepsis acute organ dysfunction status: unspecified Sepsis type: sepsis due to unspecified organism Abdominal pain R10.84 Abdominal location: generalized Vomiting R11.2 Nausea presence: with nausea Vomiting type: unspecified Dehydration E86.0 Acute cystitis N30.00 Hematuria presence: without hematuria Fibromyalgia M79.7 MGUS (monoclonal gammopathy of unknown significance) D47.2 Gastroparesis K31.84 Antiphospholipid antibody positive R76.0 Systemic lupus erythematosus (SLE) in adult M32.9
[2021-11-06] MEDS: lamoTRIgine 25 mg Tablet PO ×3 (09:18→20:45)
[2021-11-06] MEDS: levothyroxine 137 mcg Tablet PO (09:18)
[2021-11-06] MEDS: atorvastatin 40 mg Tablet PO (09:18)
[2021-11-06] MEDS: desvenlafaxine 50 mg Tablet PO (09:18)
[2021-11-06] MEDS: predniSONE 5 mg Tablet 10 MG PO (09:18)
[2021-11-06] MEDS: dilTIAZem ER (24HR) 240 mg Capsule PO (09:18)
[2021-11-06] MEDS: ondansetron 2 mg/ML SDV 2 mL 4 MG IVP ×3 (09:46→23:46)
--- NOTE | 2021-11-06 10:47 | PM.MISC ---
Miscellaneous Note Note: Discharge order was placed however this morning she started vomiting, patient is scared that because of her gastroparesis she will have recurrent emesis at home and want to be able to take p.o. medications that would affect her heart rate Plan to discharge her tomorrow She was sitting in her bed Vomiting tray in front of her Soft abdomen Clinically euvolemic Saturating well on 2 L nasal cannula which is her home O2 requirement Nonfocal exam S1, S2 sinus tachycardia I will give her 1 dose of IM Phenergan as we do not have IV access, once we have IV access we will give her Zofran for her gastroparesis Plan to discharge her on 11/07
[2021-11-06] MEDS: promethazine 25 mg/mL SDV 1 mL IM (10:50)
[2021-11-06] MEDS: enoxaparin 40 mg/0.4 mL Syringe SUBCUT (10:50)
[2021-11-06] MEDS: sodium chloride 0.9% 1,000 ML 100 ML IV (11:07)
[2021-11-06] MEDS: metoclopramide 5 mg/mL SDV 2 mL IVP (13:48)
[2021-11-06] MEDS: potassium chloride ER 20 mEq Tablet 40 MEQ PO (15:35)
[2021-11-06] MEDS: lactated ringers 1,000 ML 999 ML IV (17:15)
[2021-11-06] MEDS: labetalol 5 mg/mL SDV 20mL 10 MG IVP (17:15)
[2021-11-06] MEDS: tizanidine 4 mg Tablet PO (18:17)
[2021-11-07] MEDS: metoclopramide 10 mg Tablet 5 MG PO ×2 (02:12→14:28)
[2021-11-07] MEDS: tizanidine 4 mg Tablet PO ×2 (02:13→10:07)
[2021-11-07 04:00] VITALS: BP 108/71; PULSE 83; RESP 19; TEMP 36.4; O2SAT 98
[2021-11-07] MEDS: sodium chloride 0.9% 1,000 ML 100 ML IV (04:55)
[2021-11-07 05:52] VITALS: RESP 16; O2SAT 94
[2021-11-07] MEDS: oxyCODONE 5 mg IR Tab/Cap 15 MG PO ×2 (05:52→14:28)
[2021-11-07] MEDS: levoFLOXacin 750 mg Tablet PO (05:53)
[2021-11-07] MEDS: ondansetron 2 mg/ML SDV 2 mL 4 MG IVP ×2 (06:00→10:06)
[2021-11-07 07:22] LABS: Anion Gap 16.4 (5-19); Blood Urea Nitrogen 2 mg/dL (6-20); Calcium 8.6 mg/dL (8.5-10.5); Carbon Dioxide 24 mmol/L (22-29); Chloride 98 mmol/L (98-107); Glomerular Filtration Rate 132.2 mL/min (90-130); Glucose 120 mg/dL (65-115); Osmolality Calculated 275 mOsm/kg (285-295); Potassium 4.4 mmol/L (3.5-5.1); Sodium 134 mmol/L (136-145)
[2021-11-07 07:38] VITALS: BP 113/74; PULSE 93; RESP 16; TEMP 36.8; O2SAT 98
[2021-11-07] MEDS: dilTIAZem ER (24HR) 240 mg Capsule PO (08:20)
[2021-11-07] MEDS: atorvastatin 40 mg Tablet PO (08:20)
[2021-11-07] MEDS: levothyroxine 137 mcg Tablet PO (08:20)
[2021-11-07] MEDS: predniSONE 5 mg Tablet 10 MG PO (08:20)
[2021-11-07] MEDS: lamoTRIgine 25 mg Tablet PO (08:22)
[2021-11-07] MEDS: desvenlafaxine 50 mg Tablet PO (08:22)
--- NOTE | 2021-11-07 11:40 | PM.DCS ---
Discharge Providers Date of Admission: 11/03/21 01:01 Date of Discharge: November 07, 2021 Attending Provider at Admission: Sarai Pringle MD Attending Provider at Discharge: Maryjane Lane MD Primary Care Provider: Milday Crystal DO Diagnoses at Discharge Discharge Diagnosis (1) Bacteremia: Status: Acute (2) UTI (urinary tract infection): Status: Acute (3) Sepsis: Status: Acute Qualifiers: Sepsis acute organ dysfunction status: unspecified Sepsis type: sepsis due to unspecified organism Qualified Code(s): A41.9 - Sepsis, unspecified organism (4) Abdominal pain: Status: Acute Qualifiers: Abdominal location: generalized Qualified Code(s): R10.84 - Generalized abdominal pain (5) Vomiting: Status: Acute Qualifiers: Nausea presence: with nausea Vomiting type: unspecified Qualified Code(s): R11.2 - Nausea with vomiting, unspecified (6) Dehydration: Status: Acute (7) Acute cystitis: Status: Acute Qualifiers: Hematuria presence: without hematuria Qualified Code(s): N30.00 - Acute cystitis without hematuria (8) Fibromyalgia: Status: Acute (9) MGUS (monoclonal gammopathy of unknown significance): Status: Acute (10) Gastroparesis: Status: Acute (11) Antiphospholipid antibody positive: Status: Acute (12) Systemic lupus erythematosus (SLE) in adult: Status: Acute Reason for Visit Reason for Visit: Rt Side ABD Pain Hospital Course Hospital Course HPI by Dr. Pino Starks Gordo Flaherty is a 46 year old female with SLE, antiphospholipid syndrome, chronic leukocytosis under outpatient evaluation by oncology, possible MGUS, currently on treatment with belimumab, hydroxychloroquine, daily steroids, prednisone 10 mg presenting to the emergency room today with chief complaints of abdominal pain. Patient states she first developed abdominal pain recurrent nausea vomiting approximately 10 days ago, made worse over the last 4 to 5 days. She was was at an outside hospital where she presented with above symptoms and dysuria, was diagnosed with a UTI. Prescribed antibiotics, however she has been unable to tolerate any p.o. intake due to excessive vomiting and therefore has been unable to keep down any p.o. intake. Since arrival here, she has continued to have retching, vomiting, later also developed hematemesis with bright red blood mixed with vomitus. Approximate 3tbsp on 2 occasions twice after transfer to floor. Reports a past h/o gatsric ulceration needing UGIE in the past, gatsroparesis for which she is on a regimen of metoclopramide 3 times a day, however states this has not helped her symptoms recently. Additional current issues include SVT with HR 170bpm, now with sinus tachycardia at 120-130 beats per minute at the time of my assessment. She has received multiple boluses of Cardizem 10 mg IV push. She has been unable to take her p.o. Cardizem at home(prescribed for history of SVT) due to vomiting. Review of systems system additionally positive for fever up to 103 Fahrenheit at home for about a week, currently T-max noted to be 99.5 Fahrenheit. Saturating 100% on room air. She took a rapid antigen Covid test at home this morning which was negative, additionally Covid antigen negative at the hospital on current check. PCR remains pending at this time. She has received 1 dose of COVID-19 vaccination in August, and thereafter had an SLE flare which she believed to be connected to her recent vaccination and has not taken the second dose. Recently her prednisone dose has been increased from 7.5 to 10 mg daily. Hospital course Patient was admitted to ICU for management of sepsis, source was UTI, her urine and blood culture came back positive for E. coli it was not ESBL. Her broad-spectrum antibiotics were deescalated to Levaquin eventually. Her leukocytosis trended down. She remained afebrile. Repeat blood culture negative. CT abdomen pelvis unremarkable. She was complaining of back pain lumbar scan was negative. I did inject her with lidocaine for her chronic abdominal wall syndrome, she had positive Carnett's sign. She endorses abdominal pain and change in position which is typical for chronic abdominal wall syndrome. There was no other etiology for her abdominal pain. She was recommended pacemaker by a medical insurance collector however she has not seen any in quite some time. She has gastroparesis, she is not diabetic, does not drink alcohol. She thinks her symptoms got worsened after Covid vaccination. I reassured her that her current symptoms were secondary to UTI with sepsis. She has been feeling nauseous throughout her hospitalization and started vomiting on 1/. Responds well to Reglan and Zofran combination. She was also given 1 dose of IM Phenergan. Patient had 2 episode of hematemesis. Hemoglobin remained stable, she went for EGD which showed gastritis no active ulcer or bleeder. Her Protonix drip was discontinued. Because of her recurrent nausea and vomiting she was not able to take her p.o. AV ministerio blocking agents she remained in sinus tachycardia required multiple doses of IV metoprolol and Cardizem however her heart rate improved and remained in sinus rhythm between 70 to 80s. He does seem to have severe autonomic dysfunction which probably is the cause of gastroparesis. She will be discharged home with Cefpodoxime 2-week regimen. She was asked to follow-up with medical insurance collector in [place] for gastroparesis. No active flare/decompensation of SLE or MGUS. Physical Exam Narrative: EXAM NARRATIVE: Patient is feeling fine, doing well on 2 L nasal cannula. She is not complaining of any pain and about to have a shower. No acute respiratory distress S1, S2 No murmur Bowel sounds present, abdomen soft, non tender. No longer vomitting. No signs of edema No active flareup of lupus Nonfocal neuro exam Urinary Catheter Management^: [place]: Cath Placed During This Visit: yes Reason for Continuing Indwelling Catheter: Acute Urinary Retention or Obstruction Urinary Catheter Date of Insertion: 11/03/21 Urinary Catheter Time of Insertion: 16:30 Discharge Data Data Completed and Pending: Completed Studies During Hospitalization Category Date Time Status CT abdomen pelvis w con* [id number] Urge nt Cat Scan 11/02/21 22:[address] lumbar spine w o con* [id number] Routi ne Cat Scan 11/03/21 13:48 Completed XR chest 1V phillip ble [id number] Stat Exams 11/02/21 23:45 Completed US pelvic with tr ansvaginal Routine Ultrasound 11/03/21 09:21 Completed Pending at discharge Category Date Time Status Blood Culture Sta t Lab 11/02/21 22:56 Results Blood Culture Sta t Lab 11/04/21 12:43 Results Labs from last 24 hours 11/07/21 06:27 Sodium 134 L Potassium 4.4 Chloride 98 Carbon Dioxide 24 Anion Gap 16.4 BUN 2 L Creatinine 0.5 GFR Calculation 132.2 H Glucose 120 H Calculated Osmolal ity 275 L Calcium 8.6 Vitals: Last Vital Signs Temp 98.3 F 11/07/21 07:38 Pulse 93 11/07/21 07:38 Resp 16 11/07/21 07:38 BP 113/74 11/07/21 07:38 Pulse Ox 98 11/07/21 07:38 Discharge Plan Discharge Patient Disposition: Home Condition: Stable Prescriptions: New cefpodoxime 200 mg tablet 200 mg PO BID 14 Days Qty: 28 RF: 0 Zofran 4 mg tablet 4 mg PO Q8H 20 Days Qty: 60 RF: 0 Continued promethazine 25 mg tablet 25 mg PO Q6H PRN (Reason: unknown) RF: 0 hydroxyzine HCl 25 mg tablet 25 mg PO Q8H PRN (Reason: prn) RF: 0 diclofenac sodium [Voltaren] 1 % gel 2 gm TOPICAL QID PRN (Reason: unknown) RF: 0 desvenlafaxine succinate [Pristiq] 50 mg tablet extended release 24 hr 50 mg PO DAILY RF: 0 Amitiza 24 mcg capsule 24 mcg PO BID RF: 0 cholecalciferol (vitamin D3) 50 mcg (2,000 unit) capsule 50 mcg PO DAILY Qty: 30 RF: 4 lamotrigine 25 mg tablet 25 mg PO TID RF: 0 aspirin [Adult Aspirin Regimen] 81 mg tablet,delayed release (DR/EC) 81 mg PO DAILY RF: 0 atorvastatin [Lipitor] 40 mg tablet 40 mg PO DAILY RF: 0 diltiazem HCl [Cartia XT] 240 mg capsule,extended release 24hr 240 mg PO DAILY RF: 0 clopidogrel [Plavix] 75 mg tablet 75 mg PO DAILY RF: 0 levothyroxine 137 mcg capsule 137 mcg PO DAILY RF: 0 albuterol sulfate 90 mcg/actuation HFA aerosol inhaler 2 puff INHALATION Q6H PRN (Reason: Shortness Of Breath) RF: 0 epinephrine [EpiPen] 0.3 mg/0.3 mL auto-injector 0.3 mg IM Q10M PRN (Reason: Allergic Reaction) RF: 0 cetirizine [Zyrtec] 10 mg tablet 10 mg PO DAILY RF: 0 oxycodone 15 mg tablet 15 mg PO Q4H PRN (Reason: Pain) RF: 0 nitroglycerin [Nitrostat] 0.4 mg tablet, sublingual 0.4 mg sublingual Q5M PRN (Reason: pain) RF: 0 fluconazole 100 mg Tablet 100 mg PO DAILY RF: 0 potassium chloride 10 mEq Capsule, Extended Release 10 meq PO DAILY RF: 0 tizanidine 4 mg Tablet 4 mg PO TID PRN (Reason: Muscle Spasm) RF: 0 prednisone 5 mg Tablet 10 mg PO DAILY RF: 0 meclizine 12.5 mg Tablet 12.5 mg PO BID RF: 0 Protonix 40 mg Tablet,Delayed Release (Dr/Ec) 40 mg PO BID RF: 0 cevimeline 30 mg Capsule 30 mg PO TID RF: 0 lidocaine 5 % Adhesive Patch,Medicated 1 patch TOPICAL DAILY PRN (Reason: Pain) RF: 0 lorazepam 1 mg Tablet 1 mg PO BID PRN (Reason: Anxiety) RF: 0 fluticasone propionate 50 mcg/actuation [place],Suspension 1 spray INTRANASAL DAILY PRN (Reason: Allergic Symptoms) RF: 0 olopatadine 0.6 % [place],Non-Aerosol 1 spray INTRANASAL DAILY RF: 0 pilocarpine HCl 5 mg tablet 5 mg PO TID RF: 0 hydroxychloroquine 200 mg tablet 200 mg PO BID RF: 0 acetaminophen [Tylenol Extra Strength] 500 mg Tablet 1,000 mg PO PRN PRN (Reason: Pain) RF: 0 Benlysta 120 mg recon soln See Rx Instructions .ROUTE .COMPLEX RF: 0 Discharge Orders: Discharge Order (Routine); Ordered 11/07/21 Ordered By: Maryjane Lane Other Ambulatory Orders: DME: Commode (Order) Location: None Selected Ordered By: Maryjane Lane Referrals: Milady Crystal DO [Primary Care Provider] - 11/09/21 1:40 pm () Discharge Diet: Full LIquid Discharge Activity: Increase activity as tolerated Patient Instructions: Cefpodoxime Proxetil (By mouth) (Vantin), Ondansetron (By mouth), Urinary Tract Infection in Women (DC), How to Use a Bedside Commode (GEN), Sepsis (GEN), GI Discharge Instructions, Opioid Safety Discharge Attestations Time Spent in Discharge Care*: less than 30 min Quality Metrics Clinical Quality Measures During this hospital stay, did patient experience: None Coding Level of Care Code Acute Chg FW DC note Diagnoses Bacteremia R78.81 UTI (urinary tract infection) N39.0 Sepsis A41.9 Sepsis acute organ dysfunction status: unspecified Sepsis type: sepsis due to unspecified organism Abdominal pain R10.84 Abdominal location: generalized Vomiting R11.2 Nausea presence: with nausea Vomiting type: unspecified Dehydration E86.0 Acute cystitis N30.00 Hematuria presence: without hematuria Fibromyalgia M79.7 MGUS (monoclonal gammopathy of unknown significance) D47.2 Gastroparesis K31.84 Antiphospholipid antibody positive R76.0 Systemic lupus erythematosus (SLE) in adult M32.9
[2021-11-07 12:00] VITALS: BP 106/74; PULSE 91; RESP 16; TEMP 36.6; O2SAT 99
[2021-11-07 14:28] VITALS: RESP 18
[2021-11-07 15:27] VITALS: RESP 18
== END 2021-11-07 15:28 | disposition home or self-care (01) | DRG 871 ==
LOC: ER 11-03 01:05 → CSU 11-03 01:08 → ICU 11-03 04:49 → MEDSURG 11-04 15:43
PROVIDERS: Anesthesiology; Internal Medicine; Surgery; Admitting Provider Student in an Organized Health Care Education/Training Program; Emergency Provider Emergency Medicine; PCP Family Medicine; Visit Provider Internal Medicine
PROC: 0DJ08ZZ Inspection of Upper Intestinal Tract, Via Natural or Artificial Opening Endoscopic (ICD-10-PCS; CPT 43235; principal; 2021-11-03 11:45)
DX: A41.9 Sepsis, unspecified organism (principal); K29.71 Gastritis, unspecified, with bleeding; N30.00 Acute cystitis without hematuria; D68.61 Antiphospholipid syndrome; K92.0 Hematemesis; D84.9 Immunodeficiency, unspecified; I47.1 Supraventricular tachycardia; J96.11 Chronic respiratory failure with hypoxia; D47.2 Monoclonal gammopathy; M32.9 Systemic lupus erythematosus, unspecified; B96.20 Unspecified Escherichia coli [E. coli] as the cause of diseases classified elsewhere; R10.84 Generalized abdominal pain; K31.84 Gastroparesis; E86.0 Dehydration; M35.00 Sjogren syndrome, unspecified; M79.7 Fibromyalgia; M81.0 Age-related osteoporosis without current pathological fracture; E66.01 Morbid (severe) obesity due to excess calories; Z68.29 Body mass index [BMI] 29.0-29.9, adult; Z79.891 Long term (current) use of opiate analgesic; Z97.5 Presence of (intrauterine) contraceptive device; Z87.11 Personal history of peptic ulcer disease; Z79.02 Long term (current) use of antithrombotics/antiplatelets; Z79.82 Long term (current) use of aspirin
CPT/HCPCS: 36415; 43235; 51702; 71045; 72131; 74177; 76830; 76856; 80048; 80053; 80202; 80500; 81001; 81025; 83605; 83690; 83735; 84443; 84484; 85025; 85362; 85378; 85384; 85610; 85730; 86140; 87040; 87077; 87086; 87186; 87205; 87426; 87635; 93005; 96365; 96367; 96372; 96374; 96375; 96376; 99285; C9113; J1170; J1200; J1650; J1885; J2060; J2270; J2405; J2543; J2550; J2704; J2765; J3010; J3370; J3475; J3480; J3490; J7030; J7040; J7050; J7512; J8597; Q0162; Q0164; Q3014; Q9967

== ENCOUNTER 2021-11-11 12:40 | Observation (INO) | payer OTHER, SELFPAY ==
[2021-11-11] VITALS (7 sets, daily range): BP systolic 107–147; BP diastolic 72–121; PULSE 112–130; RESP 16–18; TEMP 36.8; O2SAT 96–99; BMI 28.1; BMI 28.8
--- NOTE | 2021-11-11 12:51 | XR_ITS ---
WS: [id number] Portable AP upright chest, 11/11/2021 Clinical Data: dyspnea/cough Comparison: Portable chest, 11/03/2021. Findings: No nodules, masses or effusions are seen. The heart is normal. The pulmonary vascularity is not increased. No pneumonia or pneumothorax is seen. Monitor leads are on the upper chest. There are clips in the right upper quadrant from a cholecystectomy. XR/XR chest 1V portable [id number] Impression: Negative chest.
--- NOTE | 2021-11-11 13:09 | W.ED.NAVMDI ---
HPI - Nausea/Vomiting/Diarrhea General: Chief complaint: Nausea/Vomiting/Diarrhea Stated complaint: N/V/ RECENT UTI & E COLI Time Seen by Provider: 11/11/21 12:44 History of Present Illness: HPI Narrative: 46 yo female presents emergency room complaining of persistent nausea vomiting some blood-streaked emesis. She was discharged home. UTI with sepsis 4 days ago. She was discharged home on some oral antibiotics which she states she is still taking. She is complaining of right flank pain as well as frequent nausea and vomiting with some blood-streaked emesis she also complains of subjective fever at home. Patient has extensive history in the system which was reviewed. MD elicited complaint: nausea and vomiting Onset (ago): hour(s) Description of vomiting: food contents, bilious and blood-streaked Associated nausea: Yes Associated abdominal pain: Yes Location of pain: Diffuse Pain consistency: constant Severity: mild Quality: cramping Exacerbating factors: none Relieving factors: none Context: history of abdominal surgery, alcohol abuse, anticoagulant use, aspirin use, self induced and smoking Associated symtoms: Reports anxiety, bloating, nausea and weakness; Denies altered mental status, change in vision, chest pain, cough, diaphoresis, decreased urine output, dizziness, dysuria, epistaxis, fatigue, fecal incontinence, fevers/chills, headache(s), anorexia, malaise, myalgias, numbness, palpitations, rash, short of breath, syncope, tenesmus or tinnitus Review of Systems Const: Denies: fatigue, malaise or diaphoresis Eyes: Denies: change in vision ENMT: Denies: tinnitus or epistaxis Card: Denies: chest pain, palpitations or syncope Resp: Denies: dyspnea, productive cough or non-productive cough GI: Reports: nausea and bloating; Denies: fecal incontinence : Denies: dysuria Skin/Breast: Denies: rash or pruritus Neuro: Denies: headache(s) or dizziness Psych: Reports: anxiety PFSH ED PFSH: Medical History Antiphospholipid antibody positive Cervical spondylosis Chronic respiratory failure with hypoxia Fibromyalgia Gastroparesis High risk medication use Hx of Sjogren's disease Immunosuppression Lumbar spondylosis MGUS (monoclonal gammopathy of unknown significance) Osteoporosis Systemic lupus erythematosus (SLE) in adult Vitamin D deficiency Surgical History H/O tubal ligation History of cholecystectomy Social History Smoking and tobacco status: never smoked Second hand smoke exposure: Yes Alcohol intake: never Lives independently: Yes Household members: spouse Marital status: Number of children: 3 Current occupational status: disabled History of recent travel: No Current gender identity: Female Female Reproductive History: Date of last menstrual period: 10/11/21 Physical Exam Const: COMMON NORMALS: no acute distress EXAM LIMITATIONS: no altered mental status GENERAL APPEARANCE: cooperative and comfortable ORIENTATION/CONSCIOUSNESS: Yes awake, Yes oriented to person, Yes oriented to place and Yes oriented to time HENMT: COMMON NORMALS: normocephalic and atraumatic HEAD & SCALP: normocephalic and atraumatic Neck/C-Spine: COMMON NORMALS: no JVD Resp: COMMON NORMALS: normal respiratory effort, No retractions, No use of accessory muscles and clear to auscultation bilaterally AUSCULTATION: clear to auscultation bilaterally Cardio: COMMON NORMALS: no JVD and regular rhythm RATE: tachycardic RHYTHM: regular rhythm GI: COMMON NORMALS: Soft to palpation and No hepatosplenomegaly present AUSCULTATION: Yes normoactive bowel sounds PALPATION: Yes Soft to palpation, No Tenderness to palpation present (GI), No Guarding due to palpation present (GI) and Yes No hepatosplenomegaly present : BLADDER/KIDNEY EXAM: Yes CVA tenderness Back/Pelvis: GENERAL BACK: Yes CVA tenderness CVA tenderness: right Extremity: COMMON NORMALS: normal to inspection, capillary refill normal, no clubbing, cyanosis or edema, no calf tenderness and no pedal edema Neuro: SENSORIUM/ORIENTATION: Yes oriented to person, Yes oriented to place and Yes oriented to time Skin: COMMON NORMALS: no rashes or lesions noted GENERAL SKIN EXAM: no rashes or lesions noted Course Vital Signs: Vital signs: Vital Signs Temperature 98.1 F 11/12/21 12:00 Pulse Rate 117 H 11/12/21 12:00 Respiratory Rate 16 11/12/21 12:00 Blood Pressure 116/80 11/12/21 12:00 Pulse Oximetry 97 11/12/21 12:00 MDM - Nausea/Vomiting/Diarrhea MDM Narrative: Medical decision making narrative: Patient has multiple issues which are concerning. Despite rehydration IV and potassium supplementation she is not improving. Her white count is elevated. This certainly could be because of her steroids but she also recently had a positive blood culture which is very concerning. She also has some lactic acidosis this could also be due to her dehydration but there is the concern that it may be due to her to septicemia. She was recently admitted to the hospital she was discharged home on oral antibiotics and has been taking them but is still feeling worse. Finally she is tachycardic. She has had sinus tachycardia in the past and is well-documented in her previous visit but I am not seeing significant improvement with IV hydration. D-dimer is unremarkable. Discussed with Dr. Shipley who seen the patient during the last hospitalization we both agreed at this point there are no complicating matters and the patient has enough comorbid issues that it would be best if she was admitted to sort these out. At very least she needs hydration and improvement of electrolytes as well as better control of her heart rate. Lab Data: Labs: Lab Results 11/11/21 11/11/21 11/11/21 13:08 13:20 13:20 WBC 14.3 10^3/uL H 10 ^3/uL (4.0-10.0) RBC 3.91 10^6/uL L 10 ^6/uL (4.1-5.3) Hgb 11.6 g/dL g/dL (11.5-15.3) Hct 35.0 % L % (37.0-47.0) MCV 89.5 fl fl (81-99) MCH 29.7 pg pg (28.0-34.0) MCHC 33.1 g/dL g/dL (30.0-36.0) RDW 12.7 % % (12.1-15.1) Plt Count 531 10^3/cmm H 10 ^3/cmm (130-400) MPV 7.9 fL fL (7.4-10.4) Neut % (Auto) 70.0 % % Lymph % (Auto) 17.5 % % [place] % (Auto) 9.6 % % Eos % (Auto) 0.8 % % Baso % (Auto) 0.6 % % Neut # (Auto) 9.96 10^3/uL H 10 ^3/uL (1.8-7.7) Lymph # (Auto) 2.5 10^3/uL 10^3/ uL (0.8-4.8) [place] # (Auto) 1.4 10^3/uL H 10^ 3/uL (0.2-0.9) Eos # (Auto) 0.1 10^3/uL 10^3/ uL (0.0-0.8) Baso # (Auto) 0.1 10^3/uL 10^3/ uL (0.0-0.1) Nucleated RBC % (a uto) 0 % % Nucleated RBCs # 0.0 /100WBC /100W BC D-Dimer Sodium 136 mmol/L mmol/L (136-145) Potassium 3.3 mmol/L L mmol /L (3.5-5.1) Chloride 95 mmol/L L mmol/ L (98-107) Carbon Dioxide 23 mmol/L mmol/L (22-29) Anion Gap 21.3 H (5-19) BUN 4 mg/dL L mg/dL (6-20) Creatinine 0.7 mg/dL mg/dL (0.5-0.9) GFR Calculation 89.7 mL/min L mL/ min (90-130) Glucose 123 mg/dL H mg/dL (65-115) Calculated Osmolal ity 280 mOsm/kg L mOs m/kg (285-295) Lactic Acid Lactic Acid (Sepsi s) Calcium 9.9 mg/dL mg/dL (8.5-10.5) Total Bilirubin 0.3 mg/dL mg/dL (0.15-1.2) AST 12 U/L U/L (0-32) ALT 12 U/L U/L (0-33) Alkaline Phosphata se 81 IU/L IU/L (35-105) Creatine Kinase Total Protein 6.4 g/dL L g/dL (6.6-8.7) Albumin 3.7 g/dL g/dL (3.5-5.2) Globulin 2.7 g/dL g/dL (1.3-4.6) Urine Color Yellow (Yellow) Urine Appearance Cloudy (CLEAR) Urine pH 6 (5-7) Ur Specific Gravit y 1.020 (1.005-1.030) Urine Protein Trace (Negative) Urine Glucose (UA) Norm (Normal) Urine Ketones Negative (Negative) Urine Blood 2+ H (Negative) Urine Nitrate Negative (Negative) Urine Bilirubin Neg (Negative) Urine Urobilinogen Norm mg/dL mg/dL (Negative) Ur Leukocyte Concepcion ase Trace H (Negative) Urine RBC 10-15 /hpf H /hpf (0-2) Urine WBC 5-10 /hpf H /hpf (0-5) Ur Squamous Epith Cells 25-40 /hpf H /hpf (0-5) Amorphous Sediment Not Reportable Urine Bacteria Trace /hpf /hpf (NONE) 11/11/21 11/11/21 11/11/21 13:20 13:20 17:15 WBC RBC Hgb Hct MCV MCH MCHC RDW Plt Count MPV Neut % (Auto) Lymph % (Auto) [place] % (Auto) Eos % (Auto) Baso % (Auto) Neut # (Auto) Lymph # (Auto) [place] # (Auto) Eos # (Auto) Baso # (Auto) Nucleated RBC % (a uto) Nucleated RBCs # D-Dimer Sodium Potassium Chloride Carbon Dioxide Anion Gap BUN Creatinine GFR Calculation Glucose Calculated Osmolal ity Lactic Acid 3.1 mmol/L H mmol /L (0.5-2.2) Lactic Acid (Sepsi s) 1.9 mmol/L mmol/L (0.5-2.2) Calcium Total Bilirubin AST ALT Alkaline Phosphata se Creatine Kinase 22 U/L L U/L (26-192) Total Protein Albumin Globulin Urine Color Urine Appearance Urine pH Ur Specific Gravit y Urine Protein Urine Glucose (UA) Urine Ketones Urine Blood Urine Nitrate Urine Bilirubin Urine Urobilinogen Ur Leukocyte Concepcion ase Urine RBC Urine WBC Ur Squamous Epith Cells Amorphous Sediment Urine Bacteria 11/11/21 17:15 WBC RBC Hgb Hct MCV MCH MCHC RDW Plt Count MPV Neut % (Auto) Lymph % (Auto) [place] % (Auto) Eos % (Auto) Baso % (Auto) Neut # (Auto) Lymph # (Auto) [place] # (Auto) Eos # (Auto) Baso # (Auto) Nucleated RBC % (a uto) Nucleated RBCs # D-Dimer 0.39 ug/mIFEU ug/ mIFEU (0-0.59) Sodium Potassium Chloride Carbon Dioxide Anion Gap BUN Creatinine GFR Calculation Glucose Calculated Osmolal ity Lactic Acid Lactic Acid (Sepsi s) Calcium Total Bilirubin AST ALT Alkaline Phosphata se Creatine Kinase Total Protein Albumin Globulin Urine Color Urine Appearance Urine pH Ur Specific Gravit y Urine Protein Urine Glucose (UA) Urine Ketones Urine Blood Urine Nitrate Urine Bilirubin Urine Urobilinogen Ur Leukocyte Concepcion ase Urine RBC Urine WBC Ur Squamous Epith Cells Amorphous Sediment Urine Bacteria Discharge Plan Discharge Patient Disposition: Admitted As Inpatient Admit Provider: Anthony May Clinical Impression: Gastroparesis, Recurrent vomiting, Hypokalemia, Lactic acidosis, Dehydration, Sinus tachycardia, Hematemesis with nausea Condition: Stable Coding Level of Care Code ED Appliance Servicer for Chg Fwd Exam Comprehensive
[2021-11-11 13:28] LABS: Basophils # 0.1 10^3/uL (0.0-0.1); Basophils % 0.6 %; Eosinophils # 0.1 10^3/uL (0.0-0.8); Eosinophils % 0.8 %; Hemoglobin 11.6 g/dL (11.5-15.3); Lymphocytes # 2.5 10^3/uL (0.8-4.8); Lymphocytes % 17.5 %; Mean Corpuscular HGB Conc 33.1 g/dL (30.0-36.0); Mean Corpuscular Hemoglobin 29.7 pg (28.0-34.0); Mean Corpuscular Volume 89.5 fl (81-99); Mean Platelet Volume 7.9 fL (7.4-10.4); Monocytes # 1.4 10^3/uL (0.2-0.9); Monocytes % 9.6 %; Neutrophils # 9.96 10^3/uL (1.8-7.7); Nucleated Red Blood Cells % 0 %; Platelet Count 531 10^3/cmm (130-400); Red Blood Count 3.91 10^6/uL (4.1-5.3); Red Cell Distribution Width 12.7 % (12.1-15.1); White Blood Count 14.3 10^3/uL (4.0-10.0)
[2021-11-11 13:29] LABS: Urine Appearance Cloudy (CLEAR); Urine Color Yellow (Yellow); pH Urine 6 (5-7)
[2021-11-11 13:30] LABS: Add Urine Microscopic? YES; Bilirubin Urine Neg (Negative); Blood Urine 2+ (Negative); Glucose Urine UA Norm (Normal); Ketones Urine Negative (Negative); Leukocyte Esterase Urine Trace (Negative); Nitrate Urine Negative (Negative); Protein Urine Trace (Negative); Urobilinogen Urine Norm (Negative)
[2021-11-11 13:35] LABS: Add Urine Culture? No; Bacteria Urine TRACE /hpf; Squamous Epithelial Cell Urine 25-40 /hpf (0-5)
[2021-11-11 13:44] LABS: Lactic Sepsis W/Reflex 3.1 mmol/L (0.5-2.2)
[2021-11-11 13:45] LABS: Alanine Aminotransferase 12 U/L (0-33); Albumin Level 3.7 g/dL (3.5-5.2); Alkaline Phosphatase 81 IU/L (35-105); Anion Gap 21.3 (5-19); Aspartate Amino Transferase 12 U/L (0-32); Blood Urea Nitrogen 4 mg/dL (6-20); Calcium 9.9 mg/dL (8.5-10.5); Carbon Dioxide 23 mmol/L (22-29); Chloride 95 mmol/L (98-107); Globulin 2.7 g/dL (1.3-4.6); Glomerular Filtration Rate 89.7 mL/min (90-130); Glucose 123 mg/dL (65-115); Osmolality Calculated 280 mOsm/kg (285-295); Potassium 3.3 mmol/L (3.5-5.1); Sodium 136 mmol/L (136-145); Total Bilirubin 0.3 mg/dL (0.15-1.2); Total Protein 6.4 g/dL (6.6-8.7)
--- NOTE | 2021-11-11 14:54 | CTR_ITS ---
PROCEDURE INFORMATION: Exam: CT Abdomen And Pelvis With Contrast Exam date and time: 11/11/2021 2:54 PM Age: 46 years old Clinical indication: Prior surgery; Surgery date: 6+ months; Surgery type: Gb, tubal; Patient HX: Lower abdominal pain x2 weeks, vomiting blood; Additional info: Abd pain TECHNIQUE: Imaging protocol: Computed tomography of the abdomen and pelvis with contrast. Radiation optimization: All CT scans at this facility use at least one of these dose optimization techniques: automated exposure control; mA and/or kV adjustment per patient size (includes targeted exams where dose is matched to clinical indication); or iterative reconstruction. Contrast material: OMNI 350; Contrast volume: 95 ml; Contrast route: INTRAVENOUS (IV); COMPARISON: CT abdomen pelvis w con* [id number] 11/02/2021 11:39 PM RADIATION DOSE METRICS: Total DLP (mGy-cm): 1689.83 FINDINGS: Tubes, catheters and devices: An intrauterine device is present. Lungs: There is subpleural atelectasis of the dependent portions of the lungs. Heart: There is a small pericardial fluid collection present. Mediastinal space: There is mild wall thickening in the distal esophagus that may reflect lack of distention or mild esophagitis. Diaphragm: A small hiatal hernia is present. Liver: Tiny hepatic hypodensities are noted and are too small to characterize. Gallbladder and bile ducts: There has been a cholecystectomy. Pancreas: The pancreas is normal. Spleen: The spleen is normal. Adrenal glands: Normal. No mass. Kidneys and ureters: Normal. No hydronephrosis. Stomach and bowel: There is no evidence of intestinal perforation or obstruction. There is no evidence of colitis/diverticulitis. No focal gastric wall thickening is identified. Appendix: A normal appendix is identified. Intraperitoneal space: Unremarkable. No free air. No significant fluid collection. Vasculature: The aorta is normal. Lymph nodes: Unremarkable.No enlarged lymph nodes. Urinary bladder: The bladder is normal. There is an unchanged calcified nodule deep to the right abdominal wall just above the level of the umbilicus image 55 that may reflect a dropped gallstone that previously was identified in the pelvis just anterior to the dome of the bladder. Reproductive: The uterus, ovaries and adnexa have an appropriate appearance. Bones/joints: Unremarkable. No acute fracture. Soft tissues: Unremarkable. Other findings: No inflammatory changes or fat stranding are identified in the abdomen or pelvis including adjacent to the calcification that is changed position compared to the prior study. CT/CT abdomen pelvis w con* [id number] IMPRESSION: 1. There is mild wall thickening in the distal esophagus that may reflect lack of distention or mild esophagitis. 2. There is a laminated calcification in the abdomen that is changed position compared to the prior exam migrating from the pelvis to the right upper abdomen and this may reflect a dropped gallstone from the prior cholecystectomy. There is no inflammatory change or fluid collection. 3. No additional acute abnormality or interval change. Postoperative changes are noted as above.
[2021-11-11 15:10] LABS: Reflex Lactate Order REFLEX LACTIC ORDERD
[2021-11-11] MEDS: sodium chloride 0.9% 1,000 ML 999 ML IV ×2 (15:17→18:33)
[2021-11-11] MEDS: ondansetron 2 mg/ML SDV 2 mL 4 MG IVP ×2 (15:18→19:41)
[2021-11-11] MEDS: acetaminophen 1,000 MG/100 ML PIGGYBACK 400 MG IV (15:18)
[2021-11-11 15:22] LABS: Creatine Phosphokinase 22 U/L (26-192)
[2021-11-11] MEDS: potassium chloride oral liq 20 mEq/15 mL UDC 40 MEQ PO (15:43)
[2021-11-11] MEDS: iohexol 300 mg/mL 100 mL Btl IV (17:22)
--- NOTE | 2021-11-11 17:27 | ECG_ITS ---
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 Measurements Intervals [place] Rate: 120 P: 39 NC: 151 QRS: 17 QRSD: 81 T: 50 QT: 316 QTc: 446 Interpretive Statements SINUS TACHYCARDIA NONSPECIFIC T-WAVE ABNORMALITY ABNORMAL RHYTHM ECG Compared to ECG 11/06/2021 07:53:50 No significant changes Electronically Signed On 11-11-2021 17:54:52 PREDATOR CONTROL TRAPPER by Nancy Schmitt M.D. [id number]
[2021-11-11 17:50] LABS: Lactic Acid level (Lactate) 1.9 mmol/L (0.5-2.2)
[2021-11-11 18:29] LABS: D Dimer 0.39 ug/mIFEU (0-0.59)
[2021-11-11] MEDS: promethazine 25 mg Tablet 12.5 MG PO (18:33)
--- NOTE | 2021-11-11 19:28 | PM.HP ---
Providers/Chief Complaint Admitting Physician: Anthony May MD Primary Care Provider: Milady Crystal DO Chief Complaint: N/V/ RECENT UTI & E COLI History of Present Illness Tereza Flaherty is a 46 year old female who has history of antiphospholipid syndrome, lupus, MGUS, chronic leukocytosis, was discharged on 11/07 after management of recurrent nausea vomiting related to gastroparesis, her leukocytosis improved with IV fluid hydration, EGD was done to rule out cause of hematemesis, she had 2 episodes, hemoglobin stayed stable. EGD showed gastritis no active ulceration was found. She was on aspirin and Plavix, does not carry history of diabetes. She was recommended gastric pacemaker for her recurrent nausea and vomiting. She developed bacteremia with E. coli, likely source of UTI. Repeat blood cultures were negative. She was given 14-day regimen of Cefpodoxime. During previous admission it was very hard to control her heart rate she was in sinus tachycardia which improved after 48 hours with multiple IV Cardizem and labetalol as needed dosages and IV fluids. She does carry history of sinus tachycardia has not been evaluated by conductor and engineer. Currently on Cardizem. No history of A. fib. Today presented to the hospital with chief complaint recurrent nausea and vomiting. She also noticed specks of blood in her vomitus. Patient is having labs and service from the hospital she has been experiencing multiple episodes of emesis, about 3-4 times a day, she was able to take her medications as scheduled except 11/11, she has missed her antibiotic dose. She was seen by Dr. Martin at [facility] who recommended gastric pacemaker, gastric emptying test positive for gastroparesis. ER call us because she had leukocytosis of 14,000, lactic acidemia which improved with IV fluid hydration, D-dimer unremarkable, sinus tachycardia heart rate fluctuating between 92-1 10, she was given 2 L of normal saline, potassium was supplemented, she was given antiemetics, CT abdomen showing esophagitis, possible passage of stone from previous gallbladder removal she is not requiring oxygen Review of Systems Const: Reports: body aches and fatigue Eyes: Denies: change in vision ENMT: Denies: throat pain Card: Reports: palpitations; Denies: chest pain Resp: Denies: dyspnea GI: Reports: abdominal pain, nausea and vomiting : Denies: flank pain Musc: Reports: back pain; Denies: joint redness Skin/Breast: Denies: rash Neuro: Denies: headache(s) Psych: Reports: anxiety Endo: Denies: polyuria Mauri/Lymph: Denies: easy bruising All/Imm: Denies: urticaria Medications/Allergies Home Medications Medication Instructions Recorded Confirmed Last Taken Type diclofenac sodium 1 % topical gel 2 gm TOPICAL QID PRN 12/02/19 11/03/21 04/12/20 History hydroxyzine HCl 25 mg tablet 25 mg PO Q8H PRN tab 12/02/19 11/03/21 10/31/21 History promethazine 25 mg tablet 25 mg PO Q6H PRN 12/02/19 11/03/21 04/12/20 History albuterol sulfate 90 mcg/actuation 2 puff INHALATION Q6H PRN 03/10/20 11/03/21 04/12/20 History aerosol inhaler aspirin 81 mg tablet,delayed 81 mg PO DAILY 03/10/20 11/03/21 10/31/21 History release atorvastatin 40 mg tablet 40 mg PO DAILY 03/10/20 11/03/21 10/31/21 History cetirizine 10 mg tablet 10 mg PO DAILY 03/10/20 11/03/21 10/31/21 History clopidogrel 75 mg tablet 75 mg PO DAILY 03/10/20 11/03/21 10/31/21 History diltiazem HCl 240 mg 240 mg PO DAILY 03/10/20 11/03/21 10/31/21 History capsule,extended release 24 hr epinephrine 0.3 mg/0.3 mL 0.3 mg IM Q10M PRN 03/10/20 11/03/21 Unknown History injection, auto-injector lamotrigine 25 mg tablet 25 mg PO TID tab 03/10/20 11/03/21 10/31/21 History levothyroxine 137 mcg capsule 137 mcg PO DAILY 03/10/20 11/03/21 10/31/21 History oxycodone 15 mg tablet 15 mg PO Q4H PRN 03/10/20 11/03/21 04/13/20 History desvenlafaxine succinate 50 mg 50 mg PO DAILY 03/23/20 11/03/21 10/31/21 History tablet,extended release 24 hr Benlysta See Rx Instructions .ROUTE .COMPLEX 04/13/20 11/03/21 10/06/21 History acetaminophen [Tylenol Extra 1,000 mg PO PRN PRN 04/13/20 11/03/21 04/13/20 History Strength] cholecalciferol (vitamin D3) 50 50 mcg PO DAILY #30 cap 10/18/20 11/03/21 10/31/21 Rx mcg (2,000 unit) capsule lubiprostone 24 mcg capsule 24 mcg PO BID 10/18/20 11/03/21 10/31/21 History nitroglycerin 0.4 mg sublingual 0.4 mg SUBLINGUAL Q5M PRN 06/07/21 11/03/21 Unknown History tablet Protonix 40 mg PO BID 11/03/21 11/03/21 10/31/21 History cevimeline 30 mg PO TID 11/03/21 11/03/21 10/31/21 History fluconazole 100 mg PO DAILY 11/03/21 11/03/21 10/31/21 History fluticasone propionate 1 spray INTRANASAL DAILY PRN 11/03/21 11/03/21 Unknown History hydroxychloroquine 200 mg PO BID 11/03/21 11/03/21 10/31/21 History lidocaine 1 patch TOPICAL DAILY PRN 11/03/21 11/03/21 Unknown History lorazepam 1 mg PO BID PRN 11/03/21 11/03/21 Unknown History meclizine 12.5 mg PO BID 11/03/21 11/03/21 Unknown History olopatadine 1 spray INTRANASAL DAILY 11/03/21 11/03/21 Unknown History pilocarpine HCl 5 mg PO TID 11/03/21 11/03/21 10/31/21 History potassium chloride 10 meq PO DAILY 11/03/21 11/03/21 10/31/21 History prednisone 10 mg PO DAILY 11/03/21 11/03/21 10/31/21 History tizanidine 4 mg PO TID PRN 11/03/21 11/03/21 10/31/21 History cefpodoxime 200 mg PO BID 14 Days #28 tab 11/06/21 Unknown Rx ondansetron HCl [Zofran] 4 mg PO Q8H 20 Days #60 tab 11/06/21 Unknown Rx Allergies Allergy/AdvReac Type Severity Reaction Status Date / Time diclofenac [From [employer]] AdvReac DIZZINESS Verified 06/07/21 14:08 misoprostol [From [employer]] AdvReac DIZZINESS Verified 06/07/21 14:08 PFSH Acute PFSH: Medical History Antiphospholipid antibody positive Cervical spondylosis Chronic respiratory failure with hypoxia Fibromyalgia Gastroparesis High risk medication use Hx of Sjogren's disease Immunosuppression Lumbar spondylosis MGUS (monoclonal gammopathy of unknown significance) Osteoporosis Systemic lupus erythematosus (SLE) in adult Vitamin D deficiency Surgical History H/O tubal ligation History of cholecystectomy Social History Smoking and tobacco status: never smoked Second hand smoke exposure: Yes Alcohol intake: never Lives independently: Yes Household members: spouse Marital status: Number of children: 3 Current occupational status: disabled History of recent travel: No Current gender identity: Female Female Reproductive History: Date of last menstrual period: 10/11/21 Vitals/I&O/Wt Last Vital Signs Temp 98.2 F 11/11/21 12:44 Pulse 121 H 11/11/21 17:30 Resp 18 11/11/21 17:30 BP 147/121 11/11/21 17:30 Pulse Ox 99 11/11/21 17:30 11/11/21 11/11/21 11/11/21 06:59 14:59 22:59 Intake Total 1100 / 1100 Balance 1100 / 1100 Weight last 48 hrs Weight 83.915 kg Physical Exam Narrative: EXAM NARRATIVE: young female Morbidly obese Signs of dehydration Sinus tachycardia EOMI, PERRLA Nonfocal neuro exam No signs of peritonitis no guarding rigidity She has multiple tender points Nonfocal neuro exam Dry mucous membranes No signs of edema Anxious appearing Data : 11/12/21 05:46 11/12/21 05:46 A&P Assessment and plan (1) Recurrent vomiting: Status: Acute (2) Hypokalemia: Status: Acute (3) Lactic acidosis: Status: Acute (4) Dehydration: Status: Acute (5) Sinus tachycardia: Status: Acute (6) Hematemesis with nausea: Status: Acute Additional A&P Information Recurrent nausea vomiting related to gastroparesis No history of diabetes Patient needs pacemaker/gastric pacemaker which was recommended to her, she has not been evaluated in [place] for that On previous admission she responded to multiple dosages of Reglan and Zofran considering her history of anxiety and depression and use of anxiolytics/antidepressants I would avoid Reglan scheduled doses to avoid serotonin syndrome Zofran for now Continue IV fluids CT abdomen pelvis showing gastritis We will keep her on clear liquid for now Hypokalemia related to dehydration and vomiting: Repleted Sinus tachycardia: Chronic history, D-dimer unremarkable, autonomic dysfunction, etiology is unknown likely related to underlying connective tissue disorder? I would only use IV ministerio blocking agent for as needed use On last admission she responded well to IV fluids, she has missed her p.o. Cardizem will benefit from EP study Metabolic acidosis due to lactic acidemia Secondary to dehydration Repeat blood cultures on previous admission she was diagnosed with E. coli bacteremia which cleared She is supposed to finish 14 days of Cefpodoxime because of active vomiting with use IV ceftriaxone Sepsis not present Hematemesis: Discontinue aspirin and Plavix for now previous EGD showed gastritis without active ulcers, I do suspect this is related to mucosal tear due to excessive episodes of emesis Full code Clear liquid diet DVT prophylaxis: SCDs Attestations Medical Necessity Statement*: Less than 2 midnights anticipated for dehydration and recurrent emesis Time Spent in Patient Care: Greater than 35 minutes Coding Level of Care Code Acute Singing Messenger for g Fwd Diagnoses Recurrent vomiting R11.10 Hypokalemia E87.6 Lactic acidosis E87.2 Dehydration E86.0 Sinus tachycardia R00.0 Hematemesis with nausea K92.0
[2021-11-11] MEDS: morphine 4 mg/mL SDV 1 mL IVP (19:40)
[2021-11-11] MEDS: metoclopramide 5 mg/mL SDV 2 mL 10 MG IVP (21:25)
[2021-11-11] MEDS: sodium chlor 0.9% + KCl 20 mEq 20 MEQ/1,000 ML BAG 100 MEQ IV (21:26)
[2021-11-11] MEDS: LORazepam 2 mg/mL INJ 1 mL 0.5 MG IVP (21:26)
[2021-11-11] MEDS: oxyCODONE 5 mg IR Tab/Cap 15 MG PO (21:57)
[2021-11-12] VITALS (7 sets, daily range): BP systolic 116–155; BP diastolic 78–82; PULSE 106–120; RESP 16–18; TEMP 36.5–36.7; O2SAT 97–98
[2021-11-12] MEDS: ondansetron 2 mg/ML SDV 2 mL 4 MG IVP ×5 (03:40→23:36)
[2021-11-12] MEDS: oxyCODONE 5 mg IR Tab/Cap 15 MG PO ×4 (03:40→20:33)
[2021-11-12 06:05] LABS: Basophils # 0.1 10^3/uL (0.0-0.1); Basophils % 1.2 %; Eosinophils # 0.1 10^3/uL (0.0-0.8); Hematocrit 34.3 % (37.0-47.0); Hemoglobin 11.4 g/dL (11.5-15.3); Lymphocytes # 2.5 10^3/uL (0.8-4.8); Lymphocytes % 20.9 %; Mean Corpuscular HGB Conc 33.2 g/dL (30.0-36.0); Mean Corpuscular Hemoglobin 29.5 pg (28.0-34.0); Mean Corpuscular Volume 88.9 fl (81-99); Monocytes # 1.4 10^3/uL (0.2-0.9); Monocytes % 11.7 %; Neutrophils # 7.54 10^3/uL (1.8-7.7); Neutrophils % 62.7 %; Nucleated Red Blood Cells % 0 %; Platelet Count 509 10^3/cmm (130-400); Red Blood Count 3.86 10^6/uL (4.1-5.3); Red Cell Distribution Width 12.8 % (12.1-15.1)
[2021-11-12] MEDS: sodium chlor 0.9% + KCl 20 mEq 20 MEQ/1,000 ML BAG 100 MEQ IV ×2 (06:25→18:38)
[2021-11-12 06:27] LABS: Alanine Aminotransferase 12 U/L (0-33); Albumin Level 3.7 g/dL (3.5-5.2); Alkaline Phosphatase 80 IU/L (35-105); Anion Gap 18.8 (5-19); Aspartate Amino Transferase 10 U/L (0-32); Blood Urea Nitrogen 4 mg/dL (6-20); Calcium 8.8 mg/dL (8.5-10.5); Carbon Dioxide 22 mmol/L (22-29); Chloride 99 mmol/L (98-107); Globulin 2.4 g/dL (1.3-4.6); Glomerular Filtration Rate 107.2 mL/min (90-130); Glucose 82 mg/dL (65-115); Magnesium 1.8 mg/dL (1.7-2.3); Osmolality Calculated 278 mOsm/kg (285-295); Potassium 3.8 mmol/L (3.5-5.1); Sodium 136 mmol/L (136-145); Total Bilirubin 0.4 mg/dL (0.15-1.2); Total Protein 6.1 g/dL (6.6-8.7)
[2021-11-12] MEDS: levothyroxine 137 mcg Tablet PO (08:16)
[2021-11-12] MEDS: dilTIAZem ER (24HR) 240 mg Capsule PO (08:17)
[2021-11-12] MEDS: hydroxychloroquine 200 mg Tablet PO ×2 (08:17→18:38)
[2021-11-12] MEDS: tizanidine 4 mg Tablet PO ×3 (08:17→23:36)
[2021-11-12] MEDS: lamoTRIgine 25 mg Tablet PO ×3 (08:31→20:33)
--- NOTE | 2021-11-12 10:26 | P.PN_ITS ---
Subjective Subjective: Interval history: We will request records from [facility], patient is reluctant to go back home because of recurrent symptoms I will touch base with her shell trim operator on Sunday Dr. Domingo [facility] For now she is doing well on IV fluid, no active emesis at the time my evaluation, overnight 100 mL output noted via emesis Vitals/I&O/Wt Last Vital Signs Temp 98.2 F 11/11/21 20:01 Pulse 112 H 11/11/21 20:01 Resp 18 11/12/21 08:17 BP 135/72 11/11/21 20:01 Pulse Ox 97 11/12/21 08:17 11/11/21 11/12/21 11/12/21 22:59 06:59 14:59 Intake Total 2160 / 2160 1378 / 3538 Output Total 100 / 100 210 / 310 Balance 2059 / 2059 1168 / 3228 Weight last 48 hrs Weight 85.956 kg Weight 83.915 kg Physical Exam Narrative: EXAM NARRATIVE: Patient was resting comfortably in her bed at the bedside Saturating well on room air S1, S2 sinus tachycardia Clinical signs of dehydration Dry mucous membranes No malar rash Has multiple petechiae and bruises on her extremities with different stages of healing Nonfocal neuro exam She seems comfortable today not complaining of abdominal pain Abdomen is soft nontender Data : 11/12/21 05:46 11/12/21 05:46 A&P Assessment and plan (1) Hematemesis with nausea: Status: Acute (2) Sinus tachycardia: Status: Acute (3) Dehydration: Status: Acute (4) Lactic acidosis: Status: Acute (5) Hypokalemia: Status: Acute (6) Recurrent vomiting: Status: Acute Additional A&P Information Today my plan is to continue her IV fluid hydration Continue IV Zofran, Avoid Reglan to avoid serotonin syndrome Will touch base with her shell trim operator at [facility] Requested records Hypokalemia: Potassium 3.8 today Lactic acidemia: Improved Sinus tachycardia: Anticipating improvement with IV fluid hydration and continuation of her Cardizem Full code Advance diet to mechanical soft, gluten-free Attestations Medical Necessity Statement*: Patient is reluctant to go home, wants to follow-up with shell trim operator Time Spent in Patient Care: 16 - 35 minutes Coding Level of Care Code Acute Logistics Management Specialist for Chg Fwd Diagnoses Hematemesis with nausea K92.0 Sinus tachycardia R00.0 Dehydration E86.0 Lactic acidosis E87.2 Hypokalemia E87.6 Recurrent vomiting R11.10
[2021-11-12] MEDS: cefTRIAXone 1,000 MG in sodium chloride 0.9% (plus) 50 ML 100 MG IV (20:33)
[2021-11-12] MEDS: calcium carbonate 500 mg Chew Tablet 1000 MG PO (23:35)
[2021-11-13] VITALS (10 sets, daily range): BP systolic 91–173; BP diastolic 56–108; PULSE 95–119; RESP 16–18; TEMP 36.4–36.8; O2SAT 94–100
--- NOTE | 2021-11-13 00:51 | PC.NURSE ---
2000Sitting up in bed. Reports nausea, advise of next dose of zofran 2030. ice chips given.
--- NOTE | 2021-11-13 00:52 | PC.NURSE ---
2200 assisted to BR. Begins vomiting yellow fluid, small amount. Pt requests additional nausea med. Dr. Modi notified. No new order for antiemetic. Recieved order for TUMs and given.
--- NOTE | 2021-11-13 00:53 | PC.NURSE ---
0030 Nausea med given as ordered. Given sprite and ice chips per pt request. Fan at bedside per request. No vomiting at this time.
--- NOTE | 2021-11-13 02:07 | PC.NURSE ---
0200 Pt resting on right side. Resp E/U. No Vomiting at present. IV infusing without diff.
--- NOTE | 2021-11-13 03:17 | PC.NURSE ---
0300 Resting in bed. Easily awakens and ambulates to bathroom per self. Stress incontinence noted. Fresh brief given. reports mild nausea.
[2021-11-13] MEDS: ondansetron 2 mg/ML SDV 2 mL 4 MG IVP ×4 (04:27→19:59)
[2021-11-13] MEDS: sodium chlor 0.9% + KCl 20 mEq 20 MEQ/1,000 ML BAG 100 MEQ IV ×2 (04:27→14:48)
[2021-11-13] MEDS: oxyCODONE 5 mg IR Tab/Cap 15 MG PO ×4 (04:33→17:51)
--- NOTE | 2021-11-13 06:18 | PC.NURSE ---
0600 ice chips and sprite given per pt request.
[2021-11-13] MEDS: metoclopramide 5 mg/mL SDV 2 mL IVP ×2 (06:39→18:26)
[2021-11-13] MEDS: pantoprazole 40 mg SDV IVP (08:47)
[2021-11-13] MEDS: lamoTRIgine 25 mg Tablet PO (08:50)
[2021-11-13] MEDS: dilTIAZem ER (24HR) 240 mg Capsule PO (08:51)
[2021-11-13] MEDS: levothyroxine 137 mcg Tablet PO (08:51)
[2021-11-13] MEDS: hydroxychloroquine 200 mg Tablet PO ×2 (08:51→17:51)
--- NOTE | 2021-11-13 10:39 | P.PN_ITS ---
Subjective Subjective: Interval history: This morning patient threw up 3 times, she is attributing to moving too much Afebrile Hemodynamically stable She is not endorsing worsening abdominal pain She is reluctant to go home as she thinks she will come back because of recurrent nausea and vomiting She wants to talk with her GI doctor on Sunday in [facility], she is optimistic that she will be accepted in transfer from the hospital however it might not be possible considering the bed situation Still waiting on records from [place] Vitals/I&O/Wt Last Vital Signs Temp 98.2 F 11/13/21 08:18 Pulse 112 H 11/13/21 08:18 Resp 17 11/13/21 08:51 BP 161/88 11/13/21 08:18 Pulse Ox 99 11/13/21 08:51 11/12/21 11/13/21 11/13/21 22:59 06:59 14:59 Intake Total 1120 / 1420 981.667 / 2401.667 Balance 1120 / 1420 981.667 / 2401.667 Weight last 48 hrs Weight 85.956 kg Weight 83.915 kg Physical Exam Narrative: EXAM NARRATIVE: This morning patient looks slightly well-hydrated In distress because of nausea Emesis 3 times this morning Doing well on 2 L nasal cannula Soft abdomen no signs of peritonitis No audible stridor or wheezing EOMI, PERRLA Nonfocal exam No signs of skin rash Data : 11/12/21 05:46 11/12/21 05:46 A&P Assessment and plan (1) Gastroparesis: Status: Acute (2) Sinus tachycardia: Status: Acute (3) Dehydration: Status: Acute (4) Lactic acidosis: Status: Acute (5) Recurrent vomiting: Status: Acute Additional A&P Information Patient is at risk of readmission secondary to recurrent nausea vomiting related to gastroparesis She wants to talk with her brand protection manager on Sunday I will talk with Dr. Martin to see if there is a possibility to transfer her from the hospital to [facility] however I am not very optimistic considering current bed situation, today for her recurrent nausea vomiting I would use Phenergan, Reglan There is no active signs serotonin syndrome Sinus tachycardia seem to be improved with use of IV fluids overnight however got worse with vomiting this morning I will change her diet to full liquid gluten-free Full liquid diet Full code DVT prophylaxis: SCDs No recurrence of hematemesis Attestations Medical Necessity Statement*: Not ready to be discharged, active emesis due to gastroparesis Time Spent in Patient Care: 16 - 35 minutes Coding Level of Care Code Acute Setter Off for Chg Fwd Diagnoses Gastroparesis K31.84 Sinus tachycardia R00.0 Dehydration E86.0 Lactic acidosis E87.2 Recurrent vomiting R11.10
[2021-11-13] MEDS: metoclopramide 5 mg/mL SDV 2 mL 10 MG IVP (11:21)
[2021-11-13] MEDS: promethazine 25 mg/mL SDV 1 mL 12.5 MG IM (11:31)
--- NOTE | 2021-11-13 19:21 | PC.NURSE ---
pt requested review of home meds and that her desvenlafaxine and prednisone be restarted, Dr May was informed and gave this nurse order via telephone to restart both to be restarted in the AM.
[2021-11-13] MEDS: cefTRIAXone 1,000 MG in sodium chloride 0.9% (plus) 50 ML 100 MG IV (19:58)
[2021-11-13] MEDS: calcium carbonate 500 mg Chew Tablet 1000 MG PO (19:59)
[2021-11-13] MEDS: tizanidine 4 mg Tablet PO (19:59)
[2021-11-14] VITALS (12 sets, daily range): BP systolic 104–151; BP diastolic 71–98; PULSE 91–120; RESP 16–20; TEMP 36.3–37.1; O2SAT 97–100
[2021-11-14] MEDS: metoclopramide 5 mg/mL SDV 2 mL IVP ×2 (00:01→20:38)
[2021-11-14] MEDS: oxyCODONE 5 mg IR Tab/Cap 15 MG PO ×6 (00:02→22:43)
--- NOTE | 2021-11-14 00:20 | PC.NURSE ---
1930 Up to bathroom to void. Reports nausea and odor sensitivity. Discussed when next PRN meds are due.
--- NOTE | 2021-11-14 00:22 | PC.NURSE ---
2000 Ice chips, laney, nahid given per pt request.
--- NOTE | 2021-11-14 00:22 | PC.NURSE ---
2100 Pillow placed to back for support per pt request.
--- NOTE | 2021-11-14 00:23 | PC.NURSE ---
2200 Awake in bed watching tv. Cont to c/o nausea. MEds given earlier when dude. Advised pt I will give again when they are due if she needs them at that time. Voices understanding.
--- NOTE | 2021-11-14 00:24 | PC.NURSE ---
2345 Pt resting in bad on left side. Did not wake pt for PRN med dose.
--- NOTE | 2021-11-14 00:25 | PC.NURSE ---
0010 Pt up to BR. Reports back/abd pain, nausea. Meds given as ordered. Ice chips given.
[2021-11-14] MEDS: sodium chlor 0.9% + KCl 20 mEq 20 MEQ/1,000 ML BAG 100 MEQ IV ×3 (01:25→22:42)
--- NOTE | 2021-11-14 01:39 | PC.NURSE ---
0130 Pt awakw watching tv. reports abd/back pain improved to a 6/10. Nausea cont but some better.
--- NOTE | 2021-11-14 04:30 | PC.NURSE ---
0430 Lab at bedside.
[2021-11-14] MEDS: ondansetron 2 mg/ML SDV 2 mL 4 MG IVP ×4 (04:35→22:43)
--- NOTE | 2021-11-14 05:00 | PC.NURSE ---
0445 Popcicle given per pt request.
[2021-11-14] MEDS: hydroxychloroquine 200 mg Tablet PO ×2 (08:26→17:31)
[2021-11-14] MEDS: dilTIAZem ER (24HR) 240 mg Capsule PO (08:26)
[2021-11-14] MEDS: pantoprazole 40 mg SDV IVP (08:26)
[2021-11-14] MEDS: predniSONE 10 mg Tablet PO (08:26)
[2021-11-14] MEDS: levothyroxine 137 mcg Tablet PO (08:26)
--- NOTE | 2021-11-14 08:30 | ECG_ITS ---
[facility] Test Date: 2021-11-14 Pat Name: Tereza Flaherty Department: Room: 252 Gender: Female Sticker On: : 1975 Requested By: Anthony May Order Number: [id number] Joo MD: Hyun Dee M.D. Measurements Intervals [place] Rate: 109 P: 49 NM: 146 QRS: 15 QRSD: 82 T: 33 QT: 321 QTc: 433 Interpretive Statements SINUS TACHYCARDIA Compared to ECG 11/11/2021 17:39:34 T-wave abnormality no longer present Electronically Signed On 11-15-2021 5:04:07 INSURANCE HEALTHCARE REPRESENTATIVE by Hyun Dee M.D. [id number]
--- NOTE | 2021-11-14 09:22 | PM.PN ---
Subjective Subjective: Interval history: This morning patient appears very anxious, she was complaining of numbness all over her body however sensation intact, no neurological focal deficits She was given GI cocktail, twelve-lead EKG was requested I told her that today I will call [facility] to speak with the systems administrator She still experiencing multiple episodes of emesis which gets worse on minimal exertional activities Afebrile, CBC and BMP is pending Restarted prednisone and Pristiq Vitals/I&O/Wt Last Vital Signs Temp 98 F 11/14/21 04:00 Pulse 100 11/14/21 04:00 Resp 18 11/14/21 08:23 BP 149/81 11/14/21 04:00 Pulse Ox 99 11/14/21 08:23 11/13/21 11/14/21 11/14/21 22:59 06:59 14:59 Intake Total 120 / 1770 1000 / 2770 Balance 120 / 1770 1000 / 2770 Physical Exam Narrative: EXAM NARRATIVE: Patient was laying supine Saturating well on 2 L nasal cannula She has good sensations, nonfocal neuro exam EOMI, PERRLA Clinically looks euvolemic Anxious mood at the bedside S1, S2 I did not appreciate any murmur No acute respite distress, no audible stridor or wheezing Data : 11/12/21 05:46 11/12/21 05:46 A&P Assessment and plan (1) Gastroparesis: Status: Acute (2) Hematemesis with nausea: Status: Acute (3) Sinus tachycardia: Status: Acute (4) Lactic acidosis: Status: Acute (5) Dehydration: Status: Acute (6) Recurrent vomiting: Status: Acute Additional A&P Information Dehydration has improved with IV fluid hydration Patient is still experiencing recurrent episode of nausea vomiting due to history of gastroparesis, [facility] does not have any beds for next 36 hours, will call [facility] to speak with the systems administrator Today I will get twelve-lead EKG, she was complaining of chest pain and numbness all over her body, Nonfocal neuro exam She was complaining of numbness, NIH is [address] head at this point Full code Full liquid diet, gluten-free DVT prophylaxis: Hemoglobin stable, I will discontinue SCDs and start Lovenox Attestations Medical Necessity Statement*: Continue medical management Time Spent in Patient Care: 16 - 35 minutes Coding Level of Care Code Acute Serologist for g Fwd Diagnoses Gastroparesis K31.84 Hematemesis with nausea K92.0 Sinus tachycardia R00.0 Lactic acidosis E87.2 Dehydration E86.0 Recurrent vomiting R11.10
[2021-11-14 09:23] LABS: Basophils # 0.1 10^3/uL (0.0-0.1); Basophils % 0.6 %; Eosinophils # 0.2 10^3/uL (0.0-0.8); Eosinophils % 1.6 %; Hematocrit 35.3 % (37.0-47.0); Hemoglobin 11.7 g/dL (11.5-15.3); Lymphocytes # 1.8 10^3/uL (0.8-4.8); Lymphocytes % 15.1 %; Mean Corpuscular HGB Conc 33.1 g/dL (30.0-36.0); Mean Corpuscular Hemoglobin 29.7 pg (28.0-34.0); Mean Corpuscular Volume 89.6 fl (81-99); Mean Platelet Volume 8.3 fL (7.4-10.4); Monocytes # 1.1 10^3/uL (0.2-0.9); Monocytes % 9.1 %; Neutrophils # 8.57 10^3/uL (1.8-7.7); Neutrophils % 71.8 %; Nucleated Red Blood Cells % 0 %; Platelet Count 417 10^3/cmm (130-400); Red Blood Count 3.94 10^6/uL (4.1-5.3); Red Cell Distribution Width 12.9 % (12.1-15.1); White Blood Count 11.9 10^3/uL (4.0-10.0)
[2021-11-14 09:30] LABS: Blood Urea Nitrogen 2 mg/dL (6-20); Calcium 9.9 mg/dL (8.5-10.5); Carbon Dioxide 19 mmol/L (22-29); Chloride 99 mmol/L (98-107); Glomerular Filtration Rate 132.2 mL/min (90-130); Glucose 97 mg/dL (65-115); Osmolality Calculated 276 mOsm/kg (285-295); Sodium 135 mmol/L (136-145)
[2021-11-14 09:42] LABS: Anion Gap 21.2 (5-19); Potassium 4.2 mmol/L (3.5-5.1)
[2021-11-14] MEDS: lidocaine 2% viscous 15 ML, aluminum-mag hydrox-simethicon 30 ML, sucralfate oral liq 1 GM PO (12:19)
[2021-11-14] MEDS: enoxaparin 40 mg/0.4 mL Syringe SUBCUT (12:21)
[2021-11-14] MEDS: desvenlafaxine 50 mg Tablet 100 MG PO (12:45)
[2021-11-14] MEDS: phenazopyridine 100 mg Tablet PO ×2 (15:51→22:43)
[2021-11-14] MEDS: labetalol 5 mg/mL SDV 20mL IVP (15:55)
[2021-11-14] MEDS: lamoTRIgine 25 mg Tablet PO (20:37)
[2021-11-14] MEDS: calcium carbonate 500 mg Chew Tablet 1000 MG PO (20:37)
[2021-11-14] MEDS: cefTRIAXone 1,000 MG in sodium chloride 0.9% (plus) 50 ML 100 MG IV (20:37)
[2021-11-14] MEDS: tizanidine 4 mg Tablet PO (20:38)
--- NOTE | 2021-11-14 23:26 | PC.NURSE ---
1999 Pt reports she has been using bedpan today mary was instructed by the nurse and doctor that i am too weak to get up and because I vomit when I get up. Pt c/o burning and difficulty urinating. She thinks she has UTI. was notified of this earlier today by day shift nurse (discussed in bedside report). Pt was told she is on antibiotics already. Advised pt to get up and walk to bathroom with assistance like she was previously doing. This will improve circulation, reducing risk for DVT, continue to help build strength. Pt agrees to call for assistance when needing to use BR. Reports nausea and recent vomiting, back pain. Reviewed when PRN meds are due and plan to give at that time. Voices understanding. Requests nahid, popcicle, and ice chips. Given these items.
--- NOTE | 2021-11-14 23:32 | PC.NURSE ---
2200 Pt resting in bed. Easily arouses. Reports some nausea relief noted but still present.
[2021-11-15] VITALS (9 sets, daily range): BP systolic 103–149; BP diastolic 68–92; PULSE 79–95; RESP 15–18; TEMP 36.6–36.8; O2SAT 94–100
--- NOTE | 2021-11-15 00:23 | PC.NURSE ---
0010 reports nausea. no vomiting noted. informed pt not time for med yet. [place] given at pt request.
[2021-11-15] MEDS: calcium carbonate 500 mg Chew Tablet 1000 MG PO ×4 (00:58→23:40)
[2021-11-15] MEDS: metoclopramide 5 mg/mL SDV 2 mL IVP ×4 (02:49→23:41)
[2021-11-15] MEDS: oxyCODONE 5 mg IR Tab/Cap 15 MG PO ×3 (04:54→16:30)
[2021-11-15] MEDS: ondansetron 2 mg/ML SDV 2 mL 4 MG IVP ×4 (04:55→20:50)
--- NOTE | 2021-11-15 05:02 | PC.NURSE ---
0500 requests zofran for nausea and pain med for back pain and headache.
[2021-11-15 07:58] LABS: Prolactin 57.97 ng/mL (4.8-23.3)
[2021-11-15] MEDS: dilTIAZem ER (24HR) 240 mg Capsule PO (08:21)
[2021-11-15] MEDS: levothyroxine 137 mcg Tablet PO (08:21)
[2021-11-15] MEDS: desvenlafaxine 50 mg Tablet 100 MG PO (08:21)
[2021-11-15] MEDS: hydroxychloroquine 200 mg Tablet PO ×2 (08:21→18:30)
[2021-11-15] MEDS: predniSONE 10 mg Tablet PO (08:21)
[2021-11-15] MEDS: lamoTRIgine 25 mg Tablet PO ×3 (08:22→20:50)
[2021-11-15] MEDS: sodium chlor 0.9% + KCl 20 mEq 20 MEQ/1,000 ML BAG 100 MEQ IV (08:23)
[2021-11-15] MEDS: pantoprazole 40 mg SDV IVP (08:24)
[2021-11-15] MEDS: tizanidine 4 mg Tablet PO ×3 (08:27→21:38)
[2021-11-15] MEDS: enoxaparin 40 mg/0.4 mL Syringe SUBCUT (11:24)
--- NOTE | 2021-11-15 12:21 | PM.PN ---
Subjective Subjective: Interval history: Patient had 2 episode of emesis this morning as well I have used Reglan, Zofran, Ativan, Phenergan without much success It is very hard to get her accepted at any hospital in this endemic at the same time she is unstable to return home because of her recurrent emesis because she get dehydrated and her sinus tachycardia worsens, on this admission she presented with dehydration and lactic acidosis Vitals/I&O/Wt Last Vital Signs Temp 98.1 F 11/15/21 11:40 Pulse 79 11/15/21 11:40 Resp 16 11/15/21 11:58 BP 146/81 11/15/21 11:40 Pulse Ox 94 11/15/21 11:58 11/14/21 11/15/21 11/15/21 22:59 06:59 14:59 Intake Total 1480 / 3160 250 / 3410 1208.333 / 1208.333 Output Total 250 / 250 Balance 1230 / 2910 250 / 3160 1208.333 / 1208.333 Physical Exam Narrative: EXAM NARRATIVE: Patient was laying flat in bed Seemed very anxious regarding her symptoms However clinically she looks euvolemic No signs of peritonitis No sign of cellulitis No acute respiratory distress Saturating well on room air anxious mood Data : 11/14/21 09:00 11/14/21 09:00 A&P Assessment and plan (1) Gastroparesis: Status: Acute (2) Hematemesis with nausea: Status: Acute (3) Sinus tachycardia: Status: Acute (4) Dehydration: Status: Acute Additional A&P Information I have not heard back from [facility], will try hospitals in [facility] Patient is high risk for readmission because of her gastroparesis and recurrent symptoms, most of the medication tried in the hospital have not relieved her symptoms She definitely needs a pacemaker, she is not tolerating p.o. diet I have kept off liquid diet I added Ativan yesterday which has been unsuccessful as well For liquid diet Full code Added DVT prophylaxis yesterday hemoglobin has been stable no active hematemesis Sinus tach already improved with IV fluid hydration Yesterday patient had a focal seizure without loss of consciousness which resolved within a minute, her Lamictal level is still pending I have restarted her antiepileptic, prolactin level is high, requesting CT head today Attestations Medical Necessity Statement*: Patient is high risk for readmission cannot discharge her as she is still experiencing headache, recurrent nausea and vomiting Time Spent in Patient Care: less than 15 minutes Coding Level of Care Code Acute Extrusion Utility Worker for Chg Fwd Diagnoses Gastroparesis K31.84 Hematemesis with nausea K92.0 Sinus tachycardia R00.0 Dehydration E86.0
--- NOTE | 2021-11-15 12:26 | CT_ITS ---
WS: [id number] CT head wo con* [id number] REASON FOR EXAM: seizure, vomiting IV CONTRAST ADMINISTERED: Noncontrast TOTAL EXAM DLP: 803.[address] scans at [facility] use at least one of these dose optimization techniques: automat ed exposure control; mA and/or kV adjustment per patient size (includes targeted exams where dose is matched to clinical indication); or iterative reconstruction. FINDINGS: Examination is unchanged compared to 08/20/2018. Skull base and bony calvarium are unremarkable. There is no midline shift or other significant mass effect. There are no findings of intracranial hemorrhage and no extra-axial fluid collections. No focal supratentorial or infratentorial brain parenchymal abnormality is identified. There are no f indings of cerebral edema. Ventricles and CSF spaces of the brain are normal. CT/CT head wo con* [id number] IMPRESSION: The examination is unchanged compared to the previous study with no acute intra cranial abnormality identified.
[2021-11-15] MEDS: cefTRIAXone 1,000 MG in sodium chloride 0.9% (plus) 50 ML 100 MG IV (20:49)
[2021-11-15] MEDS: LORazepam 2 mg/mL INJ 1 mL 0.5 MG IVP (23:55)
[2021-11-16] VITALS (7 sets, daily range): BP systolic 105–130; BP diastolic 69–85; PULSE 69–111; RESP 16–18; TEMP 36.7–36.8; O2SAT 94–100
[2021-11-16] MEDS: ondansetron 2 mg/ML SDV 2 mL 4 MG IVP ×2 (02:21→08:29)
[2021-11-16] MEDS: metoclopramide 5 mg/mL SDV 2 mL IVP (04:57)
[2021-11-16] MEDS: calcium carbonate 500 mg Chew Tablet 1000 MG PO (04:57)
--- NOTE | 2021-11-16 05:22 | NUR.SHIFT ---
4320 Nurse called to room and pt reported she is in so much pain to her back and abd that she is going to have a seizure. Pt aware that oxycontin was dc yesterday. Pt lying in bed begins to move right arm across chest and shake it, moves tongue and teeth back and forth mumbling. Sternal rub to chest brings pt back to normal state. Able to carry on conversation without difficulty. No post ictal status noted. Dr. Pringle notified.
--- NOTE | 2021-11-16 06:08 | PC.NURSE ---
0600 Dr. Hurt on unit. discussed pt seizure activity. She will defer to Dr. Adam for orders. Pt alert talking to daughter on phone. reports she is feeling better after eating a salt packet left over from meal. She believes her electrolytes are low.
[2021-11-16 06:59] LABS: Anion Gap 16.9 (5-19); Blood Urea Nitrogen 4 mg/dL (6-20); Calcium 9.5 mg/dL (8.5-10.5); Carbon Dioxide 25 mmol/L (22-29); Chloride 96 mmol/L (98-107); Glomerular Filtration Rate 89.7 mL/min (90-130); Glucose 82 mg/dL (65-115); Osmolality Calculated 274 mOsm/kg (285-295); Potassium 3.9 mmol/L (3.5-5.1); Sodium 134 mmol/L (136-145)
[2021-11-16] MEDS: levothyroxine 137 mcg Tablet PO (08:27)
[2021-11-16] MEDS: lamoTRIgine 25 mg Tablet PO (08:27)
[2021-11-16] MEDS: desvenlafaxine 50 mg Tablet 100 MG PO (08:27)
[2021-11-16] MEDS: dilTIAZem ER (24HR) 240 mg Capsule PO (08:27)
[2021-11-16] MEDS: hydroxychloroquine 200 mg Tablet PO (08:27)
[2021-11-16] MEDS: pantoprazole 40 mg SDV IVP (08:28)
[2021-11-16] MEDS: predniSONE 10 mg Tablet PO (08:28)
[2021-11-16] MEDS: tizanidine 4 mg Tablet PO (08:28)
--- NOTE | 2021-11-16 09:51 | P.DS_ITS ---
Discharge Providers Date of Admission: 11/11/21 18:21 Date of Discharge: November 16, 2021 Attending Provider at Admission: Anthony May MD Attending Provider at Discharge: Anthony May MD Primary Care Provider: Milady Crystal DO Diagnoses at Discharge Discharge Diagnosis (1) Gastroparesis: Status: Acute (2) Hematemesis with nausea: Status: Acute (3) Sinus tachycardia: Status: Acute (4) Dehydration: Status: Acute Reason for Visit Reason for Visit: N/V/ RECENT UTI & E COLI Hospital Course Hospital Course Patient was readmitted for her intractable nausea vomiting related to gastroparesis. She has a head tennis coach in [place] Dr. Martin who recommended pacemaker placement at [facility]. I have tried to call [facility] twice, they do not have any beds available and for pacemaker placement she will need outpatient evaluation first. I called [facility], spoke with a head tennis coach who recommended G-POEM procedure for gastroparesis because with Zofran, Reglan, Phenergan and Ativan her symptoms were not improving. However between 11/15 and 11/16 she only had 2 episode of emesis mostly in the morning. She remained afebrile, UA unremarkable, she was kept on ceftriaxone to finish antibiotic regimen. on previous admission she was diagnosed with E. coli bacteremia. On this admission her heart rate seem to be well controlled as compared to previous. Her symptoms are consistent with autonomic dysfunction with underlying lupus and antiphospholipid syndrome. Patient was asked to follow-up with head tennis coach. During this hospitalization she suffered from 1 breakthrough seizure, episode lasting less than a minute without postictal confusion, prolactin was high, Lamictal was resumed which I held to check levels first In case of any worsening of her symptoms she can come to the ER for IV fluid hydration and IV medications and should be transferred from the ER to any [facility] which has gastroenterology gastroparesis management. Physical Exam Narrative: EXAM NARRATIVE: Obese female Saturating well on 2 L nasal cannula which is her home requirement Soft abdomen however she has tender points at multiple level Nonfocal neuro exam No signs of edema Hemoglobin: S1, S2 sinus rhythm Looks euvolemic Discharge Data Data Completed and Pending: Completed Studies During Hospitalization Category Date Time Status CT abdomen pelvis w con* [id number] Stat Cat Scan 11/11/21 14:[address] head wo con* [id number] 0450 Stat Cat Scan 11/15/21 12:26 Completed XR chest 1V phillip ble [id number] Stat Exams 11/11/21 12:51 Completed Pending at discharge Category Date Time Status Drug Screen, Urin e Routine Lab 11/16/21 07:38 Uncollected Lamotrigine (Lami ctal) Level Routin e Lab 11/13/21 05:46 Received Labs from last 24 hours 11/16/21 04:42 Sodium 134 L Potassium 3.9 Chloride 96 L Carbon Dioxide 25 Anion Gap 16.9 BUN 4 L Creatinine 0.7 GFR Calculation 89.7 L Glucose 82 Calculated Osmolal ity 274 L Calcium 9.5 Vitals: Last Vital Signs Temp 98.0 F 11/16/21 04:00 Pulse 69 11/16/21 07:58 Resp 16 11/16/21 07:24 BP 130/80 11/16/21 07:24 Pulse Ox 96 11/16/21 07:58 Discharge Plan Discharge Patient Disposition: Home Condition: Stable Prescriptions: New promethazine 25 mg tablet 25 mg PO TID PRN (Reason: nausea and vomiting) Qty: 10 RF: 0 Continued promethazine 25 mg tablet 25 mg PO Q6H PRN (Reason: unknown) RF: 0 hydroxyzine HCl 25 mg tablet 25 mg PO Q8H PRN (Reason: prn) RF: 0 diclofenac sodium [Voltaren] 1 % gel 2 gm TOPICAL QID PRN (Reason: unknown) RF: 0 desvenlafaxine succinate [Pristiq] 50 mg tablet extended release 24 hr 100 mg PO DAILY RF: 0 Amitiza 24 mcg capsule 24 mcg PO BID RF: 0 cholecalciferol (vitamin D3) 50 mcg (2,000 unit) capsule 50 mcg PO DAILY Qty: 30 RF: 4 lamotrigine 25 mg tablet 25 mg PO TID RF: 0 aspirin [Adult Aspirin Regimen] 81 mg tablet,delayed release (DR/EC) 81 mg PO DAILY RF: 0 atorvastatin [Lipitor] 40 mg tablet 80 mg PO DAILY RF: 0 diltiazem HCl [Cartia XT] 240 mg capsule,extended release 24hr 240 mg PO DAILY RF: 0 clopidogrel [Plavix] 75 mg tablet 75 mg PO DAILY RF: 0 levothyroxine 137 mcg capsule 137 mcg PO DAILY RF: 0 albuterol sulfate 90 mcg/actuation HFA aerosol inhaler 2 puff INHALATION Q6H PRN (Reason: Shortness Of Breath) RF: 0 epinephrine [EpiPen] 0.3 mg/0.3 mL auto-injector 0.3 mg IM Q10M PRN (Reason: Allergic Reaction) RF: 0 cetirizine [Zyrtec] 10 mg tablet 10 mg PO DAILY RF: 0 oxycodone 15 mg tablet 15 mg PO Q4H PRN (Reason: Pain) RF: 0 nitroglycerin [Nitrostat] 0.4 mg tablet, sublingual 0.4 mg sublingual Q5M PRN (Reason: pain) RF: 0 fluconazole 100 mg Tablet 100 mg PO DAILY PRN (Reason: yeast infection) RF: 0 potassium chloride 10 mEq Capsule, Extended Release 10 meq PO DAILY RF: 0 tizanidine 4 mg Tablet 4 mg PO TID PRN (Reason: Muscle Spasm) RF: 0 prednisone 5 mg Tablet 10 mg PO DAILY RF: 0 meclizine 12.5 mg Tablet 12.5 mg PO BID RF: 0 pantoprazole [Protonix] 40 mg Tablet,Delayed Release (Dr/Ec) 40 mg PO BID RF: 0 cevimeline 30 mg Capsule 30 mg PO TID RF: 0 lidocaine 5 % Adhesive Patch,Medicated 1 patch TOPICAL DAILY PRN (Reason: Pain) RF: 0 lorazepam 1 mg Tablet 1 mg PO BID PRN (Reason: Anxiety) RF: 0 fluticasone propionate 50 mcg/actuation [place],Suspension 1 spray INTRANASAL DAILY PRN (Reason: Allergic Symptoms) RF: 0 olopatadine 0.6 % [place],Non-Aerosol 1 spray INTRANASAL DAILY RF: 0 pilocarpine HCl 5 mg tablet 5 mg PO TID RF: 0 hydroxychloroquine 200 mg tablet 200 mg PO BID RF: 0 cefpodoxime 200 mg tablet 200 mg PO BID 14 Days Qty: 28 RF: 0 ondansetron HCl [Zofran] 4 mg tablet 4 mg PO Q8H 20 Days Qty: 60 RF: 0 triamcinolone acetonide 0.1 % cream 1 applic TOPICAL BID PRN (Reason: Rash) RF: 0 lansoprazole 30 mg Capsule,Delayed Release(Dr/Ec) 30 mg PO DAILY RF: 0 acetaminophen [Tylenol Extra Strength] 500 mg Tablet 1,000 mg PO PRN PRN (Reason: Pain) RF: 0 Benlysta 120 mg recon soln See Rx Instructions .ROUTE .COMPLEX RF: 0 Discharge Orders: Discharge Order (Routine); Ordered 11/16/21 Ordered By: Anthony May Referrals: Milady Crystal DO [Primary Care Provider] - 11/18/21 11:40 am (cancelled appointment that was scheduled for 11/16/21 ) Discharge Diet: Full LIquid Discharge Activity: Increase activity as tolerated Patient Instructions: Promethazine (By mouth), Gastroparesis (DC), Hematemesis (ED), Opioid Safety Activity Restrictions/Additional Instructions: I spoke with the head tennis coach from [facility] who recommended G POEM procedure which is being done in [place] I did call [facility] twice, they do not have any beds available & for gastric pacemaker you will need outpatient evaluation first in order to go there Then I called [facility], they recommended medications that you are already on I would only give you a short course of promethazine because I do not want drug to drug interaction for you which can be detrimental for your health with more side effects Discharge Attestations Time Spent in Discharge Care*: less than 30 min Quality Metrics Clinical Quality Measures During this hospital stay, did patient experience: None Coding Level of Care Code Acute Chg FW DC note Diagnoses Gastroparesis K31.84 Hematemesis with nausea K92.0 Sinus tachycardia R00.0 Dehydration E86.0
[2021-11-16] MEDS: oxyCODONE 5 mg IR Tab/Cap 15 MG PO (10:02)
[2021-11-18 17:07] LABS: Lamotrigine (Lamictal) Level 3.7 mcg/mL (4.0-18.0)
== END 2021-11-16 12:15 | disposition home or self-care (01) ==
LOC: ER 18:23 → MEDSURG 18:58
PROVIDERS: Admitting Provider Internal Medicine; Emergency Provider Family Medicine; PCP Family Medicine; Visit Provider Internal Medicine
DX: K31.84 Gastroparesis (principal); K92.0 Hematemesis; R00.0 Tachycardia, unspecified; E86.0 Dehydration; E87.2 Acidosis; M79.7 Fibromyalgia; Z79.899 Other long term (current) drug therapy; E66.01 Morbid (severe) obesity due to excess calories; Z68.28 Body mass index [BMI] 28.0-28.9, adult
CPT/HCPCS: 36415; 70450; 71045; 74177; 80048; 80053; 80175; 81001; 82550; 83605; 83735; 84146; 85025; 85378; 93005; 96361; 96372; 96374; 96375; 96376; 99285; C9113; G0378; J0696; J1650; J2060; J2270; J2405; J2550; J2765; J3490; J7030; J7512; Q0169; Q9967

== ENCOUNTER → 2022-04-25 16:16 | Outpatient (BNVA) | payer OTHER, SELFPAY | PROVIDERS: PCP Family Medicine; Visit Provider Internal Medicine Rheumatology | DX: M32.9 Systemic lupus erythematosus, unspecified (principal); Z79.899 Other long term (current) drug therapy; R76.0 Raised antibody titer; K31.84 Gastroparesis; Z71.89 Other specified counseling; M81.0 Age-related osteoporosis without current pathological fracture | CPT/HCPCS: 36415; 80076; 82565; 85007; 85025; 86140 ==

== ENCOUNTER → 2022-06-09 15:10 | Outpatient (BNVA) | payer OTHER, SELFPAY | PROVIDERS: PCP Family Medicine; Referring Provider Family Medicine; Visit Provider Obstetrics & Gynecology | DX: Z01.419 Encounter for gynecological examination (general) (routine) without abnormal findings (principal); R73.9 Hyperglycemia, unspecified; R93.89 Abnormal findings on diagnostic imaging of other specified body structures | CPT/HCPCS: 83036; 87070; 87205; 87624 ==

== ENCOUNTER 2022-08-29 11:48 | Outpatient (CLI) | payer OTHER, SELFPAY ==
[2022-08-29 12:48] LABS: Basophils # 0.1 10^3/uL (0.0-0.1); Basophils % 0.6 %; Eosinophils # 0.3 10^3/uL (0.0-0.8); Eosinophils % 1.9 %; Hemoglobin 12.1 g/dL (11.5-15.3); Lymphocytes # 2.8 10^3/uL (0.8-4.8); Lymphocytes % 19.9 %; Mean Corpuscular HGB Conc 33.6 g/dL (30.0-36.0); Mean Corpuscular Hemoglobin 29.4 pg (28.0-34.0); Mean Corpuscular Volume 87.6 fl (81-99); Monocytes # 0.7 10^3/uL (0.2-0.9); Monocytes % 5.2 %; Neutrophils # 9.94 10^3/uL (1.8-7.7); Nucleated Red Blood Cells % 0 %; Platelet Count 356 10^3/cmm (130-400); Red Blood Count 4.11 10^6/uL (4.1-5.3); Red Cell Distribution Width 12.1 % (12.1-15.1)
[2022-08-29 12:53] LABS: Add Urine Culture? No; Bacteria Urine 1+ /hpf; Bilirubin Urine 1+ (Negative); Blood Urine 2+ (Negative); Glucose Urine UA Norm (Normal); Ketones Urine Negative (Negative); Leukocyte Esterase Urine 2+ (Negative); Nitrate Urine Negative (Negative); Protein Urine Trace (Negative); RBC Urine 0-4 /hpf (0-2); Squamous Epithelial Cell Urine 0-4 /hpf (0-5); Urine Appearance Hazy (CLEAR); Urine Color Yellow (Yellow); Urobilinogen Urine Norm (Negative); pH Urine 5 (5-7)
[2022-08-29 13:01] LABS: Urine Protein Random 26 mg/dL
[2022-08-29 13:10] LABS: Alanine Aminotransferase 13 U/L (0-33); Albumin Level 4.1 g/dL (3.5-5.2); Alkaline Phosphatase 87 U/L (35-105); Aspartate Amino Transferase 11 U/L (0-32); C Reactive Protein 21.7 mg/L (0.0-4.9); Globulin 2.8 g/dL (1.3-4.6); Glomerular Filtration Rate 89.3 mL/min (90-130); Total Bilirubin 0.3 mg/dL (0.15-1.2); Total Protein 6.9 g/dL (6.6-8.7)
== END 2022-08-29 11:49 | disposition home or self-care (01) ==
PROVIDERS: PCP Family Medicine; Visit Provider Internal Medicine Rheumatology
DX: Z51.81 Encounter for therapeutic drug level monitoring (principal); M32.9 Systemic lupus erythematosus, unspecified; Z79.899 Other long term (current) drug therapy; M19.90 Unspecified osteoarthritis, unspecified site
CPT/HCPCS: 36415; 80076; 81001; 82565; 84156; 85025; 86140; 87086

== ENCOUNTER → 2022-10-18 10:00 | Outpatient (BNVA) | payer OTHER, SELFPAY | PROVIDERS: PCP Family Medicine; Visit Provider Obstetrics & Gynecology | DX: Z30.9 Encounter for contraceptive management, unspecified (principal) | CPT/HCPCS: 87070; 87184; 87205 ==

== ENCOUNTER → 2022-12-12 15:17 | Outpatient (BNVA) | payer OTHER, SELFPAY | PROVIDERS: PCP Family Medicine; Visit Provider Internal Medicine Rheumatology | DX: M32.9 Systemic lupus erythematosus, unspecified (principal); M81.0 Age-related osteoporosis without current pathological fracture; Z79.899 Other long term (current) drug therapy; R76.0 Raised antibody titer; M25.569 Pain in unspecified knee | CPT/HCPCS: 36415; 73562; 80076; 81001; 82306; 82310; 82565; 82570; 84156; 85025; 85651; 86140 ==

== ENCOUNTER 2023-01-03 12:59 | Outpatient (CLI) | payer OTHER, SELFPAY ==
--- NOTE | 2023-01-03 | MM_ITS ---
WS: [id number] BILATERAL 2D DIGITAL SCREENING MAMMOGRAPHY WITH CAD CLINICAL INFORMATION: SCREENING HISTORY: Screening mammogram. Chronic lump under LEFT arm COMPARISON: 2020 TECHNIQUE: Bilateral CC and MLO views. FINDINGS: Scattered fibroglandular densities bilaterally. No suspicious focal mass, asymmetry, calcifications, or architectural distortion. No evidence of malignancy. Punctate and lucent centered calcifications. MM/[place] [id number] IMPRESSION: BI-RADS: 2-Benign FOLLOW UP: 1 Year Follow-up Recommend return to annual screening mammography.
--- NOTE | 2023-01-03 13:22 | MM_ITS ---
WS: [id number] BILATERAL 2D DIGITAL SCREENING MAMMOGRAPHY WITH CAD CLINICAL INFORMATION: SCREENING HISTORY: Screening mammogram. Chronic lump under LEFT arm COMPARISON: 2020 TECHNIQUE: Bilateral CC and MLO views. FINDINGS: Scattered fibroglandular densities bilaterally. No suspicious focal mass, asymmetry, calcifications, or architectural distortion. No evidence of malignancy. Punctate and lucent centered calcifications.
--- NOTE | 2023-01-03 13:30 | XR_ITS ---
WS: [id number] SCREENING DEXA SCAN [place] CLINICAL INFORMATION: M81.0 - Age-related osteoporosis without current patholog... COMPARISON: 2019 FINDINGS: The L1-L4 bone mineral density measures 0.837 g/cm2. This corresponds to a T score score of -2.9 and Z score of -3.8. Left femoral neck bone mineral density measures 1.023 g/cm2. This corresponds to a T score of 0.1 and Z score of -0.3. Right femoral neck bone mineral density measures 1.018 g/cm2. This corresponds to a T score 0.1of and Z score of -0.3. Mean femoral neck bone mineral density measures 1.020 g/cm2. This corresponds to a T score of 0.1 and Z score of -0.3. XR/XR DEXA axial skeleton* [id number] IMPRESSION: Osteoporosis lumbar spine. Normal bone mineralization femoral necks. Patient's FRAX calculated 10 year probability for major osteoporotic fracture i s 6.2 % and osteoporotic hip fracture is 0.3%. Bone mineralization lumbar spine has decreased -13.3% since 2019. Bone mineralization femoral necks has decreased -5.0% since 2019.
== END 2023-01-03 13:00 | disposition home or self-care (01) ==
PROVIDERS: PCP Family Medicine; Visit Provider Internal Medicine Rheumatology
DX: M81.0 Age-related osteoporosis without current pathological fracture (principal); Z12.31 Encounter for screening mammogram for malignant neoplasm of breast; R22.32 Localized swelling, mass and lump, left upper limb
CPT/HCPCS: 77063; 77067; 77080

== ENCOUNTER 2023-02-15 12:08 | Outpatient (CLI) | payer OTHER, SELFPAY ==
--- NOTE | 2023-02-15 12:26 | US_ITS ---
WS: [id number] US pelv w/transvag [id number] HISTORY: EXCESSIVE FREQUENT MENSTRUATION W/IRREGULAR CYCLE COMPARISON: 11/03/2021 Uterus: 6.9 cm x 3.6 cm x 3.4 cm. Normal size anteverted uterus. No fibroid or mass. Endometrium: 0.5 cm. Normal. Mild limitation due to body habitus. Neither ovary is identified. No adnexal masses. No free fluid. US/US pelv w/transvag [id number] IMPRESSION: 1. Normal size uterus and endometrium. No abnormality identified. 2. Neither ovary is identified.
== END 2023-02-15 12:09 | disposition home or self-care (01) ==
PROVIDERS: PCP Family Medicine; Visit Provider Obstetrics & Gynecology Gynecologic Oncology
DX: N85.00 Endometrial hyperplasia, unspecified (principal)
CPT/HCPCS: 76830; 76856

== ENCOUNTER → 2023-03-26 10:50 | Outpatient (BNVA) | payer OTHER, SELFPAY | PROVIDERS: PCP Family Medicine; Visit Provider Internal Medicine Rheumatology | DX: M32.9 Systemic lupus erythematosus, unspecified (principal); Z79.899 Other long term (current) drug therapy | CPT/HCPCS: 36415; 80076; 82565; 85025; 86140 ==

== ENCOUNTER 2023-04-30 11:23 | Oncology outpatient (recurring) (ONCR) | payer OTHER, SELFPAY ==
[2023-04-30 12:21] VITALS: BP 135/91; PULSE 94; RESP 22; TEMP 36.2; O2SAT 98
[2023-04-30] MEDS: sodium chloride 0.9% 250 ML 75 ML IV (12:28)
[2023-04-30] MEDS: dexamethasone 10 mg/mL INJ 6 MG IVP (12:28)
[2023-04-30] MEDS: diphenhydrAMINE 50 mg/mL SDV 1mL 25 MG IVP (12:29)
[2023-04-30] MEDS: acetaminophen 325 mg Tablet 650 MG PO (12:34)
[2023-04-30 13:22] LABS: Erythrocyte Sedimentation Rate 19 mm/hr (0-15)
[2023-04-30 13:31] LABS: Add Urine Microscopic? YES; Bilirubin Urine 1+ (Negative); Blood Urine 2+ (Negative); Glucose Urine UA Norm (Normal); Ketones Urine 1+ (Negative); Leukocyte Esterase Urine Negative (Negative); Nitrate Urine Negative (Negative); Protein Urine 1+ (Negative); RBC Urine 0-4 /hpf (0-2); Specific Gravity, Urine 1.025 (1.005-1.030); Urine Appearance SL Hazy (CLEAR); Urine Color Amber (Yellow); Urobilinogen Urine 1 mg/dL (Negative); pH Urine 5 (5-7)
[2023-04-30 13:32] LABS: Add Urine Culture? No; Bacteria Urine 1+ /hpf; Mucus Urine 2+ /hpf; Squamous Epithelial Cell Urine 15-25 /hpf (0-5); WBC Urine 0-4 /hpf (0-5)
[2023-04-30 13:36] LABS: Alanine Aminotransferase 22 U/L (0-33); Albumin Level 4.2 g/dL (3.5-5.2); Alkaline Phosphatase 67 U/L (35-105); Calcium 8.9 mg/dL (8.5-10.5); Globulin 2.5 g/dL (1.3-4.6); Glomerular Filtration Rate 106.7 mL/min (90-130); Total Bilirubin 0.2 mg/dL (0.15-1.2); Total Protein 6.7 g/dL (6.6-8.7)
[2023-04-30 13:49] LABS: Urine Creatinine 312 mg/dL (28-217); Urine Protein Random 65 mg/dL
[2023-04-30 13:53] LABS: Aspartate Amino Transferase 21 U/L (0-32)
[2023-04-30] MEDS: denosumab 60 mg SDV SUBCUT (14:50)
[2023-04-30 15:15] VITALS: BP 143/95; PULSE 74; RESP 20; TEMP 36.3; O2SAT 98
== END 2023-05-04 23:59 | disposition home or self-care (01) ==
PROVIDERS: PCP Family Medicine; Visit Provider Internal Medicine Rheumatology
DX: L93.2 Other local lupus erythematosus (principal); Z79.899 Other long term (current) drug therapy
CPT/HCPCS: 80076; 81001; 82310; 82565; 82570; 84156; 85651; 96361; 96365; 96366; 96372; 96375; J0490; J0897; J1100; J1200; J7050

== ENCOUNTER 2023-05-03 07:08 | Outpatient (CLI) | payer OTHER, SELFPAY ==
--- NOTE | 2023-05-03 09:00 | US_ITS ---
WS: [id number] ULTRASOUND THYROID FNA CLINICAL INFORMATION: Thyroid Nodules TECHNIQUE: Ultrasound-guided FNA FINDINGS: The procedure including risks, benefits, and complications were discussed with the patient who agreed to proceed. Timeout was performed. Using sterile technique patient was prepped and draped in usual sterile fashion. After 1% lidocaine, using ultrasound guidance, a 25-gauge needle was advanc ed into the LEFT mid thyroid nodule. 4 passes were made with active aspiration. Pathology was present for slide preparation. No immediate complications. Next, the LEFT inferior thyroid nodule was selected with 3 passes utilizing a 25-gauge needle with ac tive aspiration Patient remained in the ultrasound suite 10 minutes postprocedure with intermittent ultrasound to ens ure no hematoma. No hematoma 10 minutes postprocedure. US/US biopsy/FNA thyroid [id number] IMPRESSION: 1. Uncomplicated ultrasound-guided LEFT thyroid FNA of the mid and inferior th yroid nodules 2. Cytology pending.
== END 2023-05-03 07:09 | disposition home or self-care (01) ==
PROVIDERS: PCP Family Medicine; Visit Provider Internal Medicine
DX: E04.1 Nontoxic single thyroid nodule (principal)
CPT/HCPCS: 10005; 88173

== ENCOUNTER → 2023-07-31 14:02 | Outpatient (BNVA) | payer OTHER, SELFPAY | PROVIDERS: PCP Family Medicine; Visit Provider Internal Medicine Rheumatology | DX: M32.9 Systemic lupus erythematosus, unspecified (principal); R76.0 Raised antibody titer; R76.8 Other specified abnormal immunological findings in serum; M81.0 Age-related osteoporosis without current pathological fracture; Z71.89 Other specified counseling; M19.90 Unspecified osteoarthritis, unspecified site | CPT/HCPCS: 36415; 73130; 73630; 80076; 81001; 82565; 82784; 83520; 85025; 86140; 86160; 86200; 86225; 86235; 86431; 87086 ==

== ENCOUNTER → 2023-10-23 14:48 | Outpatient (BNVA) | payer OTHER, SELFPAY | PROVIDERS: PCP Family Medicine; Visit Provider Internal Medicine Rheumatology | DX: M32.9 Systemic lupus erythematosus, unspecified (principal); Z79.899 Other long term (current) drug therapy | CPT/HCPCS: 36415; 80076; 82306; 82565; 85025; 86140; 86480 ==

== ENCOUNTER 2024-08-05 22:54 | Inpatient (IN) | payer OTHER, SELFPAY ==
[2024-08-05 23:13] VITALS: BMI 35.6
[2024-08-05 23:55] VITALS: BP 155/100; PULSE 103; RESP 16; TEMP 37.1; O2SAT 98
[2024-08-06] VITALS (63 sets, daily range): BP systolic 129–172; BP diastolic 85–109; PULSE 87–118; RESP 8–33; TEMP 36.6–37.1; O2SAT 93–100
--- NOTE | 2024-08-06 02:02 | ECG_ITS ---
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 Measurements Intervals [place] Rate: 96 P: 49 UT: 159 QRS: -9 QRSD: 86 T: 29 QT: 349 QTc: 442 Interpretive Statements SINUS RHYTHM LOW QRS VOLTAGE IN PRECORDIAL LEADS [QRS DEFLECTION < 1.0 mV IN CHEST LEADS] POSSIBLE RIGHT VENTRICULAR CONDUCTION DELAY [RSR (QR) IN V1/V2] Possible LAE Compared to ECG 11/14/2021 09:10:07 Low QRS voltage now present Sinus tachycardia no longer present Electronically Signed On 08-06-2024 23:36:12 CDT by Nancy Schmitt M.D. [email or web address].[id number] f
--- NOTE | 2024-08-06 02:04 | PC.NURSE ---
Patient arrived from [facility] via EMS at 2247. Contacted Dr. Pringle to make aware of arrival and she stated she would be in unit soon to see pt. Pt. began complaining of pain and nausea at 0030, message left via [employer] with no new orders. Pt. rested quietly in bed, awakened at 0200 and began complaining of stabbing chest pain radiating down left arm, ongoing generalized pain and ongoing nausea. Patient stated she has had intermittent chest pain for the last month approximately, and had previous prescription for nitro SL. Stated that pain was usually associated with hypertension, current blood pressure 147/102. Message left via voicemail for Dr. Pringle to make aware and EKG done, follow up message sent via [employer], no new orders received.
--- NOTE | 2024-08-06 02:29 | PC.NURSE ---
Contacted Dr. Pringle and discussed chest pain (patient states it is resolving without intervention), ongoing generalized pain, and ongoing nausea. Telephone order received for physician shaila to place further orders.
--- NOTE | 2024-08-06 02:40 | PM.HP ---
Providers/Chief Complaint Admitting Physician: Braden Sorto MD Primary Care Provider: Milady Crystal DO Chief Complaint: UTI,Sepsis History of Present Illness Tereza Flaherty is a 48 year old female with a past medical history of seronegative rheumatoid arthritis, SLE on daily steroid between 10 to 30 mg prednisone daily, Sjogren syndrome, gastroparesis, chronically on 4 L/min supplemental O2 ? ILD, not currently on any biologicals. She is transferred here today from [facility] due to suspicion for pyelonephritis. Patient states she has a recurrent history of urinary tract infections, estimates she gets 2-3 episodes per year, her last episode was in April 2024 following which she had a 6-week course of antibiotics. Currently she developed dysuria, urinary urgency frequency and suprapubic discomfort with urination on Sunday (today is Sunday), for which she was prescribed levofloxacin 500 mg p.o. daily by her primary care physician. Her dysuria got slightly better but continued to persist. Additionally today she developed nausea vomiting and back pain which took her to the emergency room. No history of fever. Chills present. At [facility] her lactic acid was elevated at ~4, continued to be at this number with 3 serial rechecks. White blood cell count was at 20,000. Urine analysis with 6-10 WBCs, 1+ bacteriuria, negative nitrate and leukocyte Estrace, however this is with 4 days of oral levofloxacin. She was hypertensive with blood pressure up to 170/110, which improved to 122/82 during course of evaluation there. She had 1 episode of diarrhea today, C. difficile toxin is negative. CT of the abdomen and pelvis showed a nonobstructive left left urolithiasis without any ureteral calculi. Review of Systems General: Reports: 10 or more systems reviewed and unremarkable except in HPI and below Const: Denies: fever(s), chills or body aches Eyes: Denies: change in vision, blurry vision or photophobia ENMT: Reports: hoarseness; Denies: throat pain, enlarged tonsils, odynophagia or nasal congestion Card: Denies: chest pain, palpitations, irregular heart rhythm, edema, swelling of feet/ankles, lightheadedness, pre-syncope, dyspnea on exertion or orthopnea Resp: Denies: dyspnea, productive cough, non-productive cough, wheezing, stridor, pain on inspiration, change in phlegm color, hemoptysis or chest congestion GI: Denies: abdominal pain, nausea, vomiting, hematemesis, coffee ground emesis, dysphagia, heartburn, diarrhea, constipation, GI cramping, change in stool character, hematochezia or melena : Denies: flank pain, difficulty voiding, dysuria, urinary frequency, urinary urgency, urinary hesitancy or hematuria Musc: Denies: neck pain, back pain, extremity pain, joint swelling, joint warmth or deformity Neuro: Denies: headache(s), numbness in extremities, weakness in extremities, sensory changes, difficulty walking, frequent falls, dizziness, vertigo, behavioral changes, Slurred speech present or seizure-like activity Psych: Denies: anxiety, depression, suicidal ideation or homicidal ideation Endo: Denies: polyuria, polydipsia, tired all the time, cold intolerance or hot flashes Mauri/Lymph: Denies: easy bruising or easy bleeding Medications/Allergies Home Medications Medication Instructions Recorded Confirmed Last Taken Type diclofenac sodium 1 % topical gel 2 gm topical QID PRN unknown 12/02/19 08/06/24 04/12/20 History (Voltaren) albuterol sulfate 90 mcg/actuation 2 puff inhalation Q6H PRN 03/10/20 08/06/24 04/12/20 History aerosol inhaler Shortness Of Breath aspirin 81 mg tablet,delayed 81 mg PO DAILY 03/10/20 08/06/24 10/31/21 History release (Adult Aspirin Regimen) atorvastatin 40 mg tablet (Lipitor) 80 mg PO DAILY see pharmacy comment 03/10/20 08/06/24 10/31/21 History cetirizine 10 mg tablet (Zyrtec) 10 mg PO DAILY 03/10/20 08/06/24 10/31/21 History diltiazem HCl 240 mg 360 mg PO DAILY 03/10/20 08/06/24 08/05/24 08:00 History capsule,extended release 24 hr (Cartia XT) epinephrine 0.3 mg/0.3 mL 0.3 mg IM Q10M PRN Allergic 03/10/20 08/06/24 Unknown History injection, auto-injector (EpiPen) Reaction levothyroxine 137 mcg capsule 137 mcg PO DAILY 03/10/20 08/06/24 10/31/21 History oxycodone 15 mg tablet 15 mg PO Q4H PRN Pain 03/10/20 08/06/24 04/13/20 History desvenlafaxine succinate 50 mg 100 mg PO DAILY 03/23/20 08/06/24 10/31/21 History tablet,extended release 24 hr (Pristiq) acetaminophen 500 mg tablet 1,000 mg PO PRN PRN Pain 04/13/20 08/06/24 04/13/20 History (Tylenol Extra Strength) cevimeline 30 mg capsule 30 mg PO TID 11/03/21 08/06/24 10/31/21 History fluticasone propionate 50 1 spray intranasal DAILY PRN 11/03/21 08/06/24 Unknown History mcg/actuation nasal Allergic Symptoms spray,suspension lidocaine 5 % topical patch 1 patch topical DAILY PRN Pain 11/03/21 08/06/24 Unknown History meclizine 12.5 mg tablet 12.5 mg PO PRN PRN Nausea And 11/03/21 08/06/24 Unknown History Vomiting potassium chloride 10 mEq 10 meq PO DAILY 11/03/21 08/06/24 10/31/21 History capsule,extended release triamcinolone acetonide 0.1 % 1 applic topical BID PRN Rash 11/12/21 08/06/24 Unknown History topical cream levonorgestrel 21 mcg/24 hr (up to intrauterine 10/18/22 10/23/23 Unknown History 8 years) 52 mg intrauterine device (Mirena) pantoprazole 40 mg tablet,delayed 40 mg PO BID #60 tabs 10/23/23 08/06/24 Unknown Rx release (Protonix) pilocarpine HCl 5 mg tablet 5 mg PO TID dry mouth #270 tabs 10/23/23 08/06/24 Unknown Rx prednisone 10 mg tablet 10 mg PO DAILY joint pain #90 tabs 10/23/23 08/06/24 Unknown Rx cholecalciferol (vitamin D3) 50 See Rx Instructions .Route 04/21/24 08/06/24 Unknown Rx mcg (2,000 unit) capsule .COMPLEX #90 caps bupropion HCl 150 mg tablet,12 hr 150 mg PO BID 08/06/24 08/06/24 Unknown History sustained-release carisoprodol 350 mg tablet 350 mg PO PRN 08/06/24 08/06/24 Unknown History carvedilol 25 mg tablet 25 mg PO BID 08/06/24 08/06/24 Unknown History clopidogrel 75 mg tablet 75 mg PO DAILY 08/06/24 08/06/24 Unknown History diazepam 2 mg tablet 2 mg PO PRN PRN Anxiety 08/06/24 08/06/24 Unknown History folic acid 1 mg tablet 1 mg PO DAILY 08/06/24 08/06/24 Unknown History levofloxacin 500 mg tablet 500 mg PO DAILY 08/06/24 08/06/24 Unknown History lidocaine HCl 3 % topical cream 3 applic topical PRN 08/06/24 08/06/24 Unknown History lifitegrast 5 % eye drops in a 1 drp ophthalmic (eye) BID 08/06/24 08/06/24 Unknown History dropperette (Xiidra) metoclopramide HCl 10 mg tablet 10 mg PO QID 08/06/24 08/06/24 Unknown History ondansetron HCl 4 mg tablet 4 mg PO PRN 08/06/24 08/06/24 Unknown History prochlorperazine maleate 10 mg 10 mg PO PRN 08/06/24 08/06/24 Unknown History tablet solifenacin 10 mg tablet 10 mg PO DAILY 08/06/24 08/06/24 Unknown History sumatriptan succinate 50 mg tablet 50 mg PO PRN 08/06/24 08/06/24 Unknown History Allergies Allergy/AdvReac Type Severity Reaction Status Date / Time Sulfa (Sulfonamide Allergy Intermediate ALGY-Rash Verified 08/06/24 00:41 Antibiotics) hydroxychloroquine AdvReac Intermediate eye changes Verified 08/06/24 00:41 diclofenac [From [employer]] AdvReac DIZZINESS Verified 08/06/24 00:41 misoprostol [From [employer]] AdvReac DIZZINESS Verified 08/06/24 00:41 PFSH Acute PFSH: Medical History (Updated 08/06/24 @ 05:05 by Sarai Pringle MD) Seronegative rheumatoid arthritis of both hands Inflammatory arthritis High risk medication use Chronic respiratory failure with hypoxia Hx of Sjogren's disease Immunosuppression Vitamin D deficiency Osteoporosis Lumbar spondylosis Cervical spondylosis Fibromyalgia MGUS (monoclonal gammopathy of unknown significance) Gastroparesis Antiphospholipid antibody positive Systemic lupus erythematosus (SLE) in adult Surgical History History of cholecystectomy H/O tubal ligation Family History Grandmother Diabetes Hypertension Breast cancer Heart disease Hypercholesteremia Thyroid disease Father Diabetes Hypertension Stroke Hypercholesteremia Mother Hypertension Hypercholesteremia Grandmother Heart disease Grandfather Thyroid disease Denies family history of Colon cancer Ovarian cancer Uterine cancer Social History Smoking and tobacco/nicotine status: never used tobacco/nicotine Substance/Drug Use: never Do you think of yourself as: Straight/Heterosexual Female Reproductive History: Date of last menstrual period: 07/29/24 Vitals/I&O/Wt Last Vital Signs O2 Del Method Nasal Cannula 08/05/24 23:13 08/05/24 08/05/24 08/06/24 14:59 22:59 06:59 Output Total 75 / 75 Balance -75 / -75 Weight last 48 hrs Weight 106.5 kg Physical Exam Narrative: General: No acute distress, AO x3 HEENT: PERRLA, pupils bilaterally equal and reactive, pallors not present Chest: Normal vesicular breath sounds, no added sounds, equal good air entry bilaterally CVS: S1-S2 regular, no murmurs, no tachycardia, no gallops, no rubs Abdomen: Soft, nontender, no organomegaly, bowel sounds present Neuro: No focal deficits, no facial deformity, AO x3, power 5/5 in all limbs Extremities: Left CVA tenderness present Data 08/06/24 02:52 08/06/24 02:52 Other Labs: Labs from [facility] WBC 20.9, hemoglobin 13.6, platelets 397 ESR 11 Lactic acid 3.9, 4.5, 4.6 Sodium 134, potassium 3.4, BUN 17, creatinine 0.8, glucose 285, T. bili 0.2, AST 8, ALT 14, alkaline phosphatase 97, anion gap 14 CRP 48 BNP less than 36 Blood culture pending Urine hCG negative C. difficile toxin negative CT abdomen and pelvis with contrast No acute intra-abdominal findings, nonobstructive left nephrolithiasis, no ureteral calculi. Status postcholecystectomy. Micro: Pending urine culture, pending blood culture A&P Assessment and plan (1) Pyelonephritis: 48-year-old lady with a history of recurrent UTIs, history of being on chronic steroids presenting with 4 days of urinary symptoms including dysuria, increased frequency and suprapubic pain Clinically on exam has left CVA tenderness Symptoms have progressed in spite of being on oral levofloxacin as outpatient Overall clinical impression that of acute pyelonephritis. Start empiric antibiotic treatment with meropenem 1 g IV every 8 hours In reviewing past urine cultures patient has had multiple urine cultures positive for E. coli with varying susceptibilities. She reports she was last treated for a UTI in April 2024 and needed to be on an extended course of oral antibiotics for about 6 weeks. She has not previously been on any antibiotic suppression as far as she is aware. Await urine culture, blood culture. Urine analysis not reliable after being on antibiotics for 4 days as outpatient. Would prefer to treat her inpatient given failure of outpatient antibiotic, high suspicion of resistant urinary isolate. (2) Gastroparesis: Persistent nausea vomiting may be related to pyelonephritis. Reports a history of gastroparesis for which she is on metoclopramide 10 mg 4 times daily. This will be continued Add as needed Zofran. Monitor QTc. QTc at 402 ms, reviewed in paper chart. Sinus rhythm otherwise. (3) SVT (supraventricular tachycardia): Reports history of high heart rate , presumably SVT. Has never been diagnosed with atrial fibrillation. States she has had Holter monitoring before and used to see a zig zag spring machine operator for hypertension. Continue home doses of Cardizem 360 mg daily, recently also initiated carvedilol 25 mg p.o. twice daily. We will continue these. Closely monitor heart rate. Currently shows sinus rhythm. Has been complaining of intermittent chest discomfort over the past several months for which she has evaluation scheduled with her primary care physician as an outpatient. (4) Antiphospholipid antibody positive: Not on any current anticoagulation (5) Systemic lupus erythematosus (SLE) in adult: Continue home dose of prednisone 10 mg p.o. daily (6) Seronegative rheumatoid arthritis of both hands: (7) Chronic respiratory failure with hypoxia: Chronically on 4 L/min supplemental O2 which will be continued (8) Intractable nausea and vomiting: Likely related to gastroparesis and pyelonephritis. Plan DVT prophylaxis: Lovenox 40 mg subcutaneously daily PUD prophylaxis: Protonix 40 mg Full code Attestations Medical Necessity Statement*: Greater than 2 midnight stay is anticipated in view of pyelonephritis, failure of outpatient antibiotic treatment Coding Level of Care Code Acute Code for Chg Fwd High MDM includes number and complexity of problems actively addressed during encounter, amount and/or complexity of data reviewed/ordered and described risk of complication, morbidity or mortality of management as documented Diagnoses Pyelonephritis N12 Gastroparesis K31.84 SVT (supraventricular tachycardia) I47.1 Antiphospholipid antibody positive R76.0 Systemic lupus erythematosus (SLE) in adult M32.9 Seronegative rheumatoid arthritis of both hands M06.041; M06.042 Chronic respiratory failure with hypoxia J96.11 Intractable nausea and vomiting R11.2
[2024-08-06 03:03] LABS: Basophils % 0.2 %; Hematocrit 36.3 % (36-47); Lymphocytes # 1.2 10^3/uL (0.8-4.8); Mean Corpuscular HGB Conc 33.6 g/dL (30-55); Mean Corpuscular Hemoglobin 30.6 pg (27-33); Mean Platelet Volume 8.5 fL (7.4-10.4); Monocytes # 0.5 10^3/uL (0.2-0.9); Monocytes % 2.7 %; Neutrophils # 14.34 10^3/uL (1.8-7.7); Neutrophils % 87.6 %; Nucleated Red Blood Cells % 0 %; Platelet Count 334 10^3/cmm (157-399); Red Blood Count 3.99 10^6/uL (3.85-5.65); Red Cell Distribution Width 11.8 % (12.1-15.1); White Blood Count 16.38 10^3/uL (3.29-11.43)
[2024-08-06 03:23] LABS: Alanine Aminotransferase 12 U/L (0-33); Albumin Level 3.8 g/dL (3.5-5.2); Alkaline Phosphatase 79 U/L (35-105); Anion Gap 14.2 (5-19); Aspartate Amino Transferase 7 U/L (0-32); Blood Urea Nitrogen 7 mg/dL (6-20); Calcium 8.5 mg/dL (8.5-10.5); Carbon Dioxide 26 mmol/L (22-29); Chloride 101 mmol/L (98-107); Creatinine Clr Calc Pharmacy 144.9238; Globulin 2.2 g/dL (1.3-4.6); Glomerular Filtration Rate 106.3 mL/min (90-130); Glucose 239 mg/dL (65-115); Magnesium 1.9 mg/dL (1.7-2.3); Osmolality Calculated 290 mOsm/kg (285-295); Potassium 4.2 mmol/L (3.5-5.1); Sodium 137 mmol/L (136-145); Total Bilirubin 0.2 mg/dL (0.15-1.2)
[2024-08-06] MEDS: oxyCODONE 5 mg IR Tab/Cap 15 MG PO ×5 (03:40→21:34)
[2024-08-06] MEDS: ondansetron 2 mg/ML SDV 2 mL 4 MG IVP ×3 (03:41→22:37)
[2024-08-06] MEDS: meropenem 1,000 mg SDV 1000 MG IVP ×3 (03:41→20:18)
[2024-08-06] MEDS: enoxaparin 40 mg/0.4 mL Syringe SUBCUT (05:56)
--- NOTE | 2024-08-06 06:00 | PC.NURSE ---
Report called to Radha CARRINGTON for transfer to med surg.
[2024-08-06] MEDS: predniSONE 10 mg Tablet PO (07:58)
[2024-08-06] MEDS: clopidogrel 75 mg Tablet PO (07:58)
[2024-08-06] MEDS: buPROPion SR (12 HR) 150 mg Tablet PO ×2 (07:58→17:13)
[2024-08-06] MEDS: pantoprazole DR 40 mg Tablet PO (07:58)
[2024-08-06] MEDS: carvedilol 25 mg Tablet PO ×2 (07:58→17:13)
[2024-08-06] MEDS: cetirizine 10 mg Tablet PO (07:58)
[2024-08-06] MEDS: aspirin 81 mg EC Tablet PO (07:58)
[2024-08-06] MEDS: metoclopramide 10 mg Tablet PO ×4 (07:59→20:18)
[2024-08-06] MEDS: levothyroxine 137 mcg Tablet PO (07:59)
[2024-08-06] MEDS: dilTIAZem ER (24HR) 120 mg Capsule 360 MG PO (07:59)
[2024-08-06] MEDS: atorvastatin 40 mg Tablet 80 MG PO (07:59)
[2024-08-06] MEDS: desvenlafaxine 50 mg Tablet 100 MG PO (07:59)
--- NOTE | 2024-08-06 08:28 | PC.CHAP ---
Pastoral Care Encounter/Spiritual Assessment Type of Contact [] Declined recruitment coordinator visit [] Patient/Family/Request visit [] Outpatient visit [] Follow-up visit [] Physician referral [] Code/Alert [x] Routine visit [] Staff referral [] Actively dying [] Patient sleeping [] Family support [] [] Out of room [] Palliative care [] [] Receiving care in room [] Pre-surgical visit [] Trauma [] Long length of stay [] ICU visit [] Other: Relational/Emotional Strength [x] Patient feels connected with others/family/visitors/staff [] Distress [] Loneliness/isolation [] Abandonment Spirituality of Patient [x] Person of Sarah [] Attends Quaker of their Sarah [x] Believes in Prayer [] Reads Bible or Jain materials [] There are Spiritual issues to be addressed [employer]ault [employer]ier Interventions [x] Prayer [x] Active listening [] Non-anxious presence [x] Spiritual/emotional support [] Crisis/trauma care [] Spiritual counseling [] Bereavement support [] Provided bereavement packet [] Provided Bible/devotional materials [] Provided toy/stuffed animal, coloring book to patient or family member [] Provided Communion [] Anointing/[place] [] Salvation [x] Completed spiritual assessment [] Other: Impact on Illness or Injury [] Angry [] Fearful [] Anxious [] Often cries [] Exhaustion [] Unable to work [] Unable to attend holiness [] Unable to walk/stand [] Unable to read [] Unable to drive [] Unable to eat/drink [] Unable to sleep [] Unable to be with family [] Patient intubated [] Other: Summary Time spent with patient 5 min
[2024-08-06] MEDS: morphine 4 mg/mL SDV 1 mL 2 MG IVP ×3 (11:13→20:16)
[2024-08-06 11:40] LABS: Estmated Average Glucose 166; Hemoglobin A1C 7.4 % (4.0-6.0)
[2024-08-06 11:45] LABS: Iron 56 ug/dL (37-145); Percent Saturation 19.2 % (20-50); Thyroid Stimulating Hormone 0.09 uIU/mL (0.27-4.20); Total Iron Binding Capacity 291 mcg/dl; Unsaturated Iron Binding 235 ug/dL (112-347); Vitamin B12 572 pg/mL (232-1245)
--- NOTE | 2024-08-06 12:57 | P.PN_ITS ---
Subjective 2 Subjective: Admitted overnight. Seen with family at bedside. Patient complaining of nausea and generalized body pain. Patient states body pain is usual for her given her history of lupus. Complaining of back pain which is slightly more than usual. Has remained hemodynamically stable. Currently on baseline 4 L of oxygen supplementation. Has remained afebrile since admission for now. Vitals/I&O/Wt Last Vital Signs Temp 97.8 F 08/06/24 12:00 Pulse 105 H 08/06/24 12:00 Resp 15 08/06/24 12:44 BP 144/89 08/06/24 12:00 Pulse Ox 93 08/06/24 12:00 O2 Del Method Nasal Cannula 08/06/24 09:19 O2 Flow Rate 4 08/06/24 09:19 08/05/24 08/06/24 08/06/24 22:59 06:59 14:59 Intake Total 120 / 120 240 / 240 Output Total 675 / 675 Balance -555 / -555 240 / 240 Weight last 48 hrs Weight 106.141 kg Weight 106.5 kg Physical Exam 2 Narrative: General: No acute distress, AO x3 HEENT: PERRLA, pupils bilaterally equal and reactive, pallors not present Chest: Normal vesicular breath sounds, no added sounds, equal good air entry bilaterally CVS: S1-S2 regular, no murmurs, no tachycardia, no gallops, no rubs Abdomen: Soft, nontender, no organomegaly, bowel sounds present Neuro: No focal deficits, no facial deformity, AO x3, power 5/5 in all limbs Extremities: Left CVA tenderness present Data 08/06/24 02:52 08/06/24 02:52 Micro: Microbiology 08/06/24 12:07 Blood Culture - Preliminary Blood SPECIMEN COLLECTED 08/06/24 11:58 Blood Culture - Preliminary Blood SPECIMEN COLLECTED A&P Assessment and plan (1) Pyelonephritis: 48-year-old lady with a history of recurrent UTIs, history of being on chronic steroids presenting with 4 days of urinary symptoms including dysuria, increased frequency and suprapubic pain Clinically on exam has left CVA tenderness. Failure of outpatient treatment of levofloxacin. Patient gives history of drug-resistant UTI in the past. Seems she was treated for the same at [facility] in the past. Follow-up urine culture and blood culture at outside facility. Check blood culture. For now continue with empiric IV meropenem as per creatinine clearance. Will request documents from outside hospital to review culture history. No overt signs of septic shock for now. Concerns for sepsis. SIRS: Tachycardic, Febrile, Leukocytosis Source: UTI/pyelonephritis End organ damage: Not present Lactic acid elevated at outside hospital. Currently normal. Patient did receive full sepsis bolus at outside hospital. Monitor blood pressures. Keep mean artery pressure 65 mmHg. Check blood culture, follow-up urine culture. (2) Gastroparesis: Persistent nausea vomiting may be related to pyelonephritis. Reports a history of gastroparesis for which she is on metoclopramide 10 mg 4 times daily. This will be continued Add as needed Zofran. Monitor QTc. QTc at 402 ms, reviewed in paper chart. Sinus rhythm otherwise. (3) SVT (supraventricular tachycardia): Reports history of high heart rate , presumably SVT. Has never been diagnosed with atrial fibrillation. States she has had Holter monitoring before and used to see a provider relations consultant for hypertension. Continue home doses of Cardizem 360 mg daily, recently also initiated carvedilol 25 mg p.o. twice daily. We will continue these. Closely monitor heart rate. Currently shows sinus rhythm. Has been complaining of intermittent chest discomfort over the past several months for which she has evaluation scheduled with her primary care physician as an outpatient. (4) Chronic respiratory failure with hypoxia: Chronically on 4 L/min supplemental O2 which will be continued (5) Intractable nausea and vomiting: Likely related to gastroparesis and pyelonephritis. IV Protonix. Add Carafate. Zofran as needed. (6) Antiphospholipid antibody positive: Not on any current anticoagulation (7) Seronegative rheumatoid arthritis of both hands: (8) Systemic lupus erythematosus (SLE) in adult: Continue home dose of prednisone 10 mg p.o. daily Plan DVT prophylaxis: Lovenox 40 mg subcutaneously daily PUD prophylaxis: Protonix 40 mg Full code Switch to full liquid diet for now. Attestations 2 Medical Necessity Statement*: Requires further hospitalization for management of sepsis in setting of pyelonephritis in a patient with history of connective tissue disorder chronic steroids, gastroparesis Diagnoses Pyelonephritis N12 Gastroparesis K31.84 SVT (supraventricular tachycardia) I47.1 Chronic respiratory failure with hypoxia J96.11 Intractable nausea and vomiting R11.2 Antiphospholipid antibody positive R76.0 Seronegative rheumatoid arthritis of both hands M06.041; M06.042 Systemic lupus erythematosus (SLE) in adult M32.9
[2024-08-06 13:40] LABS: Free T4 Free Thyroxine 1.06 ng/dL (0.82-1.77); Procalcitonin 0.03 ng/mL (0-0.5); T3 Free 1.4 PG/ML (2.0-4.4)
[2024-08-06] MEDS: pantoprazole 40 mg SDV IVP (15:07)
[2024-08-06] MEDS: sucralfate 1 gm/10 mL Oral Liq UDC PO ×2 (17:13→20:18)
[2024-08-06] MEDS: diazePAM 2 mg Tablet PO (18:02)
[2024-08-06] MEDS: fluconazole 100 mg Tablet 150 MG PO (22:46)
[2024-08-07] VITALS (13 sets, daily range): BP systolic 114–168; BP diastolic 73–91; PULSE 77–90; RESP 14–20; TEMP 36.4–36.9; O2SAT 94–98
[2024-08-07] MEDS: oxyCODONE 5 mg IR Tab/Cap 15 MG PO ×4 (01:45→21:03)
[2024-08-07] MEDS: pantoprazole 40 mg SDV IVP ×2 (01:45→12:21)
[2024-08-07] MEDS: ALPRAZolam 0.5 mg Tablet PO ×2 (02:10→21:03)
[2024-08-07] MEDS: meropenem 1,000 mg SDV 1000 MG IVP ×3 (04:01→21:03)
[2024-08-07] MEDS: enoxaparin 40 mg/0.4 mL Syringe SUBCUT (04:01)
[2024-08-07 05:31] LABS: Basophils # 0.1 10^3/uL (0.0-0.1); Basophils % 0.4 %; Eosinophils # 0.2 10^3/uL (0.0-0.8); Eosinophils % 1.1 %; Hematocrit 37.9 % (36-47); Lymphocytes # 3.2 10^3/uL (0.8-4.8); Lymphocytes % 22.5 %; Mean Corpuscular HGB Conc 31.9 g/dL (30-55); Mean Platelet Volume 8.8 fL (7.4-10.4); Monocytes % 7.2 %; Neutrophils # 9.36 10^3/uL (1.8-7.7); Neutrophils % 65.9 %; Nucleated Red Blood Cells % 0 %; Platelet Count 359 10^3/cmm (157-399); Red Blood Count 4.03 10^6/uL (3.85-5.65); Red Cell Distribution Width 11.9 % (12.1-15.1); White Blood Count 14.21 10^3/uL (3.29-11.43)
[2024-08-07] MEDS: sucralfate 1 gm/10 mL Oral Liq UDC PO ×4 (05:42→21:03)
[2024-08-07 05:57] LABS: Alanine Aminotransferase 14 U/L (0-33); Albumin Level 3.9 g/dL (3.5-5.2); Alkaline Phosphatase 71 U/L (35-105); Anion Gap 13.5 (5-19); Aspartate Amino Transferase 9 U/L (0-32); Blood Urea Nitrogen 8 mg/dL (6-20); Calcium 9.2 mg/dL (8.5-10.5); Carbon Dioxide 28 mmol/L (22-29); Chloride 100 mmol/L (98-107); Creatinine Clr Calc Pharmacy 144.6015; Globulin 2.4 g/dL (1.3-4.6); Glomerular Filtration Rate 106.3 mL/min (90-130); Glucose 163 mg/dL (65-115); Magnesium 1.8 mg/dL (1.7-2.3); Osmolality Calculated 288 mOsm/kg (285-295); Potassium 3.5 mmol/L (3.5-5.1); Sodium 138 mmol/L (136-145); Total Bilirubin 0.3 mg/dL (0.15-1.2); Total Protein 6.3 g/dL (6.6-8.7)
[2024-08-07 06:12] LABS: Folate Level 6.6 ng/mL (4.8-37.3)
[2024-08-07] MEDS: metoclopramide 10 mg Tablet PO ×4 (09:30→21:03)
[2024-08-07] MEDS: carvedilol 25 mg Tablet PO ×2 (09:30→17:14)
[2024-08-07] MEDS: aspirin 81 mg EC Tablet PO (09:30)
[2024-08-07] MEDS: atorvastatin 40 mg Tablet 80 MG PO (09:31)
[2024-08-07] MEDS: desvenlafaxine 50 mg Tablet 100 MG PO (09:31)
[2024-08-07] MEDS: buPROPion SR (12 HR) 150 mg Tablet PO ×2 (09:31→17:13)
[2024-08-07] MEDS: clopidogrel 75 mg Tablet PO (09:31)
[2024-08-07] MEDS: predniSONE 10 mg Tablet PO (09:31)
[2024-08-07] MEDS: levothyroxine 137 mcg Tablet PO (09:31)
[2024-08-07] MEDS: cetirizine 10 mg Tablet PO (09:32)
[2024-08-07] MEDS: dilTIAZem ER (24HR) 120 mg Capsule 360 MG PO (09:32)
--- NOTE | 2024-08-07 12:18 | P.PN_ITS ---
Subjective 2 Subjective: No acute events overnight. Patient states she is feeling better. Continues to have some nausea and body pain but states this is her usual. Denies any headache. Tmax s in last 24 hours afebrile. Blood pressure slightly elevated. Vitals/I&O/Wt Last Vital Signs Temp 98 F 08/07/24 08:00 Pulse 82 08/07/24 08:00 Resp 15 08/07/24 09:30 BP 168/76 08/07/24 08:00 Pulse Ox 94 08/07/24 08:00 O2 Del Method Nasal Cannula 08/07/24 04:00 O2 Flow Rate 4 08/06/24 09:19 08/06/24 08/07/24 08/07/24 22:59 06:59 14:59 Intake Total 500 / 1220 240 / 240 Balance 500 / 1220 240 / 240 Weight last 48 hrs Weight 106.05 kg Weight 106.141 kg Weight 106.5 kg Physical Exam 2 Narrative: General: No acute distress, AO x3 HEENT: PERRLA, pupils bilaterally equal and reactive, pallors not present Chest: Normal vesicular breath sounds, no added sounds, equal good air entry bilaterally CVS: S1-S2 regular, no murmurs, no tachycardia, no gallops, no rubs Abdomen: Soft, nontender, no organomegaly, bowel sounds present Neuro: No focal deficits, no facial deformity, AO x3, power 5/5 in all limbs Extremities: Left CVA tenderness present Data 08/07/24 05:01 08/07/24 05:01 Micro: Microbiology 08/06/24 12:07 Blood Culture - Preliminary Blood NEGATIVE TO DATE 08/06/24 05:15 Urine Culture - Preliminary Urine,Clean Catch 08/06/24 11:58 Blood Culture - Preliminary Blood SPECIMEN COLLECTED A&P Assessment and plan (1) Pyelonephritis: 48-year-old lady with a history of recurrent UTIs, history of being on chronic steroids presenting with 4 days of urinary symptoms including dysuria, increased frequency and suprapubic pain Clinically on exam has left CVA tenderness. Failure of outpatient treatment of levofloxacin. Reviewed outpatient culture history from [facility]. Patient has a history of UTI with Klebsiella in the past resistant to ceftriaxone but sensitive to fluoroquinolones. Follow-up blood culture urine culture. For now continue with empiric IV meropenem as per creatinine clearance. No overt signs of septic shock for now. Concerns for sepsis. Persistent leukocytosis most likely in setting of chronic steroid use. On review in the past as well patient white count has been more than 14,000 usually. SIRS: Tachycardic, Febrile, Leukocytosis Source: UTI/pyelonephritis End organ damage: Not present Lactic acid elevated at outside hospital. Currently normal. Patient did receive full sepsis bolus at outside hospital. Monitor blood pressures. Keep mean artery pressure 65 mmHg. Check blood culture, follow-up urine culture. (2) Gastroparesis: Persistent nausea vomiting may be related to pyelonephritis. Reports a history of gastroparesis for which she is on metoclopramide 10 mg 4 times daily. This will be continued Add as needed Zofran. Monitor QTc. QTc at 402 ms, reviewed in paper chart. Sinus rhythm otherwise. (3) SVT (supraventricular tachycardia): Reports history of high heart rate , presumably SVT. Has never been diagnosed with atrial fibrillation. States she has had Holter monitoring before and used to see a director of operations support for hypertension. Continue home doses of Cardizem 360 mg daily, recently also initiated carvedilol 25 mg p.o. twice daily. We will continue these. Closely monitor heart rate. Currently shows sinus rhythm. Has been complaining of intermittent chest discomfort over the past several months for which she has evaluation scheduled with her primary care physician as an outpatient. (4) Chronic respiratory failure with hypoxia: Chronically on 4 L/min supplemental O2 which will be continued (5) Intractable nausea and vomiting: Likely related to gastroparesis and pyelonephritis. IV Protonix. Add Carafate. Zofran as needed. (6) Antiphospholipid antibody positive: Not on any current anticoagulation (7) Seronegative rheumatoid arthritis of both hands: (8) Systemic lupus erythematosus (SLE) in adult: Continue home dose of prednisone 10 mg p.o. daily Plan Hypertension: Goal blood pressure less than 140/90 mmHg. Blood pressure currently elevated. Continue with home dose of Coreg and Cardizem. Add hydrochlorothiazide 25 mg oral daily. Continue other chronic medications including bupropion, Plavix, diazepam as needed. Subclinical hypothyroidism: TSH found to be 0.09. Normal free T4. Low free T3. Continue with home dose of levothyroxine for now. DVT prophylaxis: Lovenox 40 mg subcutaneously daily PUD prophylaxis: Protonix 40 mg Full code Switch to mechanical soft diet Attestations 2 Medical Necessity Statement*: Requires further hospitalization for management of pyelonephritis in an immunocompromised patient on chronic steroids for SLE, gastroparesis Diagnoses Pyelonephritis N12 Gastroparesis K31.84 SVT (supraventricular tachycardia) I47.1 Chronic respiratory failure with hypoxia J96.11 Intractable nausea and vomiting R11.2 Antiphospholipid antibody positive R76.0 Seronegative rheumatoid arthritis of both hands M06.041; M06.042 Systemic lupus erythematosus (SLE) in adult M32.9
[2024-08-07] MEDS: ondansetron 2 mg/ML SDV 2 mL 4 MG IVP ×2 (12:21→22:41)
[2024-08-07] MEDS: morphine 4 mg/mL SDV 1 mL 2 MG IVP ×2 (12:37→18:13)
[2024-08-07] MEDS: hydroCHLOROthiazide 25 mg Tablet PO (12:37)
[2024-08-07] MEDS: diazePAM 2 mg Tablet PO (17:14)
[2024-08-08] VITALS (14 sets, daily range): BP systolic 123–156; BP diastolic 82–90; PULSE 86–101; RESP 14–18; TEMP 36.4–36.7; O2SAT 91–99
[2024-08-08] MEDS: pantoprazole 40 mg SDV IVP ×2 (01:00→13:27)
[2024-08-08] MEDS: meropenem 1,000 mg SDV 1000 MG IVP ×2 (05:08→13:26)
[2024-08-08] MEDS: enoxaparin 40 mg/0.4 mL Syringe SUBCUT (05:09)
[2024-08-08] MEDS: oxyCODONE 5 mg IR Tab/Cap 15 MG PO ×3 (05:23→15:41)
[2024-08-08] MEDS: ondansetron 2 mg/ML SDV 2 mL 4 MG IVP ×2 (05:24→13:49)
[2024-08-08 05:36] LABS: Basophils # 0.1 10^3/uL (0.0-0.1); Basophils % 0.3 %; Eosinophils # 0.4 10^3/uL (0.0-0.8); Eosinophils % 2.2 %; Hematocrit 38.5 % (36-47); Lymphocytes # 4.4 10^3/uL (0.8-4.8); Lymphocytes % 27.4 %; Mean Corpuscular HGB Conc 33.8 g/dL (30-55); Mean Corpuscular Hemoglobin 30.5 pg (27-33); Mean Corpuscular Volume 90.4 fl (85-98); Mean Platelet Volume 8.6 fL (7.4-10.4); Monocytes # 1.1 10^3/uL (0.2-0.9); Monocytes % 6.7 %; Neutrophils # 9.79 10^3/uL (1.8-7.7); Neutrophils % 60.8 %; Nucleated Red Blood Cells % 0 %; Platelet Count 363 10^3/cmm (157-399); Red Blood Count 4.26 10^6/uL (3.85-5.65); Red Cell Distribution Width 11.8 % (12.1-15.1); White Blood Count 16.09 10^3/uL (3.29-11.43)
[2024-08-08 05:55] LABS: Alanine Aminotransferase 16 U/L (0-33); Albumin Level 3.8 g/dL (3.5-5.2); Alkaline Phosphatase 73 U/L (35-105); Anion Gap 16.3 (5-19); Aspartate Amino Transferase 10 U/L (0-32); Blood Urea Nitrogen 9 mg/dL (6-20); Calcium 9.1 mg/dL (8.5-10.5); Carbon Dioxide 30 mmol/L (22-29); Chloride 95 mmol/L (98-107); Creatinine Clr Calc Pharmacy 143.8746; Globulin 2.3 g/dL (1.3-4.6); Glomerular Filtration Rate 106.3 mL/min (90-130); Glucose 153 mg/dL (65-115); Osmolality Calculated 288 mOsm/kg (285-295); Potassium 3.3 mmol/L (3.5-5.1); Sodium 138 mmol/L (136-145); Total Bilirubin 0.2 mg/dL (0.15-1.2); Total Protein 6.1 g/dL (6.6-8.7)
[2024-08-08 05:58] LABS: Magnesium 1.7 mg/dL (1.7-2.3)
[2024-08-08] MEDS: sucralfate 1 gm/10 mL Oral Liq UDC PO ×3 (06:05→17:24)
[2024-08-08] MEDS: SUMAtriptan 25 mg Tablet 50 MG PO (06:27)
[2024-08-08] MEDS: morphine 4 mg/mL SDV 1 mL 2 MG IVP ×2 (07:46→13:49)
[2024-08-08] MEDS: levothyroxine 137 mcg Tablet PO (09:00)
[2024-08-08] MEDS: cetirizine 10 mg Tablet PO (09:00)
[2024-08-08] MEDS: buPROPion SR (12 HR) 150 mg Tablet PO (09:00)
[2024-08-08] MEDS: aspirin 81 mg EC Tablet PO (09:01)
[2024-08-08] MEDS: desvenlafaxine 50 mg Tablet 100 MG PO (09:01)
[2024-08-08] MEDS: clopidogrel 75 mg Tablet PO (09:02)
[2024-08-08] MEDS: carvedilol 25 mg Tablet PO ×2 (09:02→17:24)
[2024-08-08] MEDS: atorvastatin 40 mg Tablet 80 MG PO (09:02)
[2024-08-08] MEDS: metoclopramide 10 mg Tablet PO ×3 (09:02→17:24)
[2024-08-08] MEDS: hydroCHLOROthiazide 25 mg Tablet PO (09:03)
[2024-08-08] MEDS: dilTIAZem ER (24HR) 120 mg Capsule 360 MG PO (09:03)
[2024-08-08] MEDS: predniSONE 10 mg Tablet PO (09:03)
[2024-08-08] MEDS: diazePAM 2 mg Tablet PO (09:07)
[2024-08-08 09:50] LABS: Bilirubin Urine Negative (Negative); Blood Urine Negative (Negative); Glucose Urine UA Negative (Normal); Ketones Urine Negative (Negative); Leukocyte Esterase Urine Trace (Negative); Nitrate Urine Negative (Negative); Protein Urine Negative (Negative); Specific Gravity, Urine 1.004 (1.005-1.030); Urine Appearance Clear (CLEAR); Urine Color Yellow (Yellow); Urobilinogen Urine 0.2 mg/dL (Negative)
[2024-08-08 09:52] LABS: Add Urine Microscopic? YES; Bacteria Urine None Seen /hpf; Hyaline Casts Urine 0-4 /lpf; RBC Urine 0-2 /hpf (0-2); Squamous Epithelial Cell Urine 0-5 /hpf (0-5); WBC Urine 0-5 /hpf (0-5)
--- NOTE | 2024-08-08 10:32 | PM.DCS ---
Discharge Providers Date of Admission: 08/05/24 22:54 Date of Discharge: August 08, 2024 Attending Provider at Admission: Braden Sorto MD Attending Provider at Discharge: Ruben Diaz MD Primary Care Provider: Milady Crystal DO Diagnoses at Discharge Discharge Diagnosis (1) Pyelonephritis: Status: Acute (2) Gastroparesis: Status: Acute (3) SVT (supraventricular tachycardia): Status: Resolved (4) Chronic respiratory failure with hypoxia: Status: Acute (5) Intractable nausea and vomiting: Status: Acute (6) Antiphospholipid antibody positive: Status: Acute (7) Seronegative rheumatoid arthritis of both hands: Status: Acute (8) Systemic lupus erythematosus (SLE) in adult: Status: Acute Reason for Visit Reason for Visit: UTI,Sepsis Brief History: History as per HPI: Tereza Flaherty is a 48 year old female with a past medical history of seronegative rheumatoid arthritis, SLE on daily steroid between 10 to 30 mg prednisone daily, Sjogren syndrome, gastroparesis, chronically on 4 L/min supplemental O2 ? ILD, not currently on any biologicals. She is transferred here today from [facility] due to suspicion for pyelonephritis. Patient states she has a recurrent history of urinary tract infections, estimates she gets 2-3 episodes per year, her last episode was in April 2024 following which she had a 6-week course of antibiotics. Currently she developed dysuria, urinary urgency frequency and suprapubic discomfort with urination on Sunday (today is Sunday), for which she was prescribed levofloxacin 500 mg p.o. daily by her primary care physician. Her dysuria got slightly better but continued to persist. Additionally today she developed nausea vomiting and back pain which took her to the emergency room. No history of fever. Chills present. At [facility] her lactic acid was elevated at ~4, continued to be at this number with 3 serial rechecks. White blood cell count was at 20,000. Urine analysis with 6-10 WBCs, 1+ bacteriuria, negative nitrate and leukocyte Estrace, however this is with 4 days of oral levofloxacin. She was hypertensive with blood pressure up to 170/110, which improved to 122/82 during course of evaluation there. She had 1 episode of diarrhea today, C. difficile toxin is negative. CT of the abdomen and pelvis showed a nonobstructive left left urolithiasis without any ureteral calculi. Hospital Course Hospital Course Patient was admitted to the hospital further evaluation and management of pyelonephritis. She was started on broad-spectrum antibiotics. Her hospitalization was unremarkable. She remained hemodynamically stable and afebrile. Culture history from outside hospital was reviewed. As per culture history she has a history of UTI with Klebsiella in the past resistant to ceftriaxone though sensitive to fluoroquinolones. Blood culture urine culture during hospitalization remain negative. She has been discharged in stable condition on oral cefdinir for next 10 days with advised to follow-up with his primary care provider within next 1 week. She is also being discharged on fluconazole given yeast growth in urine. Physical Exam Narrative: General: No acute distress, AO x3 HEENT: PERRLA, pupils bilaterally equal and reactive, pallors not present Chest: Normal vesicular breath sounds, no added sounds, equal good air entry bilaterally CVS: S1-S2 regular, no murmurs, no tachycardia, no gallops, no rubs Abdomen: Soft, nontender, no organomegaly, bowel sounds present Neuro: No focal deficits, no facial deformity, AO x3, power 5/5 in all limbs Extremities: Left CVA tenderness present Discharge Data Studies Completed and Pending Pending at discharge Category Date Time Status Blood Culture Stat Lab 08/06/24 12:07 Results MAG [Magnesium] AM LABS Lab 08/09/24 04:00 Ordered Laboratory Results WBC 16.09 10^3/uL (3.29-11.43) H 08/08/24 05:19 RBC 4.26 10^6/uL (3.85-5.65) 08/08/24 05:19 Hgb 13.00 g/dL (11.27-16.99) 08/08/24 05:19 Hct 38.5 % (36-47) 08/08/24 05:19 MCV 90.4 fl (85-98) 08/08/24 05:19 MCH 30.5 pg (27-33) 08/08/24 05:19 MCHC 33.8 g/dL (30-55) D 08/08/24 05:19 RDW 11.8 % (12.1-15.1) L 08/08/24 05:19 Plt Count 363 10^3/cmm (157-399) 08/08/24 05:19 MPV 8.6 fL (7.4-10.4) 08/08/24 05:19 Neut % (Auto) 60.8 % 08/08/24 05:19 Lymph % (Auto) 27.4 % 08/08/24 05:19 [place] % (Auto) 6.7 % 08/08/24 05:19 Eos % (Auto) 2.2 % 08/08/24 05:19 Baso % (Auto) 0.3 % 08/08/24 05:19 Neut # (Auto) 9.79 10^3/uL (1.8-7.7) H 08/08/24 05:19 Lymph # (Auto) 4.4 10^3/uL (0.8-4.8) 08/08/24 05:19 [place] # (Auto) 1.1 10^3/uL (0.2-0.9) H 08/08/24 05:19 Eos # (Auto) 0.4 10^3/uL (0.0-0.8) 08/08/24 05:19 Baso # (Auto) 0.1 10^3/uL (0.0-0.1) 08/08/24 05:19 Nucleated RBC % (auto) 0 % 08/08/24 05:19 Nucleated RBCs # 0.0 /100WBC 08/08/24 05:19 Sodium 138 mmol/L (136-145) 08/08/24 05:19 Potassium 3.3 mmol/L (3.5-5.1) L 08/08/24 05:19 Chloride 95 mmol/L (98-107) L 08/08/24 05:19 Carbon Dioxide 30 mmol/L (22-29) H 08/08/24 05:19 Anion Gap 16.3 (5-19) 08/08/24 05:19 BUN 9 mg/dL (6-20) 08/08/24 05:19 Creatinine 0.6 mg/dL (0.5-0.9) 08/08/24 05:19 GFR Calculation 106.3 mL/min (90-130) 08/08/24 05:19 Glucose 153 mg/dL (65-115) H 08/08/24 05:19 Estimat Average Glucose 166 08/06/24 02:52 Hemoglobin A1c 7.4 % (4.0-6.0) H 08/06/24 02:52 Calculated Osmolality 288 mOsm/kg (285-295) 08/08/24 05:19 Lactic Acid 2.0 mmol/L (0.5-2.2) 08/06/24 02:52 Calcium 9.1 mg/dL (8.5-10.5) 08/08/24 05:19 Magnesium 1.7 mg/dL (1.7-2.3) 08/08/24 05:19 Iron 56 ug/dL (37-145) 08/06/24 02:52 TIBC 291 mcg/dl 08/06/24 02:52 % Saturation 19.2 % (20-50) L 08/06/24 02:52 Unsat Iron Binding 235 ug/dL (112-347) 08/06/24 02:52 Total Bilirubin 0.2 mg/dL (0.15-1.2) 08/08/24 05:19 AST 10 U/L (0-32) 08/08/24 05:19 ALT 16 U/L (0-33) 08/08/24 05:19 Alkaline Phosphatase 73 U/L (35-105) 08/08/24 05:19 Total Protein 6.1 g/dL (6.6-8.7) L 08/08/24 05:19 Albumin 3.8 g/dL (3.5-5.2) 08/08/24 05:19 Globulin 2.3 g/dL (1.3-4.6) 08/08/24 05:19 Vitamin B12 572 pg/mL (232-1245) 08/06/24 02:52 Folate 6.6 ng/mL (4.8-37.3) 08/07/24 05:01 Procalcitonin 0.03 ng/mL (0-0.5) 08/06/24 02:52 TSH 0.09 uIU/mL (0.27-4.20) L 08/06/24 02:52 Free T4 1.06 ng/dL (0.82-1.77) 08/06/24 02:52 Free T3 1.4 PG/ML (2.0-4.4) L 08/06/24 02:52 Urine Color Yellow (Yellow) 08/07/24 09:22 Urine Appearance Clear (CLEAR) 08/07/24 09:22 Urine pH 7.0 (5-7) 08/07/24 09:22 Ur Specific [place] 1.004 (1.005-1.030) L 08/07/24 09:22 Urine Protein Negative (Negative) 08/07/24 09:22 Urine Glucose (UA) Negative (Normal) 08/07/24 09:22 Urine Ketones Negative (Negative) 08/07/24 09:22 Urine Blood Negative (Negative) 08/07/24 09:22 Urine Nitrate Negative (Negative) 08/07/24 09:22 Urine Bilirubin Negative (Negative) 08/07/24 09: Urine Urobilinogen 0.2 mg/dL (Negative) 08/07/24 09:22 Ur Leukocyte Esterase Trace (Negative) A 08/07/24 09:22 Urine RBC 0-2 /hpf (0-2) 08/07/24 09:22 Urine WBC 0-5 /hpf (0-5) 08/07/24 09:22 Ur Squamous Epith Cells 0-5 /hpf (0-5) 08/07/24 09:22 Amorphous Sediment Not Reportable 08/07/24 09:22 Urine Bacteria None seen /hpf (NONE) 08/07/24 09:22 Hyaline Casts 0-4 /lpf H 08/07/24 09:22 Microbiology 08/06/24 05:15 Urine,Clean Catch Urine Culture - Final Yeast 08/06/24 11:58 Blood Blood Culture - Preliminary NEGATIVE TO DATE 08/06/24 12:07 Blood Blood Culture - Preliminary NEGATIVE TO DATE Vitals Last Vital Signs Temp 97.8 F 08/08/24 07:36 Pulse 100 08/08/24 08:20 Resp 16 08/08/24 08:20 BP 137/90 08/08/24 07:36 Pulse Ox 98 08/08/24 08:20 O2 Del Method Nasal Cannula 08/08/24 08:20 O2 Flow Rate 4 08/08/24 08:20 Discharge Plan Discharge Patient Disposition: Home Condition: Stable Prescriptions: New hydrochlorothiazide 25 mg Tablet 25 mg PO DAILY Qty: 30 0RF cefdinir 300 mg capsule 300 mg PO BID 10 Days Qty: 20 0RF fluconazole 100 mg tablet 100 mg PO DAILY Qty: 7 0RF Continued diclofenac sodium [Voltaren] 1 % gel 2 gm TOPICAL QID PRN (Reason: unknown) desvenlafaxine succinate [Pristiq] 50 mg tablet extended release 24 hr 100 mg PO DAILY aspirin [Adult Aspirin Regimen] 81 mg tablet,delayed release (DR/EC) 81 mg PO DAILY atorvastatin [Lipitor] 40 mg tablet 80 mg PO DAILY diltiazem HCl [Cartia XT] 240 mg capsule,extended release 24hr 360 mg PO DAILY levothyroxine 137 mcg capsule 137 mcg PO DAILY albuterol sulfate 90 mcg/actuation HFA aerosol inhaler 2 puff INHALATION Q6H PRN (Reason: Shortness Of Breath) epinephrine [EpiPen] 0.3 mg/0.3 mL auto-injector 0.3 mg IM Q10M PRN (Reason: Allergic Reaction) cetirizine [Zyrtec] 10 mg tablet 10 mg PO DAILY oxycodone 15 mg tablet 15 mg PO Q4H PRN (Reason: Pain) pantoprazole [Protonix] 40 mg tablet,delayed release (DR/EC) 40 mg PO BID Qty: 60 3RF pilocarpine HCl 5 mg tablet 5 mg PO TID Qty: 270 1RF prednisone 10 mg tablet 10 mg PO DAILY Qty: 90 1RF cholecalciferol (vitamin D3) 50 mcg (2,000 unit) capsule See Rx Instructions .ROUTE .COMPLEX Qty: 90 1RF Dose Instruction: TAKE 1 CAPSULE BY MOUTH EVERY DAY Rx Instructions: TAKE 1 CAPSULE BY MOUTH EVERY DAY potassium chloride 10 mEq Capsule, Extended Release 10 meq PO DAILY meclizine 12.5 mg Tablet 12.5 mg PO PRN PRN (Reason: Nausea And Vomiting) cevimeline 30 mg Capsule 30 mg PO TID lidocaine 5 % Adhesive Patch,Medicated 1 patch TOPICAL DAILY PRN (Reason: Pain) fluticasone propionate 50 mcg/actuation [place],Suspension 1 spray INTRANASAL DAILY PRN (Reason: Allergic Symptoms) triamcinolone acetonide 0.1 % cream 1 applic TOPICAL BID PRN (Reason: Rash) acetaminophen [Tylenol Extra Strength] 500 mg Tablet 1,000 mg PO PRN PRN (Reason: Pain) carvedilol 25 mg tablet 25 mg PO BID prochlorperazine maleate 10 mg tablet 10 mg PO PRN bupropion HCl 150 mg tablet sustained-release 12 hr 150 mg PO BID diazepam 2 mg tablet 2 mg PO PRN PRN (Reason: Anxiety) Rx Instructions: 1 tablet q 12 hours prn anxiety carisoprodol 350 mg tablet 350 mg PO PRN Rx Instructions: 350 mg q 8 hours PRN spasms clopidogrel 75 mg tablet 75 mg PO DAILY sumatriptan succinate 50 mg tablet 50 mg PO PRN solifenacin 10 mg tablet 10 mg PO DAILY metoclopramide HCl 10 mg tablet 10 mg PO QID folic acid 1 mg tablet 1 mg PO DAILY lidocaine HCl 3 % cream 3 applic topical PRN ondansetron HCl 4 mg tablet 4 mg PO PRN Xiidra 5 % dropperette 1 drp ophthalmic (eye) BID Discontinued levofloxacin 500 mg tablet 500 mg PO DAILY Discharge Orders: Discharge Order (Routine); Ordered 08/08/24 Ordered By: Ruben Diaz Referrals: Sarai Pringle MD [Hospitalist] - 1 month (We have notified your physician's clinic of the need for a follow-up appointment to be scheduled. If you have not heard from them within the next 2 business days, please call them directly. ) Milady Crystal DO [Primary Care Provider] - 08/13/24 2:00 pm Patient Instructions: Opioid Safety Activity Restrictions/Additional Instructions: Oxygen supplementation keeping saturation over 90%. He was saturating more than 95% on her baseline 4 L. Follow-up with primary care provider within next 1 week. You can follow-up with ID clinic within next 1 month for chronic suppression given recurrent UTIs. Discharge Attestations Time Spent in Discharge Care*: greater than 30 min Specific Discharge Activities: educating patient, discussing with pcp/other providers, discussing with director case/social workers/dc planners, documenting/other paperwork and evaluating patient/reviewing data Status at Discharge: Cognitive status at discharge: cognitively intact, Behavioral status at discharge: cooperative, Overall status at discharge: patient is progressing back to baseline Quality Metrics Clinical Quality Measures [ No reported AMI, CVA or VTE this stay] Coding Level of Care Code 09178 Total time (in minutes) for Discharge: 50 Diagnoses Pyelonephritis N12 Gastroparesis K31.84 SVT (supraventricular tachycardia) I47.1 Chronic respiratory failure with hypoxia J96.11 Intractable nausea and vomiting R11.2 Antiphospholipid antibody positive R76.0 Seronegative rheumatoid arthritis of both hands M06.041; M06.042 Systemic lupus erythematosus (SLE) in adult M32.9
[2024-08-08 10:58] LABS: UA Slide Review UA Slide Review Perf
== END 2024-08-08 17:42 | disposition home or self-care (01) | DRG 690 ==
LOC: ICU 08-06 02:32 → MEDSURG 08-06 06:06
PROVIDERS: Student in an Organized Health Care Education/Training Program; Admitting Provider Family Medicine; PCP Family Medicine; Visit Provider Student in an Organized Health Care Education/Training Program
DX: N10 Acute pyelonephritis (principal); I47.10 Supraventricular tachycardia, unspecified; J96.11 Chronic respiratory failure with hypoxia; D84.9 Immunodeficiency, unspecified; K31.84 Gastroparesis; M06.042 Rheumatoid arthritis without rheumatoid factor, left hand; M06.041 Rheumatoid arthritis without rheumatoid factor, right hand; M32.9 Systemic lupus erythematosus, unspecified; Z79.52 Long term (current) use of systemic steroids; Z99.81 Dependence on supplemental oxygen; Z87.440 Personal history of urinary (tract) infections
CPT/HCPCS: 36415; 80053; 81001; 82607; 82746; 83036; 83540; 83550; 83605; 83735; 84145; 84439; 84443; 84481; 85025; 87040; 87086; 93005; 96372; J1650; J2185; J2270; J2405; J2470; J7512; J8597

== ENCOUNTER 2024-08-16 07:44 | Emergency (ER) | payer OTHER, SELFPAY ==
[2024-08-16 07:53] VITALS: BP 136/86; PULSE 106; RESP 19; TEMP 36.8; O2SAT 96; BMI 34.9
[2024-08-16 07:56] VITALS: PULSE 103; O2SAT 95
[2024-08-16 08:26] VITALS: BP 123/92; PULSE 103; O2SAT 95
[2024-08-16 08:27] LABS: Basophils # 0.1 10^3/uL (0.0-0.1); Basophils % 0.6 %; Eosinophils # 0.6 10^3/uL (0.0-0.8); Hematocrit 39.2 % (36-47); Lymphocytes # 3.6 10^3/uL (0.8-4.8); Lymphocytes % 19.7 %; Mean Corpuscular HGB Conc 33.2 g/dL (30-55); Mean Corpuscular Hemoglobin 30.4 pg (27-33); Mean Corpuscular Volume 91.8 fl (85-98); Mean Platelet Volume 8.8 fL (7.4-10.4); Monocytes % 5.6 %; Neutrophils # 12.41 10^3/uL (1.8-7.7); Neutrophils % 68.3 %; Nucleated Red Blood Cells % 0 %; Platelet Count 357 10^3/cmm (157-399); Red Blood Count 4.27 10^6/uL (3.85-5.65); Red Cell Distribution Width 11.9 % (12.1-15.1); White Blood Count 18.18 10^3/uL (3.29-11.43)
--- NOTE | 2024-08-16 08:27 | W.ED.EPISTAX ---
HPI - Epistaxis General: Chief complaint: Epistaxis Stated complaint: 2hr nosebleed Time Seen by Provider: 08/16/24 08:05 History of Present Illness: 48-year-old female presents with epistaxis. She forcefully blew her nose earlier this morning and began bleeding primarily from the left nostril. Patient is on Plavix and aspirin for antiphospholipid antibody syndrome. She also has a history of lupus. She is not on any other direct anticoagulants. No recent fever sweats or chills. She was recently hospitalized for pyelonephritis. Associated symptoms: Deny fever(s) Related Data Home Medications Medication Instructions Recorded Confirmed diclofenac sodium 1 % topical gel 2 gm topical QID PRN unknown 12/02/19 08/06/24 (Voltaren) albuterol sulfate 90 mcg/actuation 2 puff inhalation Q6H PRN 03/10/20 08/06/24 aerosol inhaler Shortness Of Breath aspirin 81 mg tablet,delayed 81 mg PO DAILY 03/10/20 08/06/24 release (Adult Aspirin Regimen) atorvastatin 40 mg tablet (Lipitor) 80 mg PO DAILY see pharmacy comment 03/10/20 08/06/24 cetirizine 10 mg tablet (Zyrtec) 10 mg PO DAILY 03/10/20 08/06/24 diltiazem HCl 240 mg 360 mg PO DAILY 03/10/20 08/06/24 capsule,extended release 24 hr (Cartia XT) epinephrine 0.3 mg/0.3 mL 0.3 mg IM Q10M PRN Allergic 03/10/20 08/06/24 injection, auto-injector (EpiPen) Reaction levothyroxine 137 mcg capsule 137 mcg PO DAILY 03/10/20 08/06/24 oxycodone 15 mg tablet 15 mg PO Q4H PRN Pain 03/10/20 08/06/24 desvenlafaxine succinate 50 mg 100 mg PO DAILY 03/23/20 08/06/24 tablet,extended release 24 hr (Pristiq) acetaminophen 500 mg tablet 1,000 mg PO PRN PRN Pain 04/13/20 08/06/24 (Tylenol Extra Strength) cevimeline 30 mg capsule 30 mg PO TID 11/03/21 08/06/24 fluticasone propionate 50 1 spray intranasal DAILY PRN 11/03/21 08/06/24 mcg/actuation nasal Allergic Symptoms spray,suspension lidocaine 5 % topical patch 1 patch topical DAILY PRN Pain 11/03/21 08/06/24 meclizine 12.5 mg tablet 12.5 mg PO PRN PRN Nausea And 11/03/21 08/06/24 Vomiting potassium chloride 10 mEq 10 meq PO DAILY 11/03/21 08/06/24 capsule,extended release triamcinolone acetonide 0.1 % 1 applic topical BID PRN Rash 11/12/21 08/06/24 topical cream bupropion HCl 150 mg tablet,12 hr 150 mg PO BID 08/06/24 08/06/24 sustained-release carisoprodol 350 mg tablet 350 mg PO PRN 08/06/24 08/06/24 carvedilol 25 mg tablet 25 mg PO BID 08/06/24 08/06/24 clopidogrel 75 mg tablet 75 mg PO DAILY 08/06/24 08/06/24 diazepam 2 mg tablet 2 mg PO PRN PRN Anxiety 08/06/24 08/06/24 folic acid 1 mg tablet 1 mg PO DAILY 08/06/24 08/06/24 lidocaine HCl 3 % topical cream 3 applic topical PRN 08/06/24 08/06/24 lifitegrast 5 % eye drops in a 1 drp ophthalmic (eye) BID 08/06/24 08/06/24 dropperette (Xiidra) metoclopramide HCl 10 mg tablet 10 mg PO QID 08/06/24 08/06/24 ondansetron HCl 4 mg tablet 4 mg PO PRN 08/06/24 08/06/24 prochlorperazine maleate 10 mg 10 mg PO PRN 08/06/24 08/06/24 tablet solifenacin 10 mg tablet 10 mg PO DAILY 08/06/24 08/06/24 sumatriptan succinate 50 mg tablet 50 mg PO PRN 08/06/24 08/06/24 Previous Rx's Medication Instructions Recorded pantoprazole 40 mg tablet,delayed 40 mg PO BID #60 tabs 10/23/23 release (Protonix) pilocarpine HCl 5 mg tablet 5 mg PO TID dry mouth #270 tabs 10/23/23 prednisone 10 mg tablet 10 mg PO DAILY joint pain #90 tabs 10/23/23 cholecalciferol (vitamin D3) 50 See Rx Instructions .Route 04/21/24 mcg (2,000 unit) capsule .COMPLEX #90 caps cefdinir 300 mg capsule 300 mg PO BID 10 days #20 caps 08/08/24 fluconazole 100 mg tablet 100 mg PO DAILY #7 tabs 08/08/24 hydrochlorothiazide 25 mg tablet 25 mg PO DAILY #30 tabs 08/08/24 mupirocin 2 % topical ointment 1 applic topical BID #15 grams 08/16/24 Allergies Allergy/AdvReac Type Severity Reaction Status Date / Time Sulfa (Sulfonamide Allergy Intermediate ALGY-Rash Verified 08/06/24 00:41 Antibiotics) hydroxychloroquine AdvReac Intermediate eye changes Verified 08/06/24 00:41 diclofenac [From [employer]] AdvReac DIZZINESS Verified 08/06/24 00:41 misoprostol [From [employer]] AdvReac DIZZINESS Verified 08/06/24 00:41 Review of Systems Const: Denies: fever(s) or chills ENMT: Reports: epistaxis Card: Denies: chest pain Resp: Denies: dyspnea GI: Denies: abdominal pain : Denies: dysuria, urinary frequency or urinary urgency Musc: Denies: neck pain or back pain Skin/Breast: Denies: rash PFSH ED PFSH: Medical History Seronegative rheumatoid arthritis of both hands Inflammatory arthritis High risk medication use Chronic respiratory failure with hypoxia Hx of Sjogren's disease Immunosuppression Vitamin D deficiency Osteoporosis Lumbar spondylosis Cervical spondylosis Fibromyalgia MGUS (monoclonal gammopathy of unknown significance) Gastroparesis Antiphospholipid antibody positive Systemic lupus erythematosus (SLE) in adult Surgical History History of cholecystectomy H/O tubal ligation Family History Grandmother Diabetes Hypertension Breast cancer Heart disease Hypercholesteremia Thyroid disease Father Diabetes Hypertension Stroke Hypercholesteremia Mother Hypertension Hypercholesteremia Grandmother Heart disease Grandfather Thyroid disease Denies family history of Colon cancer Ovarian cancer Uterine cancer Social History Smoking and tobacco/nicotine status: never used tobacco/nicotine Substance/Drug Use: never Do you think of yourself as: Straight/Heterosexual Physical Exam Const: COMMON NORMALS: no acute distress GENERAL APPEARANCE: cooperative and comfortable ORIENTATION/CONSCIOUSNESS: Yes awake, Yes oriented to person, Yes oriented to place and Yes oriented to time HENMT: COMMON NORMALS: normocephalic, atraumatic and hearing grossly normal bilaterally HEAD & SCALP: normocephalic and atraumatic OTHER: Slow bleeding from the left nostril on exam appears to be from anterior source. Resp: COMMON NORMALS: normal respiratory effort, No retractions, No use of accessory muscles and clear to auscultation bilaterally AUSCULTATION: clear to auscultation bilaterally Cardio: COMMON NORMALS: regular rate, regular rhythm and No murmurs present (Cardio) RATE: regular rate RHYTHM: regular rhythm Neuro: SENSORIUM/ORIENTATION: Yes oriented to person, Yes oriented to place and Yes oriented to time Skin: COMMON NORMALS: no rashes or lesions noted GENERAL SKIN EXAM: no rashes or lesions noted Course Vital Signs: Vital signs: Vital Signs Temperature 98.3 F 08/16/24 07:53 Pulse Rate 111 H 08/16/24 12:08 Respiratory Rate 19 H 08/16/24 07:53 Blood Pressure 128/97 08/16/24 12:08 Pulse Oximetry 94 08/16/24 12:08 Oxygen Delivery Me thod Room Air 08/16/24 07:53 MDM - Epistaxis Medical Decision Making Monitored patient for extended period of time. Patient observed we were able to with direct pressure and oxymetazoline nasal spray to get the bleeding to stop completely without having to apply Rhino Rocket. Will discharge patient home. Medical Records I reviewed the patient's medical records. Lab Data I reviewed the patient's lab results. 08/16/24 08:22 08/16/24 08:22 Laboratory Results WBC 18.18 10^3/uL (3.29-11.43) H 08/16/24 08:22 RBC 4.27 10^6/uL (3.85-5.65) 08/16/24 08:22 Hgb 13.00 g/dL (11.27-16.99) 08/16/24 08:22 Hct 39.2 % (36-47) 08/16/24 08:22 MCV 91.8 fl (85-98) 08/16/24 08:22 MCH 30.4 pg (27-33) 08/16/24 08: MCHC 33.2 g/dL (30-55) 08/16/24 08:22 RDW 11.9 % (12.1-15.1) L 08/16/24 08:22 Plt Count 357 10^3/cmm (157-399) 08/16/24 08:22 MPV 8.8 fL (7.4-10.4) 08/16/24 08:22 Neut % (Auto) 68.3 % 08/16/24 08:22 Lymph % (Auto) 19.7 % 08/16/24 08:22 [place] % (Auto) 5.6 % 08/16/24 08:22 Eos % (Auto) 3.0 % 08/16/24 08:22 Baso % (Auto) 0.6 % 08/16/24 08:22 Neut # (Auto) 12.41 10^3/uL (1.8-7.7) H 08/16/24 08:22 Lymph # (Auto) 3.6 10^3/uL (0.8-4.8) 08/16/24 08:22 [place] # (Auto) 1.0 10^3/uL (0.2-0.9) H 08/16/24 08:22 Eos # (Auto) 0.6 10^3/uL (0.0-0.8) 08/16/24 08:22 Baso # (Auto) 0.1 10^3/uL (0.0-0.1) 08/16/24 08:22 Nucleated RBC % (auto) 0 % 08/16/24 08: Nucleated RBCs # 0.0 /100WBC 08/16/24 08:22 Sodium 139 mmol/L (136-145) 08/16/24 08:22 Potassium 4.2 mmol/L (3.5-5.1) 08/16/24 08:22 Chloride 101 mmol/L (98-107) 08/16/24 08:22 Carbon Dioxide 27 mmol/L (22-29) 08/16/24 08:22 Anion Gap 15.2 (5-19) 08/16/24 08:22 BUN 16 mg/dL (6-20) 08/16/24 08:22 Creatinine 0.6 mg/dL (0.5-0.9) 08/16/24 08:22 GFR Calculation 106.3 mL/min (90-130) 08/16/24 08:22 Glucose 145 mg/dL (65-115) H 08/16/24 08:22 Calculated Osmolality 292 mOsm/kg (285-295) 08/16/24 08:22 Calcium 9.1 mg/dL (8.5-10.5) 08/16/24 08:22 Total Bilirubin 0.2 mg/dL (0.15-1.2) 08/16/24 08:22 AST 8 U/L (0-32) 08/16/24 08:22 ALT 18 U/L (0-33) 08/16/24 08:22 Alkaline Phosphatase 99 U/L (35-105) 08/16/24 08:22 Total Protein 6.7 g/dL (6.6-8.7) 08/16/24 08:22 Albumin 4.0 g/dL (3.5-5.2) 08/16/24 08:22 Globulin 2.7 g/dL (1.3-4.6) 08/16/24 08:22 No radiology studies performed this visit Discharge Plan Discharge Patient Disposition: Home Clinical Impression: Epistaxis Condition: Stable Prescriptions: New mupirocin 2 % ointment 1 applic topical BID Qty: 15 0RF No Action diclofenac sodium [Voltaren] 1 % gel 2 gm TOPICAL QID PRN (Reason: unknown) desvenlafaxine succinate [Pristiq] 50 mg tablet extended release 24 hr 100 mg PO DAILY aspirin [Adult Aspirin Regimen] 81 mg tablet,delayed release (DR/EC) 81 mg PO DAILY atorvastatin [Lipitor] 40 mg tablet 80 mg PO DAILY diltiazem HCl [Cartia XT] 240 mg capsule,extended release 24hr 360 mg PO DAILY levothyroxine 137 mcg capsule 137 mcg PO DAILY albuterol sulfate 90 mcg/actuation HFA aerosol inhaler 2 puff INHALATION Q6H PRN (Reason: Shortness Of Breath) epinephrine [EpiPen] 0.3 mg/0.3 mL auto-injector 0.3 mg IM Q10M PRN (Reason: Allergic Reaction) cetirizine [Zyrtec] 10 mg tablet 10 mg PO DAILY oxycodone 15 mg tablet 15 mg PO Q4H PRN (Reason: Pain) pantoprazole [Protonix] 40 mg tablet,delayed release (DR/EC) 40 mg PO BID Qty: 60 3RF pilocarpine HCl 5 mg tablet 5 mg PO TID Qty: 270 1RF prednisone 10 mg tablet 10 mg PO DAILY Qty: 90 1RF cholecalciferol (vitamin D3) 50 mcg (2,000 unit) capsule See Rx Instructions .ROUTE .COMPLEX Qty: 90 1RF Dose Instruction: TAKE 1 CAPSULE BY MOUTH EVERY DAY Rx Instructions: TAKE 1 CAPSULE BY MOUTH EVERY DAY potassium chloride 10 mEq Capsule, Extended Release 10 meq PO DAILY meclizine 12.5 mg Tablet 12.5 mg PO PRN PRN (Reason: Nausea And Vomiting) cevimeline 30 mg Capsule 30 mg PO TID lidocaine 5 % Adhesive Patch,Medicated 1 patch TOPICAL DAILY PRN (Reason: Pain) fluticasone propionate 50 mcg/actuation [place],Suspension 1 spray INTRANASAL DAILY PRN (Reason: Allergic Symptoms) triamcinolone acetonide 0.1 % cream 1 applic TOPICAL BID PRN (Reason: Rash) acetaminophen [Tylenol Extra Strength] 500 mg Tablet 1,000 mg PO PRN PRN (Reason: Pain) carvedilol 25 mg tablet 25 mg PO BID prochlorperazine maleate 10 mg tablet 10 mg PO PRN bupropion HCl 150 mg tablet sustained-release 12 hr 150 mg PO BID diazepam 2 mg tablet 2 mg PO PRN PRN (Reason: Anxiety) Rx Instructions: 1 tablet q 12 hours prn anxiety carisoprodol 350 mg tablet 350 mg PO PRN Rx Instructions: 350 mg q 8 hours PRN spasms clopidogrel 75 mg tablet 75 mg PO DAILY sumatriptan succinate 50 mg tablet 50 mg PO PRN solifenacin 10 mg tablet 10 mg PO DAILY metoclopramide HCl 10 mg tablet 10 mg PO QID folic acid 1 mg tablet 1 mg PO DAILY lidocaine HCl 3 % cream 3 applic topical PRN ondansetron HCl 4 mg tablet 4 mg PO PRN Xiidra 5 % dropperette 1 drp ophthalmic (eye) BID hydrochlorothiazide 25 mg Tablet 25 mg PO DAILY Qty: 30 0RF cefdinir 300 mg capsule 300 mg PO BID 10 Days Qty: 20 0RF fluconazole 100 mg tablet 100 mg PO DAILY Qty: 7 0RF Discharge Orders: Discharge ED (Routine); Ordered 08/16/24 Ordered By: Glenn Washington Referrals: Milady Crystal DO [Primary Care Provider] - Discharge Diet: Usual diet Discharge Activity: Resume usual activity Patient Instructions: Nosebleed (ED), Epistaxis - Adult, Opioid Safety, Pain Management Activity Restrictions/Additional Instructions: Thank you for choosing [facility] for your healthcare needs today. It is very important that you follow up as instructed or that you return to the Emergency Department should you have concerns or if your condition changes or worsens in any way. You were seen in the emergency room for nosebleed. We were able to get it stop with topical medications. Avoid forceful blowing of the nose. Apply the topical antibiotic ointment to the nose twice a day gently with a Q-tip. Use the Afrin nasal spray as needed if there is any sign of further bleeding. Follow-up with Dr. Bernal in the next few days to have him reevaluate the source of bleeding. Coding Level of Care Code ED Electrical Panel Builder for Neftali Newsome
[2024-08-16] MEDS: oxymetazoline 0.05% Nasal Spray 15 mL 2 SPRAY NOSTRIL-B (08:35)
[2024-08-16 08:48] LABS: Alanine Aminotransferase 18 U/L (0-33); Alkaline Phosphatase 99 U/L (35-105); Anion Gap 15.2 (5-19); Aspartate Amino Transferase 8 U/L (0-32); Blood Urea Nitrogen 16 mg/dL (6-20); Calcium 9.1 mg/dL (8.5-10.5); Carbon Dioxide 27 mmol/L (22-29); Chloride 101 mmol/L (98-107); Creatinine Clr Calc Pharmacy 143.3668; Globulin 2.7 g/dL (1.3-4.6); Glomerular Filtration Rate 106.3 mL/min (90-130); Glucose 145 mg/dL (65-115); Osmolality Calculated 292 mOsm/kg (285-295); Potassium 4.2 mmol/L (3.5-5.1); Sodium 139 mmol/L (136-145); Total Bilirubin 0.2 mg/dL (0.15-1.2); Total Protein 6.7 g/dL (6.6-8.7)
[2024-08-16 10:30] VITALS: BP 135/108; PULSE 117; O2SAT 93
[2024-08-16 11:00] VITALS: BP 128/97; PULSE 111; O2SAT 94
[2024-08-16 12:08] VITALS: BP 128/97; PULSE 111; O2SAT 94
== END 2024-08-16 12:12 | disposition home or self-care (01) ==
PROVIDERS: Emergency Provider Family Medicine; PCP Family Medicine
DX: R04.0 Epistaxis (principal); Z79.82 Long term (current) use of aspirin; Z79.02 Long term (current) use of antithrombotics/antiplatelets; M32.9 Systemic lupus erythematosus, unspecified
CPT/HCPCS: 36415; 80053; 85025; 99283

== ENCOUNTER → 2024-10-07 14:42 | Outpatient (BNVA) | payer OTHER, SELFPAY | PROVIDERS: PCP Family Medicine; Visit Provider Internal Medicine Rheumatology | DX: M81.0 Age-related osteoporosis without current pathological fracture (principal); Z79.899 Other long term (current) drug therapy | CPT/HCPCS: 36415; 82040; 82306; 82310; 82565 ==

== ENCOUNTER 2024-12-02 13:55 | Oncology outpatient (recurring) (ONCR) | payer OTHER, SELFPAY ==
[2024-12-02] MEDS: diphenhydrAMINE 50 mg/mL SDV 1mL IVP (15:26)
[2024-12-02] MEDS: methylPREDNISolone sod succ 40 mg/mL INJ IVP (15:33)
[2024-12-02] MEDS: denosumab 60 mg SDV SUBCUT (15:51)
[2024-12-02 16:00] VITALS: BP 138/84; PULSE 97; RESP 18; TEMP 36.6; O2SAT 97
== END 2024-12-05 23:59 | disposition home or self-care (01) ==
PROVIDERS: PCP Family Medicine; Visit Provider Internal Medicine Rheumatology
DX: M81.0 Age-related osteoporosis without current pathological fracture (principal); Z79.899 Other long term (current) drug therapy
CPT/HCPCS: 96372; 96375; J0897; J1200; J2919

== ENCOUNTER 2025-02-16 08:59 | Emergency (ER) | payer OTHER, SELFPAY ==
[2025-02-16 09:07] VITALS: BP 171/105; PULSE 115; RESP 16; TEMP 36.6; O2SAT 96
--- NOTE | 2025-02-16 09:36 | W.ED.GENADLT ---
HPI - General Adult General: Chief complaint: Urogenital-Female Stated complaint: antibotics not working (uti) Time Seen by Provider: 02/16/25 09:02 Source: patient and family Mode of arrival: ambulatory Limitations: no limitations History of Present Illness: Patient is a 49-year-old female with a history of antiphospholipid syndrome, lupus, gastroparesis, chronic leukocytosis here with complaints that she does not feel well. Patient states approximately week and a half ago she began developing dysuria, frequency, urgency. She states she does have a history of UTI related septicemia. Patient states she contacted her primary care provider who had labs/UA performed through [employer]. She was placed on Macrobid. Patient states her labs came back significant for leukocytosis with a white count of 20.4 as well as an elevated lactic slightly over 4. Patient does have a longstanding history of chronic leukocytosis. She does take chronic steroids for her lupus. Patient states she has been taking her Macrobid as prescribed but she is not feeling any better. She complains of pain all over and fatigue. Intermittent chills. Has felt this way before with lupus flares. She does have access to her [employer] patient portal on her phone. Her UA was negative for nitrates, negative for leukocyte esterase, wbcs were 0-5. Urine culture was performed showing no growth. She does have a history of chronic tachycardia as well. She is tachycardic upon arrival at [facility]. She is not having any reported fevers. No flank pain. No vomiting. Onset (ago): day(s) Pain Consistency: constant Relieving factors: none Exacerbating factors: none Associated symptoms: Reports malaise; Deny chest pain, headache(s), rash or vomiting Treatments prior to arrival: other (abx) Related Data Home Medications ?Medication ?Instructions ?Recorded ?Confirmed albuterol sulfate 90 mcg/actuation 2 puff inhalation Q6H PRN 03/10/20 02/16/25 aerosol inhaler Shortness Of Breath aspirin 81 mg tablet,delayed 81 mg PO QAM 03/10/20 02/16/25 release (Adult Aspirin Regimen) cetirizine 10 mg tablet (Zyrtec) 10 mg PO DAILY 03/10/20 02/16/25 epinephrine 0.3 mg/0.3 mL 0.3 mg IM Q10M PRN Allergic 03/10/20 02/16/25 injection, auto-injector (EpiPen) Reaction levothyroxine 137 mcg capsule 137 mcg PO QAM 03/10/20 02/16/25 oxycodone 15 mg tablet 15 mg PO Q4H PRN Pain 03/10/20 02/16/25 acetaminophen 500 mg tablet 1,000 mg PO PRN PRN Pain 04/13/20 02/16/25 (Tylenol Extra Strength) cevimeline 30 mg capsule 30 mg PO TID 11/03/21 02/16/25 fluticasone propionate 50 1 spray intranasal DAILY PRN 11/03/21 02/16/25 mcg/actuation nasal Allergic Symptoms spray,suspension lidocaine 5 % topical patch 1 patch topical DAILY PRN Pain 11/03/21 02/16/25 meclizine 12.5 mg tablet 12.5 mg PO PRN PRN Nausea And 11/03/21 02/16/25 Vomiting potassium chloride 10 mEq 10 meq PO DAILY 11/03/21 02/16/25 capsule,extended release triamcinolone acetonide 0.1 % 1 applic topical BID PRN Rash 11/12/21 02/16/25 topical cream bupropion HCl 150 mg tablet,12 hr 150 mg PO BID 08/06/24 02/16/25 sustained-release carisoprodol 350 mg tablet 350 mg PO Q8H PRN Spasms 08/06/24 02/16/25 carvedilol 25 mg tablet 25 mg PO BID 08/06/24 02/16/25 clopidogrel 75 mg tablet 75 mg PO DAILY 08/06/24 02/16/25 folic acid 1 mg tablet 1 mg PO DAILY 08/06/24 02/16/25 lidocaine HCl 3 % topical cream 3 applic topical PRN 08/06/24 02/16/25 lifitegrast 5 % eye drops in a 1 drp ophthalmic (eye) BID 08/06/24 02/16/25 dropperette (Xiidra) metoclopramide HCl 10 mg tablet 10 mg PO QID PRN Nausea 08/06/24 02/16/25 ondansetron HCl 4 mg tablet 4 mg PO Q4H PRN Nausea 08/06/24 02/16/25 prochlorperazine maleate 10 mg 10 mg PO Q6H PRN Nausea/emesis 08/06/24 02/16/25 tablet solifenacin 10 mg tablet 10 mg PO DAILY 08/06/24 02/16/25 sumatriptan succinate 50 mg tablet 50 mg PO PRN PRN Migraine Headache 08/06/24 02/16/25 alprazolam 0.5 mg tablet 0.5 mg PO BID PRN Anxiety 02/16/25 02/16/25 atorvastatin 80 mg tablet 80 mg PO BEDTIME 02/16/25 02/16/25 cholecalciferol (vitamin D3) 50 2,000 unit PO DAILY 02/16/25 02/16/25 mcg (2,000 unit) capsule desvenlafaxine succinate 100 mg 100 mg PO QAM 02/16/25 02/16/25 tablet,extended release 24 hr diltiazem HCl 360 mg 360 mg PO DAILY 02/16/25 02/16/25 capsule,extended release 24 hr hydrochlorothiazide 25 mg tablet 25 mg PO DAILY PRN Edema 02/16/25 02/16/25 methenamine hippurate 1 gram tablet 1 g PO BID 02/16/25 02/16/25 mupirocin 2 % topical ointment 1 applic topical BID PRN Skin 02/16/25 02/16/25 Irritation naloxone 4 mg/actuation nasal spray See Rx Instructions .Route .COMPLEX 02/16/25 02/16/25 nitrofurantoin 100 mg PO BID 02/16/25 02/16/25 monohydrate/macrocrystals 100 mg capsule prednisone 10 mg tablet 10 mg PO QAM joint pain 02/16/25 02/16/25 ropinirole 1 mg tablet 1 mg PO TID 02/16/25 02/16/25 semaglutide 0.25 mg or 0.5 mg (2 0.5 mg SUBCUT Q7D 02/16/25 02/16/25 mg/3 mL) subcutaneous pen injector (Ozempic) Previous Rx's ?Medication ?Instructions ?Recorded pantoprazole 40 mg tablet,delayed 40 mg PO BID #60 tabs 10/23/23 release (Protonix) adalimumab-adaz 40 mg/0.4 mL See Rx Instructions SUBCUT 10/09/24 subcutaneous syringe (Hyrimoz(CF)) .COMPLEX #0.8 mL doxycycline monohydrate 100 mg 100 mg PO Q12H 10 days #20 caps 02/16/25 capsule prednisone 10 mg tablet 10 mg PO DAILY 7 days #27 tabs 02/16/25 Allergies Allergy/AdvReac Type Severity Reaction Status Date / Time Sulfa (Sulfonamide Allergy Intermediate ALGY-Rash Verified 10/07/24 14:13 Antibiotics) hydroxychloroquine AdvReac Intermediate eye changes Verified 10/07/24 14:13 diclofenac (From [employer]) AdvReac DIZZINESS Verified 10/07/24 14:13 misoprostol (From [employer]) AdvReac DIZZINESS Verified 10/07/24 14:13 Review of Systems Const: Reports: chills, fatigue and malaise; Denies: fever(s) Eyes: Denies: change in vision, blurry vision, floaters or seeing flashes ENMT: Denies: throat pain, odynophagia, nasal discharge, nasal congestion or sinus pain Card: Denies: chest pain GI: Denies: abdominal pain or vomiting : Reports: dysuria (improving) and urinary frequency (improving); Denies: flank pain, difficulty voiding, urinary hesitancy, urinary incontinence or pelvic pain Musc: Reports: back pain (chronic); Denies: neck pain, extremity pain, extremity swelling, joint swelling or joint redness Skin/Breast: Denies: rash Neuro: Denies: headache(s), numbness in extremities, weakness in extremities, sensory changes or dizziness PFSH ED PFSH: Medical History Seronegative rheumatoid arthritis of both hands Inflammatory arthritis High risk medication use Chronic respiratory failure with hypoxia Hx of Sjogren's disease Immunosuppression Vitamin D deficiency Osteoporosis Lumbar spondylosis Cervical spondylosis Fibromyalgia MGUS (monoclonal gammopathy of unknown significance) Gastroparesis Antiphospholipid antibody positive Systemic lupus erythematosus (SLE) in adult Surgical History History of cholecystectomy H/O tubal ligation Family History Grandmother Diabetes Hypertension Breast cancer Heart disease Hypercholesteremia Thyroid disease Father Diabetes Hypertension Stroke Hypercholesteremia Mother Hypertension Hypercholesteremia Grandmother Heart disease Grandfather Thyroid disease Denies family history of Colon cancer Ovarian cancer Uterine cancer Social History (Reviewed 02/16/25 @ 09:46 by ANABEL Anderson Smoking and tobacco/nicotine status: never used tobacco/nicotine Substance/Drug Use: never Do you think of yourself as: Straight/Heterosexual Physical Exam Const: COMMON NORMALS: no acute distress, patient oriented x3, no limitations and alert GENERAL APPEARANCE: cooperative NUTRITIONAL APPEARANCE: overweight ORIENTATION/CONSCIOUSNESS: Yes awake, Yes oriented to person, Yes oriented to place and Yes oriented to time HENMT: COMMON NORMALS: normocephalic and atraumatic HEAD & SCALP: normal to inspection, normocephalic and atraumatic Eye: COMMON NORMALS: no scleral icterus GENERAL EYE: appearance normal, both eyes and all related structures Neck/C-Spine: COMMON NORMALS: no lymphadenopathy Resp: COMMON NORMALS: normal respiratory effort and clear to auscultation bilaterally AUSCULTATION: clear to auscultation bilaterally Cardio: COMMON NORMALS: regular rhythm RATE: tachycardic RHYTHM: regular rhythm GI: COMMON NORMALS: Normal to inspection, nondistended, normoactive bowel sounds present, Soft to palpation and non-tender PALPATION: Yes Soft to palpation : COMMON NORMALS: Yes no CVA tenderness BLADDER/KIDNEY EXAM: Yes no CVA tenderness Back/Pelvis: COMMON NORMALS: no CVA tenderness Extremity: GENERAL: Yes normal exam except as noted Neuro: COMMON NORMALS: patient oriented x3, moves all extremities, no focal motor deficits and no sensory deficits noted SENSORIUM/ORIENTATION: Yes alert, Yes oriented to person, Yes oriented to place and Yes oriented to time Skin: COMMON NORMALS: no rashes or lesions noted GENERAL SKIN EXAM: no rashes or lesions noted Course Vital Signs: Vital signs: Vital Signs Temperature 97.9 F 02/16/25 09:07 Pulse Rate 105 H 02/16/25 10:48 Respiratory Rate 16 02/16/25 09:07 Blood Pressure 139/89 02/16/25 10:48 Pulse Oximetry 98 02/16/25 10:48 Oxygen Delivery Me thod Nasal Cannula 02/16/25 10:48 Oxygen Flow Rate 4 02/16/25 10:48 [facility] - General Adult Medical Decision Making Patient clinically appears in no acute distress. Patient has chronic tachycardia. This did improve without much intervention. She was given a liter of fluids. Her blood work today showing a declining white count. She does have chronic leukocytosis. She is on chronic steroids for her lupus. Her lactic is now normal. Her UA today does not appear infected. Results from her labs and UA and UA culture from [facility] [place]. Did do CXR here showing a left lower chest infiltrate. Ultimately think a lot of her symptoms are secondary to a lupus flare. We discussed putting her on a prednisone taper. She most likely will require coverage for the infiltrate seen on her CXR (states Cipro and Augmentin do not work -has been on Levaquin twice recently for UTI like symptoms-no UA/cultures at those times-treated symptomatically). She can continue her current Macrobid prescription as she only has a few days of this left. Recommend she follow-up with primary care later this week. Return to ED precautions discussed. Medical Records I reviewed the patient's medical records. Lab Data I reviewed the patient's lab results. 02/16/25 09:38 02/16/25 09:38 Radiology Impressions Chest X-Ray 02/16/25 10:19 IMPRESSION: 1. Pulmonary atelectasis or acute infiltrates within left lower chest. 2. Borderline prominence of the cardiac silhouette. Laboratory Results WBC 19.31 10^3/uL (3.29-11.43) H 02/16/25 09:38 RBC 4.36 10^6/uL (3.85-5.65) 02/16/25 09:38 Hgb 13.30 g/dL (11.27-16.99) 02/16/25 09:38 Hct 40.0 % (36-47) 02/16/25 09:38 MCV 91.7 fl (85-98) 02/16/25 09:38 MCH 30.5 pg (27-33) 02/16/25 09:38 MCHC 33.3 g/dL (30-55) 02/16/25 09:38 RDW 12.5 % (12.1-15.1) 02/16/25 09:38 Plt Count 329 10^3/cmm (157-399) 02/16/25 09:38 MPV 8.8 fL (7.4-10.4) 02/16/25 09:38 Neut % (Auto) 64.0 % 02/16/25 09:38 Lymph % (Auto) 23.9 % 02/16/25 09:38 Bond % (Auto) 6.7 % 02/16/25 09:38 Eos % (Auto) 2.6 % 02/16/25 09:38 Baso % (Auto) 0.7 % 02/16/25 09:38 Neut # (Auto) 12.34 10^3/uL (1.8-7.7) H 02/16/25 09:38 Lymph # (Auto) 4.6 10^3/uL (0.8-4.8) 02/16/25 09:38 Bond # (Auto) 1.3 10^3/uL (0.2-0.9) H 02/16/25 09:38 Eos # (Auto) 0.5 10^3/uL (0.0-0.8) 02/16/25 09:38 Baso # (Auto) 0.1 10^3/uL (0.0-0.1) 02/16/25 09:38 Nucleated RBC % (auto) 0 % 02/16/25 09:38 Nucleated RBCs # 0.0 /100WBC 02/16/25 09:38 Sodium 135 mmol/L (136-145) L 02/16/25 09:38 Potassium 3.9 mmol/L (3.5-5.1) 02/16/25 09:38 Chloride 97 mmol/L (98-107) L 02/16/25 09:38 Carbon Dioxide 24 mmol/L (22-29) 02/16/25 09:38 Anion Gap 17.9 (5-19) 02/16/25 09:38 BUN 17 mg/dL (6-20) 02/16/25 09:38 Creatinine 0.5 mg/dL (0.5-0.9) 02/16/25 09:38 GFR Calculation 130.6 mL/min (90-130) H 02/16/25 09:38 Glucose 230 mg/dL (65-115) H 02/16/25 09:38 Calculated Osmolality 289 mOsm/kg (285-295) 02/16/25 09:38 Lactic Acid 2.2 mmol/L (0.5-2.2) 02/16/25 09:38 Calcium 9.1 mg/dL (8.5-10.5) 02/16/25 09:38 Total Bilirubin 0.2 mg/dL (0.15-1.2) 02/16/25 09:38 AST 8 U/L (0-32) 02/16/25 09:38 ALT 14 U/L (0-33) 02/16/25 09:38 Alkaline Phosphatase 87 U/L (35-105) 02/16/25 09:38 Total Protein 6.8 g/dL (6.6-8.7) 02/16/25 09:38 Albumin 4.0 g/dL (3.5-5.2) 02/16/25 09:38 Globulin 2.8 g/dL (1.3-4.6) 02/16/25 09:38 Urine Color Yellow (Yellow) 02/16/25 09:26 Urine Appearance Clear (CLEAR) 02/16/25 09:26 Urine pH 7 (5-7) 02/16/25 09:26 Ur Specific [place] 1.010 (1.005-1.030) 02/16/25 09:26 Urine Protein Neg (Negative) 02/16/25 09:26 Urine Glucose (UA) Norm (Normal) 02/16/25 09:26 Urine Ketones 1+ (Negative) H 02/16/25 09:26 Urine Blood Neg (Negative) 02/16/25 09:26 Urine Nitrate Negative (Negative) 02/16/25 09:26 Urine Bilirubin Neg (Negative) 02/16/25 09:26 Urine Urobilinogen Norm mg/dL (Negative) 02/16/25 09:26 Ur Leukocyte Esterase Negative (Negative) 02/16/25 09:26 Amorphous Sediment Not Reportable 02/16/25 09:26 All radiology interpretation(s) finalized by discharge Discharge Plan Discharge Patient Disposition: Home Clinical Impression: Systemic lupus erythematosus (SLE) in adult LLL pneumonia Qualifiers: Pneumonia type: due to unspecified organism Qualified Code(s): J18.9 - Pneumonia, unspecified organism Condition: Stable Prescriptions: New prednisone 10 mg tablet 10 mg PO DAILY 7 Days Qty: 27 0RF Rx Instructions: 6 tabs on days 1-2, 5 tabs on days 3, 4 tabs on day 4, 3 tabs on day 5, 2 tabs on day 6, 1 tab on day 7 doxycycline monohydrate 100 mg capsule 100 mg PO Q12H 10 Days Qty: 20 0RF No Action aspirin [Adult Aspirin Regimen] 81 mg tablet,delayed release (DR/EC) 81 mg PO QAM levothyroxine 137 mcg capsule 137 mcg PO QAM albuterol sulfate 90 mcg/actuation HFA aerosol inhaler 2 puff INHALATION Q6H PRN (Reason: Shortness Of Breath) epinephrine [EpiPen] 0.3 mg/0.3 mL auto-injector 0.3 mg IM Q10M PRN (Reason: Allergic Reaction) cetirizine [Zyrtec] 10 mg tablet 10 mg PO DAILY oxycodone 15 mg tablet 15 mg PO Q4H MDD 5x daily PRN (Reason: Pain) pantoprazole [Protonix] 40 mg tablet,delayed release (DR/EC) 40 mg PO BID Qty: 60 3RF adalimumab-adaz [Hyrimoz(CF)] 40 mg/0.4 mL syringe See Rx Instructions SUBCUT .COMPLEX Qty: 0.8 5RF Rx Instructions: inject one - 40 mg/0.4 mL syringe every 2 weeks SUBCUT potassium chloride 10 mEq Capsule, Extended Release 10 meq PO DAILY meclizine 12.5 mg Tablet 12.5 mg PO PRN PRN (Reason: Nausea And Vomiting) cevimeline 30 mg Capsule 30 mg PO TID lidocaine 5 % Adhesive Patch,Medicated 1 patch TOPICAL DAILY PRN (Reason: Pain) fluticasone propionate 50 mcg/actuation Mary D,Suspension 1 spray INTRANASAL DAILY PRN (Reason: Allergic Symptoms) triamcinolone acetonide 0.1 % cream 1 applic TOPICAL BID PRN (Reason: Rash) acetaminophen [Tylenol Extra Strength] 500 mg Tablet 1,000 mg PO PRN PRN (Reason: Pain) carvedilol 25 mg tablet 25 mg PO BID prochlorperazine maleate 10 mg tablet 10 mg PO Q6H PRN (Reason: Nausea/emesis) bupropion HCl 150 mg tablet sustained-release 12 hr 150 mg PO BID carisoprodol 350 mg tablet 350 mg PO Q8H PRN (Reason: Spasms) clopidogrel 75 mg tablet 75 mg PO DAILY sumatriptan succinate 50 mg tablet 50 mg PO PRN PRN (Reason: Migraine Headache) solifenacin 10 mg tablet 10 mg PO DAILY metoclopramide HCl 10 mg tablet 10 mg PO QID PRN (Reason: Nausea) folic acid 1 mg tablet 1 mg PO DAILY lidocaine HCl 3 % cream 3 applic topical PRN ondansetron HCl 4 mg tablet 4 mg PO Q4H PRN (Reason: Nausea) Xiidra 5 % dropperette 1 drp ophthalmic (eye) BID atorvastatin 80 mg tablet 80 mg PO BEDTIME ropinirole 1 mg tablet 1 mg PO TID alprazolam 0.5 mg tablet 0.5 mg PO BID PRN (Reason: Anxiety) methenamine hippurate 1 gram tablet 1 g PO BID nitrofurantoin monohyd/m-cryst 100 mg capsule 100 mg PO BID naloxone 4 mg/actuation spray,non-aerosol See Rx Instructions .ROUTE .COMPLEX Rx Instructions: SPRAY 1 SPRAY INTO ONE NOSTRIL NEEDED. CALL 911. REPEAT AFTER 2-3 MIN IF NO OR MINIMAL RESPONSE. Ozempic 0.25 mg or 0.5 mg (2 mg/3 mL) pen injector 0.5 mg SUBCUT Q7D Rx Instructions: Tuesdays diltiazem HCl 360 mg capsule,extended release 24hr 360 mg PO DAILY desvenlafaxine succinate 100 mg tablet extended release 24 hr 100 mg PO QAM prednisone 10 mg tablet 10 mg PO QAM hydrochlorothiazide 25 mg tablet 25 mg PO DAILY PRN (Reason: Edema) mupirocin 2 % ointment 1 applic topical BID PRN (Reason: Skin Irritation) cholecalciferol (vitamin D3) 50 mcg (2,000 unit) capsule 2,000 unit PO DAILY Discharge Orders: Discharge ED (Routine); Ordered 02/16/25 Ordered By: Beth Donohue Referrals: Milady Crystal DO [Primary Care Provider] - Activity Restrictions/Additional Instructions: As we discussed, we will put you on a 60mg steroid taper to help with your lupus flare. Your chest x-ray today showing a left lower lobe pneumonia. Will place you on doxycycline for antibiotic coverage for this. You may continue what you have left of your Macrobid. I would like you to follow-up with your primary care provider later this week for re-evaluation. You need to return to the emergency department at anytime for any further concerns or worsening symptoms. 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
[2025-02-16 09:47] LABS: Basophils # 0.1 10^3/uL (0.0-0.1); Basophils % 0.7 %; Eosinophils # 0.5 10^3/uL (0.0-0.8); Eosinophils % 2.6 %; Lymphocytes # 4.6 10^3/uL (0.8-4.8); Lymphocytes % 23.9 %; Mean Corpuscular HGB Conc 33.3 g/dL (30-55); Mean Corpuscular Hemoglobin 30.5 pg (27-33); Mean Corpuscular Volume 91.7 fl (85-98); Mean Platelet Volume 8.8 fL (7.4-10.4); Monocytes # 1.3 10^3/uL (0.2-0.9); Monocytes % 6.7 %; Neutrophils # 12.34 10^3/uL (1.8-7.7); Nucleated Red Blood Cells % 0 %; Platelet Count 329 10^3/cmm (157-399); Red Blood Count 4.36 10^6/uL (3.85-5.65); Red Cell Distribution Width 12.5 % (12.1-15.1); White Blood Count 19.31 10^3/uL (3.29-11.43)
[2025-02-16 09:48] LABS: Add Urine Microscopic? NO
[2025-02-16 09:55] LABS: Bilirubin Urine Neg (Negative); Blood Urine Neg (Negative); Glucose Urine UA Norm (Normal); Ketones Urine 1+ (Negative); Leukocyte Esterase Urine Negative (Negative); Nitrate Urine Negative (Negative); Protein Urine Neg (Negative); Urine Appearance Clear (CLEAR); Urine Color Yellow (Yellow); Urobilinogen Urine Norm (Negative); pH Urine 7 (5-7)
[2025-02-16 09:56] LABS: Charge for UA Resulting for Rev
[2025-02-16 10:06] LABS: Alanine Aminotransferase 14 U/L (0-33); Alkaline Phosphatase 87 U/L (35-105); Anion Gap 17.9 (5-19); Aspartate Amino Transferase 8 U/L (0-32); Blood Urea Nitrogen 17 mg/dL (6-20); Calcium 9.1 mg/dL (8.5-10.5); Carbon Dioxide 24 mmol/L (22-29); Chloride 97 mmol/L (98-107); Creatinine Clr Calc Pharmacy 170.1496; Globulin 2.8 g/dL (1.3-4.6); Glomerular Filtration Rate 130.6 mL/min (90-130); Glucose 230 mg/dL (65-115); Osmolality Calculated 289 mOsm/kg (285-295); Potassium 3.9 mmol/L (3.5-5.1); Sodium 135 mmol/L (136-145); Total Bilirubin 0.2 mg/dL (0.15-1.2); Total Protein 6.8 g/dL (6.6-8.7)
[2025-02-16 10:07] LABS: Lactic Sepsis W/Reflex 2.2 mmol/L (0.5-2.2)
[2025-02-16] MEDS: sodium chloride 0.9% 1,000 ML 999 ML IV (10:15)
--- NOTE | 2025-02-16 10:19 | XRR_ITS ---
PROCEDURE INFORMATION: Exam: XR Chest Exam date and time: 02/16/2025 10:37 AM Age: 49 years old Clinical indication: Other: Weakness; Dx of UTI by pcp, had labwork done, had elevated lactic. Patient reports that she did not want to come in to be treated due to family being in town. Patient reports inreasingly getting worse and started taking macrobid on 02/11/25. Patient is a&ox4 with equal nonlabored respirations at this time. Patient has HX of previous admissions from [facility]. ; Additional info: Fatigue, doesn't feel well TECHNIQUE: Imaging protocol: Radiologic exam of the chest. Views: 1 view. COMPARISON: CR XR chest 1V portable [id number] 11/11/2021 1:27 PM FINDINGS: Tubes, catheters and devices: None. Lungs: Left-sided pulmonary linear interstitial opacities identified within lower lung. Alveolar density in the lateral left lower chest. The lungs appear otherwise clear. Pleural spaces: No pleural effusion. No pneumothorax. Heart/Mediastinum: The cardiac silhouette appears borderline prominent. Bones/joints: Mild generalized bony degenerative changes. Bony structures appear otherwise unremarkable. Soft tissues: This study is limited by patient's body habitus. XR/XR chest 1V portable [id number] IMPRESSION: 1. Pulmonary atelectasis or acute infiltrates within left lower chest. 2. Borderline prominence of the cardiac silhouette.
[2025-02-16 10:48] VITALS: BP 139/89; PULSE 105; O2SAT 98
[2025-02-16 11:30] LABS: Reflex Lactate Order REFLEX LACTIC ORDERD
== END 2025-02-16 12:32 | disposition home or self-care (01) ==
PROVIDERS: Emergency Provider Physician Assistant; PCP Family Medicine
DX: M32.9 Systemic lupus erythematosus, unspecified (principal); J18.9 Pneumonia, unspecified organism; Z79.02 Long term (current) use of antithrombotics/antiplatelets; Z79.82 Long term (current) use of aspirin
CPT/HCPCS: 36415; 71045; 80053; 81003; 83605; 85025; 87040; 96360; 96361; 99284; J7030

== ENCOUNTER 2025-03-18 19:54 | Inpatient (IN) | payer OTHER, SELFPAY ==
[2025-03-18 19:57] VITALS: BP 124/82; PULSE 117; RESP 18; TEMP 36.4; O2SAT 93; BMI 33.4
--- NOTE | 2025-03-18 20:26 | XRR_ITS ---
PROCEDURE INFORMATION: Exam: XR Chest Exam date and time: 03/18/2025 9:06 PM Age: 49 years old Clinical indication: Pain; Chest pressure; Additional info: Chest pain TECHNIQUE: Imaging protocol: Radiologic exam of the chest. Views: 1 view. COMPARISON: CR XR chest 1V portable [id number] 02/16/2025 10:37 AM FINDINGS: Lungs: Unremarkable. No consolidation. Pleural spaces: Unremarkable. No pleural effusion. No pneumothorax. Heart/Mediastinum: Unremarkable. No cardiomegaly. Bones/joints: Unremarkable. Gastrointestinal tract: Gas-filled stomach. XR/XR chest 1V portable [id number] IMPRESSION: No acute findings.
--- NOTE | 2025-03-18 20:26 | ECG_ITS ---
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
--- NOTE | 2025-03-18 20:35 | W.ED.BACK ---
HPI - Back Pain/Injury General: Chief Complaint: Back Pain/Injury Stated Complaint: weak back pain into stomach Time Seen by Provider: 03/18/25 20:19 History of Present Illness: 49-year-old female with a history of morbid obesity, chronic pain syndrome on oxycodone therapy, rheumatoid arthritis, fibromyalgia, gastroparesis, lupus who presents to the emergency room today with back pain that started several days ago. She said it started flank pain and moved into her abdomen and now is up into her chest. She has pain with breathing. She says she is on oxygen at home. Denies cough. No fevers. Says she was recently treated for UTI. She has had sepsis and pyelonephritis in the past. She does not notice any dysuria at this time. She does feel short of breath she says. Related Data Home Medications ?Medication ?Instructions ?Recorded ?Confirmed albuterol sulfate 90 mcg/actuation 2 puff inhalation Q6H PRN 03/10/20 02/16/25 aerosol inhaler Shortness Of Breath aspirin 81 mg tablet,delayed 81 mg PO QAM 03/10/20 02/16/25 release (Adult Aspirin Regimen) cetirizine 10 mg tablet (Zyrtec) 10 mg PO DAILY 03/10/20 02/16/25 epinephrine 0.3 mg/0.3 mL 0.3 mg IM Q10M PRN Allergic 03/10/20 02/16/25 injection, auto-injector (EpiPen) Reaction levothyroxine 137 mcg capsule 137 mcg PO QAM 03/10/20 02/16/25 oxycodone 15 mg tablet 15 mg PO Q4H PRN Pain 03/10/20 02/16/25 acetaminophen 500 mg tablet 1,000 mg PO PRN PRN Pain 04/13/20 02/16/25 (Tylenol Extra Strength) cevimeline 30 mg capsule 30 mg PO TID 11/03/21 02/16/25 fluticasone propionate 50 1 spray intranasal DAILY PRN 11/03/21 02/16/25 mcg/actuation nasal Allergic Symptoms spray,suspension lidocaine 5 % topical patch 1 patch topical DAILY PRN Pain 11/03/21 02/16/25 meclizine 12.5 mg tablet 12.5 mg PO PRN PRN Nausea And 11/03/21 02/16/25 Vomiting potassium chloride 10 mEq 10 meq PO DAILY 11/03/21 02/16/25 capsule,extended release triamcinolone acetonide 0.1 % 1 applic topical BID PRN Rash 11/12/21 02/16/25 topical cream bupropion HCl 150 mg tablet,12 hr 150 mg PO BID 08/06/24 02/16/25 sustained-release carisoprodol 350 mg tablet 350 mg PO Q8H PRN Spasms 08/06/24 02/16/25 carvedilol 25 mg tablet 25 mg PO BID 08/06/24 02/16/25 clopidogrel 75 mg tablet 75 mg PO DAILY 08/06/24 02/16/25 folic acid 1 mg tablet 1 mg PO DAILY 08/06/24 02/16/25 lidocaine HCl 3 % topical cream 3 applic topical PRN 08/06/24 02/16/25 lifitegrast 5 % eye drops in a 1 drp ophthalmic (eye) BID 08/06/24 02/16/25 dropperette (Xiidra) metoclopramide HCl 10 mg tablet 10 mg PO QID PRN Nausea 08/06/24 02/16/25 ondansetron HCl 4 mg tablet 4 mg PO Q4H PRN Nausea 08/06/24 02/16/25 prochlorperazine maleate 10 mg 10 mg PO Q6H PRN Nausea/emesis 08/06/24 02/16/25 tablet solifenacin 10 mg tablet 10 mg PO DAILY 08/06/24 02/16/25 sumatriptan succinate 50 mg tablet 50 mg PO PRN PRN Migraine Headache 08/06/24 02/16/25 alprazolam 0.5 mg tablet 0.5 mg PO BID PRN Anxiety 02/16/25 02/16/25 atorvastatin 80 mg tablet 80 mg PO BEDTIME 02/16/25 02/16/25 cholecalciferol (vitamin D3) 50 2,000 unit PO DAILY 02/16/25 02/16/25 mcg (2,000 unit) capsule desvenlafaxine succinate 100 mg 100 mg PO QAM 02/16/25 02/16/25 tablet,extended release 24 hr diltiazem HCl 360 mg 360 mg PO DAILY 02/16/25 02/16/25 capsule,extended release 24 hr hydrochlorothiazide 25 mg tablet 25 mg PO DAILY PRN Edema 02/16/25 02/16/25 methenamine hippurate 1 gram tablet 1 g PO BID 02/16/25 02/16/25 mupirocin 2 % topical ointment 1 applic topical BID PRN Skin 02/16/25 02/16/25 Irritation naloxone 4 mg/actuation nasal spray See Rx Instructions .Route .COMPLEX 02/16/25 02/16/25 nitrofurantoin 100 mg PO BID 02/16/25 02/16/25 monohydrate/macrocrystals 100 mg capsule prednisone 10 mg tablet 10 mg PO QAM joint pain 02/16/25 02/16/25 ropinirole 1 mg tablet 1 mg PO TID 02/16/25 02/16/25 semaglutide 0.25 mg or 0.5 mg (2 0.5 mg SUBCUT Q7D 02/16/25 02/16/25 mg/3 mL) subcutaneous pen injector ([employer]) Previous Rx's ?Medication ?Instructions ?Recorded pantoprazole 40 mg tablet,delayed 40 mg PO BID #60 tabs 10/23/23 release (Protonix) adalimumab-adaz 40 mg/0.4 mL See Rx Instructions SUBCUT 10/09/24 subcutaneous syringe (Hyrimoz(CF)) .COMPLEX #0.8 mL Allergies Allergy/AdvReac Type Severity Reaction Status Date / Time Sulfa (Sulfonamide Allergy Intermediate ALGY-Rash Verified 03/18/25 20:04 Antibiotics) hydroxychloroquine AdvReac Intermediate eye changes Verified 03/18/25 20:04 diclofenac (From [employer]) AdvReac DIZZINESS Verified 03/18/25 20:04 misoprostol (From [employer]) AdvReac DIZZINESS Verified 03/18/25 20:04 Review of Systems Narrative: Constitutional symptoms: Negative except as documented in HPI. Skin symptoms: Negative except as documented in HPI. Eye symptoms: Negative except as documented in HPI. ENMT symptoms: Negative except as documented in HPI. Respiratory symptoms: Negative except as documented in HPI. Cardiovascular symptoms: Negative except as documented in HPI. Gastrointestinal symptoms: Negative except as documented in HPI. Genitourinary symptoms: Negative except as documented in HPI. Musculoskeletal symptoms: Negative except as documented in HPI. Neurologic symptoms: Negative except as documented in HPI. Psychiatric symptoms: Negative except as documented in HPI. Endocrine symptoms: Negative except as documented in HPI. PFS ED PFSH: Medical History Seronegative rheumatoid arthritis of both hands Inflammatory arthritis High risk medication use Chronic respiratory failure with hypoxia Hx of Sjogren's disease Immunosuppression Vitamin D deficiency Osteoporosis Lumbar spondylosis Cervical spondylosis Fibromyalgia MGUS (monoclonal gammopathy of unknown significance) Gastroparesis Antiphospholipid antibody positive Systemic lupus erythematosus (SLE) in adult Surgical History History of cholecystectomy H/O tubal ligation Family History Grandmother Diabetes Hypertension Breast cancer Heart disease Hypercholesteremia Thyroid disease Father Diabetes Hypertension Stroke Hypercholesteremia Mother Hypertension Hypercholesteremia Grandmother Heart disease Grandfather Thyroid disease Denies family history of Colon cancer Ovarian cancer Uterine cancer Social History Smoking and tobacco/nicotine status: never used tobacco/nicotine Substance/Drug Use: never Do you think of yourself as: Straight/Heterosexual Physical Exam Narrative: EXAM NARRATIVE: General: Alert, no acute distress. Skin: Warm, dry. Head: Normocephalic, atraumatic. Neck: Supple, trachea midline. Eye: Extraocular movements are intact. Ears, nose, mouth and throat: Tacky oral mucosa Cardiovascular: Regular, Normal peripheral perfusion. Respiratory: Lungs are clear to auscultation, respirations are non-labored, breath sounds are equal, Symmetrical chest wall expansion. Gastrointestinal: Soft, Nontender, Non distended Musculoskeletal: Normal ROM, no deformity. Neurological: Alert and oriented, No focal neurological deficit observed. Psychiatric: Cooperative, appropriate mood & affect. Course Vital Signs: Vital signs: Vital Signs Temperature 97.5 F L 03/18/25 19:57 Pulse Rate 111 H 03/18/25 23:39 Respiratory Rate 15 03/18/25 23:39 Blood Pressure 140/98 03/18/25 23:39 Pulse Oximetry 96 03/18/25 23:39 Oxygen Delivery Me thod Nasal Cannula 03/18/25 23:39 Oxygen Flow Rate 3.5 03/18/25 23:39 MDM - Back Pain/Injury Medical Decision Making Medical decision making: Differential diagnosis including but not limited to and based on the above HPI, review of systems and physical exam: Ureterolithiasis. Urinary tract infection. Appendicitis. Cholecystis. Musculoskeletal / back pain. Pyelonephritis. Orders placed to evaluate differential diagnosis based on the above differential, HPI and physical exam EKG: Sinus tachycardia, No ST-T changes, no ectopy, normal MO & QRS intervals, This was reviewed and interpreted by myself the ER physician Lab Review: Laboratory results were reviewed and interpreted by myself the emergency room physician. Mild leukocytosis with white count 10.6 with a left shift at 85%. No anemia. No renal failure. Sodium is low but this is secondary to a glucose of 718. She has no known diabetes. Ketones positive. ABG does not show acidosis however. Urinalysis is negative for infection. Hemoglobin A 1C was 10. Second lactate was more elevated at over 5. AB.3 with an O2 sat of 97% on 3 L nasal cannula. Chest x-ray: No acute process. No infiltrate. No pneumothorax. This was reviewed and interpreted by myself the emergency room physician. I also reviewed the radiology report. CT of the chest abdomen pelvis with contrast: This is ordered for possible sepsis. Bibasilar atelectasis. Coronary artery disease. Thyroid lobe nodule. Prominent fluid in the stomach and small bowel possible gastroenteritis. Patient reports gastroparesis. Moderate constipation. This was reviewed and interpreted by myself the emergency room physician. I also reviewed the radiology report. I reviewed the patient's medical record. Reexamination: Patient has some improvement in tachycardia. No altered mental status. No increased work of breathing. Pain is somewhat controlled. Glucose is coming down. In the 400s now. Consultation: I spoke with Dr. Viera weight gain who agrees to admission. Assessment and plan: Hyperglycemia Dehydration New onset diabetes Tachycardia Gastroparesis Chronic hypoxemic respiratory failure ?Patient extremely hyperglycemic today. Tachycardia and symptoms may just be related to undiagnosed diabetes with dehydration and gastroparesis. She was given 3 L of fluid. Insulin. Zofran. ?Initial concern for sepsis. Patient reports multiple previous episodes of sepsis. At this point I do not have any obvious source and so I will leave it to the hospitalist to decide whether to continue antibiotics. Blood cultures were drawn. Urinalysis was negative for infection and CT scan showed no obvious signs of infection. -2996 mL normal saline bolus. 30 mL/kg bolus. -Broad-spectrum antibiotics were administered. -Sepsis quality measures. -Lactic acid with a reflex was ordered. -Blood cultures were ordered. ?Patient stable on her home 3 L nasal cannula. -I discussed the patient with the hospitalist on-call who is admitting the patient. - Discussed findings and plan with patient. Answered any questions. - All laboratory values were reviewed and interpreted personally by myself, the ER physician - All imaging was reviewed and interpreted personally by myself, the ER physician. - Evaluation and treatment of this problem were appropriate in the emergency setting Critical care -I spent a total of >35 minutes of critical care time managing the patient, independent of any other practitioner. -The time involved in the performance of separately reportable procedures was not counted towards critical care time. Labs 03/18/25 20:32 03/18/25 20:32 Radiology Impressions Chest X-Ray 03/18/25 20:26 IMPRESSION: No acute findings. Chest/Abdomen/Pelvis CT 03/18/25 21:19 IMPRESSION: 1. Bibasilar atelectasis. 2. Coronary artery atherosclerotic calcifications. 3. Left thyroid lobe demonstrates several low-density nodules measuring 19 mm, dedicated thyroid ultrasound advised for further evaluation. IMPRESSION: 1. Prominent fluid in the stomach and small bowel, please correlate for a gastroenteritis. 2. Moderate constipation. 3. Fatty replacement of the pancreas, largely involving the head. Laboratory Results WBC 10.64 10^3/uL (3.29-11.43) 03/18/25 20: RBC 4.60 10^6/uL (3.85-5.65) 03/18/25 20: Hgb 13.90 g/dL (11.27-16.99) 03/18/25 20: Hct 41.2 % (36-47) 03/18/25 20: MCV 89.6 fl (85-98) 03/18/25 20: MCH 30.2 pg (27-33) 03/18/25 20: MCHC 33.7 g/dL (30-55) 03/18/25 20: RDW 12.7 % (12.1-15.1) 03/18/25 20: Plt Count 375 10^3/cmm (157-399) 03/18/25 20: MPV 9.2 fL (7.4-10.4) 03/18/25 20:32 Neut % (Auto) 84.5 % 03/18/25 20: Lymph % (Auto) 9.2 % 03/18/25 20: [place] % (Auto) 2.0 % 03/18/25 20: Eos % (Auto) 0.4 % 03/18/25 20: Baso % (Auto) 0.7 % 03/18/25: Neut # (Auto) 9.00 10^3/uL (1.8-7.7) H 03/18/25 20: Lymph # (Auto) 1.0 10^3/uL (0.8-4.8) 03/18/25 20: [place] # (Auto) 0.2 10^3/uL (0.2-0.9) 03/18/25 20: Eos # (Auto) 0.0 10^3/uL (0.0-0.8) 03/18/25 20: Baso # (Auto) 0.1 10^3/uL (0.0-0.1) 03/18/25 20: Nucleated RBC % (auto) 0 % 03/18/25: Nucleated RBCs # 0.0 /100WBC 03/18/25 20:32 Specimen Type Arterial 03/18/25 21:38 Sample Site Radial, left 03/18/25 21:38 ABG pH 7.39 (7.35-7.45) 03/18/25 21:38 ABG pCO2 35.4 mmHg (35-45) 03/18/25 21:38 ABG pO2 98.1 mmHg (80.0-100.0) 03/18/25 21:38 ABG PO2/FiO2 Ratio 306 03/18/25 21:38 ABG HCO3 21.4 mmol/L (22-26) L 03/18/25 21:38 ABG O2 Saturation 97.5 03/18/25 21:38 ABG Base Excess -3.0 mmol/L (-2.0-2.0) L 03/18/25 21:38 Denis Test Pos 03/18/25 21:38 A-a O2 Gradient 10.6 mmHg (5-10) H 03/18/25 21:38 Hematocrit 38.3 % (37-47) 03/18/25 21:38 Hgb O2 Saturation 98.2 % (95-100) 03/18/25 21:38 Carboxyhemoglobin 0.5 %THgb (0.4-20.1) 03/18/25 21:38 Methemoglobin < 0.0 % (0.4-1.5) L 03/18/25 21:38 Total Hemoglobin 12.5 g/dL (12-16) 03/18/25 21:38 Sodium 134.0 mmol/L (131-143) 03/18/25 21:38 Potassium 3.9 mmol/L (3.5-5.0) 03/18/25 21:38 Glucose 675.0 mg/dL (70-115) H 03/18/25 21:38 Ionized Calcium 1.2 mmol/L (1.1-1.4) 03/18/25 21:38 O2 Delivery Device Nc 03/18/25 21:38 O2 Liters/Min 3.0 % 03/18/25 21:38 FiO2 32.0 % 03/18/25 21:38 Shoe Clerk ID Ed 03/18/25 21:38 Sodium 128 mmol/L (136-145) L 03/18/25 20:32 Potassium 4.3 mmol/L (3.5-5.1) 03/18/25 20:32 Chloride 89 mmol/L (98-107) L 03/18/25 20:32 Carbon Dioxide 22 mmol/L (22-29) 03/18/25 20:32 Anion Gap 21.3 (5-19) H 03/18/25 20:32 BUN 20 mg/dL (6-20) 03/18/25 20:32 Creatinine 0.6 mg/dL (0.5-0.9) 03/18/25 20:32 GFR Calculation 105.8 mL/min (90-130) 03/18/25 20:32 Glucose 718 mg/dL (65-115) H* 03/18/25 20:32 POC Glucose 423 mg/dL (70-110) H 03/18/25 22:34 Estimat Average Glucose 258 03/18/25 20:32 Hemoglobin A1c 10.6 % (4.0-6.0) H 03/18/25 20: Calculated Osmolality 303 mOsm/kg (285-295) H 03/18/25 20: Lactic Acid 2.2 mmol/L (0.5-2.2) 03/18/25 20: Lactic Acid (Sepsis) 5.9 mmol/L (0.5-2.2) H* 03/18/25 22:45 Calcium 8.9 mg/dL (8.5-10.5) 03/18/25: Total Bilirubin 0.2 mg/dL (0.15-1.2) 03/18/25 20: AST 11 U/L (0-32) 03/18/25: ALT 7 U/L (0-33) 03/18/25: Alkaline Phosphatase 122 U/L (35-105) H 03/18/25 20:32 Troponin T Baseline < 6 ng/L (0-10) 03/18/25 20: Troponin T 120 Minute < 6.0 ng/L (0-10) 03/18/25:45 Delta Troponin T 0 ABS# (0-10) 03/18/25:45 C-Reactive Protein 7.0 mg/L (0.0-4.9) H 03/18/25 20: NT-Pro-B Natriuret Pep < 36 pg/mL (0-125) 03/18/25 20: Total Protein 6.3 g/dL (6.6-8.7) L 03/18/25 20: Albumin 3.7 g/dL (3.5-5.2) 03/18/25 20: Globulin 2.6 g/dL (1.3-4.6) 03/18/25 20: Urine Color Yellow (Yellow) 03/18/25 20: Urine Appearance Clear (CLEAR) 03/18/25 20: Urine pH 5.5 (5-7) 03/18/25: Ur Specific [place] 1.039 (1.005-1.030) H 03/18/25 20: Urine Protein Negative (Negative) 03/18/25 20: Urine Glucose (UA) 3+ (Normal) H 03/18/25 20: Urine Ketones 1+ (Negative) H 03/18/25 20:15 Urine Blood Negative (Negative) 03/18/25 20:15 Urine Nitrate Negative (Negative) 03/18/25 20:15 Urine Bilirubin Negative (Negative) 03/18/25 20:15 Urine Urobilinogen 0.2 mg/dL (Negative) 03/18/25 20:15 Ur Leukocyte Esterase Negative (Negative) 03/18/25 20:15 Urine RBC 0-2 /hpf (0-2) 03/18/25 20:15 Urine WBC 0-5 /hpf (0-5) 03/18/25 20:15 Ur Squamous Epith Cells 0-5 /hpf (0-5) 03/18/25 20:15 Amorphous Sediment Not Reportable 03/18/25 20:15 Urine Bacteria None seen /hpf (NONE) 03/18/25 20:15 Hyaline Casts 0-4 /lpf H 03/18/25 20:15 Urine Opiates Screen Negative ng/mL (Negative) 03/18/25 20:15 Ur Barbiturates Screen Negative ng/mL (Negative) 03/18/25 20:15 Ur Phencyclidine Scrn Negative ng/mL (Negative) 03/18/25 20:15 Ur Amphetamines Screen Negative ng/mL (Negative) 03/18/25 20:15 U Benzodiazepines Scrn Positive ng/mL (Negative) H 03/18/25 20:15 Urine Cocaine Screen Negative ng/mL (Negative) 03/18/25 20:15 U Marijuana (THC) Screen Negative ng/mL (Negative) 03/18/25 20:15 Serum Ketones Positive (Negative) H 03/18/25 20:32 Influenza A (PCR) Negative (Negative) 03/18/25 21:18 Influenza Type B (PCR) Negative (Negative) 03/18/25 21:18 RSV (PCR) Negative (Negative) 03/18/25 21:18 SARS-CoV-2 (PCR) Negative (Negative) 03/18/25 21:18 All radiology interpretation(s) finalized by discharge Discharge Plan Discharge Patient Disposition: Admitted As Inpatient Clinical Impression: Hyperglycemia, New onset type 2 diabetes mellitus, Dehydration, Abdominal pain, Gastroparesis Condition: Stable Coding Level of Care Code ED [employer] for Neftali Newsome
[2025-03-18 20:43] VITALS: BP 143/94; PULSE 118; RESP 16; O2SAT 96
[2025-03-18 20:53] LABS: Basophils # 0.1 10^3/uL (0.0-0.1); Basophils % 0.7 %; Eosinophils % 0.4 %; Hematocrit 41.2 % (36-47); Lymphocytes % 9.2 %; Mean Corpuscular HGB Conc 33.7 g/dL (30-55); Mean Corpuscular Hemoglobin 30.2 pg (27-33); Mean Corpuscular Volume 89.6 fl (85-98); Mean Platelet Volume 9.2 fL (7.4-10.4); Monocytes # 0.2 10^3/uL (0.2-0.9); Neutrophils % 84.5 %; Nucleated Red Blood Cells % 0 %; Platelet Count 375 10^3/cmm (157-399); Red Cell Distribution Width 12.7 % (12.1-15.1); White Blood Count 10.64 10^3/uL (3.29-11.43)
[2025-03-18 20:54] LABS: Bilirubin Urine Negative (Negative); Blood Urine Negative (Negative); Glucose Urine UA 3+ (Normal); Ketones Urine 1+ (Negative); Leukocyte Esterase Urine Negative (Negative); Nitrate Urine Negative (Negative); Protein Urine Negative (Negative); Urine Appearance Clear (CLEAR); Urine Color Yellow (Yellow); Urobilinogen Urine 0.2 mg/dL (Negative); pH Urine 5.5 (5-7)
[2025-03-18 20:58] LABS: Lactic Sepsis W/Reflex 2.2 mmol/L (0.5-2.2)
[2025-03-18 20:59] LABS: Bacteria Urine None Seen /hpf; Hyaline Casts Urine 0-4 /lpf; RBC Urine 0-2 /hpf (0-2); Squamous Epithelial Cell Urine 0-5 /hpf (0-5); WBC Urine 0-5 /hpf (0-5)
[2025-03-18 21:02] LABS: Amphetamines Screen Urine Negative (Negative); Barbiturates Screen Urine Negative (Negative); Benzodiazepines Screen Urine Positive (Negative); Cocaine Screen Urine Negative (Negative); Opiate Screen Urine Negative (Negative); PCP Screen Urine Negative (Negative); THC Screen Urine Negative (Negative)
[2025-03-18 21:04] LABS: Specific Gravity, Urine 1.039 (1.005-1.030)
[2025-03-18 21:04] LABS: Troponin(5th) Baseline < 6 ng/L (0-10)
[2025-03-18 21:11] LABS: Alanine Aminotransferase 7 U/L (0-33); Albumin Level 3.7 g/dL (3.5-5.2); Alkaline Phosphatase 122 U/L (35-105); Aspartate Amino Transferase 11 U/L (0-32); Blood Urea Nitrogen 20 mg/dL (6-20); Calcium 8.9 mg/dL (8.5-10.5); Carbon Dioxide 22 mmol/L (22-29); Chloride 89 mmol/L (98-107); Creatinine Clr Calc Pharmacy 138.5783; Globulin 2.6 g/dL (1.3-4.6); Glomerular Filtration Rate 105.8 mL/min (90-130); NT Pro B Type Natriuretic Pept < 36 pg/mL (0-125); Osmolality Calculated 303 mOsm/kg (285-295); Sodium 128 mmol/L (136-145); Total Bilirubin 0.2 mg/dL (0.15-1.2); Total Protein 6.3 g/dL (6.6-8.7)
[2025-03-18 21:17] LABS: Anion Gap 21.3 (5-19); Glucose 718 mg/dL (65-115); Potassium 4.3 mmol/L (3.5-5.1)
--- NOTE | 2025-03-18 21:19 | CTR_ITS ---
PROCEDURE INFORMATION: Exam: CT Chest With Contrast; Diagnostic Exam date and time: 03/18/2025 10:08 PM Age: 49 years old Clinical indication: Condition or disease; Other: Sepsis TECHNIQUE: Imaging protocol: Diagnostic computed tomography of the chest with contrast. Radiation optimization: All CT scans at this facility use at least one of these dose optimization techniques: automated exposure control; mA and/or kV adjustment per patient size (includes targeted exams where dose is matched to clinical indication); or iterative reconstruction. Contrast material: OMNI 350; Contrast volume: 100 ml; Contrast route: INTRAVENOUS (IV); COMPARISON: CR (CHEST, ) 03/18/2025 9:06 PM RADIATION DOSE METRICS: Total DLP (mGy-cm): 1683.99 FINDINGS: Thyroid: Left thyroid lobe demonstrates several low-density nodules measuring 19 mm, dedicated thyroid ultrasound advised for further evaluation. Lungs: Bibasilar atelectasis. Pleural spaces: Unremarkable. No pneumothorax. No pleural effusion. Heart: Unremarkable. No cardiomegaly. No pericardial effusion. Coronary arteries: Coronary artery atherosclerotic calcifications. Lymph nodes: Unremarkable. No enlarged lymph nodes. Vasculature: Unremarkable. No aortic aneurysm. Bones/joints: Unremarkable. No acute fracture. Soft tissues: Unremarkable. COMMENTS: Consistent with the [employer] [employer]'s Incidental Findings Committee white paper (J Am Elodia Radiol 2015): In patients aged 35 years and older with an incidental thyroid nodule equal to or greater than 1.[address], MRI or extrathyroidal US, further evaluation with dedicated thyroid US is recommended for patients with normal life expectancy and without comorbidities. For smaller nodules without suspicious features, no further evaluation or follow up is recommended. PROCEDURE INFORMATION: Exam: CT Abdomen And Pelvis With Contrast Exam date and time: 03/18/2025 10:08 PM Age: 49 years old Clinical indication: Condition or disease; Other: Sepsis TECHNIQUE: Imaging protocol: Computed tomography of the abdomen and pelvis with contrast. Radiation optimization: All CT scans at this facility use at least one of these dose optimization techniques: automated exposure control; mA and/or kV adjustment per patient size (includes targeted exams where dose is matched to clinical indication); or iterative reconstruction. Contrast material: OMNI 350; Contrast volume: 100 ml; Contrast route: INTRAVENOUS (IV); COMPARISON: CT abdomen pelvis w con* [id number] 11/11/2021 4:26 PM RADIATION DOSE METRICS: Total DLP (mGy-cm): 1683.99 FINDINGS: Liver: Normal. No mass. Gallbladder and biliary ducts: Cholecystectomy. Pancreas: Fatty replacement of the pancreas, largely involving the head. Spleen: Normal. No splenomegaly. Adrenal glands: Normal. No mass. Kidneys and ureters: Normal. No hydronephrosis. Stomach and bowel: Prominent fluid in the stomach and small bowel, please correlate for a gastroenteritis. Moderate constipation. Appendix: No evidence of appendicitis. Intraperitoneal space: Unremarkable. No free air. No significant fluid collection. Vasculature: Unremarkable. No abdominal aortic aneurysm. Lymph nodes: Unremarkable. No enlarged lymph nodes. Urinary bladder: Unremarkable as visualized. Reproductive: Unremarkable as visualized. Bones/joints: Unremarkable. No acute fracture. Soft tissues: Unremarkable. CT/CT chest abdpel w/*[id number] IMPRESSION: 1. Bibasilar atelectasis. 2. Coronary artery atherosclerotic calcifications. 3. Left thyroid lobe demonstrates several low-density nodules measuring 19 mm, dedicated thyroid ultrasound advised for further evaluation. IMPRESSION: 1. Prominent fluid in the stomach and small bowel, please correlate for a gastroenteritis. 2. Moderate constipation. 3. Fatty replacement of the pancreas, largely involving the head.
[2025-03-18 21:20] VITALS: BP 125/85; PULSE 123; RESP 15; O2SAT 96
[2025-03-18 21:33] LABS: Ketone (Acetest) Serum Positive (Negative)
[2025-03-18 21:33] LABS: Glucose Point of Care > 600 mg/dL (70-110)
[2025-03-18] MEDS: insulin regular-human 100 units/1 mL 15 UNIT IVP (21:37)
[2025-03-18 21:43] LABS: Estmated Average Glucose 258; Hemoglobin A1C 10.6 % (4.0-6.0)
[2025-03-18 21:47] LABS: ABG PCO2 35.4 mmHg (35-45); ABG PH Result 7.39 (7.35-7.45); Arterial Blood Gas Hematocrit 38.3 % (37-47); Blood Gas Allen Test Pos; Blood Gas Sample Type Arterial; Carboxyhemoglobin 0.5 %THgb (0.4-20.1); HCO3 ABG 21.4 mmol/L (22-26); HGB O2 Sat 98.2 % (95-100); Ionized Calcium Level - ABG 1.2 mmol/L (1.1-1.4); Methemoglobin < 0.0 % (0.4-1.5); Oxygen Saturation ABG 97.5; PO2 ABG 98.1 mmHg (80.0-100.0); Potassium Level - ABG 3.9 mmol/L (3.5-5.0); Total Hemoglobin 12.5 g/dL (12-16)
[2025-03-18 21:48] LABS: Alveolar-Arterial Oxygen Gradi 10.6 mmHg (5-10); Blood Gas Operator Identificat ED; Blood Gas Sample Site Radial, left; Oxygen Device NC; PO2 FiO2 Ratio Arterial Blood 306
[2025-03-18 22:03] LABS: Influenza A NEGATIVE (Negative); Influenza B NEGATIVE (Negative); Respiratory Syncytial Virus Ce NEGATIVE (Negative); SARS-CoV-2 PCR NEGATIVE (Negative)
[2025-03-18] MEDS: iohexol 350 mg/mL 500 mL Btl (per mL) IV (22:08)
[2025-03-18 22:27] LABS: Reflex Lactate Order REFLEX LACTIC ORDERD
--- NOTE | 2025-03-18 22:34 | ECG_ITS ---
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: : 1975 Requested By: Ira Maya Order Number: [id number] Reading MD: PATTI GONZALEZ Measurements Intervals [place] Rate: 118 P: 57 ME: 171 QRS: -6 QRSD: 77 T: -5 QT: 304 QTc: 426 Interpretive Statements SINUS TACHYCARDIA LOW QRS VOLTAGE IN PRECORDIAL LEADS [QRS DEFLECTION < 1.0 mV IN CHEST LEADS] MINIMAL VOLTAGE CRITERIA FOR LVH, CONSIDER NORMAL VARIANT [MEETS CRITERIA IN ONE OF: R(aVL), S(V1), R(V5), R(V5/V6)+S(V1)] INFERIOR MYOCARDIAL INFARCTION , PROBABLY OLD [40+ ms Q WAVE AND/OR ST/T ABNORMALITY IN II/aVF] Compared to ECG 03/18/2025 20:03:27 Low QRS voltage now present Myocardial infarct finding now present Electronically Signed On 03-19-2025 23:39:02 CDT by PATTI GONZALEZ [id number]
[2025-03-18] MEDS: meropenem 500 mg SDV IVP (22:36)
[2025-03-18 22:38] LABS: Glucose Point of Care 423 mg/dL (70-110)
[2025-03-18] MEDS: linezolid premix 600 MG/300 ML PREMIX 300 MG IV (22:40)
[2025-03-18 22:42] VITALS: BP 153/88; PULSE 117; RESP 15; O2SAT 97
[2025-03-18 23:15] LABS: Troponin 5 2HR < 6.0 ng/L (0-10); Troponin 5 2HR Delta 0 ABS# (0-10)
[2025-03-18 23:20] LABS: Lactic Acid level (Lactate) 5.9 mmol/L (0.5-2.2)
[2025-03-18 23:25] VITALS: BP 153/88; PULSE 117; RESP 21; O2SAT 98
[2025-03-18 23:39] VITALS: BP 140/98; PULSE 111; RESP 15; O2SAT 96
--- NOTE | 2025-03-18 23:50 | PM.HP ---
Providers/Chief Complaint Admitting Physician: Jade Viera MD Primary Care Provider: Milady Crystal DO Chief Complaint: weak back pain into stomach History of Present Illness The patient's was in the room when this history was obtained. Tereza Flaherty is a 49 year old female w/ SLE, RA, Sjogren's, Antiphospholipid syndrome, Imer's thyroiditis, osteoarthritis, osteoporosis, Gastroparesis, Anxiety, MDD, HTN, HLD, RLS, who presented to the ED due to back and abdominal pain. The patient states that she started experiencing back pain that radiated up and down her back, then to her abdomen then every where, (b/l elbows, wrists, ankles, knees, and hips) on Sunday. She states that she has chronic back pain due to her OA. SHe attempted gel, heating pad, massager. The pain became unbearable and she decided to come in. She endorses diaphoresis, blurry vision, diplopia, dizziness, light headedness, CP, palpitations, abdominal pain, nausea, all due to the back pain, SHe denies fever, chills, vomiting, She endorses bloody nose often in the last year. She had epistaxis on 03/17/2025 that resolved w/ Afrin. In the ED, her vital signs were significant for hypertension of up to 170/120 mmHg, and tachycardia to the 120s bpm. Her labs showed no leukocytosis. It did show hyponatremia, AGAP metabolic acidosis, BG of 718mg/dL, A1c of 10.6%, lactic acid of 5.9, and negative Trop T x 3. Her CXR showed no acute cardiopulmonary abnormalities. A CT chest abdomen and pelvis with contrast was done that showed several low-density thyroid nodules measuring 19 mm, for which a dedicated thyroid ultrasound was recommended for further evaluation. He had also showed fluid in the stomach and small bowel concerning for gastroenteritis as well as moderate constipation. She was given 15 units of IV insulin x 1, linezolid x 1, meropenem x 1, sepsis fluids (NS bolus of approx 3L) and Zofran, prior to admission She sees a dampproofer in [place] for her Gastroentrologist. Review of Systems Const: Reports: malaise and diaphoresis; Denies: fever(s), chills, change in appetite or fatigue Eyes: Reports: blurry vision and other (diplopia) ENMT: Reports: other (epistaxis - resolved); Denies: odynophagia, ear or mastoid pain, ear discharge, nasal discharge or nasal congestion Card: Reports: lightheadedness; Denies: chest pain or palpitations Resp: Reports: dyspnea; Denies: non-productive cough or wheezing GI: Reports: nausea and constipation; Denies: abdominal pain or vomiting : Reports: urinary frequency and urinary urgency; Denies: dysuria or hematuria Musc: Reports: joint pain Skin/Breast: Reports: rash, new lesions and striae (abdominal striae) Neuro: Reports: dizziness; Denies: headache(s) Psych: Reports: anxiety and depression; Denies: suicidal ideation or homicidal ideation Endo: Reports: polyuria, polydipsia and excessive sweating; Denies: heat intolerance Mauri/Lymph: Reports: easy bruising and easy bleeding All/Imm: Denies: food intolerance Medications/Allergies Home Medications ?Medication ?Instructions ?Recorded ?Confirmed ?Last Taken ?Type albuterol sulfate 90 mcg/actuation 2 puff inhalation Q6H PRN 03/10/20 02/16/25 04/12/20 History aerosol inhaler Shortness Of Breath aspirin 81 mg tablet,delayed 81 mg PO QAM 03/10/20 02/16/25 02/16/25 History release (Adult Aspirin Regimen) cetirizine 10 mg tablet (Zyrtec) 10 mg PO DAILY 03/10/20 02/16/25 02/16/25 History epinephrine 0.3 mg/0.3 mL 0.3 mg IM Q10M PRN Allergic 03/10/20 02/16/25 Unknown History injection, auto-injector (EpiPen) Reaction levothyroxine 137 mcg capsule 137 mcg PO QAM 03/10/20 02/16/25 02/16/25 History oxycodone 15 mg tablet 15 mg PO Q4H PRN Pain 03/10/20 02/16/25 02/16/25 History acetaminophen 500 mg tablet 1,000 mg PO PRN PRN Pain 04/13/20 02/16/25 04/13/20 History (Tylenol Extra Strength) cevimeline 30 mg capsule 30 mg PO TID 1202/16/25 02/16/25 History fluticasone propionate 50 1 spray intranasal DAILY PRN 11/03/21 02/16/25 Unknown History mcg/actuation nasal Allergic Symptoms spray,suspension lidocaine 5 % topical patch 1 patch topical DAILY PRN Pain 11/03/21 02/16/25 Unknown History meclizine 12.5 mg tablet 12.5 mg PO PRN PRN Nausea And 11/03/21 02/16/25 Unknown History Vomiting potassium chloride 10 mEq 10 meq PO DAILY 11/03/21 02/16/25 02/16/25 History capsule,extended release triamcinolone acetonide 0.1 % 1 applic topical BID PRN Rash 11/12/21 02/16/25 Unknown History topical cream pantoprazole 40 mg tablet,delayed 40 mg PO BID #60 tabs 10/23/23 02/16/25 02/16/25 Rx release (Protonix) bupropion HCl 150 mg tablet,12 hr 150 mg PO BID 08/06/24 02/16/25 02/16/25 History sustained-release carisoprodol 350 mg tablet 350 mg PO Q8H PRN Spasms 08/06/24 02/16/25 Unknown History carvedilol 25 mg tablet 25 mg PO BID 08/06/24 02/16/25 02/16/25 History clopidogrel 75 mg tablet 75 mg PO DAILY 08/06/24 02/16/25 02/16/25 History folic acid 1 mg tablet 1 mg PO DAILY 08/06/24 02/16/25 02/16/25 History lidocaine HCl 3 % topical cream 3 applic topical PRN 08/06/24 02/16/25 Unknown History lifitegrast 5 % eye drops in a 1 drp ophthalmic (eye) BID 08/06/24 02/16/25 02/16/25 History dropperette (Xiidra) metoclopramide HCl 10 mg tablet 10 mg PO QID PRN Nausea 08/06/24 02/16/25 Unknown History ondansetron HCl 4 mg tablet 4 mg PO Q4H PRN Nausea 08/06/24 02/16/25 Unknown History prochlorperazine maleate 10 mg 10 mg PO Q6H PRN Nausea/emesis 08/06/24 02/16/25 Unknown History tablet solifenacin 10 mg tablet 10 mg PO DAILY 10/02/24 04/14/25 04/14/25 History sumatriptan succinate 50 mg tablet 50 mg PO PRN PRN Migraine Headache 08/06/24 02/16/25 Unknown History adalimumab-adaz 40 mg/0.4 mL See Rx Instructions SUBCUT 10/09/24 02/16/25 Unknown Rx subcutaneous syringe (Hyrimoz(CF)) .COMPLEX #0.8 mL alprazolam 0.5 mg tablet 0.5 mg PO BID PRN Anxiety 02/16/25 02/16/25 Unknown History atorvastatin 80 mg tablet 80 mg PO BEDTIME 02/16/25 02/16/25 02/15/25 History cholecalciferol (vitamin D3) 50 2,000 unit PO DAILY 02/16/25 02/16/25 02/16/25 History mcg (2,000 unit) capsule desvenlafaxine succinate 100 mg 100 mg PO QAM 02/16/25 02/16/25 02/16/25 History tablet,extended release 24 hr diltiazem HCl 360 mg 360 mg PO DAILY 02/16/25 02/16/25 02/16/25 History capsule,extended release 24 hr hydrochlorothiazide 25 mg tablet 25 mg PO DAILY PRN Edema 02/16/25 02/16/25 Unknown History methenamine hippurate 1 gram tablet 1 g PO BID 02/16/25 02/16/25 02/16/25 History mupirocin 2 % topical ointment 1 applic topical BID PRN Skin 02/16/25 02/16/25 Unknown History Irritation naloxone 4 mg/actuation nasal spray See Rx Instructions .Route .COMPLEX 02/16/25 02/16/25 Unknown History nitrofurantoin 100 mg PO BID 02/16/25 02/16/25 02/16/25 History monohydrate/macrocrystals 100 mg capsule prednisone 10 mg tablet 10 mg PO QAM joint pain 02/16/25 02/16/25 02/16/25 History ropinirole 1 mg tablet 1 mg PO TID 02/16/25 02/16/25 02/16/25 History semaglutide 0.25 mg or 0.5 mg (2 0.5 mg SUBCUT Q7D 02/16/25 02/16/25 02/10/25 History mg/3 mL) subcutaneous pen injector (Ozempic) Allergies Allergy/AdvReac Type Severity Reaction Status Date / Time Sulfa (Sulfonamide Allergy Intermediate ALGY-Rash Verified 03/18/25 20:04 Antibiotics) hydroxychloroquine AdvReac Intermediate eye changes Verified 03/18/25 20:04 diclofenac (From [employer]throtec) AdvReac DIZZINESS Verified 03/18/25 20:04 misoprostol (From [employer]throtec) AdvReac DIZZINESS Verified 03/18/25 20:04 PFSH Acute PFSH: Medical History Seronegative rheumatoid arthritis of both hands Inflammatory arthritis High risk medication use Chronic respiratory failure with hypoxia Hx of Sjogren's disease Immunosuppression Vitamin D deficiency Osteoporosis Lumbar spondylosis Cervical spondylosis Fibromyalgia MGUS (monoclonal gammopathy of unknown significance) Gastroparesis Antiphospholipid antibody positive Systemic lupus erythematosus (SLE) in adult Surgical History History of cholecystectomy H/O tubal ligation Family History Grandmother Diabetes Hypertension Breast cancer Heart disease Hypercholesteremia Thyroid disease Father Diabetes Hypertension Stroke Hypercholesteremia Mother Hypertension Hypercholesteremia Grandmother Heart disease Grandfather Thyroid disease Denies family history of Colon cancer Ovarian cancer Uterine cancer Social History (Updated 03/19/25 @ 05:21 by Jade Viera MD) Smoking and tobacco/nicotine status: never used tobacco/nicotine Alcohol intake: never Substance/Drug Use: never Do you think of yourself as: Straight/Heterosexual Vitals/I&O/Wt Last Vital Signs Temp 97.5 F L 03/18/25 19:57 Pulse 111 H 03/18/25 23:39 Resp 15 03/18/25 23:39 BP 140/98 03/18/25 23:39 Pulse Ox 96 03/18/25 23:39 O2 Del Method Nasal Cannula 03/18/25 23:39 O2 Flow Rate 3.5 03/18/25 23:39 03/18/25 03/18/25 03/19/25 14:59 22:59 06:59 Intake Total 0 / 0 3293.7 / 3293.7 Balance 0 / 0 3293.7 / 3293.7 Weight last 48 hrs Weight 99.79 kg Physical Exam Const: GENERAL APPEARANCE: cooperative; not comfortable NUTRITIONAL APPEARANCE: overweight ORIENTATION/CONSCIOUSNESS: Yes awake, Yes oriented to person, Yes oriented to place and Yes oriented to time HENMT: HEAD & SCALP: normocephalic and atraumatic FACE & SINUS: Cushingoid facies NOSE: Normal external nose present EXTERNAL EAR: Yes external ears normal MOUTH: Normal oral and palatal mucosa present THROAT: posterior oropharynx normal Eye: CONJUNCTIVA: Yes conjunctivae normal PUPIL: Yes Equal, round and reactive pupils present EOM: No EOM abnormal Neck/C-Spine: THYROID: Thyroid normal CAROTIDS: Yes bruit positive bilateral CERVICAL SPINE: Yes cervical ROM normal and Yes other (buffalo hump) Lymph: OTHER: No cervical or supraclavicular LAD. Resp: OTHER: CTAB with no wheezes rales or rhonchi. Cardio: OTHER: RRR, no m/r/g or clicks. GI: OTHER: BS+, NT, ND, no rebound tenderness, no guarding, no rigidity, no hepatosplenomegaly. Back/Pelvis: OTHER: point tenderness at the T-12/L12 spine. Extremity: GENERAL: No clubbing, No cyanosis and No edema Neuro: CRANIAL NERVES: Yes CN normal except as noted SPEECH: speech normal SENSORY EXAM: No sensory level loss detected MOTOR EXAM: 5/5 motor strength present throughout and Normal motor muscle tone present throughout Psych: APPEARANCE: Yes grossly normal ATTITUDE: Yes calm and Yes engaged ACTIVITY/MOTOR BEHAVIOR: Yes appropriate eye contact SPEECH: Yes normal speech MOOD & AFFECT: Yes euthymic mood THOUGHT PROCESS: Normal thought process present THOUGHT CONTENT: Yes Normal thought content present ATTENTION/CONCENTRATION: Yes attention grossly intact MEMORY/COGNITION: Yes memory grossly intact Skin: GENERAL SKIN EXAM: no rashes or lesions noted Data 03/18/25 20:32 03/18/25 20:32 Micro: Microbiology 03/18/25 20:55 Blood Culture - Preliminary Blood SPECIMEN COLLECTED 03/18/25 20:50 Blood Culture - Preliminary Blood SPECIMEN COLLECTED A&P Assessment and plan (1) Intractable low back pain: (2) Type 2 diabetes mellitus with hyperosmolar hyperglycemic state (HHS): Plan Tereza Flaherty is a 49 year old female w/ SLE, RA, Sjogren's, Antiphospholipid syndrome, Imer's thyroiditis, osteoarthritis, osteoporosis, Gastroparesis, Anxiety, MDD, HTN, HLD, RLS, who presented to the ED due to Intractable back and abdominal pain. #Acute Intractable Back pain: -point tenderness on exam. Mildly elevated CRP, ordered ESR. Will also order MRI of T & L/spine to r/o fracture and osteomyelitis. - Resume home oxycodone, Carisoprodol, #SIRS - Unclear source. S/p Linezolid & Meropenem in the ED. - F/u MRI, BCx, Sed rate. - Continue Zosyn for now. #Lactic acidosis - resolved w/ bolus IVF. #Hyperglycemic Hyperosmotic state #New? Type II diagnosis -S/p approx 3L in the ED. Give another 2L at 200cc/hr. -Gave another 10units of insulin. Started insulin glargine and sliding scale. -Counseled her extensively on importance of following up w/ BG management & following up with her Senior Production Planner. -On Ozempic at home. She is also actively working to lose weight #Thyroid nodules - Defer to the day hospitalist to order thyroid ultrasound vs referring to the Senior Production Planner for follow-up. The patient does say that the thyroid nodules are known to her before, and she describes a procedure that sounds like FNA of one of the thyroid nodules ordered by her Senior Production Planner. #Imer's thyroiditis -Continue levothyroxine #Antiphospholipid Antibody syndrome: She has never had a DVT/PE - Resume Aspirin. - I am not sure why she is on Plavix. #SLE,RA, Sjogrens - On biologics -Continue Prednisone, Cevilime, lidocaine patch, oxycodone, carisoprodol #Gastroparesis: She sees a Flight Agent in [place] #HTN: S/p Labetalol 10mg IVP x 1. Resume home meds. #GERD #HLD #Anxiety/MDD #Allergic rhinitis #Osteoporosis - Resume home meds #Asthma: duonebs q4h prn. She says that she does not use her inhalers very often. DVT ppx: lovenox. PDMP PDMP Reviewed: Not Reviewed Attestations Medical Necessity Statement*: The patient needs to be hospitalized for greater than 2 midnights for her Acute Intractable Back pain, hyperglycemic hyperosmotic state. Coding Level of Care Code 94961 High Time for a total of 80 minutes, includes reviewing past or interval history, examining/interviewing patient, placing orders, counseling patient/family/other support, updating patient/family/other support, discussing plan of care with staff, communicating with other healthcare providers, documenting encounter and coordinating care Diagnoses Intractable low back pain M54.59 Type 2 diabetes mellitus with hyperosmolar hyperglycemic state (HHS) E11.00
[2025-03-19] VITALS (20 sets, daily range): BP systolic 123–173; BP diastolic 76–121; PULSE 71–128; RESP 14–21; TEMP 36.4–37.2; O2SAT 95–98
[2025-03-19] MEDS: HYDROmorphone 1 mg/mL INJ 1ml IVP (00:10)
[2025-03-19] MEDS: ondansetron 2 mg/ML SDV 2 mL 4 MG IVP (01:17)
[2025-03-19 02:22] LABS: Glucose Point of Care 409 mg/dL (70-110)
[2025-03-19] MEDS: methocarbamol 500 mg Tablet PO (02:27)
--- NOTE | 2025-03-19 02:33 | ECG_ITS ---
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
[2025-03-19 03:31] LABS: Troponin 5 6HR < 6.0 ng/L (0-10); Troponin 5 6HR Delta 0 ng/L (0-12)
[2025-03-19 04:44] LABS: Lactic Sepsis W/Reflex 1.7 mmol/L (0.5-2.2)
[2025-03-19] MEDS: sodium chloride 0.9% 1,000 ML 200 ML IV (04:50)
[2025-03-19] MEDS: insulin regular-human 100 units/1 mL 10 UNIT IVP (04:51)
[2025-03-19] MEDS: oxyCODONE 5 mg IR Tab/Cap 15 MG PO ×5 (04:56→21:23)
[2025-03-19] MEDS: orphenadrine 30 mg/mL Inj 2 mL 60 MG IVP (04:57)
--- OUTSIDE RECORDS SUMMARY | 2025-03-19 04:59 | XMS_ITS | Encounter Summary ---
Author Organization [facility] Address [address] [place] [address] Care Team Providers Care Chalk Machine Operator Name Role Phone Milady Crystal DO Primary Care Provider [phone] Reason for Visit * Reason Onset Date Comments Medication Refill 03/13/2025 Encounter Details Date Type Department Care Team (Late st Contact Info) Description 03/13/2025 Refill [facility] [address] [place] [address] Milady Crystal DO [address] [place] [address] Generalized anxiety disorder Social History Tobacco Use Types Packs/Day Years Used Date Smoking Tobacco: Never Smokeless Tobacco: Never Alcohol Use Standard Drinks/Week Comments No 0 (1 standard drink = 0.6 oz pur e alcohol) Feeling Safe Answer Date Recorded Within the last year, have y ou been afraid of your partner or ex-partner? No 06/17/2019 Within the last year, have y ou been humiliated or emotionally abused in other ways by your partner or ex-partner? No Within the last year, have y ou been kicked, hit, slapped, or otherwise physically hurt by your partner or ex-partner? No 06/17/2019 Within the last year, have y ou been raped or forced to have any kind of sexual activity by your partner or ex-partner? No 06/17/2019 Social Connections Answer Date Recorded In a typical week, how many times do you talk on the phone with family, friends, or neighbors? Once a week 06/17/2019 How often do you get together with friends or re latives? Never 06/17/2019 How often do you attend anabaptism or mandaeism serv ices? Never 06/17/2019 Do you belong to any clubs o r organizations such as anabaptism groups, unions, fraternal or athletic groups, or school groups? No 06/17/2019 How often do you attend meet ings of the clubs or organizations you belong to? Not asked 06/17/2019 Are you , , di vorced, , never , or living with a partner? 06/17/2019 Financial Resource Strain Answer Date R ecorded How hard is it for you to pa y for the very basics like food, housing, medical care, and heating? Not hard at all 06/17/2019 Food Insecurity Answer Date Recorded Within the past 12 months, y ou worried that your food would run out before you got the money to buy more. Never true 06/17/20 19 Within the past 12 months, t he food you bought just didn't last and you didn't have money to get more. Never true 06/17/2019 Transportation Needs Answer Date Record ed In the past 12 months, has l ack of transportation kept you from medical appointments or from getting medications? No 06/05 In the past 12 months, has l ack of transportation kept you from meetings, work, or from getting things needed for daily living? No 06/17/2019 Feeling Safe Answer Date Recorded Are you in a relationship wi th someone who hurts you emotionally and/or physically? 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 Gender Identity Not on file Sexual Orientation Not on file documented as of this encounter Miscellaneous Notes * Telephone Encounter - Roxie Carmona LPN - 03/13/2025 4:41 PM CDT 4:41 PM 03/13/2025 Date of last visit addressing condition(s) being treated: 02/12/25 LFD 02/11/25 Date of next visit in this department: 04/15/2025 Correct Pharmacy: Yes Recent Visits Date Type Provider Dept 02/12/25 Video Visit Milady Crystal, DO [facility] 12/30/24 Office Visit February, [facility] 12/02/24 Video Visit Milady Crystal, DO [facility] 09/24/24 Video Visit Milady Crystal, DO [facility] 08/20/24 Office Visit Milady Crystal, DO [facility] 08/13/24 Office Visit Milady Crystal, DO [facility] 06/19/24 Video Visit Milady Crystal, DO [facility] 05/22/24 Office Visit Milady Crystal, DO [facility] 05/02/24 Office Visit Milady Crystal, [facility] 04/01/24 Video Visit February, [facility] Showing recent visits within past 400 days with a meds authorizing provider and meeting all other requirements Future Appointments Date Type Provider Dept 04/15/25 Appointment Milady Crystal, DO [facility] 06/16/25 Appointment Milady Crystal, DO [facility] 08/13/25 Appointment Milady Crystal, DO [facility] Showing future appointments within next 400 days with a meds authorizing provider and meeting all other requirements Check and review of the [place] PDMP performed on 03/13/2025 at 4:42 PM.. No suspicious activity found. Roxie BUSBY documented in this encounter Plan of Treatment Upcoming Encounters Date Type Department Care Team (Late st Contact Info) Description 04/15/2025 3:20 PM CDT Video Visit [facility] [address] [place] [phone] Milady Crystal, DO [address] [place] [phone] 06/16/2025 11:00 AM CDT Video Visit [facility] [address] [place] [phone] Milady Crystal, DO [address] [place] [phone] 08/13/2025 2:00 PM CDT Video Visit [facility] [address] [place] [phone] Milady Crystal, DO [address] [place] [phone] documented as of this encounter Visit Diagnoses Diagnosis Generalized anxiety disorder documented in this encounter Care Teams Chalk Machine Operator Relationship Specialty Start Date End Date Milady Crystal DO [address] [place] [phone] PCP - General Family Practice 03/10/10 documented as of this encounter
--- OUTSIDE RECORDS SUMMARY | 2025-03-19 04:59 | XMS_ITS | Encounter Summary ---
Author Organization [facility] [place] Address [address] [place] [address] Care Team Providers Care Tray Drier Name Role Phone MarahMilady Francesco [place] Primary Care Provider [phone] Reason for Referral * Outpatient Services (Routine) - Closed Specialty Diagnoses / Procedures Referred By Contac t Referred To Contact Radiology Diagnoses Left breast lump Procedures MAMMO DIAGNOSTIC BILATERAL W OR WO CAD Hetal Marte MD Phone: tel: fax: [facility] [address] [address] Phone: tel: fax: Referral ID Status Reason Start Date Expiration Date Visits Re quested Visits Authorized [id number] Closed 04/24/2017 05/25/2018 1 1 Encounter Details Date Type Department Care Team (Late st Contact Info) Description 04/24/2017 Ancillary Orders [facility] Pre-Registration [place] CALL TO MAKE APPOINTMENT ONLY [address] [place] [address] Hetal Marte MD [address] [place] [address] Left breast lump Social History Tobacco Use Types Packs/Day Years Used Date Smoking Tobacco: Never Alcohol Use Standard Drinks/Week Comments No 0 (1 standard drink = 0.6 oz pur e alcohol) Comments No Sex and Gender Information Value Date Recorded Sex Assigned at Not on file Legal Sex 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 I would recommend the patient make an appointment with her physician for clinical breast examination. Unless otherwise clinically indicated, I would recommend follow-up screening mammogram in one year. Patient received a result/recommendation letter. [id number] Narrative 05/18/2017 3:29 PM CDT Bilateral Diagnostic Mammogram and Left Breast Ultrasound 05/18/2017 HISTORY: The patient is 41 years of age and is here with a lump she feels upper outer on the left and also a lump in the left axilla. She has had a 52 pound weight loss according to her history. She had a clinical breast examination on 02/14/2017 which according to the notes was negative. There were no palpable lumps at that time. Mammogram: Bilateral craniocaudal, oblique, and medial to lateral views are obtained and supplemented with left axillary tail view. The breasts are almost entirely fatty replaced. No suspicious findings are seen. No dominant masses or suspicious calcifications are seen. There is no significant change compared with prior exams of 06/15/2015 and 10/18/2011. Those are the only 2 prior exams I have available for comparison. Left Breast Ultrasound: The left breast was scanned first by the technologist to evaluate the 2 areas pointed out by the patient.. There is a tiny cyst identified in the left breast at the 2:00 position but this is only measuring 3 mm. I do not feel that that is what the patient is feeling. After the scan by the technologist, I had the patient point to the area in the breast. She had a very difficult time pointing out the lump in the breast. I had her point out the area in the axilla. Images were taken by the technologist of a possible lymph node. However, I scanned this area myself and I feel that this is isoechoic fatty tissue which is isoechoic with the surrounding tissue in the axilla. I do not see any discrete or suspicious findings in the axilla. I do not see any suspiciously enlarged lymph nodes. I gave this report to the patient. I gave her a written report as well. I suggested that she call her physician and make an appointment for examination to evaluate the 2 areas she feels on the left.. If the area in the axilla is clinically persistent or worrisome, then CT of the chest may be indicated. This mammogram was also analyzed by the Computer Aided Detection System (CAD), [employer], Version 8.3. us Hetal Irwin MD MAMMO ORDERABLES Final Result documented in this encounter Visit Diagnoses Diagnosis Left breast lump Lump or mass in breast Left breast lump Lump or mass in breast documented in this encounter Care Teams Tray Drier Relationship Specialty Start Date End Date Milady Crystal DO [address] [place] [address] PCP - General Family Practice 03/10/10 documented as of this encounter
--- OUTSIDE RECORDS SUMMARY | 2025-03-19 04:59 | XMS_ITS | Encounter Summary ---
Author Organization [facility] Address [address] [place] [address] Care Team Providers Care Nib Adjuster Name Role Phone Milady Crystal DO Primary Care Provider Reason for Visit * Reason Comments Med Refill Encounter Details Date Type Department Care Team (Late st Contact Info) Description 03/14/2025 Refill [facility] [place] [address] [place] [address] Milady Crystal DO [address] [place] [address] Social History Tobacco Use Types Packs/Day Years [...] Never 06/17/2019 How often do you attend druze or adventist serv ices? Never 06/17/2019 Do you belong to any clubs o r organizations such as druze groups, unions, fraternal or athletic groups, or [...] on file Legal Sex Female 12:59 AM WASHER OFF Gender Identity Not on file Sexual Orientation Not on file documented as of this encounter Miscellaneous Notes * Telephone Encounter - Roxie CarmonaQI - 03/16/2025 7:53 AM CDT Medication Refill Request Last Fill Date:10/31/24 #120 with 3 RF DELMER 02/12/25 Recent and Future Visits: Recent Visits Date Type Provider Dept 02/12/25 Video Visit Milady Crystal, DO [facility] 12/30/24 Office Visit February, [facility] 12/02/24 Video Visit Milady Crystal, DO [facility] 09/24/24 Video Visit Milady Crystal, DO [facility] [place] 08/20/24 Office Visit Milady Crystal, DO [facility] [place] 08/13/24 Office Visit Milady Crystal, DO [facility] 06/19/24 Video Visit Milady Crystal, DO [facility] 05/22/24 Office Visit Milady Crystal, DO [facility] 05/02/24 Office Visit Milady Crystal, DO [facility] 04/01/24 Video Visit February, [facility] [place] Showing recent visits within past 540 days with a meds authorizing provider and meeting all other requirements Future Appointments Date Type Provider Dept 04/15/25 Appointment Milady [facility], DO [facility] 06/16/25 Appointment Milady Crystal, DO [facility] 08/13/25 Appointment Milady Crystal, DO [facility] Showing future appointments within next 365 days with a meds authorizing provider and meeting all other requirements Last Labs: Lab Results Component Value Date/Time CREAT 0.82 02/11/2025 10:59 AM BUN 25 02/11/2025 10:59 AM NA 136 02/11/2025 10:59 AM K 4.1 02/11/2025 10:59 AM CL 96 (L) 02/11/2025 10:59 AM CO2 16 (L) 02/11/2025 10:59 AM GFR 87 02/11/2025 10:59 AM Tereza Flaherty - 1975 Check and review of the [place] PDMP performed on 03/16/2025 at 7:53 AM was documented in this encounter Plan of Treatment Upcoming Encounters Date Type Department Care Team (Late st Contact Info) Description 04/15/2025 3:20 PM CDT Video Visit [facility] [address] [place] [address] Milady Crystal, DO [address] [place] [phone] 06/16/2025 11:00 AM CDT Video Visit [facility] [address] [place] [address] Milady Crystal, DO [address] [place] [address] 08/13/2025 2:00 PM CDT Video Visit [facility] [address] [place] [phone] Milady Crystal, DO [address] [place] [phone] documented as of this encounter Visit Diagnoses Not on filedocumented in this encounter Care Teams Nib Adjuster Relationship Specialty Start Date End Date Milady Crysatl DO [address] [place] [facility] [place] [place] [address] PCP - General Family Practice 03/10/10 documented as of this encounter
--- OUTSIDE RECORDS SUMMARY | 2025-03-19 04:59 | XMS_ITS | Encounter Summary ---
Author Organization [facility] Address [address] [place] [address] Care Team Providers Care Senior Web Engineer Name Role Phone Milady Crystal DO Primary Care Provider Encounter Details Date Type Department Care Team (Late st Contact Info) Description 07/20/2023 Lab Requisition [facility] [place] [address] [place] [address] Milady Crystal DO [address] [place] [address] Urinary tract infection, site not specified Social History Tobacco Use Types Packs/Day Years [...] Never 06/17/2019 How often do you attend mormon or mandaen serv ices? Never 06/17/2019 Do you belong to any clubs o r organizations such as mormon groups, unions, fraternal or athletic groups, or [...] things needed for daily living? 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 Gender Identity Not on file Sexual Orientation Not on file documented as of this encounter Plan of Treatment Upcoming Encounters Date Type Department Care Team (Late st Contact Info) Description 04/15/2025 3:20 PM CDT Video Visit [facility] [place] [address] [facility] [address] Milady Crystal DO [address] [place] [facility] [place] [address] 06/16/2025 11:00 AM CDT Video Visit [facility] [address] [place] [address] Milady Crystal, DO [address] [place] [address] 08/13/2025 2:00 PM CDT [facility] Visit [facility] [address] [place] [facility] [address] Milady Crystal, DO [address] [place] [address] documented as of this encounter Procedures Procedure Name Priority Date/Time Associated Diagnosis Comments LACTIC ACID Stat 07/20/2023 12:50 PM CDT Urinary tract infection, site not specified documented in this encounter Results * (ABNORMAL) LACTIC ACID (07/20/2023 12:50 PM CDT) LACTIC ACID 2.1(H) <=2.0 mmol/L 07/20/2023 1:15 PM CDT [facility] Blood Venipuncture / Unknown 07/20/2023 12:50 PM CDT 07/20/2023 12:53 PM CDT us Milady Crystal DO CHEMISTRY ORDERABLES Final Result [facility] CLIA # [id number] [address] [place] [address] documented in this encounter Visit Diagnoses Diagnosis Urinary tract infection, site not specified documented in this encounter Additional Health Concerns Infection Onset Date Last Indicated Resolved Time R/O C. diff 08/05/2024 08/05/2024 08/05/2024 2:54 PM CDT Assessment Noted Time PHQ-9 Depression Total Score: 2 01/07/20 3:50 PM ASSET SPECIALIST documented as of this encounter Care Teams Senior Web Engineer Relationship Specialty Start Date End Date Milady Crystal DO [address] [place] [address] PCP - General Family Practice 03/10/10 documented as of this encounter
--- OUTSIDE RECORDS SUMMARY | 2025-03-19 04:59 | XMS_ITS | Encounter Summary ---
Author Organization [facility] Address [address] [place] [address] Care Team Providers Care Machine Maintenance Name Role Phone Milady Crystal Francesco [place] Primary Care Provider Reason for Visit * Reason Onset Date Comments Medication Refill 03/17/2025 Encounter Details Date Type Department Care Team (Late st Contact Info) Description 03/17/2025 Refill [facility] [place] [address] [place] [address] Silverio Farley, [facility] [address] [place] [address] Gastroparesis Social History Tobacco Use Types Packs/Day Years [...] Never 06/17/2019 How often do you attend taoism or voodoo serv ices? 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 [place] 12/30/24 Office Visit February, [facility] [place] 12/02/24 Video Visit Milady Crystal, DO [facility] [place] 09/24/24 Video Visit Milady Crystal, DO [facility] [place] 08/20/24 Office Visit Milady Crystal, DO [facility] [place] 08/13/24 Office Visit Milady Crystal, DO [facility] 06/19/24 Video Visit Milady Crystal, DO [facility] 05/22/24 Office Visit Milady Crystal, DO [facility] 05/02/24 Office Visit Milady Crystal, DO [facility] 04/01/24 Video Visit [place], [facility] [place] Showing recent visits within past 540 days with a meds authorizing provider and meeting all other requirements Future Appointments Date Type Provider Dept 04/15/25 Appointment Milady Crystal, DO [facility] [place] 06/16/25 Appointment Milady Crystal, DO [facility] 08/13/25 Appointment Milady Crystal, DO [facility] Showing future appointments within next 365 [...] - 1975 Check and review of the [place] PDMP performed on 03/17/2025 at 2:35 PM was documented in this encounter Plan of Treatment Upcoming Encounters Date Type Department Care Team (Late st Contact Info) Description 04/15/2025 3:20 PM CDT Video Visit [facility] [address] [place] [address] Milady Crystal, DO [address] [place] [address] 06/16/2025 11:00 AM CDT Video Visit [facility] [address] [place] [address] Milady Crystal, DO [address] [place] [address] 08/13/2025 2:00 PM CDT Video Visit [facility] [address] [place] [address] Milady Crystal DO [address] [place] [address] documented as of this encounter Visit Diagnoses Diagnosis Gastroparesis documented in this encounter Care Teams Machine Maintenance Relationship Specialty Start Date End Date Milady Crystal DO [address] [place] [address] PCP - General Family Practice 03/10/10 documented as of this encounter
--- OUTSIDE RECORDS SUMMARY | 2025-03-19 04:59 | XMS_ITS | Encounter Summary ---
Author Organization [facility] Address [address] [place] [address] Care Team Providers Care Director Non Profit Name Role Phone Milady Crystal DO Primary Care Provider +- [phone] Reason for Referral * Outpatient Services (Routine) - Closed Specialty Diagnoses / Procedures Referred By Ziyad t Referred To Contact Radiology Diagnoses Breast pain Breast lump Procedures MAMMO BREAST US RIGHT LTD Milady Crystal, DO [address] [place] [address] Phone: tel: fax: [facility] [address] [facility] [address] [address] Phone: tel: fax: Referral ID Status Reason Start Date Expiration Date Visits Requested Visits Authorized [id number] Closed Performing Department To Schedule (SGF) 06/08/2015 07/08/2016 1 1 * Outpatient Services (Routine) - Closed Specialty Diagnoses / Procedures Referred By Contac t Referred To Contact Radiology Diagnoses Breast pain Breast lump Procedures MAMMO DIGITAL DIAG BILAT Milady Crystal, DO [address] [place] [address] Phone: tel: fax: [facility] [address] [place] [address] Phone: tel: fax: Referral ID Status Reason Start Date Expiration Date V isits Requested Visits Authorized [id number] Closed [facility] TO SCHEDULE (SGF) 06/08/2015 07/08/2016 1 1 Encounter Details Date Type Department Care Team (Latest Contact Info) Description 06/08/2015 Ancillary Orders [facility] Pre-Registration [place] CALL TO MAKE APPOINTMENT ONLY [address] [place] [facility] [place] [address] Milady Crystal DO [address] [facility] [place] [id number] Breast pain (Primary Dx); Breast lump Social History Tobacco Use Types Packs/Day Years Used Date Smoking Tobacco: Never Alcohol Use Standard Drinks/Week Comments No 0 (1 standard drink = 0.6 oz pur e alcohol) Comments No Sex and Gender Information Value Date Recorded Sex Assigned at Not on file 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 The mammogram is unremarkable as well as the directed right breast ultrasound. No suspicious palpable lumps were identified. We discussed decaffeination as this may help alleviate some of her breast pain. From an imaging point of view yearly screening exams are recommended. Patient received the result and recommendation letter. KG/jaw - uploaded from [employer] Scribe - Narrative 06/16/2015 8:09 PM CDT REASON FOR EXAM: Patient is reporting to the Breast Center because of self discovered palpable lumps identified inferiorly on the right as well as in the posterior segment of the right upper outer quadrant. IMAGING PERFORMED: Standard bilateral six view mammogram COMPARISON(S): Only previous study of 10/18/2011 TISSUE COMPOSITION: [facility] FAMILY HX.-BREAST Ca: Maternal grandmother MAMMOGRAPHIC FINDINGS: RIGHT BREAST: A single BB was placed inferiorly approximately at the 4 to 5 o'clock location. This portion of the mammogram is unremarkable. Two BBs were placed on the second palpable lump which appears to correspond to a benign-appearing 3 to 4 mm nodule. Further evaluation sonographically is recommended. The remainder of the findings on the right are unremarkable. LEFT BREAST: No suspicious findings or significant interval change is identified. This digital mammogram was also analyzed by the Computer Aided Detection System (CAD), [employer], Version 8.3. RIGHT BREAST ULTRASOUND: Sonographic evaluation was carried out on the right and scanning was carried out along the IMF. There were no cystic or solid masses identified. Scanning was then carried out in the posterior segment of the upper outer quadrant. An unremarkable-appearing intramammary lymph node is identified. PHYSICAL EXAM: On physical exam there is some mild nodularity detected along the IMF which can be considered within normal limits. No suspicious masses were palpated. us Milady Crystal DO MAMMO ORDERABLES Final Resu lt * MAMMO DIGITAL DIAG BILAT (06/15/2015 11:43 AM CDT) Anatomical Region Laterality Modality Breast Bilateral Mammography 06/15/2015 10:4 1 AM CDT Impressions 06/16/2015 8:09 PM CDT IMPRESSION: Bilateral diagnostic exam and directed right breast ultrasound was performed today. The mammogram is unremarkable as well as the directed right breast ultrasound. No suspicious palpable lumps were identified. We discussed decaffeination as this may help alleviate some of her breast pain. From an imaging point of view yearly screening exams are recommended. Patient received the result and recommendation letter. KG/jaw - uploaded from [employer] 06/16/2015 8:09 PM CDT REASON FOR EXAM: Patient is reporting to the Breast Center because of self discovered palpable lumps identified inferiorly on the right as well as in the posterior segment of the right upper outer quadrant. IMAGING PERFORMED: Standard bilateral six view mammogram COMPARISON(S): Only previous study of 10/18/2011 TISSUE COMPOSITION: [facility] FAMILY HX.-BREAST Ca: Maternal grandmother MAMMOGRAPHIC FINDINGS: RIGHT BREAST: A single BB was placed inferiorly approximately at the 4 to 5 o'clock location. This portion of the mammogram is unremarkable. Two BBs were placed on the second palpable lump which appears to correspond to a benign-appearing 3 to 4 mm nodule. Further evaluation sonographically is recommended. The remainder of the findings on the right are unremarkable. LEFT BREAST: No suspicious findings or significant interval change is identified. This digital mammogram was also analyzed by the Computer Aided Detection System (CAD), [employer], Version 8.3. RIGHT BREAST ULTRASOUND: Sonographic evaluation was carried out on the right and scanning was carried out along the IMF. There were no cystic or solid masses identified. Scanning was then carried out in the posterior segment of the upper outer quadrant. An unremarkable-appearing intramammary lymph node is identified. PHYSICAL EXAM: On physical exam there is some mild nodularity detected along the IMF which can be considered within normal limits. No suspicious masses were palpated. us Milady Crystal DO MAMMO ORDERABLES Final Resu lt documented in this encounter Visit Diagnoses Diagnosis Breast pain- Primary Mastodynia Breast lump Lump or mass in breast Breast pain Mastodynia Breast lump Lump or mass in breast Breast pain Mastodynia Breast lump Lump or mass in breast documented in this encounter Care Teams Director Non Profit Relationship Specialty Start Date End Date Milady Crystal DO [address] [place] [address] PCP - General Family Practice 03/10/10 documented as of this encounter
--- OUTSIDE RECORDS SUMMARY | 2025-03-19 04:59 | XMS_ITS | Encounter Summary ---
Author Organization [facility] Address [address] [place] [address] Care Team Providers Care Jewelry Designer Name Role Phone Kendal Crystaloramariam Maya DO Primary Care Provider [phone] Reason for Referral * Outpatient Services (Routine) - Closed Specialty Diagnoses / Procedures Referred By Ziyad baldwin Referred To Contact Radiology Diagnoses Left breast lump Procedures MAMMO BREAST US LEFT LTD Hetal Marte MD Phone: tel: fax: [facility] [address] [address] Phone: tel: fax: Referral ID Status Reason Start Date Expiration Date Visits Requested Visits Authorized [id number] Closed Performing Department To Schedule (SGF) 04/24/2017 05/25/2018 1 1 Encounter Details Date Type Department Care Team (Late st Contact Info) Description 04/24/2017 Ancillary Orders [facility] Pre-Registration [place] CALL TO MAKE APPOINTMENT ONLY [address] [place] [address] Hetal Marte MD [address] [place] [address] Left breast lump Social History Tobacco Use Types Packs/Day Years Used Date Smoking Tobacco: Never Alcohol Use Standard Drinks/Week Comments No 0 (1 standard drink = 0.6 oz pur e alcohol) Comments No Sex and Gender Information Value Date Recorded Sex Assigned at Not on file Legal Sex Female 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 I would recommend the patient make an appointment with her physician for clinical breast examination. Unless otherwise clinically indicated, I would recommend follow-up screening mammogram in one year. Patient received a result/recommendation letter. [id number] Narrative 05/18/2017 3:29 PM CDT Bilateral Diagnostic [...] by the Computer Aided Detection System (CAD), [employer], Version 8.3. Hetal Irwin MD MAMMO ORDERABLES Final Result documented in this encounter Visit Diagnoses Diagnosis Left breast lump Lump or mass in breast Left breast lump Lump or mass in breast documented in this encounter Care Teams Jewelry Designer Relationship Specialty Start Date End Date Milady Crystal DO [address] [place] [address] PCP - General Family Practice 03/10/10 documented as of this encounter
--- OUTSIDE RECORDS SUMMARY | 2025-03-19 04:59 | XMS_ITS | Encounter Summary ---
Author Organization [facility] Address [address] [place] [address] Care Team Providers Care Sheep Clipper Name Role Phone Milady Crystal DO Primary Care Provider Encounter Details Date Type Department Care Team (Late st Contact Info) Description 02/11/2025 Lab Requisition [facility] Services [place] [address] [place] [address] Milady Crystal DO [address] [place] [address] Leukemoid reaction Social History Tobacco Use Types Packs/Day Years [...] Never 06/17/2019 How often do you attend advent or lutheran serv ices? 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 Gender Identity Not on file Sexual Orientation Not on file documented as of this encounter Plan of Treatment Upcoming Encounters Date Type Department Care Team (Late st Contact Info) Description 04/15/2025 3:20 PM CDT Video Visit [facility] [address] [place] [facility] [place] [phone] Milady Crystal, DO [address] [place] [address] 06/16/2025 11:00 AM CDT Video Visit [facility] [address] [place] [address] Milady Crystal, DO [address] [place] [address] 08/13/2025 2:00 PM CDT Video Visit [facility] [address] [place] [address] Milady Crystal, DO [address] [place] [address] documented as of this encounter Procedures Procedure Name Priority Date/Time Associated Diagnosis Comments LACTIC ACID Stat 02/11/2025 10:58 AM CDT Leukemoid reaction documented in this encounter Results * (ABNORMAL) LACTIC ACID (02/11/2025 10:58 AM CDT) LACTIC ACID 4.7(HH) <=2.0 mmol/L 02/11/2025 12:30 PM CDT [facility] Blood Collection / Unknown 02/11/2025 10:58 AM CDT 02/11/2025 10:58 AM CDT Milady Crystal DO CHEMISTRY ORDERABLES Final Result [facility] CLIA # [id number] [address] [place] [id number] documented in this encounter Visit Diagnoses Diagnosis Leukemoid reaction documented in this encounter Care Teams Sheep Clipper Relationship Specialty Start Date End Date Milady Crystal DO [address] [place] [address] PCP - General Family Practice 03/10/10 documented as of this encounter
--- OUTSIDE RECORDS SUMMARY | 2025-03-19 04:59 | XMS_ITS | Encounter Summary ---
Author Organization [facility] Address [address] [place] [address] Care Team Providers Care Snow Plow Tractor Operator Name Role Phone Milady Crystal DO Primary Care Provider Reason for Visit * Reason Onset Date Comments Medication Refill 03/13/2025 Encounter Details Date Type Department Care Team (Late st Contact Info) Description 03/13/2025 Refill [facility] Medicine [place] [address] [place] [address] Milady Crystal DO [address] [place] [address] Muscle spasms of both lower extremities Social History Tobacco Use Types Packs/Day Years [...] Never 06/17/2019 How often do you attend gnosticism or adventist serv ices? 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 Gender Identity Not on file Sexual Orientation Not on file documented as of this encounter Miscellaneous Notes * Telephone Encounter - Roxie Carmona LPN - 03/13/2025 4:36 PM CDT 4:36 PM 03/13/2025 Date of last visit addressing condition(s) being treated: 02/12/25 LFD 02/11/25 Date of next visit in this department: 04/15/2025 Correct Pharmacy: Yes Recent Visits Date Type Provider Dept 02/12/25 Video Visit Milady Crystal, DO [facility] [place] 12/30/24 Office Visit February, [facility] [place] 12/02/24 Video Visit Milady Crystal, DO [facility] [place] 09/24/24 Video Visit Milady Crystal, DO [facility] [place] 08/20/24 Office Visit Milady Crystal, DO [facility] [place] 08/13/24 Office Visit Milady Crystal, DO [facility] [place] 06/19/24 Video Visit Milady Crystal, DO [facility] [place] 05/22/24 Office Visit Milady Crystal, DO [facility] [place] 05/02/24 Office Visit Milady Crystal, DO [facility] [place] 04/01/24 Video Visit February, [facility] [place] Showing recent visits within past 400 days with a meds authorizing provider and meeting all other requirements Future Appointments Date Type Provider Dept 04/15/25 Appointment Milady Crystal, DO [facility] [place] 06/16/25 Appointment Milady Crystal, DO [facility] [place] 08/13/25 Appointment Milady Crystal, DO [facility] Showing future appointments within next 400 days with a meds authorizing provider and meeting all other requirements Check and review of the [place] PDMP performed on 03/13/2025 at 4:39 PM.. No suspicious activity found. Roxie BUSBY documented in this encounter Plan of Treatment Upcoming Encounters Date Type Department Care Team (Late st Contact Info) Description 04/15/2025 3:20 PM CDT Video Visit [facility] [address] [place] [phone] Milady Crystal, DO [address] [place] [phone] 06/16/2025 11:00 AM CDT Video Visit [facility] [address] [place] [phone] Milady Crystal, DO [address] [place] [phone] 08/13/2025 2:00 PM CDT Video Visit [facility] [address] [place] [address] Milady Crystal, DO [address] [place] [address] documented as of this encounter Visit Diagnoses Diagnosis Muscle spasms of both lower extremities documented in this encounter Care Teams Snow Plow Tractor Operator Relationship Specialty Start Date End Date Milady Crystal DO [address] [place] [phone] PCP - General Family Practice 03/10/10 documented as of this encounter
--- OUTSIDE RECORDS SUMMARY | 2025-03-19 04:59 | XMS_ITS | Encounter Summary ---
Author Organization [facility] Address [address] [place] [address] Care Team Providers Care Supervisor Filtration Name Role Phone Milady Crystal DO Primary Care Provider [phone] Encounter Details Date Type Department Care Team (Late st Contact Info) Description 07/17/2023 Lab Requisition [facility] Laboratory Services [place] [address] [place] [address] Milady Crystal DO [address] [place] [address] Urinary tract infection, site not [...] Never 06/17/2019 How often do you attend mandaeism or pentecostalism serv ices? 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 Gender Identity Not on file Sexual Orientation Not on file documented as of this encounter Plan of Treatment Upcoming Encounters Date Type Department Care Team (Late st Contact Info) Description 04/15/2025 3:20 PM CDT Video Visit [facility] [place] [address] [facility] [address] Milady Crystal DO [address] [facility] [place] [address] 06/16/2025 11:00 AM CDT Video Visit [facility] [address] [place] [address] Milady Crystal, DO [address] [place] [address] 08/13/2025 2:00 PM CDT Video Visit [facility] [address] [place] [facility] [place] [address] Milady Crystal, DO [address] [place] [address] documented as of this encounter Procedures Procedure Name Priority Date/Time Associated Diagnosis Comments LACTIC ACID Stat 07/17/2023 10:45 AM CDT Urinary tract infection, site not specified documented in this encounter Results * (ABNORMAL) LACTIC ACID (07/17/2023 10:45 AM CDT) LACTIC ACID 2.6(H) <=2.0 mmol/L 07/17/2023 11:11 AM CDT [facility] Blood Collection / Unknown 07/17/2023 10:45 AM CDT 07/17/2023 10:50 AM CDT us Milady Crystal DO CHEMISTRY ORDERABLES Final Result [id number] [address] [place] [address] documented in this encounter Visit Diagnoses Diagnosis Urinary tract infection, site not specified documented in this encounter Additional Health Concerns Infection Onset Date Last Indicated Resolved Time R/O C. diff 08/05/2024 08/05/2024 08/05/2024 2:54 PM CDT Assessment Noted Time PHQ-9 Depression Total Score: 2 01/07/20 3:50 PM WINDOW SHADE CUTTER AND MOUNTER documented as of this encounter Care Teams Supervisor Filtration Relationship Specialty Start Date End Date Milady Crystal DO [address] [place] [address] PCP - General Family Practice 03/10/10 documented as of this encounter
--- OUTSIDE RECORDS SUMMARY | 2025-03-19 04:59 | XMS_ITS | Clinical Summary ---
Author Organization [facility] Address [address] [facility] [place] [address] Care Team Providers Care Record Retrieval Specialist Name Role Phone Marah, Milady L DO Primary Care Provider Allergies Active Allergy Reactions Criticality Noted Date Comments Hydroxychloroquine Other (See Comments) High 02/21/2023 Created macular changes of both eyes Misoprostol Dizziness Low 02/21/2023 Sulfamethoxazole-Trimethopr im Hives High 01/06/2022 Bactrim Medications aspirin (ECOTRIN EC) 81 mg Tablet, Delayed Release (E.C.) Take 81 mg by mouth daily. 016 Active mupirocin (BACTROBAN) 2 % Ointment APPLY TO AFFECTED AREA EVERY DAY 66 Gram 2 023 Active diclofenac sodium (VOLTAREN) 1 % gelIndications:Ot her systemic lupus erythematosus with lung involvement (CMS/HCC) APPLY 4 GRAMS TO AFFECTED AREA 4 TIMES DAILY 400 Gram 5 023 Active sucralfate (CARAFATE) 1 gram tablet Take 1 Tablet (1 Gram) by mouth 4 times daily before meals and at bedtime. 120 Tablet 3 023 Active nystatin (MYCOSTATIN) 100,000 unit/gram CreamIndications: Vaginal yeast infection Apply to affected area 4 times daily. 60 Gram 6 024 Active Xiidra 5 % Dropperette Administer 1 Drop in both eyes 2 times daily. 023 Active lidocaine 3 % Cream Apply to affected area 2 times daily. 85 Gram 2 024 Active folic acid (FOLVITE) 1 mg tablet Take 1 Tablet (1 mg) by mouth daily. 90 Tablet 4 024 Active pantoprazole (Protonix) 40 mg Tablet, Delayed Release (E.C.)Indications :Gastroesophageal reflux disease without esophagitis Take 1 Tablet (40 mg) by mouth 2 times daily. 180 Tablet 4 024 Active Cholecalciferol, Vitamin D3, 50 mcg (2,000 unit) Capsule Take 1 Capsule by mouth daily. 024 Active portable oxygenIndications :Chronic respiratory failure with hypoxia and hypercapnia (CMS/HCC) Face to Face completed within 30 days: yes Length of Need: 99 months By: Nasal Cannula Continuously at 4 L/min. 1 Each 024 Active albuterol sulfate HFA 90 mcg/actuation aerosol inhaler inhale 2 puffs by mouth every 6 hours as needed for shortness of breath 18 Gram 024 Active solifenacin (VESICARE) 10 mg Tablet Take 1 Tablet (10 mg) by mouth daily. 100 Tablet 3 024 Active clopidogreL (PLAVIX) 75 mg TabletIndications :History of TIA (transient ischemic attack) and stroke take 1 tablet by mouth every day 100 Tablet 3 024 Active buPROPion HCL (WELLBUTRIN SR) 150 mg Sustained Release 12 hour tabletIndications :Recurrent major depressive disorder, in full remission take 1 tablet by mouth 2 times daily 180 Tablet 3 024 Active desvenlafaxine (PRISTIQ) 100 mg Extended Release 24 hour tablet TAKE 1 TABLET BY MOUTH DAILY WITH BREAKFAST. 90 Tablet 4 024 Active EPINEPHrine (EPIPEN) 0.3 mg/0.3 mL Auto-Injector Inject 0.3 mL (0.3 mg) by intramuscular injection 1 time daily as needed for Anaphylaxis. 2 Each 024 Active naloxone (Narcan) 4 mg/spray [place], Non-Aerosol Administer 1 [place] (4 mg) in one nostril (alternate nostril with each dose) 1 time daily as needed for Other (See Comment) (overdose). Administer 1 [place] (4 mg) in each nostril 1 time daily as needed for Other (See Comment) (overdose). 2 Each 3 024 Active predniSONE (DELTASONE) 10 mg tablet TAKE 1-3 TABLETS BY MOUTH DAILY WITH BREAKFAST. 100 Tablet 6 024 Active semaglutide (Ozempic) 0.25 mg or 0.5 mg (2 mg/3 mL) Pen InjectorIndicatio ns:Type 2 diabetes mellitus with stage 3a chronic kidney disease, without long-term current use of insulin ([facility]) Inject 0.5 mg by subcutaneous injection every 7 days. 9 mL 3 024 Active triamcinolone acetonide (KENALOG) 0.1 % Cream APPLY TO AFFECTED AREA TWICE A DAY 90 Gram 1 024 Active lidocaine (LIDODERM) 5 % Adhesive Patch, Medicated APPLY 3 PATCHES TO AFFECTED AREA EVERY 12 HOURS ON AND 12 HOURS OFF 90 Patch 024 Active meclizine (ANTIVERT) 12.5 mg tablet TAKE 1 TABLET BY MOUTH 3 TIMES DAILY NEEDED FOR DIZZINESS. 30 Tablet 1 024 Active carvediloL (COREG) 25 mg tablet TAKE 1 TABLET BY MOUTH 2 TIMES DAILY WITH MEALS. 180 Tablet 3 025 Active diltiaZEM (CARDIZEM CD) 360 mg Controlled Delivery 24 hour capsule TAKE 1 CAPSULE BY MOUTH EVERY DAY 90 Capsule 4 025 Active Hyrimoz,CF, 40 mg/0.4 mL Syringe Inject 40 mg by subcutaneous injection every 2 weeks. 025 Active cevimeline (EVOXAC) 30 mg capsule Take 1 Capsule (30 mg) by mouth 3 times daily. 270 Capsule 4 025 Active pilocarpine (SALAGEN) 5 mg Tablet TAKE 1 TABLET BY MOUTH THREE TIMES A DAY FOR DRY MOUTH 270 Tablet 1 025 Active potassium chloride (KLOR-CON) 10 mEq Extended Release tablet TAKE 1 TABLET BY MOUTH EVERY DAY 90 Tablet 2 025 Active levothyroxine 137 mcg tablet TAKE 1 TABLET BY MOUTH EVERY DAY 90 Tablet 2 025 Active ondansetron (ZOFRAN) 4 mg TabletIndications :Gastroparesis,Ch ronic nausea TAKE 1 TABLET BY MOUTH EVERY 8 HOURS NEEDED FOR NAUSEA/EMESIS. 270 Tablet 1 025 Active methenamine hippurate (HIPREX) 1 gram Tablet TAKE 1 TABLET BY MOUTH TWICE A DAY 180 Tablet 3 025 Active OTHERIndications: Injury of right foot, initial encounter Walking boot, right foot, 99 months. Diagnosis injury of right foot 1 Each 025 Active rOPINIRole (REQUIP) 1 mg tabletIndications :Restless leg syndrome TAKE 1 TABLET BY MOUTH THREE TIMES A DAY 270 Tablet 3 025 Active atorvastatin (LIPITOR) 80 mg tabletIndications :Hyperlipidemia, unspecified hyperlipidemia type,History of TIA (transient ischemic attack) and stroke TAKE 1 TABLET BY MOUTH EVERYDAY AT BEDTIME 100 Tablet 3 025 Active portable oxygen Length of Need: 1 month 1 Each 025 Active SUMAtriptan (IMITREX) 50 mg tablet 1 TABLET EVERY 2 HOURS NEEDED FOR HEADACHES. MAY REPEAT IN 2 HOURS MAX DOSE 100MG IN 24 HOURS 12 Tablet 6 025 Active hydroCHLOROthiazi de 25 mg tablet TAKE 1 TABLET BY MOUTH 1 TIME DAILY NEEDED FOR SWELLING 30 Tablet 1 025 Active fluticasone propionate (FLONASE) 50 mcg/spray [place], Suspension nasal inhaler Administer 2 Sprays in each nostril daily. 48 mL 5 025 Active acyclovir (ZOVIRAX) 800 mg tablet Take 1 Tablet (800 mg) by mouth 3 times daily. 30 Tablet 3 025 Active oxyCODONE (ROXICODONE) 15 mg tabletIndications :Other systemic lupus erythematosus with lung involvement (CMS/HCC),Chronic midline low back pain with bilateral sciatica Take 1 Tablet (15 mg) by mouth 5 times daily. Max Daily Amount: 75 mg 150 Tablet 025 Active carisoprodoL (Soma) 350 mg tabletIndications :Muscle spasms of both lower extremities Take 1 Tablet (350 mg) by mouth every 8 hours as needed for Spasm. 90 Tablet 2 025 Active ALPRAZolam (Xanax) 0.5 mg tabletIndications :Generalized anxiety disorder Take 1 Tablet (0.5 mg) by mouth 2 times daily as needed for Anxiety. 60 Tablet 2 025 Active metoclopramide HCl (REGLAN) 10 mg tablet TAKE 1 TABLET (10 MG) BY MOUTH 4 TIMES A DAY BEFORE MEALS AND AT BEDTIME 120 Tablet 3 Active prochlorperazine maleate (COMPAZINE) 10 mg tabletIndications :Gastroparesis TAKE 1 TABLET BY MOUTH EVERY 6 HOURS NEEDED FOR NAUSEA/EMESIS. 30 Tablet 3 Active fluticasone propionate (FLONASE) 50 mcg/spray [place], Suspension nasal inhaler SPRAY 2 SPRAYS INTO EACH NOSTRIL EVERY DAY 48 mL 5 022 2024 Discontinued(R eorder) SUMAtriptan (Imitrex) 50 mg tablet Take 1 Tablet (50 mg) by mouth every 2 hours as needed for Headaches. may repeat in 2 hours; max dose 100mg in 24 hours 12 Tablet 6 024 2024 Discontinued prochlorperazine maleate (COMPAZINE) 10 mg tabletIndications :Gastroparesis TAKE 1 TABLET BY MOUTH EVERY 6 HOURS NEEDED FOR NAUSEA/EMESIS. 30 Tablet 3 024 2024 Discontinued(R eorder) metoclopramide HCl (REGLAN) 10 mg tablet TAKE 1 TABLET (10 MG) BY MOUTH 4 TIMES A DAY BEFORE MEALS AND AT BEDTIME 120 Tablet 3 024 2024 Discontinued carisoprodoL (Soma) 350 mg tabletIndications :Muscle spasms of both lower extremities Take 1 Tablet (350 mg) by mouth every 8 hours as needed for Spasm. 90 Tablet 2 025 2024 Discontinued(R eorder) ALPRAZolam (Xanax) 0.5 mg tabletIndications :Generalized anxiety disorder Take 1 Tablet (0.5 mg) by mouth 2 times daily as needed for Anxiety. 60 Tablet 2 025 2024 Discontinued(R eorder) hydroCHLOROthiazi de 25 mg tablet TAKE 1 TABLET BY MOUTH 1 TIME DAILY NEEDED FOR SWELLING 30 Tablet 1 025 2024 Discontinued acyclovir (ZOVIRAX) 800 mg tablet TAKE 1 TABLET BY MOUTH 3 TIMES DAILY. 30 Tablet 2 025 2024 Discontinued(R eorder) nitrofurantoin (MACROBID) 100 mg capsule Take 1 Capsule (100 mg) by mouth 2 times daily for 10 days. 20 Capsule 025 2024 oxyCODONE (ROXICODONE) 15 mg tabletIndications :Other systemic lupus erythematosus with lung involvement (CMS/HCC),Chronic midline low back pain with bilateral sciatica Take 1 Tablet (15 mg) by mouth 5 times daily. Do not fill until 150 Tablet 025 2024 Discontinued oxyCODONE (ROXICODONE) 15 mg tabletIndications :Other systemic lupus erythematosus with lung involvement (CMS/HCC),Chronic midline low back pain with bilateral sciatica Take 1 Tablet (15 mg) by mouth 5 times daily. Do not fill until 150 Tablet 025 2024 Discontinued(R eorder) fluconazole (DIFLUCAN) 100 mg tablet Take 1 Tablet (100 mg) by mouth daily for 3 days. 3 Tablet 025 2024 Discontinued oxyCODONE (ROXICODONE) 15 mg tabletIndications :Other systemic lupus erythematosus with lung involvement (CMS/HCC),Chronic midline low back pain with bilateral sciatica Take 1 Tablet (15 mg) by mouth 5 times daily. Do not fill until 04/04/2025 150 Tablet 025 2024 Discontinued oxyCODONE (ROXICODONE) 15 mg tabletIndications :Other systemic lupus erythematosus with lung involvement (CMS/HCC),Chronic midline low back pain with bilateral sciatica Take 1 Tablet (15 mg) by mouth every 4 hours as needed for Pain, Moderate. Do not fill until Max Daily Amount: 90 mg 15 Tablet 025 2024 Discontinued oxyCODONE (ROXICODONE) 15 mg tabletIndications :Other systemic lupus erythematosus with lung involvement (CMS/HCC),Chronic midline low back pain with bilateral sciatica Take 1 Tablet (15 mg) by mouth every 4 hours as needed for Pain, Moderate. Do not fill until 04/04/2025 Max Daily Amount: 90 mg 15 Tablet 025 2024 Discontinued oxyCODONE (ROXICODONE) 15 mg tabletIndications :Other systemic lupus erythematosus with lung involvement (CMS/HCC),Chronic midline low back pain with bilateral sciatica Take 1 Tablet (15 mg) by mouth every 4 hours as needed for Pain, Moderate. Do not fill until Max Daily Amount: 90 mg 15 Tablet 025 2024 Discontinued fluconazole (DIFLUCAN) 100 mg tablet TAKE 1 TABLET BY MOUTH DAILY FOR 3 DAYS 3 Tablet 025 2024 Active Problems Problem Noted Date Diagnosed Date Sepsis with acute organ dysfunction without sept ic shock 08/05/2024 Severe obesity (BMI 35.0-39.9) with comorbidity 05/06/2024 Recurrent UTI 05/06/2024 Muscle spasms of both lower extremities 05/06/20 Leukocytosis 04/17/2024 Vaginal candidiasis 04/17/2024 Tachycardia 05/29/2023 Acute cystitis with hematuria 05/29/2023 Severe sepsis without septic shock 05/28/2023 Gastroesophageal reflux disease without esophagi tis 04/15/2023 Chronic UTI 04/15/2023 Thyroid nodule 04/15/2023 Type 2 diabetes mellitus wit h stage 3a chronic kidney disease, without long-term current use of insulin 04/15/2023 Hyperopia of both eyes with astigmatism and pres byopia 06/30/2022 Sjogren's syndrome with keratoconjunctivitis sic ca 06/30/2022 Restless leg syndrome 02/13/2022 Generalized muscle weakness 02/04/2022 C. 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 12/08/2021 Bilateral lower abdominal pain 06/17/2019 Chronic respiratory failure with hypoxia and hyp ercapnia 03/03/2019 Morbid obesity with body mass index of 40.0-49.9 03/03/2019 Gastroesophageal reflux dise ase with esophagitis and hemorrhage 04/23/2017 Therapeutic opioid induced constipation 04/23/20 17 Recurrent major depressive disorder, in full rem ission 04/23/2017 Sinus tachycardia 04/23/2017 Chronic midline low back pain with bilateral sci atica 04/23/2017 Bilateral edema of lower extremity 04/23/2017 Antiphospholipid antibody syndrome 02/01/2016 Rheumatoid arthritis involvi ng multiple sites with positive rheumatoid factor 02/01/2016 Obesity, Class II, BMI 35-39.9, with comorbidity 05/22/2015 Systemic lupus erythematosus with lung involveme nt 12/02/2012 Mixed hyperlipidemia 03/10/2010 Resolved Problems Problem Noted Date Diagnosed Date Resolved Date Simple partial seizure disorder 02/01/2016 01/29/2023 Encounters Date Type Department Care Team Description 03/17[place]2025 [facility] [address] [place] [address] Silverio Farley, SCIENCE INSTRUCTOR Gastroparesis 03/14/2025 [facility] [address] [place] [address] Milady Crystal, DO 03/13/2025 [facility] [address] [place] [address] Milady Crystal, DO Generalized anxiety disorder 03/13/2025 [facility] [address] [place] [address] Milady Crystal, DO Muscle spasms of both lower extremities 03/09/2025 Orders Only [facility] [place] [address] [facility] [place] [address] Provider, Abstract 03/09/2025 [facility] [address] [place] [address] Milady Crystal, DO 03/09/2025 [facility] [address] [place] [address] Milady Crystal, DO 03/09/2025 Refill [facility] [address] [place] [facility] [address] Milady Crystal, DO 03/09/2025 Refill [facility] [address] [place] [facility] [address] Milady Crystal, DO 03/09/2025 Refill [facility] [address] [place] [facility] [address] Milady Crystal, DO 03/08/2025 Refill [facility] [address] [place] [facility] [address] Milady Crystal, DO 02/26/2025 Refill [facility] [address] [place] [address] Milady Crystal, DO 02/25/2025 Orders Only [facility] [address] [place] [address] Milady Crystal, Other systemic lupus erythematosus with lung involvement (CMS/HCC) (Primary Dx); Chronic midline low back pain with bilateral sciatica 02/25/2025 Orders Only [facility] [address] [place] [address] Milady Crystal, Other systemic lupus erythematosus with lung involvement (CMS/HCC); Chronic midline low back pain with bilateral sciatica 02/17/2025 Telephone [facility] [address] [place] [facility] [address] Milady Crystal, DO Information; Question; Question 02/16/2025 Orders Only [facility] [address] [place] [address] Provider, Abstract 02/12/2025 11:40 AM CDT Video Visit [facility] [address] [place] [address] Milady Crystal, Recurrent UTI (Primary Dx); Other systemic lupus erythematosus with lung involvement ([facility]); Chronic midline low back pain with bilateral sciatica; Chronic respiratory failure with hypoxia and hypercapnia ([facility]); Rheumatoid arthritis involving multiple sites with positive rheumatoid factor ([facility]); Morbid obesity with body mass index of 40.0-49.9 ([facility]); Severe obesity (BMI 35.0-39.9) with comorbidity ([facility]); Type 2 diabetes mellitus with stage 3a chronic kidney disease, without long-term current use of insulin ([facility]); Acquired hypothyroidism; Essential hypertension; Generalized anxiety disorder; Mixed hyperlipidemia; Recurrent major depressive disorder, in full remission; Generalized muscle weakness; Gastroesophageal reflux disease without esophagitis; Immunodeficiency due to treatment with immunosuppressive medication; Restless leg syndrome 02/12/2025 Orders Only [facility] [address] [place] [phone] Estephanie Lock Recurrent UTI 02/11/2025 10:45 AM CDT - 02/11/2025 11:59 PM CDT Hospital Encounter [facility] [place] [address] [place] [address] Milady Crystal DO Discharge Disposition: Home or Self Care 02/11/2025 Orders Only [facility] [address] [place] [phone] Milady Crystal DO 02/11/2025 Results Follow-Up [facility] [address] [place] [address] Milady Crystal DO LACTIC ACID 02/11/2025 Telephone [facility] [address] [place] [address] Milady Crystal DO critical lab 02/11/2025 Telephone [facility] [address] [place] [address] Milady Crystal, Abnormal Lab Results 02/11/2025 Lab Requisition [facility] [place] [address] [place] [address] Milady Crystal, Leukemoid reaction 02/10/2025 Telephone [facility] [address] [place] [address] Milady Crystal, Needs Orders Written; Patient Communication 01/30/2025 Telephone [facility] [address] [place] [address] Milady Crystal, Medication Refill 01/29/2025 Refill [facility] [address] [place] [address] Milady Crystal, 01/29/2025 Refill [facility] [address] [place] [address] Milady Crystal, Hyperlipidemia, unspecified hyperlipidemia type; History of TIA (transient ischemic attack) and stroke 01/23/2025 Refill [facility] [address] [place] [address] February, SCIENCE INSTRUCTOR Restless leg syndrome 01/21/2025 External Device Data [facility]STRACTION Provider, Abstract 01/21/2025 External Device Data [facility] Provider, Abstract 01/14/2025 Refill [facility] [address] [place] [address] Milady Crystal, 01/08/2025 Refill [facility] [address] [place] [address] Milady Crystal, 01/08/2025 Telephone [facility] [address] [place] [address] Milady Crystal, DO Question 01/06/2025 Results Follow-Up [facility] [address] [place] [address] Milady Crystal, DO XR FOOT 3+ VW RIGHT 01/05/2025 5:10 PM BR[employer] CLE[employer]ORER - 01/05/2025 11:59 PM BRUSH CLEARING LABORER Hospital Encounter [facility] [address] [facility] [address] [place] [address] Milady Crystal, DO Discharge Disposition: Home or Self Care 01/05/2025 5:10 PM BRUSH CLEARING LABORER - 01/05/2025 11:59 PM BRUSH CLEARING LABORER Hospital Encounter [facility] [address] [facility] [address] [place] [address] Milady Crystal, DO Discharge Disposition: Home or Self Care 01/05/2025 5:09 PM BRUSH CLEARING LABORER - 01/05/2025 11:59 PM BRUSH CLEARING LABORER Hospital Encounter [facility] [address] [facility] [address] [place] [address] Milady Crystal, DO Discharge Disposition: Home or Self Care 01/05/2025 5:00 PM BRUSH CLEARING LABORER - 01/05/2025 11:59 PM BRUSH CLEARING LABORER Hospital Encounter [facility] [address] [facility] [address] [place] [address] Milady Crystal, DO Discharge Disposition: Home or Self Care 01/04/2025 Results Follow-Up [facility] [address] [place] [address] Milady Crystal, DO TSH 01/03/2025 Refill [facility] [address] [place] [address] Silverio Farley, SCIENCE INSTRUCTOR Gastroparesis; Chronic nausea 01/01/2025 Results Follow-Up [facility] [address] [place] [address] February, SCIENCE INSTRUCTOR XR LUMBAR SPINE 2 OR 3 VW, XR THORACIC SPINE 3 VW 12/30/2024 12:18 PM BRUSH CLEARING LABORER - 12/30/2024 11:59 PM BRUSH CLEARING LABORER Hospital Encounter [facility] [address] [facility] [address] [place] [address] February, SCIENCE INSTRUCTOR Discharge Disposition: Home or Self Care 12/30/2024 12:18 PM BRUSH CLEARING LABORER - 12/30/2024 11:59 PM BRUSH CLEARING LABORER Hospital Encounter [facility] [address] [facility] [address] [place] [address] February, SCIENCE INSTRUCTOR Discharge Disposition: Home or Self Care 12/30/2024 12:15 PM BRUSH CLEARING LABORER - 12/30/2024 11:59 PM BRUSH CLEARING LABORER Hospital Encounter [facility] [place] [address] [facility] [address] [place] [address] Milady Crystal, Type II or unspecified type diabetes mellitus with renal manifestations, not stated as uncontrolled(250.40) (CMS/[facility]) Discharge Disposition: Home or Self Care 12/30/2024 10:40 AM BRUSH CLEARING LABORER Office Visit [facility] [address] [place] [address] February, SCIENCE INSTRUCTOR Chronic midline low back pain with bilateral sciatica (Primary Dx); Declined influenza vaccine; Restless leg syndrome; Generalized anxiety disorder from Last 3 Months Immunizations Immunization Administration Dates Next Due (MYFLY)(12 YR UP) COVID-19 VACCINE - EMERGENCY USE AUTHORIZATION, MRNA, [id number](PF) 30 MCG/0.3 ML IM SUSP 08/31/2021 (PREVNAR 13)(6 WKS UP) PNEUM OCOCCAL CONJUGATE (PCV13) 0.5 ML, IM 08/05/2011 INFLUENZA VACCINE QUADRIVALE NT 3 YR UP PF IM 07/24/2018,09/11/2017 INFLUENZA VACCINE QUADRIVALE NT 6 MOS UP PF IM 11/02/2020 Influenza Seasonal Unspecifi ed Formulation IM 08/30/2016,08/05/2012,08/05/2011 Skin Test TB 03/28/2011 Family History Medical History Relation Name Comments Heart Disease Brother 1 Hank Hypertension Brother 1 Hank Other Brother 1 Hank Other Brother 2 Will Stroke Brother 2 Will Hypertension Brother 3 Zackary Other Brother 3 Zackary High Cholesterol Father Hypertension Father Osteoporosis Father Respiratory Disease Father Breast Cancer Maternal Grandmother Positi ve Response--See Media Tab Genetic Assessment to Councelor Lung Cancer Maternal Grandmother High Cholesterol Mother Hypertension Mother Osteoporosis Mother Other Mother Relation Name Status Comments Brother 1 Hank Alive Brother 2 Will Alive Brother 3 Zackary Alive Father Alive Maternal Grandmother Mother Alive Social History Tobacco Use Types Packs/Day Years Used Date Smoking Tobacco: Never Smokeless Tobacco: Never Tobacco Cessation:Counseling Given: No Alcohol Use Standard Drinks/Week Comments No 0 [...] Never 06/17/2019 How often do you attend methodist or [employer] serv ices? Never 06/17/2019 Do you belong to any clubs o r organizations such as methodist groups, unions, fraternal or athletic groups, or [...] on file Legal Sex Female 12:59 AM BRUSH CLEARING LABORER Gender Identity Not on file Sexual Orientation Not on file Last Filed Vital Signs Vital Sign Reading Time Taken Comments Blood Pressure 132/80 12/30/2024 10:40 AM BRUSH CLEARING LABORER Pulse 100 12/30/2024 10:40 AM BRUSH CLEARING LABORER Temperature 36.5 C (97.7 F) 12/30/2024 10:40 AM BRUSH CLEARING LABORER Respiratory Rate 18 12/30/2024 10:40 AM BRUSH CLEARING LABORER Oxygen Saturation 97% 12/30/2024 10:40 AM BRUSH CLEARING LABORER Inhaled Oxygen Concentration - - Weight 106.1 kg (234 lb) 02/12/2025 12:10 PM CDT Height 172.7 cm (5' 8 ) 02/12/2025 12:10 PM CDT stated Body Mass Index 35.58 02/12/2025 12:10 PM CDT Plan of Treatment Upcoming Encounters Date Type Department Care Team (Late st Contact Info) Description 04/15/2025 3:20 PM CDT Video Visit [facility] [address] [place] [facility] [address] Milady Crystal, DO [address] [place] [facility] [place] [address] 06/16/2025 11:00 AM CDT Video Visit [facility] [address] [place] [facility] [address] MarahMilady valencia, DO [address] [place] [facility] [address] 08/13/2025 2:00 PM CDT Video Visit [facility] [address] [place] [facility] [address] Milady Crystal, DO [address] [place] [facility] [address] Health Maintenance Due Date Last Done Comments DIABETES ANNUAL FOOT EXAM 1992 DTAP/TDAP/TD VACCINES (1 - Tdap) 1993 HEPATITIS B VACCINES (1 of 3 - 19+ 3-dose series) 1993 ZOSTER VACCINE (1 of 2) 1993 FIT-DNA Q 3 years 2019 FIT/FOBT Q 1 year 2019 Flex Sig/CT Colonography Q 5 years 2019 PAP SMEAR 02/15/2020 02/14/2017, 02/03, 02/14/2017 COVID-19 Vaccine (2 - Pfizer risk series) 09/21/2021 08/31/2021 CERVICAL CANCER SCREENING 02/14/2022 HPV/Cotest (21-29) 02/14/2022 02/14/2017, 02/14/2017 HPV/Cotest (30-65) 02/14/2022 02/14/2017, 02/14/2017 BREAST CANCER SCREENING 05/24/2022 05/24/20 21, 05/18/2017, 05/18/2017, Additional history exists COLORECTAL SCREENING 08/22/2024 08/22/2019, 08/22/2019, 08/22/2019, Additional history exists Colorectal Cancer Screening 08/22/2024 Preventative Visit- Commercial 11/05/2024 1 01/03/2020, 09/11/2017, 10/13/2016, Additional history exists DIABETES: A1C (Auto Order) 03/29/202512/30, 08/06/2024, 05/02/2024, Additional history exists DIABETES MICROALBUMIN ANNUAL SCREEN 05/02/2025 05/02/2024 DIABETES HBA1C Q 6 MONTHS 06/29/20252024, 08/06/2024, 05/02/2024, Additional history exists DIABETES ANNUAL RETINAL EXAM 09/26/2025, 07/30/2023, 06/30/2022, Additional history exists LDL CHOLESTEROL ANNUAL 12/30/2025 , 08/20/2024, 02/08/2024, Additional history exists INFLUENZA VACCINE Completed 12/30/2024, , 11/02/2020, Additional history exists Medical Devices Implanted Type Area Bioinformatics Technician Device Identifier Shelf Expiration Date Model / Serial / Lot Clip-08/05/1997 Implanted:08/05 (Quantity not on file) Clip Bile Duct Description:Gall bladder cli ps. 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 immunosuppressive medication TSH Routine 02/11/2025 10:59 AM CDT Leukemoid reaction Rheumatoid arthritis involving multiple sites with positive rheumatoid factor (CMS/HCC) Recurrent UTI Immunodeficiency due to treatment with immunosuppressive medication COMPREHENSIVE METABOLIC PANEL Routine 02/11/2025 10:59 AM CDT Leukemoid reaction Rheumatoid arthritis involving multiple sites with positive rheumatoid factor (CMS/HCC) Recurrent UTI Immunodeficiency due to treatment with immunosuppressive medication CBC WITH DIFFERENTIAL Routine 02/11/2025 10:59 AM CDT Leukemoid reaction Rheumatoid arthritis involving multiple sites with positive rheumatoid factor (CMS/HCC) Recurrent UTI Immunodeficiency due to treatment with immunosuppressive medication REFERENCE LAB PROCESSING FEE Routine 02/11/2025 10:59 AM CDT Neutrophilic leukemoid reaction URINE CULTURE Routine 02/11/2025 10:59 AM CDT LACTIC ACID Stat 02/11/2025 10:58 AM CDT Leukemoid reaction XR ANKLE 3+ VW LEFT Routine 01/05/2025 5 :36 PM BRUSH CLEARING LABORER History of falling XR KNEE 3 VW LEFT Routine 01/05/2025 5:3 5 PM BR[employer] CLEARING LABORER History of falling XR ANKLE 3+ VW RIGHT Routine 01/05/2025 5:34 PM BR[employer] CLEARING LABORER History of falling XR FOOT 3+ VW RIGHT Routine 01/05/2025 5 :33 PM BRUSH CLEARING LABORER History of falling XR THORACIC SPINE 3 VW Routine 12/30/2024 12:38 PM BR[employer] CLEARING LABORER Chronic midline low back pain with bilateral sciatica XR LUMBAR SPINE 2 OR 3 VW Routine 12/30/2024 12:37 PM BR[employer] CLE[employer]ING LABORER Chronic midline low back pain with bilateral sciatica HEMOGLOBIN A1C Routine 12/30/2024 12:35 PM BRUSH CLEARING LABORER Type 2 diabetes mellitus with stage 3a chronic kidney disease, without long-term current use of insulin (CMS/[facility]) LIPID PANEL Routine 12/30/2024 12:35 PM BRUSH CLEARING LABORER Type 2 diabetes mellitus with stage 3a chronic kidney disease, without long-term current use of insulin (CMS/[facility]) TSH Routine 12/30/2024 12:35 PM BRUSH CLEARING LABORER Type 2 diabetes mellitus with stage 3a chronic kidney disease, without long-term current use of insulin (CMS/HCC) CBC WITH DIFFERENTIAL Routine 12/30/2024 12:35 PM BRUSH CLEARING LABORER Type 2 diabetes mellitus with stage 3a chronic kidney disease, without long-term current use of insulin ([facility]/HCC) COMPREHENSIVE METABOLIC PANEL Routine 12/30/2024 12:35 PM BRUSH CLEARING LABORER Type 2 diabetes mellitus with stage 3a chronic kidney disease, without long-term current use of insulin ([facility]/HCC) REFERENCE LAB PROCESSING FEE Routine 12/30/2024 12:35 PM BRUSH CLEARING LABORER Type 2 diabetes mellitus with stage 3a chronic kidney disease, without long-term current use of insulin ([facility]/HCC) ID INJECTION SINGLE/ORDERLY TRIGGER POINT 1/2 MUSCLES Routine 12/30/2024 10:40 AM BRUSH CLEARING LABORER Chronic midline low back pain with bilateral sciatica HM DIABETES EYE EXAM Routine 09/26/2024 4:12 PM BRUSH CLEARING LABORER MICROALBUMIN/CREATIN INE RATIO, RANDOM UR Routine 05/02/2024 11:47 AM CDT Type 2 diabetes mellitus without complication, without long-term current use of insulin ([facility]) MAMMO SCREEN BILAT W OR WO CAD Routine 05/24/2021 COLONOSCOPY REPORT 08/22/2019 7: 48 AM CDT CERV/VAG CYTO SCREEN PAP W/HPV Routine 02/14/2017 12:52 PM CDT CERV/VAG CYTO SCREEN PAP W/O HPV Routine 02/14/2017 12:52 PM CDT from Last 3 Months or Most Recently Relevant to Health Maintenance Results * COMPREHENSIVE METABOLIC PANEL (02/16/2025 3:39 PM CDT) Only the most recent of3 resultswithin the time period is included. Blood us Abstract Provider CHEMISTRY ORDERABLES Final Res ult * REFERENCE LAB PROCESSING FEE (02/11/2025 10:59 AM CDT) Only the most recent of2 resultswithin the time period is included. REFERENCE LAB SENDOUT Sent to Ref Lab 02/11/2025 12:00 PM CDT [facility] Other, specify BLOOD SPECIMEN / Unknown Collection / Unknown 02/11/2025 10:59 AM CDT 02/11/2025 10:59 AM CDT us Milady Crystal DO CHEMISTRY ORDERABLES Final Result [facility] CLIA # [id number] [address] [place] [id number] * (ABNORMAL) URINALYSIS WITH REFLEX CULTURE (02/11/2025 10:59 AM CDT) COLOR UA DARK YELLOW YELLOW [facility] CLARITY UA CLOUDY(A) CLEAR [facility] SPECIFIC GRAVITY UA 1.045(H) 1.001 - 1.035 [facility] PH UA < OR = 5.0 5.0 - 8.0 [facility] GLUCOSE UA TRACE(A) NEGATIVE [facility] BILIRUBIN UA NEGATIVE NEGATIVE [facility] KETONES UA TRACE(A) NEGATIVE [facility] BLOOD UA NEGATIVE NEGATIVE [facility] PROTEIN UA 1+(A) NEGATIVE [facility] NITRITE UA NEGATIVE NEGATIVE [facility] LEUKOCYTE ESTERASE UA NEGATIVE NEGATIVE [facility] WBC UA 0-5 < OR = 5 /HPF [facility] RBC UA NONE SEEN < OR = 2 /HPF [facility] EPITHELIAL CELLS, URINE 0-5 < OR = 5 /HPF [facility] BACTERIA UA FEW(A) NONE SEEN /HPF [facility] CA OXALATE CRYSTAL MANY(A) NONE OR FEW /HPF [facility] HYALINE CAST > 60(A) NONE SEEN /LPF [facility] YEAST FEW(A) NONE SEEN /HPF [facility] URINE NOTE [facility] Comment: This urine was analyzed for the presence of WBC, RBC, bacteria, casts, and other formed elements. Only those elements seen were reported. URINE CULTURE [facility] [place] Comment: CULTURE INDICATED - RESULTS TO FOLLOW Test Performed at: [facility] [address] [place] [address] Suellen Gates MD Urine URINE SPECIMEN OBTAINED BY CLEAN CATCH PROCEDURE / Unknown 02/11/2025 10:59 AM CDT 02/12/2025 5:36 AM CDT us Milady Crystal DO URINE ORDERABLES Final Resu lt [facility] [phone] [facility] [address] [place] [address] * (ABNORMAL) CBC WITH DIFFERENTIAL (02/11/2025 10:59 AM CDT) Only the most recent of2 resultswithin the time period is included. WBC 20.3(H) 3.8 - 10.8 Thousand/ uL [facility] RBC 4.87 3.80 - 5.10 Million/u L [facility] HEMOGLOBIN 14.6 11.7 - 15.5 g/dL [facility] HEMATOCRIT 44.9 35.0 - 45.0 % [facility] MCV 92.2 80.0 - 100.0 fL [facility] MCH 30.0 27.0 - 33.0 pg [facility] MCHC 32.5 32.0 - 36.0 g/dL [facility] Comment: For adults, a slight decrease in the calculated MCHC value (in the range of 30 to 32 g/dL) is most likely not clinically significant; however, it should be interpreted with caution in correlation with other red cell parameters and the patient's clinical condition. RDW 12.8 11.0 - 15.0 % [facility] PLATELETS 422(H) 140 - 400 Thousand/ uL [facility] MPV 9.3 7.5 - 12.5 fL [facility] NEUTROPHIL ABSOLUTE 11,368(H) 1,500 - 7,800 cells/uL [facility] LYMPHOCYTE ABSOLUTE 6,882(H) 850 - 3,900 cells/uL [facility] MONOCYTE ABSOLUTE 1,563(H) 200 - 950 cells/uL [facility] EOSINOPHIL ABSOLUTE 345 15 - 500 cells/uL [facility] BASOPHILS ABSOLUTE 142 0 - 200 cells/uL [facility] NEUTROPHIL 56 % [facility] LYMPHOCYTES 33.9 % [facility] MONOCYTE 7.7 % [facility] EOSINOPHILS 1.7 % [facility] BASOPHILS 0.7 % [facility] Comment: Test Performed at: [facility] [address] [place] [address] Suellen Gates MD Blood 02/11/2025 10:5 9 AM CDT 02/12/2025 5:35 AM CDT us Milady Crystal DO HEMATOLOGY ORDERABLES Final Result [facility] [phone] [facility] [address] [place] [phone] * URINE CULTURE (02/11/2025 10:59 AM CDT) URINE CULTURE SEE NOTE [facility] Comment: CULTURE, URINE, ROUTINE Micro Number: [id number] Test Status: Final Specimen Source: Urine Specimen Quality: Adequate Result: No Growth Test Performed at: [facility] [address] [facility] [place] [address] Suellen Gates MD 02/11/2025 10:5 9 AM CDT 02/12/2025 5:36 AM CDT us Milady Crystal DO MICROBIOLOGY - GENERAL ORDE RABLES Final Result [facility] [phone] [facility] [address] [place] [address] * TSH (02/11/2025 10:59 AM CDT) Only the most recent of2 resultswithin the time period is included. Pathologist [facility] TSH 2.46 mIU/L [facility] Comment: Reference Range > or = 20 Years 0.40-4.50 Ranges First trimester 0.26-2.66 Second trimester 0.55-2.73 Third trimester 0.43-2.91 Test Performed [facility]: [facility] [address] [place] [address] Suellen Gates MD Blood 02/11/2025 10:5 9 AM CDT 02/12/2025 5:35 AM CDT Milady Francesco Marah DO CHEMISTRY ORDERABLES Final Result [facility] [phone] [facility] [address] [place] [address] * (ABNORMAL) LACTIC ACID (02/11/2025 10:58 AM CDT) Pathologist [facility] LACTIC ACID 4.7(HH) <=2.0 mmol/L 02/11/2025 12:30 PM CDT [facility] Blood Collection / Unknown 02/11/2025 10:58 AM CDT 02/11/2025 10:58 AM CDT Milady L Marah DO CHEMISTRY ORDERABLES Final Result [facility] CLIA # [id number] [address] [place] [id number] * XR ANKLE 3+ VW LEFT (01/05/2025 5:36 PM BRUSH CLEARING LABORER) Anatomical Region Laterality Modality Ankle / Foot Computed Radiogr aphy 01/05/2025 5:36 PM BRUSH CLEARING LABORER Impressions 01/06/2025 6:44 AM BRUSH CLEARING LABORER IMPRESSION: No acute osseous abnormality. Narrative 01/06/2025 6:44 AM BRUSH CLEARING LABORER Exam: XR ANKLE 3+ VW LEFT Date/Time of Exam: 01/05/2025 5:36 PM Reason For Exam: See Diagnosis. Diagnosis: History of falling. Comparison: None. Findings: There is no evidence of an acute fracture, dislocation or significant arthrosis. There is plantar calcaneal enthesopathy. The soft tissues appear grossly unremarkable. Procedure Note Paulino Cary, - 01/06/2025 Exam: XR ANKLE 3+ VW LEFT Date/Time of Exam: 01/05/2025 5:36 PM Reason For Exam: See Diagnosis. Diagnosis: History of falling. Comparison: None. Findings: There is no evidence of an acute fracture, dislocation or significant arthrosis. There is plantar calcaneal enthesopathy. The soft tissues appear grossly unremarkable. IMPRESSION: No acute osseous abnormality. Milady Crystal DO DIAGNOSTIC IMAGING ORDERABL ES Final Result * XR KNEE 3 VW LEFT (01/05/2025 5:35 PM BRUSH CLEARING LABORER) Anatomical Region Laterality Modality Lower Extremity Computed Radiogr aphy 01/05/2025 5:35 PM BRUSH CLEARING LABORER Impressions 01/06/2025 6:49 AM BRUSH CLEARING LABORER IMPRESSION: No acute osseous abnormality. Narrative 01/06/2025 6:49 AM BRUSH CLEARING LABORER Exam: XR KNEE 3 VW LEFT Date/Time of Exam: 01/05/2025 5:35 PM Reason For Exam: See Diagnosis. Diagnosis: History of falling. Comparison: 02/08/2024. Findings: There is no evidence of an acute fracture, dislocation or significant arthrosis. The soft tissues are grossly unremarkable. Procedure Note Paulino Cary, - 01/06/2025 Exam: XR KNEE 3 VW LEFT Date/Time of Exam: 01/05/2025 5:35 PM Reason For Exam: See Diagnosis. Diagnosis: History of falling. Comparison: 02/08/2024. Findings: There is no evidence of an acute fracture, dislocation or significant arthrosis. The soft tissues are grossly unremarkable. IMPRESSION: No acute osseous abnormality. Milady Crystal DO DIAGNOSTIC IMAGING ORDERABL ES Final Result * XR ANKLE 3+ VW RIGHT (01/05/2025 5:34 PM BRUSH CLEARING LABORER) Anatomical Region Laterality Modality Ankle / Foot Computed Radiogr aphy 01/05/2025 5:34 PM BRUSH CLEARING LABORER Impressions 01/06/2025 6:48 AM BRUSH CLEARING LABORER IMPRESSION: Lucency and cortical irregularity involving the fifth proximal phalanx equivocal for a subtle fracture; clinical correlation is recommended. Narrative 01/06/2025 6:48 AM BRUSH CLEARING LABORER Exam: XR ANKLE 3+ VW RIGHT, XR FOOT 3+ VW RIGHT Date/Time of Exam: 01/05/2025 5:34 PM Reason For Exam: See Diagnosis. Diagnosis: History of falling. Comparison: None. Findings: There is a chronic appearing ossicle adjacent to the tip of the medial malleolus suggestive of remote injury. There is lucency and cortical irregularity involving the base of the fifth proximal phalanx which is only clearly identified on the upright projection and technically equivocal for a subtle fracture. The osseous structures appear otherwise intact. The joints are anatomically aligned and appear well-maintained. There is plantar calcaneal enthesopathy. The soft tissues appear grossly unremarkable. Procedure Note Paulino Cary, - 01/06/2025 Exam: XR ANKLE 3+ VW RIGHT, XR FOOT 3+ VW RIGHT Date/Time of Exam: 01/05/2025 5:34 PM Reason For Exam: See Diagnosis. Diagnosis: History of falling. Comparison: None. Findings: There is a chronic appearing ossicle adjacent to the tip of the medial malleolus suggestive of remote injury. There is lucency and cortical irregularity involving the base of the fifth proximal phalanx which is only clearly identified on the upright projection and technically equivocal for a subtle fracture. The osseous structures appear otherwise intact. The joints are anatomically aligned and appear well-maintained. There is plantar calcaneal enthesopathy. The soft tissues appear grossly unremarkable. IMPRESSION: Lucency and cortical irregularity involving the fifth proximal phalanx equivocal for a subtle fracture; clinical correlation is recommended. Milady Crystal DO DIAGNOSTIC IMAGING ORDERABL ES Final Result * XR FOOT 3+ VW RIGHT (01/05/2025 5:33 PM BRUSH CLEARING LABORER) Anatomical Region Laterality Modality Ankle / Foot Computed Radiogr aphy 01/05/2025 5:34 PM BRUSH CLEARING LABORER Impressions 01/06/2025 6:48 AM BRUSH CLEARING LABORER IMPRESSION: Lucency and cortical irregularity involving the fifth proximal phalanx equivocal for a subtle fracture; clinical correlation is recommended. Narrative 01/06/2025 6:48 AM BRUSH CLEARING LABORER Exam: XR ANKLE 3+ VW RIGHT, XR FOOT 3+ VW RIGHT Date/Time of Exam: 01/05/2025 5:34 PM Reason For Exam: See Diagnosis. Diagnosis: History of falling. Comparison: None. Findings: There is a chronic appearing ossicle adjacent to the tip of the medial malleolus suggestive of remote injury. There is lucency and cortical irregularity involving the base of the fifth proximal phalanx which is only clearly identified on the upright projection and technically equivocal for a subtle fracture. The osseous structures appear otherwise intact. The joints are anatomically aligned and appear well-maintained. There is plantar calcaneal enthesopathy. The soft tissues appear grossly unremarkable. Procedure Note Paulino Cary, - 01/06/2025 Exam: XR ANKLE 3+ VW RIGHT, XR FOOT 3+ VW RIGHT Date/Time of Exam: 01/05/2025 5:34 PM Reason For Exam: See Diagnosis. Diagnosis: History of falling. Comparison: None. Findings: There is a chronic appearing ossicle adjacent to the tip of the medial malleolus suggestive of remote injury. There is lucency and cortical irregularity involving the base of the fifth proximal phalanx which is only clearly identified on the upright projection and technically equivocal for a subtle fracture. The osseous structures appear otherwise intact. The joints are anatomically aligned and appear well-maintained. There is plantar calcaneal enthesopathy. The soft tissues appear grossly unremarkable. IMPRESSION: Lucency and cortical irregularity involving the fifth proximal phalanx equivocal for a subtle fracture; clinical correlation is recommended. Milady Crystal DO DIAGNOSTIC IMAGING ORDERABL ES Final Result * XR THORACIC SPINE 3 VW (12/30/2024 12:38 PM BRUSH CLEARING [employer]ORER) Anatomical Region Laterality Modality Spine Computed Radiogr aphy 12/30/2024 12:3 8 PM BR[employer] CLEARING LABORER Impressions 01/01/2025 3:01 PM BRUSH CLEARING LABORER IMPRESSION: Mild degenerative changes without acute findings. Narrative 01/01/2025 3:01 PM BRUSH CLEARING LABORER Exam: XR LUMBAR SPINE 2 OR 3 VW, XR THORACIC SPINE 3 VW Date/Time of Exam: 12/30/2024 12:37 PM Reason For Exam: See Diagnosis. Diagnosis: Chronic midline low back pain with bilateral sciatica; Chronic midline low back pain with bilateral sciatica; Chronic midline low back pain with bilateral sciatica. Findings: Thoracic: The alignment is normal. The vertebral body heights are preserved without acute fracture. There is mild disc space narrowing and osteophyte formation. Visualized lung morgan are clear. Lumbar: The alignment is normal. The vertebral body heights are preserved without acute fracture. There is mild disc space narrowing and osteophyte formation. Surgical clips are present in the right upper quadrant. Procedure Note Jose Donnelly MD - 01/01/2025 Exam: XR LUMBAR SPINE 2 OR 3 VW, XR THORACIC SPINE 3 VW Date/Time of Exam: 12/30/2024 12:37 PM Reason For Exam: See Diagnosis. Diagnosis: Chronic midline low back pain with bilateral sciatica; Chronic midline low back pain with bilateral sciatica; Chronic midline low back pain with bilateral sciatica. Findings: Thoracic: The alignment is normal. The vertebral body heights are preserved without acute fracture. There is mild disc space narrowing and osteophyte formation. Visualized lung morgan are clear. Lumbar: The alignment is normal. The vertebral body heights are preserved without acute fracture. There is mild disc space narrowing and osteophyte formation. Surgical clips are present in the right upper quadrant. IMPRESSION: Mild degenerative changes without acute findings. February SCIENCE INSTRUCTOR DIAGNOSTIC IMAGING ORDERABLES Fi nal Result * XR LUMBAR SPINE 2 OR 3 VW (12/30/2024 12:37 PM BRUSH CLEARING LABORER) Anatomical Region Laterality Modality Spine Computed Radiogr aphy 12/30/2024 12:3 7 PM BRUSH CLEARING LABORER Impressions 01/01/2025 3:01 PM BRUSH CLEARING LABORER IMPRESSION: Mild degenerative changes without acute findings. Narrative 01/01/2025 3:01 PM BRUSH CLEARING LABORER Exam: XR LUMBAR SPINE 2 OR 3 VW, XR THORACIC SPINE 3 VW Date/Time of Exam: 12/30/2024 12:37 PM Reason For Exam: See Diagnosis. Diagnosis: Chronic midline low back pain with bilateral sciatica; Chronic midline low back pain with bilateral sciatica; Chronic midline low back pain with bilateral sciatica. Findings: Thoracic: The alignment is normal. The vertebral body heights are preserved without acute fracture. There is mild disc space narrowing and osteophyte formation. Visualized lung morgan are clear. Lumbar: The alignment is normal. The vertebral body heights are preserved without acute fracture. There is mild disc space narrowing and osteophyte formation. Surgical clips are present in the right upper quadrant. Procedure Note Jose Donnelly MD - 01/01/2025 Exam: XR LUMBAR SPINE 2 OR 3 VW, XR THORACIC SPINE 3 VW Date/Time of Exam: 12/30/2024 12:37 PM Reason For Exam: See Diagnosis. Diagnosis: Chronic midline low back pain with bilateral sciatica; Chronic midline low back pain with bilateral sciatica; Chronic midline low back pain with bilateral sciatica. Findings: Thoracic: The alignment is normal. The vertebral body heights are preserved without acute fracture. There is mild disc space narrowing and osteophyte formation. Visualized lung morgan are clear. Lumbar: The alignment is normal. The vertebral body heights are preserved without acute fracture. There is mild disc space narrowing and osteophyte formation. Surgical clips are present in the right upper quadrant. IMPRESSION: Mild degenerative changes without acute findings. Tracy Atkinson [facility] DIAGNOSTIC IMAGING ORDERABLES Fi nal Result * (ABNORMAL) HEMOGLOBIN A1C (12/30/2024 12:35 PM BRUSH CLEARING LABORER) HEMOGLOBIN A1C 8.5(H) <5.7 % of total Hgb [facility] Comment: For someone without known diabetes, a hemoglobin A1c value of 6.5% or greater indicates that they may have diabetes and this should be confirmed with a follow-up test. For someone with known diabetes, a value <7% indicates that their diabetes is well controlled and a value greater than or equal to 7% indicates suboptimal control. A1c targets should be individualized based on duration of diabetes, age, comorbid conditions, and other considerations. Currently, no consensus exists regarding use of hemoglobin A1c for diagnosis of diabetes for children. ESTIMATED AVERAGE GLUCOSE (MG/DL) 197 mg/dL [facility] ESTIMATED AVERAGE GLUCOSE (MMOL/L) 10.9 mmol/L [facility] Comment: Test Performed at: [facility] [address] [place] [address] Suellen Gates MD Blood 12/30/2024 12:3 5 PM BR[employer] CLEARING LABORER 12/31/2024 4:41 AM BRUSH CLEARING LABORER us Milady Crystal DO CHEMISTRY ORDERABLES Final Result [facility] [phone] [facility] [address] [place] [address] * (ABNORMAL) LIPID PANEL (12/30/2024 12:35 PM BRUSH CLEARING LABORER) CHOLESTEROL 314(H) <200 mg/dL [facility] [place] HDL 67 > OR = 50 mg/dL [facility] TRIGLYCERIDE 549(H) <150 mg/dL [facility] Comment: If a non-fasting specimen was collected, consider repeat triglyceride testing on a fasting specimen if clinically indicated. Wilcox et al. J. of Clin. Lipidol. 2015;9:129-169. There is increased risk of pancreatitis when the triglyceride concentration is very high (> or = 500 mg/dL, especially if > or = 1000 mg/dL). Wilcox et al. J. of Clin. Lipidol. 2015;9:129-169. LDL CALCULATED mg/dL (calc) [facility] [place] Comment: LDL cholesterol not calculated. Triglyceride levels greater than 400 mg/dL invalidate calculated LDL results. Reference range: <100 Desirable range <100 mg/dL for primary prevention; <70 mg/dL for patients with CHD or diabetic patients with > or = 2 CHD risk factors. LDL-C is now calculated using the Nate-Ralf calculation, which is a validated novel method providing better accuracy than the Friedewald equation in the estimation of LDL-C. Nate RAMIREZ et al. TAMERA. 2013;310(19): 3347-2258 (http://education.Mallstreet.Cojoin/faq/FVK045) CHOL/HDL RATIO 4.7 <5.0 (calc) [facility] NON-HDL CHOLESTEROL 247(H) <130 mg/dL (calc) [facility] Comment: Non-HDL level > or = 220 is very high and may indicate genetic familial hypercholesterolemia (FH). Clinical assessment and measurement of blood lipid levels should be considered for all first-degree relatives of patients with an FH diagnosis. For patients with diabetes plus 1 major ASCVD risk factor, treating to a non-HDL-C goal of <100 mg/dL (LDL-C of <70 mg/dL) is considered a therapeutic option. Test Performed at: [facility] [address] Suellen Gates MD Blood 12/30/2024 12:3 5 PM BRUSH CLEARING LABORER 12/31/2024 4:41 AM BRUSH CLEARING LABORER us Milady Crystal DO CHEMISTRY ORDERABLES Final Result Performing Organization Address City/[facility]/ZIP Co de Phone Number [facility] [phone] [facility] [facility] [address] * ID INJECTION SINGLE/ORDERLY TRIGGER POINT 1/2 MUSCLES (12/30/2024 10:40 AM BRUSH CLEARING LABORER) Narrative [facility] - 12/30/2024 10:40 AM BRUSH CLEARING LABORER Tracy Atkinson FNP 12/30/2024 12:10 PM Injection Trigger Point Date/Time: 12/30/2024 10:40 AM Performed by: Tracy Atkinson FNP Authorized by: Tracy Atkinson FNP Preparation: Patient was prepped and draped in the usual sterile fashion. Patient tolerance: patient tolerated the procedure well with no immediate complications Comments: Trigger point injection with Decadron 4 Mg, lidocaine 3 mL, and Kenalog 40 mg done to the right lowe back Tracy NASCIMENTO PROCEDURE/MINOR SURGICAL ORDERAB LES Final Result Performing Organization Address City/[facility]/ZIP Co de Phone Number [facility] CLIA# [id number] [address] [place] [address] * DIABETES EYE EXAM (09/26/2024 4:12 PM BRUSH CLEARING LABORER) us Abstract Provider HEALTH MAINTENANCE Edited Resu lt - Final * (ABNORMAL) MICROALBUMIN/CREATININE RATIO, RANDOM UR (05/02/2024 11:47 AM CDT) Creatinine, Urine 115 20 - 275 mg/dL [facility] MICROALBUMIN, URINE 7.0 See Note: mg/dL [facility] Comment: Reference Range: Reference Range Not established MICROALBUMIN/CREAT RATIO, UR 61(H) <30 mg/g creat [facility] Comment: The ADA defines abnormalities in albumin excretion as follows: Albuminuria Category Result (mg/g creatinine) Normal to Mildly increased <30 Moderately increased 30-299 Severely increased > OR = 300 The ADA recommends that at least two of three specimens collected within a 3-6 month period be abnormal before considering a patient to be within a diagnostic category. Test Performed at: [facility] [address] [facility] [place] [address] Suellen Gates MD Urine URINE SPECIMEN OBTAINED BY CLEAN CATCH PROCEDURE / Unknown 05/02/2024 11:47 AM CDT 05/03/2024 4:16 AM CDT Milady Crystal DO URINE ORDERABLES Final Resu lt [facility] [phone] [facility] [address] [facility] [place] [address] * MAMMO SCREEN BILAT W OR WO CAD (05/24/2021) Anatomical Region Laterality Modality Breast Bilateral Mammography us Abstract Provider MAMMO ORDERABLES Final Result * COLONOSCOPY REPORT (08/22/2019 7:48 AM CDT) Tien Martin MD GI PROCEDURE ORDERABLES Final Result * CERV/VAG CYTO SCREEN PAP W/HPV (02/14/2017 12:52 PM CDT) PAP INTERP See Separate Results 02/16/2017 12:23 PM CDT [facility] Genital SWAB OF ENDOCERVIX / Unknown Collection / Unknown 02/14/2017 12:52 PM CDT 02/15/2017 8:31 AM CDT Hetal Irwin MD PATHOLOGY/CYTOLOG Y ORDERABLES Final Result [facility] CLIA# [id number] [address] [place] [address] [facility] CLIA # [id number] [address] [place] [address] * CERV/VAG CYTO SCREEN PAP W/O HPV (02/14/2017 12:52 PM CDT) Pathologist [facility] CLINICAL INFORMATION SEE COMMENT 02/17/2017 2:27 PM CDT [facility] Comment: Routine exam HEALTHY LAST MENSTRUAL PERIOD SEE COMMENT 02/17/2017 2:27 PM CDT [facility] Comment:INFORMATION NOT PROV IDED PREV PAP: SEE COMMENT 02/17/2017 2:27 PM CDT [facility] Comment:INFORMATION NOT PROV IDED PREV BX: SEE COMMENT 02/17/2017 2:27 PM CDT [facility] Comment:INFORMATION NOT PROV IDED SOURCE Endocervix 02/17/2017 2:27 PM CDT [facility] ADEQUACY: SEE COMMENT 02/17/2017 2:27 PM CDT [facility] Comment: Satisfactory for evaluation. Endocervical/transformation zone component present. Age and/or menstrual status not provided PAP INTERP SEE COMMENT 02/17/2017 2:27 PM CDT [facility] Comment:Negative for intraep ithelial lesion or malignancy. COMMENT SEE COMMENT 02/17/2017 2:27 PM CDT [facility] Comment: This Pap test has been evaluated with computer assisted technology. 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: SEE COMMENT 2016 2:27 PM CDT [facility] Comment: MLK, CT(ASCP) CT screening location: [place] [address] [address] [address] Genital SWAB OF ENDOCERVIX / Unknown Collection / Unknown 02/14/2017 12:52 PM CDT 02/16/2017 7:52 AM CDT Narrative [facility] - 02/17/2017 2:27 PM CDT Performing Organization Information: Site ID: [facility] Address: [address] [address] Director: Suellen Gates MD Hetal Irwin MD PATHOLOGY/CYTOLOG Y ORDERABLES Final Result [facility] REFERENCE [facility] from Last 3 Months or Most Recently Relevant to Health Maintenance Insurance [facility] CHOICE [id number] [address] [facility] [employer] Advance Directives For more information, please contact: [phone] * Full Code (Latest Code Status on File) Date Activated Date Inactivated Comments 04/18/2024 3:30 AM 04/20/2024 3:12 PM * Full Code Date Activated Date Inactivated Comments 02/04/2024 2:02 PM 02/04/2024 5:14 PM * Full Code Date Activated Date Inactivated Comments 05/28/2023 8:22 PM 06/02/2023 2:34 PM * Full Code Date Activated Date Inactivated Comments 01/06/2022 11:43 AM 01/10/2022 8:20 PM Care Teams Record Retrieval Specialist Relationship Specialty Start Date End Date Milady Crystal DO [address] [place] [address] PCP - General Family Practice 03/10/10
--- OUTSIDE RECORDS SUMMARY | 2025-03-19 04:59 | XMS_ITS | Encounter Summary ---
Author Organization [facility] Address [address] [place] [address] Care Team Providers Care Assistant Store Manager Sales Name Role Phone Milady Crystal DO Primary Care Provider Encounter Details Date Type Department Care Team (Late st Contact Info) Description 09/06/2023 Lab Requisition [facility] [place] [address] [place] [address] Milady Crystal DO [address] [place] [address] Urinary tract infection, site not [...] Never 06/17/2019 How often do you attend cheondoism or shinto serv ices? Never 06/17/2019 Do you belong to any clubs o r organizations such as cheondoism groups, unions, fraternal or athletic groups, or [...] who hurts you emotionally and/or physically? No 09/07/2023 Comments No Sex and Gender Information Value Date Recorded Sex Assigned at Not on file Legal Sex Female 12:59 AM COFFEE BLENDER Gender Identity Not on file Sexual Orientation Not on file documented as of this encounter Plan of Treatment Upcoming Encounters Date Type Department Care Team (Late st Contact Info) Description 04/15/2025 3:20 PM CDT Video Visit [facility] [place] [address] [place] [facility] [phone] Milady Crystal, DO [address] [place] [address] 06/16/2025 11:00 AM CDT Video Visit [facility] [address] [place] [address] Milady Crystal, DO [address] [facility] [place] [address] 08/13/2025 2:00 PM CDT Video Visit [facility] [address] [place] [facility] [place] [address] Milady Crystal, DO [address] [place] [address] documented as of this encounter Procedures Procedure Name Priority Date/Time Associated Diagnosis Comments LACTIC ACID Stat 09/06/2023 5:40 PM CDT Urinary tract infection, site not specified documented in this encounter Results * (ABNORMAL) LACTIC ACID (09/06/2023 5:40 PM CDT) LACTIC ACID 3.1(H) <=2.0 mmol/L 09/06/2023 6:04 PM CDT [facility] Blood BLOOD SPECIMEN / Unknown Collection / Unknown 09/06/2023 5:40 PM CDT 09/06/2023 5:50 PM CDT us Milady Crystal DO CHEMISTRY ORDERABLES Final Result [facility] CLIA # [id number] [address] [place] [address] documented in this encounter Visit Diagnoses Diagnosis Urinary tract infection, site not specified documented in this encounter Additional Health Concerns Infection Onset Date Last Indicated Resolved Time R/O C. diff 08/05/2024 08/05/2024 08/05/2024 2:54 PM CDT Assessment Noted Time PHQ-9 Depression Total Score: 2 01/07/20 3:50 PM COFFEE BLENDER documented as of this encounter Care Teams Assistant Store Manager Sales Relationship Specialty Start Date End Date Milady Crystal DO [address] [place] [id number] PCP - General Family Practice 03/10/10 documented as of this encounter
--- OUTSIDE RECORDS SUMMARY | 2025-03-19 04:59 | XMS_ITS | Clinical Summary ---
Author Organization [facility] Address [address] [facility] [place] [address] Care Team Providers Care Assistant Professor Of Marine Biology Name Role Phone Milady Crystal DO Primary Care Provider [phone] Allergies Active Allergy Reactions Criticality Noted Date Comments Diclofenac-Misoprostol Other (See Comments),Weakness Low 07/06/2010 Medications hydroxychloroquine (PLAQUENIL) 200 mg Oral tablet Take 1 Tab by mouth 2 times daily. 180 Tab 2 10/01/20 11 Active folic acid (FOLVITE) 1 mg Oral tablet Take 3 mg by mouth daily. Active BELIMUMAB (BENLYSTA IV) Inject 1 Container by intraveous injection every 30 days. Active gabapentin (NEURONTIN) 300 mg capsule Take 300 mg by mouth 3 times daily. Active aspirin (ECOTRIN EC) 81 mg Tablet, Delayed Release (E.C.) Take 81 mg by mouth daily. Active denosumab (PROLIA) 60 mg/mL Syringe Inject 60 mg by subcutaneous injection one time only Dr. Macias, every 6 months. . Active cetirizine (ZyrTEC) 10 mg tablet Take 10 mg by mouth daily One or two tablets daily as needed. . Active Levonorgestrel (MIRENA) 20 mcg/24 hr (5 years) IUDIndications:Men orrhagia with regular cycle Insert x 1. 1 Each 04/26/20 17 Active pilocarpine (SALAGEN) 5 mg Tablet Take 1 Tablet by mouth 1 time daily as needed. 05/17/20 18 Active polyethylene glycol 3350 (MIRALAX) 17 gram/dose Powder Take 1 SCOOP (17 Grams) by mouth 2 times daily as needed for Constipation Dissolve in 8 ounces of fluid and drink entire liquid. 527 Gram 06/19/20 19 Active senna (EX-LAX) 15 mg Tablet Take 2 Tablets (30 mg) by mouth daily. 30 Tablet 06/19/20 19 Active oxygen home deliveryIndication s:Chronic respiratory failure with hypoxia and hypercapnia (CMS/HCC) PATIENT IS REQUESTING INOGEN OXYGEN Home Oxygen Concentrator yes at 2 L/M Rest, 2 L/M Activity, 2 L/M Sleep, Delivery Device: 2 Portability: yes, 2 L/M Rest, 2 L/M Activity, May evaluate for device best for patient needs(E system,home fill, conserving device) Maintain Sats: > OR = 90%, Length of Need: 12 months 1 Each 07/09/20 19 Active triamcinolone acetonide (KENALOG) 0.1 % Cream APPLY EXTERNALLY TO THE AFFECTED AREA TWICE DAILY 90 Gram 1 08/07/20 19 Active Clobetasol-Emolien t 0.05 % Foam APPLY TO AFFECTED AREA EVERY DAY NEEDED FOR RASH. 100 Gram 5 08/07/[address] 3 Drops under tongue daily. Vitamin D drops Active hypochlorous acid-sodium chlor (AVENOVA) 0.01 % [place], Non-Aerosol Apply to affected area 2 times daily. 38 mL 4 09/17/20 19 Active azaTHIOprine (IMURAN) 50 mg tablet 09/25/20 19 Active fluticasone propionate (FLONASE) 50 mcg/spray [place], Suspension nasal inhaler Administer 2 Sprays in each nostril daily. 16 Gram 06/16/20 20 Active nitroglycerin (NITROSTAT) 0.4 mg Tablet, Sublingual Place 1 Tablet (0.4 mg) under tongue every 5 minutes as needed for Chest Pain. 30 Tablet 1 08/10/20 20 Active EPINEPHrine (EPIPEN) 0.3 mg/0.3 mL Auto-Injector Inject 0.3 mL (0.3 mg) by intramuscular injection see administration instructions. May repeat dose in 10 minutes if needed (disp as 2 paks) 2 Each 2 08/10/20 20 Active Olopatadine 0.6 % [place], Non-Aerosol Administer 2 Sprays in each nostril 2 times daily. 91.5 Gram 4 08/10/20 20 Active lidocaine (LIDODERM) 5 % Adhesive Patch, Medicated APPLY 3 PATCHES TO AFFECTED AREA EVERY 12 HOURS ON AND 12 HOURS OFF. 270 Patch 4 08/10/20 20 Active ondansetron (ZOFRAN) 4 mg Tablet Take 1 Tablet (4 mg) by mouth every 8 hours as needed for Nausea/Emesis. 30 Tablet 2 09/20/20 20 Active mupirocin calcium (Bactroban) 2 % Cream Apply to affected area daily. 60 Gram 2 10/15/20 20 Active pantoprazole (Protonix) 40 mg Tablet, Delayed Release (E.C.) Take 1 Tablet (40 mg) by mouth 2 times daily. 180 Tablet 4 10/15/20 20 Active clopidogreL (PLAVIX) 75 mg TabletIndications: History of TIA (transient ischemic attack) and stroke TAKE 1 TABLET(75 MG) BY MOUTH DAILY 30 Tablet 11 10/15/20 20 Active cycloSPORINE (RESTASIS) 0.05 % emulsion Administer 1 Drop in both eyes 2 times daily. 180 Each 6 10/22/20 20 Active lidocaine (lidocaine viscous 2%) 2 % SolutionIndication s:Stomatitis,Sore in nose 5 mL by Mouth/Throat route every 6 hours as needed for Pain. 100 mL 11/02/20 20 Active Cholecalciferol, Vitamin D3, 50 mcg (2,000 unit) Capsule Take 2,000 Units by mouth daily. 09/08/20 20 Active diltiaZEM (CARDIZEM CD) 240 mg Controlled Delivery 24 hour capsuleIndications :Essential hypertension Take 1 Capsule (240 mg) by mouth daily. 90 Capsule 4 11/02/20 20 Active spironolactone (ALDACTONE) 50 mg tabletIndications: Bilateral edema of lower extremity Take 1 Tablet (50 mg) by mouth 1 time daily as needed for Other (See Comment) (hypertension). 90 Tablet 1 11/02/20 20 Active atorvastatin (LIPITOR) 80 mg tabletIndications: History of TIA (transient ischemic attack) and stroke,Hyperlipide bridget, unspecified hyperlipidemia type Take 1 Tablet (80 mg) by mouth daily at bedtime. TAKE 1 TABLET BY MOUTH LATE IN THE DAY. 90 Tablet 3 11/03/20 20 Active guaiFENesin (MUCINEX) 600 mg Extended Release Biphasic tablet Take 1 Tablet (600 mg) by mouth 2 times daily as needed for Other (See Comment) (congestion). 60 Tablet 3 11/09/19 21 Active albuterol HFA 90 mcg inhaler INHALE 2 PUFFS BY MOUTH EVERY 6 HOURS NEEDED FOR SHORTNESS OF BREATH 8.5 Gram 2 11/21/19 21 Active Dexilant 60 mg Delayed Release capsule TAKE 1 CAPSULE BY MOUTH EVERY DAY 90 Capsule 11 12/17/19 21 Active desvenlafaxine (PRISTIQ) 100 mg Extended Release 24 hour tablet TAKE 1 TABLET BY MOUTH EVERY DAY WITH BREAKFAST 90 Tablet 1 12/19/19 21 Active lubiprostone (Amitiza) 24 mcg CapsuleIndications :Therapeutic opioid induced constipation TAKE 1 CAPSULE (24 MCG) BY MOUTH 2 TIMES DAILY WITH MEALS. 60 Capsule 6 02/03/20 21 Active oxyCODONE (ROXICODONE) 15 mg tabletIndications: Other systemic lupus erythematosus with lung involvement (CMS/HCC),Chronic midline low back pain with bilateral sciatica Take 1 Tablet (15 mg) by mouth 5 times daily. Do not fill until 02/27/2021 Max Daily Amount: 75 mg 150 Tablet 02/03/20 21 Active oxyCODONE (ROXICODONE) 15 mg tabletIndications: Other systemic lupus erythematosus with lung involvement (CMS/HCC),Chronic midline low back pain with bilateral sciatica Take 1 Tablet (15 mg) by mouth 5 times daily. Do not fill until 03/29/2021 Max Daily Amount: 75 mg 150 Tablet 02/03/20 21 Active predniSONE (DELTASONE) 5 mg tabletIndications: Exacerbation of systemic lupus erythematosus (CMS/HCC) Take 1 Tablet (5 mg) by mouth 2 times daily with meals. 180 Tablet 2 02/07/20 21 Active levothyroxine 137 mcg tablet TAKE 1 TABLET BY MOUTH EVERY DAY 90 Tablet 3 02/07/20 21 Active hydrOXYzine HCL (ATARAX) 50 mg tablet TAKE 1 TO 2 TABLETS BY MOUTH DAILY AT BEDTIME 180 Tablet 4 02/07/20 21 Active promethazine (PHENERGAN) 25 mg tablet Take 1 Tablet (25 mg) by mouth every 6 hours as needed for Nausea/Emesis. 90 Tablet 2 02/07/20 21 Active clonazePAM (KlonoPIN) 1 mg tabletIndications: Generalized anxiety disorder TAKE 1 TABLET BY MOUTH TWICE DAILY NEEDED FOR ANXIETY 60 Tablet 2 02/07/20 21 Active carisoprodoL (SOMA) 350 mg tabletIndications: Rheumatoid arthritis involving multiple sites with positive rheumatoid factor (CMS/HCC),Muscle spasm Take 1 Tablet (350 mg) by mouth 4 times daily. 120 Tablet 2 02/07/20 21 Active fluconazole (Diflucan) 100 mg tablet Take 1 Tablet (100 mg) by mouth daily. 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 2 Each 03/24/20 21 Active meclizine (ANTIVERT) 12.5 mg tabletIndications: Dizziness Take 1 Tablet (12.5 mg) by mouth 3 times daily as needed for Dizziness. 60 Tablet 1 04/12/20 21 Active erythromycin (E-MYCIN) 250 mg tablet Take 1 Tablet (250 mg) by mouth 2 times daily before meals. 90 Tablet 04/13/20 21 Active Active Problems Problem Noted Date Diagnosed Date Bilateral lower abdominal pain 06/17/2019 Chronic respiratory failure w/ hypoxia 9 Morbid obesity with body mass index of 40.0-49.9 03/03/2019 Gastroesophageal reflux disease with esophagitis 04/23/2017 Chronic midline low back pain with bilateral sci atica 04/23/2017 Tachycardia 04/23/2017 Therapeutic opioid induced constipation 04/23/20 17 Recurrent major depressive disorder, in full rem ission 04/23/2017 Bilateral edema of lower extremity 04/23/2017 Simple partial seizure disorder 02/01/2016 Antiphospholipid antibody syndrome 02/01/2016 Rheumatoid arthritis involvi ng multiple sites with positive rheumatoid factor 02/01/2016 Obesity, Class II, BMI 35-39.9, with comorbidity 05/22/2015 Systemic lupus erythematosus with lung involveme nt 12/02/2012 Mixed hyperlipidemia 03/10/2010 Immunizations Immunization Administration Dates Next Due (PREVNAR 13)(6 WKS UP) PNEUM OCOCCAL CONJUGATE [...] Never 06/17/2019 How often do you attend sabianist or lutheran serv ices? 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 Gender Identity Not on file Sexual Orientation Not on file Occupation Industry Job Start Date Job End Date Not on file Not on file Not on file Not on file Last Filed Vital Signs Vital Sign Reading Time Taken Comments Blood Pressure 140/100 11/02/2020 9:15 AM [employer] POLISHER Pulse 159 11/02/2020 9:15 AM [employer] Temperature 36.6 C (97.9 F) 11/02/2020 9:15 AM [employer]ER Respiratory Rate 20 11/04/2019 2:34 PM [employer] Oxygen Saturation 97% 11/02/2020 9:15 AM [employer] POLISHER 3L Inhaled Oxygen Concentration - - Weight 110.6 kg (243 lb 12.8 oz) 11/02/2020 9:15 AM [employer] POLISHER Height 170.2 cm (5' 7 ) 11/02/2020 9:15 AM [employer] POLISHER Body Mass Index 38.18 11/02/2020 9:15 AM [employer] POLISHER Plan of Treatment Health Maintenance Due Date Last Done Comments DIABETES ANNUAL FOOT EXAM 1992 DIABETES MICROALBUMIN ANNUAL SCREEN 1992 DTAP/TDAP/TD VACCINES (1 - Tdap) 1993 HEPATITIS B VACCINES (1 of 3 - 19+ 3-dose series) 1993 ZOSTER VACCINE (1 of 2) 1993 FIT-DNA Q 3 years 2019 FIT/FOBT Q 1 year 2019 Flex Sig/CT Colonography Q 5 years 2019 PAP SMEAR 02/15/2020 02/14/2017, 02/03, 09/15/2011, Additional history exists LDL CHOLESTEROL ANNUAL 11/02/2021 0, 11/02/2017, 10/13/2016, Additional history exists CERVICAL CANCER SCREENING 02/14/2022 HPV/Cotest (21-29) 02/14/2022 02/14/2017, 1 11/15/2010, 05/24/2010 HPV/Cotest (30-65) 02/14/2022 02/14/2017, 1 11/15/2010, 05/24/2010 BREAST CANCER SCREENING 05/24/2022 05/24/20 21, 05/18/2017, 06/15/2015, Additional history exists DIABETES HBA1C Q 6 MONTHS 11/29/2023 05/29/2023 INFLUENZA VACCINE (#1) 2024 0, 11/04/2019, 08/20/2019, Additional history exists COLORECTAL SCREENING 08/22/2024 08/22/2019, 08/22/2019, 04/21/2013, Additional history exists Colorectal Cancer Screening 08/22/2024 Preventative Visit- Commercial 11/05/2024 1 01/03/2020, 09/11/2017, 10/13/2016, Additional history exists DIABETES ANNUAL RETINAL EXAM 09/26/2025, 07/30/2023, 06/30/2022, Additional history exists Procedures Procedure Name Priority Date/Time Associated Diagnosis Comments LIPID PANEL Routine 11/02/2020 9:48 AM [employer]ER Mixed hyperlipidemia Encounter for well adult exam with abnormal findings COLONOSCOPY REPORT 08/22/2019 7: 48 AM CDT MAMMO DIAGNOSTIC BILATERAL W OR WO CAD Routine 05/18/2017 1:21 PM CDT Left breast lump CERV/VAG CYTO SCREEN PAP W/HPV Routine 02/14/2017 12:52 PM CDT Visit for gynecologic examination from Last 3 Months or Most Recently Relevant to Health Maintenance Results * (ABNORMAL) LIPID PANEL (11/02/2020 9:48 AM [employer]ISHER) CHOLESTEROL 377(H) <200 mg/dL 11/02/2020 9:35 PM [facility] TRIGLYCERIDE 601(H) <150 mg/dL 11/02/2020 9:35 PM [facility] HDL 63(H) 40 - 59 mg/dL 11/02/2020 9:35 PM [facility] LDL CALCULATED 11/02/2020 9:35 PM [facility] Comment:Calculated LDL is no t accurate when the Triglyceride value exceeds 400. NON-HDL CHOLESTEROL 314(H) <130 mg/dL 11/02/2020 9:35 PM [facility] Blood Venipuncture / Unknown 11/02/2020 9:48 AM [employer] 11/02/2020 8:24 PM [employer] Narrative [facility] - 11/02/2020 9:35 PM [employer] TOTAL CHOLESTEROL mg/dL Desirable <200 Borderline high 200-239 High >=240 TRIGLYCERIDES mg/dL Normal <150 Borderline high 150-199 High 200-499 Very high >=500 HDL CHOLESTEROL mg/dL Low <40 Normal 40-59 Desirable >=60 NON HDL CHOLESTEROL mg/dL Optimal <130 Near Optimal 130-159 Borderline High 160-189 Very High >=190 CALCULATED LDL mg/dL LDL <70, OPTIMAL if have Atherosclerotic cardiovascular disease (ASCVD) or intermediate or higher (>7.5%) 10 year risk of ASCVD including most adults with diabetes. LDL <100, Optimal in adult patients with low (<7.5%) 10 year ASCVD risk LDL 100-160, Suboptimal LDL >160, High LDL >190, Very high ATPIII Guidelines Reference Ranges for Lipid Panels (NCEP/AMA) . Mellisa Schwartz LECTURER IN MARKETING CHEMISTRY ORDERABLES Fin al Result [facility]# [id number] [address] [place] [address] * COLONOSCOPY REPORT (08/22/2019 7:48 AM CDT) Narrative Procedure Note Tien Martin MD - 08/22/2019 7:48 AM CDT [facility] Patient Name: Tereza Flaherty Procedure Date: 08/22/2019 Date of : 1975 Admit Type: Outpatient Age: 43 Attending MD: Tien Martin , Procedure: Colonoscopy Indications: Generalized abdominal pain Providers: Tien Martin Referring MD: Milady Crystal DO, Erica Gail Marriott Medicines: Monitored Anesthesia Care Complications: No immediate complications. Procedure: Pre-Anesthesia Assessment: - The risks and benefits of the procedure and the sedation options and risks were discussed with the patient. All questions were answered and informed consent was obtained. - ASA Grade Assessment: III - A patient with severe systemic disease. After I obtained informed consent, the scope was passed under direct vision. Throughout the procedure, the patient's blood pressure, pulse, and oxygen saturations were monitored continuously. The Colonoscope was introduced through the anus and advanced to 3 cm into the ileum. The colonoscopy was performed without difficulty. The patient tolerated the procedure well. The quality of the bowel preparation was adequate. Estimated Blood Loss: Estimated blood loss: none. Findings: The perianal and digital rectal examinations were normal. The entire examined colon appeared normal on direct and retroflexion views. The terminal ileum appeared normal. Impression: - The entire examined colon is normal on direct and retroflexion views. - The examined portion of the ileum was normal. - No specimens collected. Recommendation: No further GI workup is suggested, recommend symptomatic tx. Tien Martin, 08/22/2019 7:48:20 AM Number of Addenda: 0 Note Initiated On: 08/22/2019 7:20 AM Scope Withdrawal Time 0 hours 6 minutes 10 seconds Scope In: 7:29:50 AM Scope Out: 7:41:05 AM [address] [place] [place], [place] us Tien Martin MD GI PROCEDURE ORDERABLES Final Result * MAMMO DIAGNOSTIC BILATERAL W OR WO [...] one year. Patient received a result/recommendation letter. [id number] Narrative 05/18/2017 3:29 PM CDT Bilateral Diagnostic [...] by the Computer Aided Detection System (CAD), Sur[employer]er, Version 8.3. us Hetal Irwin MD MAMMO ORDERABLES Final Result * CERV/VAG CYTOPATH, THIN PREP HOME CARE RN AND HPV (02/14/2017 12:52 PM CDT) PAP INTERP See Separate Results 02/16/2017 12:23 PM CDT [facility] Genital SWAB OF ENDOCERVIX / Unknown Collection / Unknown 02/14/2017 12:52 PM CDT 02/15/2017 8:31 AM CDT Hetal Irwin MD PATHOLOGY/CYTOLOG Y ORDERABLES Final Result [facility] CLIA# [id number] [address] [place] [address] from Last 3 Months or Most Recently Relevant to Health Maintenance Insurance [facility] CHOICE Advance Directives For more information, please contact: [phone] * Full Code (Latest Code Status on File) Date Activated Date Inactivated Comments 08/22/2019 6:28 AM 08/22/2019 10:20 AM * Full Code Date Activated Date Inactivated Comments 06/17/2019 9:17 PM 06/19/2019 7:48 PM * Full Code Date Activated Date Inactivated Comments 01/15/2019 10:35 AM 01/15/2019 2:29 PM * Full Code Date Activated Date Inactivated Comments 04/18/2013 8:53 AM 04/18/2013 1:40 PM Care Teams Assistant Professor Of Marine Biology Relationship Specialty Start Date End Date Milady Crystal DO [address] [facility] [place] [address] PCP - General Family Practice 03/10/10
--- OUTSIDE RECORDS SUMMARY | 2025-03-19 04:59 | XMS_ITS | Encounter Summary ---
Author Organization [facility] Address [address] [place] [address] Care Team Providers Care Process Analyst Name Role Phone MarahMilady Francesco LONGORIA Primary Care Provider [phone] Encounter Details Date Type Department Care Team (Late st Contact Info) Description 03/09/2025 Orders Only [facility] Health Information Management [place] [address] [place] [address] Provider, Abstract NO ADDRESS ON FILE Social History Tobacco Use Types Packs/Day Years [...] Never 06/17/2019 How often do you attend evangelical or jainism serv ices? 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 Gender Identity Not on file Sexual Orientation Not on file documented as of this encounter Plan of Treatment Upcoming Encounters Date Type Department Care Team (Late st Contact Info) Description 04/15/2025 3:20 PM CDT Video Visit [facility] [address] [place] [facility] [place] [phone] Milady Crystal, DO [address] [place] [facility] [place] [address] 06/16/2025 11:00 AM CDT Video Visit [facility] [address] [place] [facility] [place] [facility] [phone] Milady Crystal, DO [address] [place] [address] 08/13/2025 2:00 PM CDT Video Visit [facility] [address] [place] [address] Milady Crystal, DO [address] [place] [phone] documented as of this encounter Procedures Procedure Name Priority Date/Time Associated Diagnosis Comments DIABETES EYE EXAM Routine 09/26/2024 4:12 PM STORE SALES MANAGER documented in this encounter Results * DIABETES EYE EXAM (09/26/2024 4:12 PM STORE SALES MANAGER) us Abstract Provider HEALTH MAINTENANCE Edited Resu lt - Final documented in this encounter Visit Diagnoses Not on filedocumented in this encounter Care Teams Process Analyst Relationship Specialty Start Date End Date Milady Crystal DO [address] [place] [facility] [place] [phone] PCP - General Family Practice 03/10/10 documented as of this encounter
[2025-03-19 05:29] LABS: Glucose Point of Care 258 mg/dL (70-110)
[2025-03-19] MEDS: labetalol 5 mg/mL SDV 20mL 10 MG IVP (06:07)
[2025-03-19] MEDS: piperacillin-tazobactam 3.375 GM in sodium chloride 0.9% (plus) 50 ML IV ×4 (06:08→23:43)
[2025-03-19] MEDS: pantoprazole DR 40 mg Tablet PO ×2 (06:09→17:11)
--- NOTE | 2025-03-19 06:09 | MR_ITS ---
WS: [id number] MRI THORACIC SPINE WITH CONTRAST TECHNIQUE: Sagittal T1, T2 and STIR imaging. Axial T2 imaging. Post gadolinium imaging was obtained. CLINICAL INFORMATION: Acute Intractable back pain COMPARISON: None. FINDINGS: Mild thoracic curve. Mild thoracic kyphosis. No acute compression fractures. No high-grade central canal stenosis. Cord signal is normal. No abnormal gadolinium enhancement. Moderate facet arthropathy lower thoracic spine. Partially visualized multinodular thyroid. Normal caliber descending thoracic aorta. Adrenal glands are normal. MR/MR thoracic spine wo/w [id number] IMPRESSION: No acute thoracic spine findings.
--- NOTE | 2025-03-19 06:09 | MR_ITS ---
WS: [id number] MRI LUMBAR SPINE WITH CONTRAST TECHNIQUE: Sagittal T1, T2 and STIR imaging. Axial T1 and T2 imaging. Post gadolinium imaging was obtained. CLINICAL INFORMATION: Acute Intractable back pain FINDINGS: Mild lumbar curve. No acute compression. L1-L2: Mild disc bulging. Slight effacement of the ventral thecal sac. Slight narrowing of the RIGHT subarticular recess. Spinal canal and foramen are patent. Mild facet arthropathy. L2-L3: Small RIGHT foraminal protrusion with a small annular fissure. Slight impingement exiting RIGHT L2 nerve root. Mild RIGHT foraminal narrowing. Spinal canal and LEFT foramen are patent. L3-L4: Small RIGHT foraminal protrusion with mild RIGHT foraminal narrowing. Slight contact of the exiting RIGHT L3 nerve root. Spinal canal and LEFT foramen are patent. Mild facet arthropathy. L4-L5: Mild annular bulging. Small LEFT foraminal protrusion with a tiny annular fissure. Mild LEFT foraminal narrowing. Moderate facet arthropathy. L5-S1: Mild annular bulging. Tiny annular fissure. Mild facet arthropathy. Spinal canal and foramen are patent. Visualized pelvic bony structures: Normal. Paravertebral soft tissues: Normal. MR/MR lumbar spine wo/w con [id number] IMPRESSION: 1. No abnormal gadolinium enhancement. 2. Small RIGHT foraminal protrusions at L2-3 and L3-4 with small annular fissu res. Slight impingement on the exiting nerve roots 3. Small LEFT L4-5 foraminal protrusion with a tiny annular tear. 4. Mild lumbar curve. No acute compression fractures. 5. Mild disc bulging L1-2. 6. No high-grade central canal stenosis.
[2025-03-19 06:51] LABS: Glucose Point of Care 220 mg/dL (70-110)
--- NOTE | 2025-03-19 07:06 | ECG_ITS ---
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1975 Requested By: Jade Viera Order Number: [id number] Reading MD: PATTI GONZALEZ Measurements Intervals [place] Rate: 110 P: 48 [place]: 142 QRS: -18 QRSD: 78 T: 25 QT: 325 QTc: 440 Interpretive Statements SINUS TACHYCARDIA MODERATE VOLTAGE CRITERIA FOR LVH, CONSIDER NORMAL VARIANT [MEETS CRITERIA IN ONE OF: R(aVL), S(V1), R(V5), R(V5/V6)+S(V1)] POSSIBLE ANTERIOR MYOCARDIAL INFARCTION , PROBABLY OLD [30 ms Q WAVE IN V3/V4, OR R < 0.2 mV IN V4] ABNORMAL RHYTHM ECG Compared to ECG 03/19/2025 02:33:01 Myocardial infarct finding now present Electronically Signed On 03-19-2025 23:30:15 CDT by PATTI GONZALEZ [email or web address]
[2025-03-19 07:34] LABS: Basophils # 0.1 10^3/uL (0.0-0.1); Basophils % 0.4 %; Eosinophils % 0.3 %; Hematocrit 40.1 % (36-47); Lymphocytes # 2.4 10^3/uL (0.8-4.8); Lymphocytes % 16.1 %; Mean Corpuscular HGB Conc 33.7 g/dL (30-55); Mean Corpuscular Hemoglobin 30.1 pg (27-33); Mean Corpuscular Volume 89.3 fl (85-98); Mean Platelet Volume 8.6 fL (7.4-10.4); Monocytes # 1.4 10^3/uL (0.2-0.9); Monocytes % 9.1 %; Neutrophils # 10.51 10^3/uL (1.8-7.7); Nucleated Red Blood Cells % 0 %; Platelet Count 345 10^3/cmm (157-399); Red Blood Count 4.49 10^6/uL (3.85-5.65); Red Cell Distribution Width 12.6 % (12.1-15.1); White Blood Count 15.01 10^3/uL (3.29-11.43)
[2025-03-19 07:49] LABS: Anion Gap 19.7 (5-19); Blood Urea Nitrogen 10 mg/dL (6-20); Calcium 8.3 mg/dL (8.5-10.5); Carbon Dioxide 23 mmol/L (22-29); Chloride 97 mmol/L (98-107); Creatinine Clr Calc Pharmacy 214.2776; Glucose 215 mg/dL (65-115); Magnesium 1.5 mg/dL (1.7-2.3); Osmolality Calculated 288 mOsm/kg (285-295); Phosphorus 1.8 mg/dL (2.5-4.5); Potassium 3.7 mmol/L (3.5-5.1); Sodium 136 mmol/L (136-145)
[2025-03-19 07:59] LABS: Erythrocyte Sedimentation Rate 6 mm/hr (0-15)
[2025-03-19] MEDS: insulin glargine 100 units/1 mL 10 UNIT SUBCUT ×2 (08:47→21:24)
[2025-03-19] MEDS: ondansetron 4 MG Tablet PO ×2 (08:47→16:08)
[2025-03-19] MEDS: dilTIAZem ER (24HR) 300 mg Capsule PO (08:48)
[2025-03-19] MEDS: folic acid 1 mg Tablet PO (08:48)
[2025-03-19] MEDS: ropinirole 1 mg Tablet PO ×3 (08:48→20:08)
[2025-03-19] MEDS: insulin lispro 100 unit/1 mL SUBCUT ×4 (08:48→21:23)
[2025-03-19] MEDS: clopidogrel 75 mg Tablet PO (08:49)
[2025-03-19] MEDS: predniSONE 10 mg Tablet 30 MG PO (08:49)
[2025-03-19] MEDS: buPROPion SR (12 HR) 150 mg Tablet PO ×2 (08:49→17:11)
[2025-03-19] MEDS: levothyroxine 137 mcg Tablet PO (08:49)
[2025-03-19 08:50] LABS: Glucose Point of Care 229 mg/dL (70-110)
[2025-03-19] MEDS: carvedilol 25 mg Tablet PO ×2 (08:50→17:11)
[2025-03-19] MEDS: cetirizine 10 mg Tablet PO (08:50)
[2025-03-19] MEDS: lactulose oral liq 20 gm/30 mL UDC 30 GM PO (08:50)
--- NOTE | 2025-03-19 11:04 | PC.CHAP ---
Pastoral Care Encounter/Spiritual Assessment Type of Contact [] Declined police manager visit [] Patient/Family/Request visit [] Outpatient visit [] Follow-up visit [] Physician referral [] Code/Alert [x] Routine visit [] Staff referral [] Actively dying [] Patient sleeping [] Family support [] [] Out of room [] Palliative care [] [] Receiving care in room [] Pre-surgical visit [] Trauma [] Long length of stay [] ICU visit [] Other: Relational/Emotional Strength [x] Patient feels connected with others/family/visitors/staff [] Distress [] Loneliness/isolation [] Abandonment Spirituality of Patient [x] Person of Sarah [] Attends Anabaptism of their Sarah [x] Believes in Prayer [] Reads Bible or Advent materials [] There are Spiritual issues to be addressed 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 Interventions [x] Prayer [x] Active listening [x] Non-anxious presence [x] Spiritual/emotional support [] Crisis/trauma care [] Spiritual counseling [] Bereavement support [] Provided bereavement packet [] Provided Bible/devotional materials [] Provided toy/stuffed animal, coloring book to patient or family member [] Provided Communion [] Anointing/[place] [] Salvation [x] Completed spiritual assessment [] Other: Impact on Illness or Injury [] Angry [] Fearful [] Anxious [] Often cries [] Exhaustion [] Unable to work [] Unable to attend congregation [] Unable to walk/stand [] Unable to read [] Unable to drive [] Unable to eat/drink [] Unable to sleep [] Unable to be with family [] Patient intubated [] Other: Summary Time spent with patient 5 min
[2025-03-19] MEDS: gadobenate dimeglumine 20 mL vial IV (11:24)
[2025-03-19 12:04] LABS: Glucose Point of Care 276 mg/dL (70-110)
--- NOTE | 2025-03-19 13:36 | PM.PN ---
Subjective Subjective: Overnight labs and H&P reviewed.. Patient continues to have back pain. Underwent MRI evaluation this afternoon, results are currently pending at this time. Blood sugar is much better controlled this morning. Medications: Reviewed: Yes Vitals/I&O/Wt Last Vital Signs Temp 97.6 F 03/19/25 07:55 Pulse 106 H 03/19/25 07:55 Resp 17 03/19/25 12:58 BP 145/96 03/19/25 07:55 Pulse Ox 96 03/19/25 12:58 O2 Del Method Nasal Cannula 03/19/25 07:55 O2 Flow Rate 4 03/19/25 07:55 03/18/25 03/19/25 03/19/25 22:59 06:59 14:59 Intake Total 0 / 0 3293.7 / 3293.7 1050 / 1050 Balance 0 / 0 3293.7 / 3293.7 1050 / 1050 Weight last 48 hrs Weight 105.823 kg Weight 105.687 kg Weight 99.79 kg Physical Exam Narrative: General: No acute distress, AO x3 HEENT: PERRLA, pupils bilaterally equal and reactive, pallors not present Chest: Normal vesicular breath sounds, no added sounds, equal good air entry bilaterally CVS: S1-S2 regular, no murmurs, no tachycardia, no gallops, no rubs Abdomen: Soft, nontender, no organomegaly, bowel sounds present Neuro: No focal deficits, no facial deformity, AO x3, power 5/5 in all limbs Data 03/19/25 07:19 03/19/25 07:19 Micro: Microbiology 03/18/25 20:55 Blood Culture - Preliminary Blood SPECIMEN COLLECTED 03/18/25 20:50 Blood Culture - Preliminary Blood SPECIMEN COLLECTED A&P Assessment and plan (1) Intractable low back pain: (2) Type 2 diabetes mellitus with hyperosmolar hyperglycemic state (HHS): Plan Tereza Flaherty is a 49 year old female w/ SLE, RA, Sjogren's, Antiphospholipid syndrome, Imer's thyroiditis, osteoarthritis, osteoporosis, Gastroparesis, Anxiety, MDD, HTN, HLD, RLS, who presented to the ED due to Intractable back and abdominal pain. #Acute Intractable Back pain: -point tenderness on exam. Mildly elevated CRP, ordered ESR. Will also order MRI of T & L/spine to r/o fracture and osteomyelitis. - Resume home oxycodone, Carisoprodol, #SIRS - Unclear source. S/p Linezolid & Meropenem in the ED. - F/u MRI, BCx, Sed rate. - Continue Zosyn for now. #Lactic acidosis - resolved w/ bolus IVF. #Hyperglycemic Hyperosmotic state #New? Type II diagnosis -S/p approx 3L in the ED. Give another 2L at 200cc/hr. -Gave another 10units of insulin. Started insulin glargine and sliding scale. -Counseled her extensively on importance of following up w/ BG management & following up with her Pipe Coverer Helper. -On Ozempic at home. She is also actively working to lose weight #Thyroid nodules - Defer to the day hospitalist to order thyroid ultrasound vs referring to the Pipe Coverer Helper for follow-up. The patient does say that the thyroid nodules are known to her before, and she describes a procedure that sounds like FNA of one of the thyroid nodules ordered by her Pipe Coverer Helper. #Imer's thyroiditis -Continue levothyroxine #Antiphospholipid Antibody syndrome: She has never had a DVT/PE - Resume Aspirin. - I am not sure why she is on Plavix. #SLE,RA, Sjogrens - On biologics -Continue Prednisone, Cevilime, lidocaine patch, oxycodone, carisoprodol #Gastroparesis: She sees a Senior Ui Software Engineer in [place] #HTN: S/p Labetalol 10mg IVP x 1. Resume home meds. #GERD #HLD #Anxiety/MDD #Allergic rhinitis #Osteoporosis - Resume home meds #Asthma: duonebs q4h prn. She says that she does not use her inhalers very often. DVT ppx: lovenox. March 19, 2025 49-year-old female with a past medical history of seronegative rheumatoid arthritis, SLE on daily steroid between 10 to 30 mg prednisone daily, Sjogren syndrome, gastroparesis, chronically on 4 L/min supplemental O2 ? ILD, also on Humira currently, history of diabetes mellitus diagnosed in August 2024, however not on any medication for it as patient states that she was unaware of the diagnosis. She presented overnight with worsening back pain which is worse than her baseline pain. She underwent MRI of the thoracic and lumbar spine today which is currently pending. Blood sugar is better controlled today. Serum ketones were positive. Only a mild anion gap this morning at 19.7. Will continue with sliding scale insulin and Lantus is already ordered. Patient will likely need a combination of OHA's and Lantus at the time of discharge. Pending urine and blood cultures to a certain if patient may have an underlying infectious source. CT of the abdomen and pelvis without any acute intra-abdominal events. PDMP PDMP Reviewed: Not Reviewed Attestations Medical Necessity Statement*: Pending MRI results, culture results Coding Level of Care Code Acute Code for Chg Fwd Diagnoses Intractable low back pain M54.59 Type 2 diabetes mellitus with hyperosmolar hyperglycemic state (HHS) E11.00
[2025-03-19 17:38] LABS: Glucose Point of Care 244 mg/dL (70-110)
[2025-03-19] MEDS: ALPRAZolam 0.5 mg Tablet PO (17:45)
[2025-03-19] MEDS: enoxaparin 40 mg/0.4 mL Syringe SUBCUT (20:07)
[2025-03-19] MEDS: atorvastatin 40 mg Tablet 80 MG PO (20:08)
[2025-03-19 20:24] LABS: Glucose Point of Care 325 mg/dL (70-110)
[2025-03-19] MEDS: acetaminophen 325 mg Tablet 650 MG PO (21:32)
[2025-03-20] VITALS (7 sets, daily range): BP systolic 127–172; BP diastolic 79–110; PULSE 88–113; RESP 12–19; TEMP 36.6–36.9; O2SAT 97–99
[2025-03-20] MEDS: oxyCODONE 5 mg IR Tab/Cap 15 MG PO ×2 (01:33→08:38)
[2025-03-20] MEDS: ondansetron 4 MG Tablet PO ×2 (01:36→08:40)
[2025-03-20 03:27] LABS: Glucose Point of Care 139 mg/dL (70-110)
[2025-03-20 04:59] LABS: Basophils # 0.1 10^3/uL (0.0-0.1); Basophils % 0.6 %; Eosinophils # 0.4 10^3/uL (0.0-0.8); Eosinophils % 2.6 %; Hematocrit 39.4 % (36-47); Lymphocytes # 5.1 10^3/uL (0.8-4.8); Lymphocytes % 34.4 %; Mean Corpuscular HGB Conc 32.7 g/dL (30-55); Mean Corpuscular Hemoglobin 29.8 pg (27-33); Mean Platelet Volume 8.9 fL (7.4-10.4); Monocytes # 1.1 10^3/uL (0.2-0.9); Monocytes % 7.6 %; Neutrophils # 7.59 10^3/uL (1.8-7.7); Neutrophils % 51.7 %; Nucleated Red Blood Cells % 0 %; Platelet Count 348 10^3/cmm (157-399); Red Blood Count 4.33 10^6/uL (3.85-5.65); Red Cell Distribution Width 12.8 % (12.1-15.1); White Blood Count 14.72 10^3/uL (3.29-11.43)
[2025-03-20] MEDS: piperacillin-tazobactam 3.375 GM in sodium chloride 0.9% (plus) 50 ML IV (05:04)
[2025-03-20] MEDS: aspirin 81 mg EC Tablet PO (05:05)
[2025-03-20] MEDS: levothyroxine 137 mcg Tablet PO (05:05)
[2025-03-20] MEDS: pantoprazole DR 40 mg Tablet PO (05:05)
[2025-03-20 05:17] LABS: Alanine Aminotransferase 19 U/L (0-33); Albumin Level 3.8 g/dL (3.5-5.2); Alkaline Phosphatase 61 U/L (35-105); Anion Gap 14.2 (5-19); Aspartate Amino Transferase 15 U/L (0-32); Blood Urea Nitrogen 11 mg/dL (6-20); Calcium 9.1 mg/dL (8.5-10.5); Carbon Dioxide 28 mmol/L (22-29); Chloride 99 mmol/L (98-107); Globulin 2.3 g/dL (1.3-4.6); Glomerular Filtration Rate 130.6 mL/min (90-130); Glucose 140 mg/dL (65-115); Osmolality Calculated 288 mOsm/kg (285-295); Phosphorus 3.3 mg/dL (2.5-4.5); Potassium 3.2 mmol/L (3.5-5.1); Sodium 138 mmol/L (136-145); Total Bilirubin 0.3 mg/dL (0.15-1.2); Total Protein 6.1 g/dL (6.6-8.7)
[2025-03-20 06:36] LABS: Glucose Point of Care 210 mg/dL (70-110)
[2025-03-20] MEDS: clopidogrel 75 mg Tablet PO (08:37)
[2025-03-20] MEDS: ropinirole 1 mg Tablet PO (08:38)
[2025-03-20] MEDS: sennosides 8.6 mg Tablet 17.2 MG PO (08:38)
[2025-03-20] MEDS: carvedilol 25 mg Tablet PO (08:38)
[2025-03-20] MEDS: lactulose oral liq 20 gm/30 mL UDC 30 GM PO (08:39)
[2025-03-20] MEDS: predniSONE 10 mg Tablet 30 MG PO (08:40)
[2025-03-20] MEDS: ALPRAZolam 0.5 mg Tablet PO (08:40)
[2025-03-20] MEDS: buPROPion SR (12 HR) 150 mg Tablet PO (08:40)
[2025-03-20] MEDS: dilTIAZem ER (24HR) 300 mg Capsule PO (08:40)
[2025-03-20] MEDS: cetirizine 10 mg Tablet PO (08:40)
[2025-03-20] MEDS: folic acid 1 mg Tablet PO (08:40)
[2025-03-20] MEDS: insulin glargine 100 units/1 mL 10 UNIT SUBCUT (08:45)
[2025-03-20] MEDS: insulin lispro 100 unit/1 mL SUBCUT (09:18)
[2025-03-20] MEDS: lidocaine 5% Patch 1 PATCH TOPICAL (09:19)
[2025-03-20 11:13] LABS: Glucose Point of Care 298 mg/dL (70-110)
--- NOTE | 2025-03-20 15:17 | P.DS_ITS ---
Discharge Providers Date of Admission: 03/19/25 04:10 Date of Discharge: March 20, 2025 Attending Provider at Admission: Jade Viera MD Attending Provider at Discharge: Sarai Pringle MD Primary Care Provider: Milady Crystal DO Diagnoses at Discharge Discharge Diagnosis (1) Intractable low back pain: Status: Acute (2) Type 2 diabetes mellitus with hyperosmolar hyperglycemic state (HHS): Status: Acute Reason for Visit Reason for Visit: weak back pain into stomach Hospital Course Hospital Course Tereza Flaherty is a 49 year old female w/ SLE, RA, Sjogren's, Antiphospholipid syndrome, Imer's thyroiditis, osteoarthritis, osteoporosis, Gastroparesis, Anxiety, MDD, HTN, HLD, RLS, who presented to the ED due to back and abdominal pain. The patient states that she started experiencing back pain that radiated up and down her back, then to her abdomen then every where. Patient has chronic back pain, for which she is currently on opiate therapy. She has tried several pain management strategies in the past and has been recommended to undergo nerve block/ablation however did not proceed with the same as opiates would need to be weaned off prior. She states that the low back pain was worse than her usual pain.. She was noted to have hypertension up to 170/120 mmHg.Blood glucose was 718 upon arrival. Her A1c was at 10.6. Patient states she was not aware of the diagnosis of diabetes mellitus though from August 2024 her A1c was noted to be at 7.4. She was admitted and treated for hyperosmolar hyperglycemic state. Serum ketones were initially positive. She received insulin pushes and then was transitioned to Lantus insulin along with lispro Premeal insulin following which her blood sugars were very well-controlled in the 120-170 range. Discussed with the patient the option to start once daily Lantus along with Jardiance versus combination of Lantus plus lispro insulin. Out of the 2 patient opted to proceed with Lantus plus lispro combination. She is recommended to follow-up with her nursing agency manager Dr. Hamilton and also her primary care physician Dr. Crystal in [place]. For her abdominal pain she underwent o CT of the abdomen and pelvis which did not show any acute intracranial abnormalities. For the back pain she underwent MRI of the thoracic and lumbar spine of which lumbar spine CT noted Slight impingement on the exiting nerve roots at L2-3 and L3-4. Patient did not have any current neurological deficits. She states she has had radiating pain which has been worsening over the past 2 years. Additionally noted that she has had issues with urinary incontinence for about 2 years. Since there were no current neurological deficits, patient was recommended to follow-up with Dr. Agrawal as an outpatient to assess for potential surgical intervention if indicated once her HbA1c is under better control. Spinal canal and foramen were noted to be patent. She had a leukocytosis of 14,000 on the day of discharge, however she remained afebrile. Blood culture is negative thus far. UA showed ketones, negative leukocyte esterase, negative nitrate, findings not consistent with a UTI. Chest x-ray was negative for any acute findings. In reviewing patient's past numbers, patient's baseline WBC count appears to be between 10-15,000 previously. This may be related to chronic steroid use related to her SLE. She is being discharged today in stable condition Physical Exam Narrative: General: No acute distress, AO x3 HEENT: PERRLA, pupils bilaterally equal and reactive, pallors not present Chest: Normal vesicular breath sounds, no added sounds, equal good air entry bilaterally CVS: S1-S2 regular, no murmurs, no tachycardia, no gallops, no rubs Abdomen: Soft, nontender, no organomegaly, bowel sounds present Neuro: No focal deficits, no facial deformity, AO x3, power 5/5 in all limbs Discharge Data Studies Completed and Pending Completed Studies During Hospitalization Category Date Time Status CT chest abdomen pelvis [CT chest abdpel w/*[id number] Cat Scan 03/18/25 21:19 Completed ] Stat XR chest 1V portable [id number] Stat Exams 03/18/25 20:26 Completed MR lumbar spine wo/w con [id number] Routine MRI 03/19/25 06:09 Completed MR thoracic spine wo/w [id number] Routine MRI 03/19/25 06:09 Completed Pending at discharge Category Date Time Status Blood Culture Stat Lab 03/18/25 20:55 Results Radiology Impressions Chest X-Ray 03/18/25 20:26 IMPRESSION: No acute findings. Chest/Abdomen/Pelvis CT 03/18/25 21:19 IMPRESSION: 1. Bibasilar atelectasis. 2. Coronary artery atherosclerotic calcifications. 3. Left thyroid lobe demonstrates several low-density nodules measuring 19 mm, dedicated thyroid ultrasound advised for further evaluation. IMPRESSION: 1. Prominent fluid in the stomach and small bowel, please correlate for a gastroenteritis. 2. Moderate constipation. 3. Fatty replacement of the pancreas, largely involving the head. Lumbar Spine MRI 03/19/25 06:09 IMPRESSION: 1. No abnormal gadolinium enhancement. 2. Small RIGHT foraminal protrusions at L2-3 and L3-4 with small annular fissures. Slight impingement on the exiting nerve roots 3. Small LEFT L4-5 foraminal protrusion with a tiny annular tear. 4. Mild lumbar curve. No acute compression fractures. 5. Mild disc bulging L1-2. 6. No high-grade central canal stenosis. Thoracic Spine MRI 03/19/25 06:09 IMPRESSION: No acute thoracic spine findings. Laboratory Results WBC 14.72 10^3/uL (3.29-11.43) H 03/20/25 04:11 RBC 4.33 10^6/uL (3.85-5.65) 03/20/25 04:11 Hgb 12.90 g/dL (11.27-16.99) 03/20/25 04:11 Hct 39.4 % (36-47) 03/20/25 04:11 MCV 91.0 fl (85-98) 03/20/25 04:11 MCH 29.8 pg (27-33) 03/20/25 04:11 MCHC 32.7 g/dL (30-55) 03/20/25 04:11 RDW 12.8 % (12.1-15.1) 03/20/25 04:11 Plt Count 348 10^3/cmm (157-399) 03/20/25 04:11 MPV 8.9 fL (7.4-10.4) 03/20/25 04:11 Neut % (Auto) 51.7 % 03/20/25 04:11 Lymph % (Auto) 34.4 % 03/20/25 04:11 [place] % (Auto) 7.6 % 03/20/25 04:11 Eos % (Auto) 2.6 % 03/20/25 04:11 Baso % (Auto) 0.6 % 03/20/25 04:11 Neut # (Auto) 7.59 10^3/uL (1.8-7.7) 03/20/25 04:11 Lymph # (Auto) 5.1 10^3/uL (0.8-4.8) H 03/20/25 04:11 [place] # (Auto) 1.1 10^3/uL (0.2-0.9) H 03/20/25 04:11 Eos # (Auto) 0.4 10^3/uL (0.0-0.8) 03/20/25 04:11 Baso # (Auto) 0.1 10^3/uL (0.0-0.1) 03/20/25 04:11 Nucleated RBC % (auto) 0 % 03/20/25 04:11 Nucleated RBCs # 0.0 /100WBC 03/20/25 04:11 ESR 6 mm/hr (0-15) 03/19/25 07:19 Specimen Type Arterial 03/18/25 21:38 Sample Site Radial, left 03/18/25 21:38 ABG pH 7.39 (7.35-7.45) 03/18/25 21:38 ABG pCO2 35.4 mmHg (35-45) 03/18/25 21:38 ABG pO2 98.1 mmHg (80.0-100.0) 03/18/25 21:38 ABG PO2/FiO2 Ratio 306 03/18/25 21:38 ABG HCO3 21.4 mmol/L (22-26) L 03/18/25 21:38 ABG O2 Saturation 97.5 03/18/25 21:38 ABG Base Excess -3.0 mmol/L (-2.0-2.0) L 03/18/25 21:38 Denis Test Pos 03/18/25 21:38 A-a O2 Gradient 10.6 mmHg (5-10) H 03/18/25 21:38 Hematocrit 38.3 % (37-47) 03/18/25 21:38 Hgb O2 Saturation 98.2 % (95-100) 03/18/25 21:38 Carboxyhemoglobin 0.5 %THgb (0.4-20.1) 03/18/25 21:38 Methemoglobin < 0.0 % (0.4-1.5) L 03/18/25 21:38 Total Hemoglobin 12.5 g/dL (12-16) 03/18/25 21:38 Sodium 134.0 mmol/L (131-143) 03/18/25 21:38 Potassium 3.9 mmol/L (3.5-5.0) 03/18/25 21:38 Glucose 675.0 mg/dL (70-115) H 03/18/25 21:38 Ionized Calcium 1.2 mmol/L (1.1-1.4) 03/18/25 21:38 O2 Delivery Device Nc 03/18/25 21:38 O2 Liters/Min 3.0 % 03/18/25 21:38 FiO2 32.0 % 03/18/25 21:38 Engineering Laboratory Technician ID Ed 03/18/25 21:38 Sodium 138 mmol/L (136-145) 03/20/25 04:11 Potassium 3.2 mmol/L (3.5-5.1) L 03/20/25 04:11 Chloride 99 mmol/L (98-107) 03/20/25 04:11 Carbon Dioxide 28 mmol/L (22-29) 03/20/25 04:11 Anion Gap 14.2 (5-19) 03/20/25 04:11 BUN 11 mg/dL (6-20) 03/20/25 04:11 Creatinine 0.5 mg/dL (0.5-0.9) 03/20/25 04:11 GFR Calculation 130.6 mL/min (90-130) H 03/20/25 04:11 Glucose 140 mg/dL (65-115) H 03/20/25 04:11 POC Glucose 298 mg/dL (70-110) H 03/20/25 11:09 Estimat Average Glucose 258 03/18/25 20:32 Hemoglobin A1c 10.6 % (4.0-6.0) H 03/18/25 20:32 Calculated Osmolality 288 mOsm/kg (285-295) 03/20/25 04:11 Lactic Acid 1.7 mmol/L (0.5-2.2) 03/19/25 03:06 Lactic Acid (Sepsis) 5.9 mmol/L (0.5-2.2) H* 03/18/25 22:45 Calcium 9.1 mg/dL (8.5-10.5) 03/20/25 04:11 Phosphorus 3.3 mg/dL (2.5-4.5) D 03/20/25 04:11 Magnesium 1.5 mg/dL (1.7-2.3) L 03/19/25 07:19 Total Bilirubin 0.3 mg/dL (0.15-1.2) 03/20/25 04:11 AST 15 U/L (0-32) 03/20/25 04:11 ALT 19 U/L (0-33) 03/20/25 04:11 Alkaline Phosphatase 61 U/L (35-105) 03/20/25 04:11 Troponin T Baseline < 6 ng/L (0-10) 03/18/25 20:32 Troponin T 120 Minute < 6.0 ng/L (0-10) 03/18/25 22:45 Delta Troponin T 0 ABS# (0-10) 03/18/25 22:45 Troponin T Hi Sens 6Hr < 6.0 ng/L (0-10) 03/19/25 03:06 Troponin T Hi Sens 6Hr Delta 0 ng/L (0-12) 03/19/25 03:06 C-Reactive Protein 7.0 mg/L (0.0-4.9) H 03/18/25 20:32 NT-Pro-B Natriuret Pep < 36 pg/mL (0-125) 03/18/25 20:32 Total Protein 6.1 g/dL (6.6-8.7) L 03/20/25 04:11 Albumin 3.8 g/dL (3.5-5.2) 03/20/25 04:11 Globulin 2.3 g/dL (1.3-4.6) 03/20/25 04:11 Urine Color Yellow (Yellow) 03/18/25 20:15 Urine Appearance Clear (CLEAR) 03/18/25 20:15 Urine pH 5.5 (5-7) 03/18/25 20:15 Ur Specific [place] 1.039 (1.005-1.030) H 03/18/25 20:15 Urine Protein Negative (Negative) 03/18/25 20:15 Urine Glucose (UA) 3+ (Normal) H 03/18/25 20:15 Urine Ketones 1+ (Negative) H 03/18/25 20:15 Urine Blood Negative (Negative) 03/18/25 20:15 Urine Nitrate Negative (Negative) 03/18/25 20:15 Urine Bilirubin Negative (Negative) 03/18/25 20:15 Urine Urobilinogen 0.2 mg/dL (Negative) 03/18/25 20:15 Ur Leukocyte Esterase Negative (Negative) 03/18/25 20:15 Urine RBC 0-2 /hpf (0-2) 03/18/25 20:15 Urine WBC 0-5 /hpf (0-5) 03/18/25 20:15 Ur Squamous Epith Cells 0-5 /hpf (0-5) 03/18/25 20:15 Amorphous Sediment Not Reportable 03/18/25 20:15 Urine Bacteria None seen /hpf (NONE) 03/18/25 20:15 Hyaline Casts 0-4 /lpf H 03/18/25 20:15 Urine Opiates Screen Negative ng/mL (Negative) 03/18/25 20:15 Ur Barbiturates Screen Negative ng/mL (Negative) 03/18/25 20:15 Ur Phencyclidine Scrn Negative ng/mL (Negative) 03/18/25 20:15 Ur Amphetamines Screen Negative ng/mL (Negative) 03/18/25 20:15 U Benzodiazepines Scrn Positive ng/mL (Negative) H 03/18/25 20:15 Urine Cocaine Screen Negative ng/mL (Negative) 03/18/25 20:15 U Marijuana (THC) Screen Negative ng/mL (Negative) 03/18/25 20:15 Serum Ketones Positive (Negative) H 03/18/25 20:32 Influenza A (PCR) Negative (Negative) 03/18/25 21:18 Influenza Type B (PCR) Negative (Negative) 03/18/25 21:18 RSV (PCR) Negative (Negative) 03/18/25 21:18 SARS-CoV-2 (PCR) Negative (Negative) 03/18/25 21:18 Vitals Last Vital Signs Temp 98.3 F 03/20/25 08:00 Pulse 100 03/20/25 11:55 Resp 17 03/20/25 11:55 BP 137/97 03/20/25 11:55 Pulse Ox 99 03/20/25 11:55 O2 Del Method Nasal Cannula 03/20/25 04:00 O2 Flow Rate 4 03/19/25 16:00 Discharge Plan Discharge Patient Disposition: Home Condition: Stable Prescriptions: New levofloxacin 750 mg tablet 750 mg PO DAILY 3 Days Qty: 3 0RF insulin glargine [Lantus Solostar U-100 Insulin] 100 unit/mL (3 mL) insulin pen 20 unit SUBCUT DAILY 30 Days Qty: 15 0RF insulin lispro [Humalog KwikPen Insulin] 100 unit/mL insulin pen See Rx Instructions .ROUTE .COMPLEX Qty: 15 0RF Rx Instructions: per sliding scale as instructed (DME) pen needle, diabetic [Pen Needle] 32 gauge x 5/32 needle See Rx Instructions .Route Qty: 100 0RF Rx Instructions: As directed Continued aspirin [Adult Aspirin Regimen] 81 mg tablet,delayed release (DR/EC) 81 mg PO QAM levothyroxine 137 mcg capsule 137 mcg PO QAM albuterol sulfate 90 mcg/actuation HFA aerosol inhaler 2 puff INHALATION Q6H PRN (Reason: Shortness Of Breath) epinephrine [EpiPen] 0.3 mg/0.3 mL auto-injector 0.3 mg IM Q10M PRN (Reason: Allergic Reaction) cetirizine [Zyrtec] 10 mg tablet 10 mg PO DAILY oxycodone 15 mg tablet 15 mg PO Q4H MDD 5x daily PRN (Reason: Pain) pantoprazole [Protonix] 40 mg tablet,delayed release (DR/EC) 40 mg PO BID Qty: 60 3RF adalimumab-adaz [Hyrimoz(CF)] 40 mg/0.4 mL syringe See Rx Instructions SUBCUT .COMPLEX Qty: 0.8 5RF Rx Instructions: inject one - 40 mg/0.4 mL syringe every 2 weeks SUBCUT potassium chloride 10 mEq Capsule, Extended Release 10 meq PO DAILY meclizine 12.5 mg Tablet 12.5 mg PO PRN PRN (Reason: Nausea And Vomiting) cevimeline 30 mg Capsule 30 mg PO TID lidocaine 5 % Adhesive Patch,Medicated 1 patch TOPICAL DAILY PRN (Reason: Pain) fluticasone propionate 50 mcg/actuation [place],Suspension 1 spray INTRANASAL DAILY PRN (Reason: Allergic Symptoms) triamcinolone acetonide 0.1 % cream 1 applic TOPICAL BID PRN (Reason: Rash) acetaminophen [Tylenol Extra Strength] 500 mg Tablet 1,000 mg PO PRN PRN (Reason: Pain) carvedilol 25 mg tablet 25 mg PO BID prochlorperazine maleate 10 mg tablet 10 mg PO Q6H PRN (Reason: Nausea/emesis) bupropion HCl 150 mg tablet sustained-release 12 hr 150 mg PO BID carisoprodol 350 mg tablet 350 mg PO Q8H PRN (Reason: Spasms) clopidogrel 75 mg tablet 75 mg PO DAILY sumatriptan succinate 50 mg tablet 50 mg PO PRN PRN (Reason: Migraine Headache) solifenacin 10 mg tablet 10 mg PO DAILY metoclopramide HCl 10 mg tablet 10 mg PO QID PRN (Reason: Nausea) folic acid 1 mg tablet 1 mg PO DAILY lidocaine HCl 3 % cream 3 applic topical PRN ondansetron HCl 4 mg tablet 4 mg PO Q4H PRN (Reason: Nausea) Xiidra 5 % dropperette 1 drp ophthalmic (eye) BID acyclovir 800 mg tablet 800 mg PO TID atorvastatin 80 mg tablet 80 mg PO BEDTIME ropinirole 1 mg tablet 1 mg PO TID alprazolam 0.5 mg tablet 0.5 mg PO BID PRN (Reason: Anxiety) methenamine hippurate 1 gram tablet 1 g PO BID naloxone 4 mg/actuation spray,non-aerosol See Rx Instructions .ROUTE .COMPLEX Rx Instructions: SPRAY 1 SPRAY INTO ONE NOSTRIL NEEDED. CALL 911. REPEAT AFTER 2-3 MIN IF NO OR MINIMAL RESPONSE. Ozempic 0.25 mg or 0.5 mg (2 mg/3 mL) pen injector 0.5 mg SUBCUT Q7D Rx Instructions: Tuesdays diltiazem HCl 360 mg capsule,extended release 24hr 360 mg PO DAILY desvenlafaxine succinate 100 mg tablet extended release 24 hr 100 mg PO QAM prednisone 10 mg tablet 10 - 30 mg PO QAM hydrochlorothiazide 25 mg tablet 25 mg PO DAILY PRN (Reason: Edema) mupirocin 2 % ointment 1 applic topical BID PRN (Reason: Skin Irritation) cholecalciferol (vitamin D3) 50 mcg (2,000 unit) capsule 2,000 unit PO DAILY Discharge Orders: Discharge Order (Routine); Ordered 03/20/25 Ordered By: Sarai Pringle Referrals: [facility] [place] Charly Agrawal DO [Physician, Orthopedics] - 03/31/25 2:30 pm Referral Note: hospital discharge f/up for worsening back pain. MRI w/Slight impingement on the exiting nerve roots L2-3 and L3-4 Willian Hamilton MD [Physician, Endocrinology] - 04/06/25 10:30 am Referral Note: established patient with new DM diagnosis started on Insulin. Milady Crystal DO [Primary Care Provider, [facility]] - 03/23/25 1:45 pm Discharge Diet: Diabetic Discharge Activity: Resume usual activity Patient Instructions: Type 2 Diabetes, Diabetes and Diet, Levofloxacin (By mouth), Insulin Glargine (By injection), Insulin Lispro (By injection), How to Give an Insulin Injection (DC), Hypertension and Diabetes (DC), Opioid Safety Activity Restrictions/Additional Instructions: Take insulin lispro before meals per sliding scale as below: Please bring a log of your blood sugar readings to your PCP and Dr. Hamilton appointment blood sugar / insulin units 141-180: 2 units 181-220: 4 units 221-260: 6 units 261-300: 8 units 301-350: 10 units 351-400: 12 units > 400 : 14 units Discharge Attestations Time Spent in Discharge Care*: greater than 30 min Status at Discharge: Cognitive status at discharge: cognitively intact , Behavioral status at discharge: cooperative , Quality Metrics Clinical Quality Measures [ No reported AMI, CVA or VTE this stay] Coding Level of Care Code Acute Code for Chg Fwd Diagnoses Intractable low back pain M54.59 Type 2 diabetes mellitus with hyperosmolar hyperglycemic state (HHS) E11.00
== END 2025-03-20 11:56 | disposition home or self-care (01) | DRG 638 ==
LOC: ER 23:11 → ER IP 03-19 01:55 → CSU 03-19 04:57
PROVIDERS: Admitting Provider Internal Medicine; Emergency Provider Emergency Medicine; PCP Family Medicine; Visit Provider Student in an Organized Health Care Education/Training Program
DX: E11.00 Type 2 diabetes mellitus with hyperosmolarity without nonketotic hyperglycemic-hyperosmolar coma (NKHHC) (principal); D68.61 Antiphospholipid syndrome; E87.20 Acidosis, unspecified; E87.1 Hypo-osmolality and hyponatremia; J96.11 Chronic respiratory failure with hypoxia; R65.10 Systemic inflammatory response syndrome (SIRS) of non-infectious origin without acute organ dysfunction; E11.43 Type 2 diabetes mellitus with diabetic autonomic (poly)neuropathy; K31.84 Gastroparesis; M32.9 Systemic lupus erythematosus, unspecified; M06.00 Rheumatoid arthritis without rheumatoid factor, unspecified site; M35.00 Sjogren syndrome, unspecified; E06.3 Autoimmune thyroiditis; M81.0 Age-related osteoporosis without current pathological fracture; F41.9 Anxiety disorder, unspecified; F32.9 Major depressive disorder, single episode, unspecified; I10 Essential (primary) hypertension; E78.5 Hyperlipidemia, unspecified; G25.81 Restless legs syndrome; G89.4 Chronic pain syndrome; E04.1 Nontoxic single thyroid nodule; K59.00 Constipation, unspecified; E86.0 Dehydration; R00.0 Tachycardia, unspecified; D47.2 Monoclonal gammopathy; M79.7 Fibromyalgia; M47.812 Spondylosis without myelopathy or radiculopathy, cervical region; M47.816 Spondylosis without myelopathy or radiculopathy, lumbar region; E55.9 Vitamin D deficiency, unspecified; E66.01 Morbid (severe) obesity due to excess calories; Z68.35 Body mass index [BMI] 35.0-35.9, adult; Z79.82 Long term (current) use of aspirin; Z79.891 Long term (current) use of opiate analgesic; Z79.02 Long term (current) use of antithrombotics/antiplatelets; Z79.85 Long-term (current) use of injectable non-insulin antidiabetic drugs
CPT/HCPCS: 36415; 36416; 36600; 71045; 71260; 72157; 72158; 74177; 80048; 80051; 80053; 80306; 81001; 82009; 82330; 82805; 82962; 83036; 83605; 83735; 83880; 84100; 84484; 85025; 85651; 86140; 87040; 87637; 93005; 96365; 96372; 96375; 96376; 99285; J1171; J1650; J1815; J2020; J2185; J2360; J2405; J2543; J3490; J7030; J7512; J9999; Q0162

== ENCOUNTER → 2025-05-29 13:05 | Outpatient (BNVA) | payer OTHER, SELFPAY | PROVIDERS: PCP Family Medicine; Visit Provider Internal Medicine | DX: E11.9 Type 2 diabetes mellitus without complications (principal); M81.0 Age-related osteoporosis without current pathological fracture; E04.1 Nontoxic single thyroid nodule | CPT/HCPCS: 36415; 80053; 84681; 86337; 86341 ==

== ENCOUNTER 2025-06-05 15:25 | Oncology outpatient (recurring) (ONCR) | payer OTHER, SELFPAY ==
--- NOTE | 2025-06-05 15:30 | US_ITS ---
WS: [id number] ULTRASOUND THYROID TECHNIQUE: Ultrasound of the thyroid. CLINICAL INFORMATION: see below COMPARISON: 05/03/2023 prior FNA. FINDINGS: Prior FNA of the LEFT mid and inferior thyroid nodules. Thyroid: Heterogeneous thyroid echotexture bilaterally with thickened isthmus measuring 6 mm. 3 LEFT nodules visualized today with associated peripheral vascularity. nodule #1 measures 1.8 x 1.7 x 2.2 cm in the mid thyroid with a complex cystic and solid appearance Nodule #2 mid thyroid measures 2.3 x 2.1 x 2.4 cm with a complex cystic and solid appearance Nodule #3 in the upper thyroid measures 1.8 x 1.6 x 1.9 cm with a complex cystic and solid appearance abutting the isthmus Right thyroid lobe: 3.7 cm x 1.5 cm x 1.4 cm Left thyroid lobe: 6.1 cm x 3.2 cm x 2.6 cm. Isthmus: 6 mm. Cervical lymphadenopathy: None. US/US thyroid [id number] IMPRESSION: 1. 3 LEFT thyroid nodules with a complex appearance the largest in the mid thy roid measuring 2.3 x 2.1 x 2.4 cm. Visualized nodules are similar in appearance to the prior partial study from the FNA in 2022. 2. TI-RADS category 4 pertains to all 3 left-sided nodules which are similar i n appearance TIRADS Category 4: Moderately suspicious (total points = 4) FNA if 1.5 cm Follow if 1 cm (at 1, 2, 3, and 5 years)
== END 2025-07-05 23:59 | disposition home or self-care (01) ==
LOC: RAD 15:25 → ONCMED 06-08 08:59
PROVIDERS: PCP Family Medicine; Visit Provider Internal Medicine Rheumatology
DX: M81.0 Age-related osteoporosis without current pathological fracture (principal); E04.2 Nontoxic multinodular goiter; E11.9 Type 2 diabetes mellitus without complications; R93.89 Abnormal findings on diagnostic imaging of other specified body structures
CPT/HCPCS: 76536

== ENCOUNTER → 2025-10-13 14:11 | Outpatient (BNVA) | payer OTHER, SELFPAY | PROVIDERS: PCP Family Medicine; Visit Provider Internal Medicine Rheumatology | DX: M32.9 Systemic lupus erythematosus, unspecified (principal); Z79.899 Other long term (current) drug therapy | CPT/HCPCS: 36415; 73630; 80076; 82306; 82565; 85025; 85651; 86140; 86480 ==